=== PATIENT | female | born 1930 | race Caucasian/White ===

== ENCOUNTER 2016-09-02 11:29 | Outpatient (CLI) ==
[2012-12-30 11:12] VITALS: TEMP 98
[2016-03-29 12:40] VITALS: BMI 29.6
[2016-09-02 12:11] LABS: BASOPHILS # (AUTO) 0.1 K/uL (0-0.2); BASOPHILS % (AUTO) 0.6 % (0.0-3.0); EOSINOPHILS # (AUTO) 0.1 K/ul (0.0-0.7); EOSINOPHILS % (AUTO) 0.9 % (0.0-7.0); HEMATOCRIT 31.7 % (37.0-47.0); HEMOGLOBIN 10.2 g/dl (12.0-16.0); IMMATURE GRANULOCYTE % (AUTO) 0.4 % (0.0-5.0); LYMPHOCYTES # (AUTO) 3.9 K/uL (0.60-3.4); LYMPHOCYTES % (AUTO) 37.6 (10.0-50.0); MEAN CORPUSCULAR HEMOGLOBIN 29.2 pg (27.0-31.0); MEAN CORPUSCULAR HGB CONC 32.2 (31.8-35.4); MEAN CORPUSCULAR VOLUME 90.8 fl (81.0-99.0); MONOCYTES # (AUTO) 0.6 K/uL (0.4-2.0); MONOCYTES % (AUTO) 5.5 (0-10); NEUTROPHILS # (AUTO) 5.7 K/ul (2.0-6.9); PLATELET COUNT 220 10^3/uL (140-440); RED BLOOD COUNT 3.49 10^6/ul (4.20-5.40); WHITE BLOOD COUNT 10.25 K/ul (4.6-10.2)
[2016-09-02 12:20] LABS: BILIRUBIN,URINE Negative (NEGATIVE); KETONES,URINE Negative (NEGATIVE); LEUKOCYTE ESTERASE ,URINE Negative (NEGATIVE); NITRITE,URINE Negative (NEGATIVE); PROTEIN,URINE Negative (NEGATIVE); URINE, BLOOD Negative (NEGATIVE)
[2016-09-02 12:23] LABS: ADD URINE MICROSCOPIC NO
[2016-09-02 12:29] LABS: ALBUMIN 3.1 g/dL (3.4-5.0); ALBUMIN/GLOBULIN RATIO 1.15; BILIRUBIN,TOTAL 0.41 mg/dL (0.00-1.20); BUN/CREATININE RATIO 19.78; CALCIUM 9.9 mg/dL (8.2-10.2); CREATININE 2.73 mg/dL (0.60-1.30); TOTAL PROTEIN 5.8 g/dL (5.8-8.1)
--- NOTE | 2016-09-02 13:55 | CT ---
Examination: Noncontrast CT imaging of the head with axial, sagittal, and coronal reformats. Comparison: None available. Reason for study: Fall, hit head, dizziness. FINDINGS: No acute intracranial hemorrhage, mass effect, ventricular dilatation, or territorial inf arction. The quadrigeminal and ambient cisterns are patent. Intracranial structures are midline. The calvarium is intact. The paranasal sinuses and mastoid air cells are unopacified. There may be a component of tonsillar ectopia. Parenchymal changes are noted consistent with chronic small vesse l disease. Impression: 1. No acute intracranial findings. 2. Possible tonsillar ectopia.
--- NOTE | 2016-09-02 13:56 | CT ---
Exam: CT maxillofacial without contrast History: Fall with injury and pain Technique: [address] maxillofacial with multiplanar reformations FINDINGS: Paranasal sinuses are clear. The orbits are intact. Zygoma and nasal bones are intact. The maxilla and mandible are intact. Impression: 1. No facial fracture
--- NOTE | 2016-09-02 13:57 | CT ---
EXAM: CT thoracic spine without contrast. HISTORY: Initial presentation for back injury due to fall. COMPARISON: None available. TECHNIQUE: Multiple axial images of the thoracic spine were obtained without intravenous contrast. Images were reformatted in the sagittal and coronal planes. FINDINGS: The normal curvature and alignment are maintained. Vertebral body and intervertebral dis c heights are normal. No fracture or subluxation is seen. No significant central canal stenosis id entified. Old left posterior tenth rib fracture noted. Adjacent soft tissues are unremarkable. Mild fibrosis in the posterior aspect of both lower lobes. Atherosclerotic calcifications are present. IMPRESSION: No acute abnormality of the thoracic spine.
--- NOTE | 2016-09-02 13:57 | CT ---
EXAM: CT chest without contrast. HISTORY: Initial presentation for chest trauma due to a fall. Chest and back pain. Dizziness. COMPARISON: Radiograph 03/29/2016. TECHNIQUE: Multiple axial images of the chest were obtained without intravenous contrast. Images w ere reformatted in the sagittal and coronal planes. FINDINGS: Evaluation for lymphadenopathy is limited due to lack of intravenous contrast. Left lobe thyroid is absent. Right thyroid lobe is mildly enlarged. There has been previous sternotomy. By pass graft arising off the left axillary artery courses into the abdomen, incompletely imaged. Athe rosclerotic calcifications are present. Heart size is normal. There is no pericardial effusion. There is a right lower lobe scarring noted. There is mild fibrosis in the posterior aspect of both lower lobes. No consolidation, pleural effusion or pneumothorax identified. Old left posterior tenth rib fracture is stable. No acute osseous abnormality detected. IMPRESSION: No acute post-traumatic abnormality of the chest.
== END 2016-09-02 11:30 | disposition home or self-care (01) ==
LOC: RAD 11:29
PROVIDERS: ATTEND Emergency Medicine
DX: R42 Dizziness and giddiness (principal); E11.9 Type 2 diabetes mellitus without complications; I10 Essential (primary) hypertension; S09.90XA Unspecified injury of head, initial encounter; W19.XXXA Unspecified fall, initial encounter
CPT/HCPCS: 36415; 80053; 81001; 85025

== ENCOUNTER 2016-12-03 13:27 | Outpatient (CLI) | payer OTHER ==
[2012-12-30 11:12] VITALS: TEMP 98
[2016-03-29 12:40] VITALS: BMI 29.6
[2016-12-03 14:04] LABS: HEMATOCRIT 35.5 % (37.0-47.0); HEMOGLOBIN 11.7 g/dl (12.0-16.0); MEAN CORPUSCULAR HEMOGLOBIN 29.9 pg (27.0-31.0); MEAN CORPUSCULAR VOLUME 90.8 fl (81.0-99.0); RED BLOOD COUNT 3.91 10^6/ul (4.20-5.40); WHITE BLOOD COUNT 10.72 K/ul (4.6-10.2)
[2016-12-03 14:13] LABS: ALBUMIN 3.4 g/dL (3.4-5.0); ANION GAP 15.2; BUN/CREATININE RATIO 21.73; CALCIUM 9.2 mg/dL (8.2-10.2); CREATININE 1.38 mg/dL (0.60-1.30); PHOSPHORUS 3.4 mg/dL (2.8-4.1); POTASSIUM 4.2 mmol/L (3.5-5.10); URIC ACID 7.5 mg/dL (2.4-6.0)
== END 2016-12-03 13:28 | disposition home or self-care (01) ==
LOC: LAB 13:27
PROVIDERS: ATTEND Specialist
DX: N18.3 Chronic kidney disease, stage 3 (moderate) (principal)
CPT/HCPCS: 36415; 80069; 83970; 84550; 85027

== ENCOUNTER 2017-01-28 14:25 | Outpatient (CLI) ==
[2012-12-30 11:12] VITALS: TEMP 98
[2016-03-29 12:40] VITALS: BMI 29.6
[2017-01-28 15:16] LABS: HEMATOCRIT 37.7 % (37.0-47.0); HEMOGLOBIN 12.4 g/dl (12.0-16.0); MEAN CORPUSCULAR HEMOGLOBIN 30.1 pg (27.0-31.0); MEAN CORPUSCULAR HGB CONC 32.9 (31.8-35.4); MEAN CORPUSCULAR VOLUME 91.5 fl (81.0-99.0); RED BLOOD COUNT 4.12 10^6/ul (4.20-5.40); WHITE BLOOD COUNT 14.27 K/ul (4.6-10.2)
[2017-01-28 16:03] LABS: ALBUMIN 3.8 g/dL (3.4-5.0); ALBUMIN/GLOBULIN RATIO 1.23; ANION GAP 15.7; BILIRUBIN,TOTAL 0.43 mg/dL (0.00-1.20); BUN/CREATININE RATIO 25.92; CALCIUM 10.2 mg/dL (8.2-10.2); CREATININE 1.62 mg/dL (0.60-1.30); POTASSIUM 4.7 mmol/L (3.5-5.10); TOTAL PROTEIN 6.9 g/dL (5.8-8.1)
== END 2017-01-28 14:26 | disposition home or self-care (01) ==
LOC: LAB 14:25
PROVIDERS: ATTEND Internal Medicine Hematology & Oncology
DX: D68.59 Other primary thrombophilia (principal); E03.9 Hypothyroidism, unspecified
CPT/HCPCS: 36415; 80053; 84443; 85027

== ENCOUNTER 2017-02-07 15:25 | Emergency (ER) ==
[2017-02-07 15:32] VITALS: BP 125/47; TEMP 97.9; BMI 31.1
[2017-02-07] MEDS ORDERED: LIDOCAINE 1 % AMP 5 ML (SUTURES) SUBCUT STA (15:39)
--- NOTE | 2017-02-07 15:58 | ED.PDOC ---
General ED Provider: Dr. JOEL SANCHEZ JR Chief Complaint: Hand Laceration Stated Complaint: Pt stated she fell in her kitchen and caughter her left hand on her walker. Pt has a laceration to the outside of the left hand. [ End ] Time Seen by Physician: 15:51 Mode of Arrival: Walk-In Information Source: Patient Exam Limitations: No limitations Primary Care Provider: NADYA GARCIA Nursing and Triage Documentation Reviewed and Agree: No Review of Systems - Review Of Systems Constitutional: Reports: No symptoms Eyes: Reports: No symptoms Ears, Nose, Mouth, Throat: Reports: No symptoms Respiratory: Reports: No symptoms Cardiac: Reports: No symptoms GI: Reports: No symptoms : Reports: No symptoms Musculoskeletal: Reports: Other Skin: Reports: Lesions (left hand 62m lac) Neurological: Reports: No symptoms (full rom) Endocrine: Reports: No symptoms Hematologic/Lymphatic: Reports: No symptoms All Other Systems: Other Past Medical History - Past Medical History Previously Healthy: No Endocrine: Reports: Dyslipidemia Cardiovascular: Reports: Hypertension Respiratory: Reports: None Hematological: Reports: None Gastrointestinal: Reports: None Genitourinary: Reports: None Neuro/Psych: Reports: None Musculoskeletal: Reports: None Cancer: Reports: None Last Menstrual Period: N/A - Surgical History General Surgical History: Reports: None - Family History Family History: Reports: None - Social History Smoking Status: Never smoker Hx Substance Use: No Alcohol Screening: None - Immunizations Tetanus Shot up to Date: Yes Physical Exam - Physical Exam Appearance: Well-appearing, No pain distress, Well-nourished Pain Distress: Mild Neck: Supple Respiratory: Airway patent Musculoskeletal: Normal strength, ROM intact, No edema, No calf tenderness Skin: Warm, Dry, Normal color Neurological: Sensation intact, Motor intact, Reflexes intact, Cranial nerves intact, Alert, Oriented Psychiatric: Affect appropriate Procedures - Laceration/Wound Repair No standard instances Wound Description: Linear, Irregular Wound Explored: Clean Wound Irrigated: Yes Wound Prep: Saline, Hibiclens Anesthesia: Lidocaine Wound Repaired With: Sutures Suture Size and Type: 4-0 NYLON Number of Sutures: 8 Layer Closure?: No Sterile Dressing Applied?: Yes Splint Applied?: No Sling Applied?: No Critical Care Note - Critical Care Note Total Time (mins): 0 Course - Course Orders, Labs, Meds: Orders Category Date Time Status Lidocaine HCl/Pf [Lidocaine 1 % Amp 5 ml (Sutures)] MEDS 02/07/17 15:39 Discontinued 5 ml SUBCUT ONCE STA Medications Discontinued Medications Generic Name Dose Route Start Last Admin Trade Name Jalil PRN Reason Stop Dose Admin Lidocaine HCl 5 ml 02/07/17 15:39 Lidocaine 1 % Amp 5 Ml (Sutures) SUBCUT 02/07/17 15:40 ONCE STA Vital Signs: Temp Pulse Resp BP Pulse Ox 02/07/17 15:25 97.9 F 50 L 20 125/47 L 94 L Departure - Departure Time of Disposition: 16:21 Disposition: HOME SELF-CARE Discharge Problem: Laceration of hand Instructions: Care For Your Stitches (ED), Laceration (ED) Condition: Good Pt referred to PMD for follow-up: Yes Additional Instructions: sutures out in 8-10 days clean and dry for three days then may cleanse with peroxide elevate for 1-2 hours twice a day for three days change bandage daily and if bleeds through recheck if bleeds through three times in one day return if red swollen tender draining Prescriptions: Bacitracin 1 applic TP 2-4XD #1 pkg Allergies/Adverse Reactions: Allergies hydralazine [Hydralazine] Adverse Reaction (Verified 03/29/16 12:40) insulin detemir [From Levemir] Adverse Reaction (Verified 03/29/16 12:40) Penicillins Adverse Reaction (Verified 03/29/16 12:40) Home Medications: Ambulatory Orders Alendronate Sodium [Fosamax] 70 mg PO WEEKLY FOSAMAX 12/25/12 Cilostazol [Pletal] 100 mg PO BID 12/25/12 Hydrocodone/Acetaminophen [Lortab 7.5-500 Tablet] 1 each PO Q12HR PRN 12/25/12 Insulin Glargine,Hum.rec.anlog [Lantus Solostar] 80 unit SQ DAILY 12/25/12 Losartan Potassium [Cozaar] 100 mg PO DAILY 12/25/12 Metoprolol Tartrate [Lopressor] 50 mg PO DAILY 12/25/12 Nitroglycerin [Minitran] 1 each TD DAILY 12/25/12 Nitroglycerin [Nitrostat] 0.4 mg SL PRN PRN 12/25/12 Warfarin Sodium [Jantoven] 3 mg PO DAILY 12/25/12 Atorvastatin Calcium [Lipitor] 20 mg PO BEDTIME 03/29/16 Bumetanide [Bumex] 2 mg PO QDAC 03/29/16 Clonidine HCl [Catapres] 0.1 mg PO BID 03/29/16 Insulin Lispro [Humalog Kwikpen] 50 unit SQ BEDTIME 03/29/16 Alprazolam [Xanax] 0.5 mg PO BEDTIME PRN 02/07/17 Amlodipine Besylate [Norvasc] 5 mg PO DAILY 02/07/17 Bacitracin 1 applic TP 2-4XD #1 pkg 02/07/17
== END 2017-02-07 16:37 | disposition home or self-care (01) ==
LOC: ED 15:25
DX: S61.412A Laceration without foreign body of left hand, initial encounter (principal); W19.XXXA Unspecified fall, initial encounter; Y92.000 Kitchen of unspecified non-institutional (private) residence as the place of occurrence of the external cause
CPT/HCPCS: 96372; 99283

== ENCOUNTER 2017-05-19 09:19 | Inpatient (IN) ==
[2017-05-19] MEDS ORDERED: SODIUM CHLORIDE 1,000 ML IV STA (09:39)
[2017-05-19 10:12] LABS: HEMATOCRIT 41.4 % (37.0-47.0); HEMOGLOBIN 13.4 g/dl (12.0-16.0); MEAN CORPUSCULAR HEMOGLOBIN 29.6 pg (27.0-31.0); MEAN CORPUSCULAR HGB CONC 32.4 (31.8-35.4); MEAN CORPUSCULAR VOLUME 91.4 fl (81.0-99.0); PLATELET COUNT 271 10^3/uL (140-440); RED BLOOD COUNT 4.53 10^6/ul (4.20-5.40); WHITE BLOOD COUNT 28.99 K/ul (4.6-10.2)
[2017-05-19 10:14] LABS: FLU INTERNAL QC INTERNAL QC VALID; RAPID FLU A NEGATIVE (NEGATIVE); RAPID FLU B NEGATIVE (NEGATIVE)
[2017-05-19 10:28] LABS: BILIRUBIN,URINE 2+ (NEGATIVE); KETONES,URINE Negative (NEGATIVE); LEUKOCYTE ESTERASE ,URINE Trace (NEGATIVE); NITRITE,URINE Negative (NEGATIVE); PROTEIN,URINE 3+ (NEGATIVE); URINE, BLOOD 2+ (NEGATIVE)
[2017-05-19 10:29] LABS: ADD URINE MICROSCOPIC YES
[2017-05-19 10:30] LABS: BACTERIA,URINE 2+ (NOT PRESENT)
--- NOTE | 2017-05-19 10:31 | CT ---
EXAM: CT Abdomen without contrast. CT Pelvis without contrast. HISTORY: Abdominal pain, vomiting and diarrhea. COMPARISON: 03/29/2016. TECHNIQUE: Multiple axial images of the abdomen and pelvis were obtained without intravenous contras t. Images were reformatted in the coronal plane. FINDINGS: Please note that evaluation of the abdominal and pelvic structures is limited due to lack of intravenous contrast. Small right pleural effusion noted. There has been previous sternotomy. Bypass graft seen in the hoffman bcutaneous tissues lateral left chest and abdomen, extending to the left and right superficial femora l arteries. Degenerative changes noted in the spine. Gallbladder is absent. The liver, pancreas, spleen, adrenal glands, and kidneys are without acute ab normality. Small hiatal hernia noted. There is no evidence for bowel obstruction or acute inflammation. Coloni c diverticulosis noted. The appendix is not seen. Uterus is absent. Urinary bladder is collapsed. Extensive atherosclerotic calcifications are present. No free fluid or free air identified. IMPRESSION: No acute abnormality within the abdomen or pelvis.
[2017-05-19 10:35] LABS: ANISOCYTOSIS NOT PRESENT (NOT PRESENT)
--- NOTE | 2017-05-19 10:45 | DI ---
EXAM: Single view of the chest. History: Cough. Comparison: Chest radiograph 03/29/2016, chest CT 09/02/2016 Findings: Sternotomy wires. Atherosclerotic vascular calcifications. Heart is mildly enlarged. Va scular stent again seen within the left axillary region. No focal consolidation. No appreciable ple ural fluid and no pneumothorax. No acute osseous abnormalities. Impression: Mild cardiomegaly without acute disease in the chest.
[2017-05-19 10:49] LABS: ALBUMIN 3.7 g/dL (3.4-5.0); ALBUMIN/GLOBULIN RATIO 1.16; ANION GAP 17.5; BILIRUBIN,TOTAL 0.67 mg/dL (0.00-1.20); BUN/CREATININE RATIO 22.04; CALCIUM 10.6 mg/dL (8.2-10.2); CREATININE 1.86 mg/dL (0.60-1.30); POTASSIUM 4.5 mmol/L (3.5-5.10); TOTAL PROTEIN 6.9 g/dL (5.8-8.1)
[2017-05-19 10:53] LABS: TROPONIN I 10.126 ng/ml (0.0000-0.4000)
[2017-05-19 10:54] LABS: CREATINE KINASE MB 16.3 ng/ml (0.0-3.6)
--- NOTE | 2017-05-19 11:36 | ED.PDOC ---
General ED Provider: Dr. ROOPA MERAZ Chief Complaint: Nausea/Vomiting Stated Complaint: diarrhea Time Seen by Physician: 09:30 (seen with abilio at bedside pt has minimal abdominal pain) Mode of Arrival: Walk-In Information Source: Patient Exam Limitations: No limitations Primary Care Provider: NADYA VALENTIN Nursing and Triage Documentation Reviewed and Agree: Yes GI Complaint Exam - Vomiting/Diarrhea Complaint/Exam Onset/Duration: 2 days Symptoms Are: Still present Episodes of Vomiting over last 24 Hours: 0 Episodes of Diarrhea Over Last 24 Hours: 4 Initial Severity: Mild Current Severity: Mild Character of Diarrhea: Reports: Watery Aggravating: Reports: None Alleviating: Reports: None Associated Signs and Symptoms: Reports: Abdominal pain, Cramping Related History: Reports: Similar episode Non-GI Risk Factors: Reports: None Surgical Obstruction Risk Factors: Reports: None Related Surgical History: Reports: None Abdominal Findings: Present: None Kussmaul Respirations Present: No Differential Diagnoses: Bowel Obstruction, Viral Gastroenteritis, Bacterial Gastroenteritis, UTI Review of Systems - Review Of Systems Constitutional: Reports: No symptoms Eyes: Reports: No symptoms Ears, Nose, Mouth, Throat: Reports: No symptoms Respiratory: Reports: No symptoms Cardiac: Reports: No symptoms GI: Reports: Abdominal pain, Diarrhea : Reports: No symptoms Musculoskeletal: Reports: No symptoms Skin: Reports: No symptoms Neurological: Reports: No symptoms Endocrine: Reports: No symptoms Hematologic/Lymphatic: Reports: No symptoms All Other Systems: Reviewed and Negative Past Medical History - Past Medical History Previously Healthy: No Endocrine: Reports: Dyslipidemia Cardiovascular: Reports: Hypertension Respiratory: Reports: None Hematological: Reports: None Gastrointestinal: Reports: None Genitourinary: Reports: None Neuro/Psych: Reports: None Musculoskeletal: Reports: None Cancer: Reports: None Last Menstrual Period: n/a - Surgical History General Surgical History: Reports: None - Family History Family History: Reports: None - Social History Smoking Status: Never smoker Hx Substance Use: No Alcohol Screening: None Physical Exam - Physical Exam Appearance: Well-appearing, No pain distress, Well-nourished Eyes: ROBERT, EOMI, Conjunctiva clear ENT: Ears normal, Nose normal, Oropharynx normal Respiratory: Airway patent, Breath sounds clear, Breath sounds equal, Respirations nonlabored Cardiovascular: RRR, Pulses normal, No rub, No murmur GI/: Soft, Nontender, No masses, Bowel sounds normal, No Organomegaly Musculoskeletal: Normal strength, ROM intact, No edema, No calf tenderness Skin: Warm, Dry, Normal color Neurological: Sensation intact, Motor intact, Reflexes intact, Cranial nerves intact, Alert, Oriented Psychiatric: Affect appropriate, Mood appropriate Interpretation - Radiology Interpretation Radiology Interpretation By: Radiologist Radiology Results: No acute changes Exam Interpreted: CT Scan Physician Notification - Case Discussed Physician Notified: valentin Time of Notification: 11:37 (admitt now) Admit To: Inpatient Critical Care Note - Critical Care Note Total Time (mins): 0 Course - Course Hematology/Chemistry: 05/19/17 09:45 05/19/17 09:45 Orders, Labs, Meds: Lab Review 05/19/17 05/19/17 05/19/17 09:45 09:45 09:45 WBC 28.99 H RBC 4.53 Hgb 13.4 Hct 41.4 MCV 91.4 MCH 29.6 MCHC 32.4 RDW Coeff of Kerrie 14.0 Plt Count 271 Neutrophils % (Manual) 62.0 Band Neutrophils % 1.0 Lymphocytes % (Manual) 27.0 Monocytes % (Manual) 3.0 Metamyelocytes % 1.0 Myelocytes % 1.0 Reactive Lymphocytes 5.0 Anisocytosis Not present Sodium 143 Potassium 4.5 Chloride 110 H Carbon Dioxide 20 L Anion Gap 17.5 BUN 41 H Creatinine 1.86 H Estimated GFR (MDRD) 26.00 BUN/Creatinine Ratio 22.04 Glucose 231 H Calcium 10.6 H Total Bilirubin 0.67 AST 38 H ALT 15 Alkaline Phosphatase 65 Total Creatine Kinase 224 CK-MB (CK-2) 16.3 H* CK-MB (CK-2) % 7.61329 Troponin I 10.1260 H* Total Protein 6.9 Albumin 3.7 Globulin 3.2 Albumin/Globulin Ratio 1.16 Urine Color Urine Clarity Urine pH Ur Specific [place] Urine Protein Urine Glucose (UA) Urine Ketones Urine Blood Urine Nitrite Urine Bilirubin Urine Urobilinogen Ur Leukocyte Esterase Urine Microscopic RBC Urine Microscopic WBC Ur Squamous Epith Cells Amorphous Sediment Urine Bacteria Influenza A (Rapid) Negative Influenza B (Rapid) Negative 05/19/17 10:15 WBC RBC Hgb Hct MCV MCH MCHC RDW Coeff of Kerrie Plt Count Neutrophils % (Manual) Band Neutrophils % Lymphocytes % (Manual) Monocytes % (Manual) Metamyelocytes % Myelocytes % Reactive Lymphocytes Anisocytosis Sodium Potassium Chloride Carbon Dioxide Anion Gap BUN Creatinine Estimated GFR (MDRD) BUN/Creatinine Ratio Glucose Calcium Total Bilirubin AST ALT Alkaline Phosphatase Total Creatine Kinase CK-MB (CK-2) CK-MB (CK-2) % Troponin I Total Protein Albumin Globulin Albumin/Globulin Ratio Urine Color Yellow Urine Clarity Cloudy Urine pH 5.0 Ur Specific [place] >=1.030 Urine Protein 3+ Urine Glucose (UA) Negative Urine Ketones Negative Urine Blood 2+ Urine Nitrite Negative Urine Bilirubin 2+ Urine Urobilinogen 0.2 Ur Leukocyte Esterase Trace Urine Microscopic RBC 5-10 Urine Microscopic WBC 5-10 Ur Squamous Epith Cells 10-20 Amorphous Sediment 3+ Urine Bacteria 2+ Influenza A (Rapid) Influenza B (Rapid) Orders Category Date Time Status EKG-(ED ONLY) Stat CARDIO 05/19/17 09:38 Completed ED IV/MEDIPORT/POWERPORT .ONCE EMERGENCY 05/19/17 09:38 Active BLOOD CULTURE (ED ONLY) Stat LAB 05/19/17 09:53 Received CBC W/ AUTO DIFF Stat LAB 05/19/17 09:45 Completed COMPREHENSIVE METABOLIC PANEL Stat LAB 05/19/17 09:45 Completed CREATINE KINASE Stat LAB 05/19/17 09:45 Completed MANUAL DIFFERENTIAL Stat LAB 05/19/17 09:45 Completed RAPID FLU A/B Stat LAB 05/19/17 09:45 Completed TROPONIN I Stat LAB 05/19/17 09:45 Completed URINALYSIS C & S IF INDICATED Stat LAB 05/19/17 10:15 Completed URINE CULTURE Stat LAB 05/19/17 10:15 Received 0.9 % Sodium Chloride [Saline Flush] MEDS 05/19/17 09:38 Active 1 syr IVF PRN PRN Sodium Chloride 0.9% [Sodium Chloride] 1,000 ml MEDS 05/19/17 09:39 Active IV 125 mls/hr CHEST, 1V AP ONLY Stat RADS 05/19/17 09:[address] ABDOMEN/PELVIS WO CONTRAST Stat RADS 05/19/17 09:38 Completed Medications Generic Name Dose Route Start Last Admin Trade Name Freq PRN Reason Stop Dose Admin Sodium Chloride 1,000 mls @ 125 mls/hr 05/19/17 09:39 05/19/17 10:19 Sodium Chloride IV 05/19/17 17:38 125 mls/hr .Q8H STA Administration Sodium Chloride 1 syr 05/19/17 09:38 05/19/17 10:19 Saline Flush IVF 1 syr PRN PRN Administration To flush IV Vital Signs: Temp Pulse Resp BP Pulse Ox 05/19/17 09:20 99.7 F H 120 H 20 170/95 H 97 Departure - Departure Time of Disposition: 11:37 Disposition: ADMITTED INPATIENT Discharge Problem: Diarrhea Abdominal pain Qualifiers: Abdominal location: generalized Qualified Code(s): R10.84 - Generalized abdominal pain Renal failure Qualifiers: Renal failure chronicity: unspecified chronicity Qualified Code(s): N19 - Unspecified kidney failure Instructions: Dehydration (ED), Acute Diarrhea (ED) Condition: Good Pt referred to PMD for follow-up: Yes Additional Instructions: Please call your Family Physician as soon as possible to schedule a follow-up appointment. Allergies/Adverse Reactions: Allergies hydralazine [Hydralazine] Adverse Reaction (Verified 05/19/17 09:26) insulin detemir [From Levemir] Adverse Reaction (Verified 05/19/17 09:26) Penicillins Adverse Reaction (Verified 05/19/17 09:26) Home Medications: Ambulatory Orders Alendronate Sodium [Fosamax] 70 mg PO WEEKLY FOSAMAX 12/25/12 Cilostazol [Pletal] 50 mg PO BID 12/25/12 Hydrocodone/Acetaminophen [Lortab 7.5-500 Tablet] 1 each PO Q12HR PRN 12/25/12 Insulin Glargine,Hum.rec.anlog [Lantus Solostar] 60 unit SQ DAILY 12/25/12 Losartan Potassium [Cozaar] 100 mg PO DAILY 12/25/12 Metoprolol Tartrate [Lopressor] 25 mg PO DAILY 12/25/12 Nitroglycerin [Minitran] 1 each TD DAILY 12/25/12 Nitroglycerin [Nitrostat] 0.4 mg SL PRN PRN 12/25/12 Warfarin Sodium [Jantoven] 3 mg PO DAILY 12/25/12 Atorvastatin Calcium [Lipitor] 20 mg PO BEDTIME 03/29/16 Bumetanide [Bumex] 1 mg PO QDAC 03/29/16 Clonidine HCl [Catapres] 0.1 mg PO BID 03/29/16 Insulin Lispro [Humalog Kwikpen] See Protocol SQ BID 03/29/16 Alprazolam [Xanax] 0.5 mg PO DAILY 02/07/17 Amlodipine Besylate [Norvasc] 5 mg PO DAILY 02/07/17 Calcitriol 0.25 mcg PO DAILY 05/19/17 Spironolactone [Aldactone] 50 mg PO DAILY 05/19/17
[2017-05-19] MEDS ORDERED: HYDROCODONE PO PRN (11:41)
[2017-05-19] MEDS ORDERED: ACETAMINOPHEN PO PRN (11:41)
[2017-05-19] MEDS ORDERED: NITROSTAT SL PRN (11:41)
[2017-05-19 11:58] LABS: PARTIAL THROMBOPLASTIN TIME 23.2 SEC (23.9-40.0); PROTHROMBIN TIME 15.9 SEC (9.3-11.0)
[2017-05-19] MEDS: FLAGYL 500 MG/100 ML 500 MG in PREMIX 100 ML NS 1 BAG IV SCH ×2 (14:17→21:44)
[2017-05-19 14:26] VITALS: BMI 28.5
[2017-05-19] MEDS: NORCO 7.5-325 PO PRN (14:32)
[2017-05-19] MEDS ORDERED: LOPRESSOR PO STA (15:25)
[2017-05-19] MEDS ORDERED: TORADOL IVP PRN (15:27)
[2017-05-19] MEDS: COUMADIN PO SCH (18:21)
[2017-05-19] MEDS: HUMULIN R SUBCUT PRN ×2 (18:32→21:50)
[2017-05-19] MEDS: SODIUM CHLORIDE 1,000 ML IV SCH (19:30)
[2017-05-19 19:43] LABS: TROPONIN I 9.46 ng/ml (0.0000-0.4000)
[2017-05-19 19:44] LABS: CREATINE KINASE MB 14.6 ng/ml (0.0-3.6)
[2017-05-19] MEDS: PLETAL PO SCH (21:44)
[2017-05-19] MEDS: LIPITOR PO SCH (21:44)
[2017-05-20] MEDS: FLAGYL 500 MG/100 ML 500 MG in PREMIX 100 ML NS 1 BAG IV SCH ×3 (05:26→21:41)
[2017-05-20 05:47] LABS: BASOPHILS # (AUTO) 0.1 K/uL (0-0.2); BASOPHILS % (AUTO) 0.2 % (0.0-3.0); HEMATOCRIT 34.2 % (37.0-47.0); HEMOGLOBIN 11.2 g/dl (12.0-16.0); IMMATURE GRANULOCYTE % (AUTO) 0.6 % (0.0-5.0); LYMPHOCYTES # (AUTO) 8.2 K/uL (0.60-3.4); LYMPHOCYTES % (AUTO) 39.7 (10.0-50.0); MEAN CORPUSCULAR HEMOGLOBIN 30.1 pg (27.0-31.0); MEAN CORPUSCULAR HGB CONC 32.7 (31.8-35.4); MEAN CORPUSCULAR VOLUME 91.9 fl (81.0-99.0); MONOCYTES # (AUTO) 1.2 K/uL (0.4-2.0); MONOCYTES % (AUTO) 5.6 (0-10); NEUTROPHILS # (AUTO) 11.2 K/ul (2.0-6.9); NEUTROPHILS % (AUTO) 53.9; PLATELET COUNT 192 10^3/uL (140-440); RED BLOOD COUNT 3.72 10^6/ul (4.20-5.40); WHITE BLOOD COUNT 20.73 K/ul (4.6-10.2)
[2017-05-20] MEDS: BUMEX PO SCH (05:48)
[2017-05-20] MEDS: HUMULIN R SUBCUT PRN ×2 (05:48→17:55)
[2017-05-20 06:13] LABS: ALBUMIN/GLOBULIN RATIO 0.97; ANION GAP 14.3; BILIRUBIN,TOTAL 0.47 mg/dL (0.00-1.20); BUN/CREATININE RATIO 29.22; CALCIUM 9.1 mg/dL (8.2-10.2); CREATININE 1.54 mg/dL (0.60-1.30); POTASSIUM 4.3 mmol/L (3.5-5.10); TOTAL PROTEIN 6.1 g/dL (5.8-8.1)
[2017-05-20 07:02] LABS: PROTHROMBIN TIME 21.8 SEC (9.3-11.0)
[2017-05-20 07:17] LABS: TROPONIN I 5.587 ng/ml (0.0000-0.4000)
[2017-05-20 07:19] LABS: CREATINE KINASE MB 8.1 ng/ml (0.0-3.6)
[2017-05-20] MEDS ORDERED: NON-FORMULARY MEDICATION (Losartan Potassium 100 MG) PO SCH (09:00)
[2017-05-20] MEDS ORDERED: SPIRONOLACTONE 50 MG PO SCH (09:00)
[2017-05-20] MEDS ORDERED: LOPRESSOR PO SCH ×2 (09:00)
[2017-05-20] MEDS: ALDACTONE PO SCH (09:28)
[2017-05-20] MEDS: COZAAR PO SCH (09:29)
[2017-05-20] MEDS: LOPRESSOR PO SCH (09:30)
[2017-05-20] MEDS: NORVASC PO SCH (09:31)
[2017-05-20] MEDS: NITRO DUR TD SCH (09:31)
[2017-05-20] MEDS: PLETAL PO SCH ×2 (09:32→21:42)
[2017-05-20] MEDS: XANAX PO SCH (09:33)
[2017-05-20] MEDS: NON-FORMULARY MEDICATION (Calcitriol [Calcitriol] 0.25 MCG) PO SCH (09:36)
--- NOTE | 2017-05-20 10:36 | PCM.PROG ---
Attending Provider: ATTENDING PROVIDER: Dr. NADYA GARCIA DATE OF SERVICE: 05/20/17 SUBJECTIVE: This 87 year old WHITE/ F was hospitalized 05/19/17. The patient is admitted with diarrhea. WBC count 30,000. The patient took one dose of Cipro. The patient is suspected to have C. diff and looks like she has respondent to Flagyl. She hasn't been able to give a stool specimen so far. The patient has ischemic damage to myocardium with positive CK and troponin. Troponin was positive, out of proportion due to chronic kidney disease and septicemia. She is feeling a lot better, no abdominal pain. Hydration status has improved. REVIEW OF SYSTEMS: CONSTITUTIONAL: No night sweats. No fatigue, malaise, lethargy. No fever or chills. HEENT: Eyes: No visual changes. No eye pain. No eye discharge. ENT: No runny nose. No epistaxis. No sinus pain. No odynophagia. No congestion. RESPIRATORY: No cough, no congestion. No hemoptysis. No shortness of breath. CARDIOVASCULAR: No angina symptoms. No CHF symptoms. No atypical chest pain for CAD. No palpitations. No orthopnea.. GASTROINTESTINAL: No abdominal pain. No nausea or vomiting. No diarrhea or constipation. No hematemesis. No hematochezia. GENITOURINARY: No urgency. No frequency. No dysuria. No hematuria. No obstructive symptoms. No discharge. No pain. No significant abnormal bleeding. MUSCULOSKELETAL: No musculoskeletal pain; no joint swelling. NEUROLOGICAL: Awake, alert, oriented to time, place and person. No headache. No neck pain. No syncope. No seizures. No dizziness. PSYCHIATRIC: Not anxious. No depression. No suicidal thoughts. No homicidal thoughts. SKIN: No rash. No lesions. No wounds. ENDOCRINE: No unexplained weight loss. No weight gain. HEMATOLOGIC/LYMPHATIC: No anemia. No purpura. No petechiae. No prolonged or excessive bleeding. No palpable lymph nodes. PHYSICAL EXAMINATION: GENERAL: The patient is awake, alert and oriented, lying/sitting in bed in no distress. VITAL SIGNS: Temperature 98.5 F, Pulse 94, Respiratory Rate 24, BP 146/72, Pulse Ox 91% HEENT: Head normocephalic, atraumatic. Eyes: Extraocular muscles are intact. Pupils are equal, round and reactive to light and accommodation. Ears: No lesions. Nose appeared normal. Throat: No exudate or erythema. NECK: Supple. No JVD, no carotid bruit. No lymphadenopathy or thyromegaly. LUNGS: Decreased breath sounds. Clear to auscultation. Percussion note normal. Chest symmetrical. HEART: S1, S2, no S3. No murmurs. No cyanosis or clubbing. No ascites. Pulses: Dorsalis pedis and posterior tibial pulses +1 to +2 both sides. ABDOMEN: Soft. Non-tender. Bowel sounds active. No CVA tenderness. No mass felt. EXTREMITIES: No edema. Full range of motion of all extremities, equal. NEUROLOGIC: No focal deficit. Cranial nerves II through XII are grossly intact. No headache, no double vision or headache. SKIN: Not dry. Intact. Turgor-normal. LYMPHATIC: No palpable lymph nodes/no lymphedema. MUSCULOSKELETAL: Normal joints with no swelling. Muscle tone is normal. LAB REVIEW: 05/20/17 05:25 05/20/17 05:25 05/20/17 05:25: PT 21.8 H D, INR 2.19 05/20/17 05:25: Sodium 144, Potassium 4.3, Chloride 115 H, Carbon Dioxide 19 L, Anion Gap 14.3, BUN 45 H, Creatinine 1.54 H, Estimated GFR (MDRD) 32.00, BUN/ Creatinine Ratio 29.22, Glucose 149 H D, Calcium 9.1, Total Bilirubin 0.47, AST 27, ALT 12, Alkaline Phosphatase 53, Total Protein 6.1, Albumin 3.0 L, Globulin 3.1, Albumin/Globulin Ratio 0.97 05/20/17 05:25: WBC 20.73 H D, RBC 3.72 L, Hgb 11.2 L, Hct 34.2 L D, MCV 91.9, MCH 30.1, MCHC 32.7, RDW Coeff of Kerrie 14.3, Plt Count 192, Immature Gran % (Auto ) 0.6, Neut % (Auto) 53.9, Lymph % (Auto) 39.7, [place] % (Auto) 5.6, Eos % (Auto) 0.0, Baso % (Auto) 0.2, Immature Gran # (Auto) 0.1, Neut # 11.2 H, Lymph # 8.2 H , [place] # 1.2, Eos # 0.0, Baso # 0.1 05/20/17 05:25: Total Creatine Kinase 144, CK-MB (CK-2) 8.1 H*, CK-MB (CK-2) % 5.57456, Troponin I 5.5870 H* 05/19/17 18:44: Total Creatine Kinase 203, CK-MB (CK-2) 14.6 H*, CK-MB (CK-2) % 7.01131, Troponin I 9.4600 H* ASSESSMENT: 1. C. diff under control with Flagyl 2. Renal azotemia seems to be resolving 3. Acute myocardial ischemia seems to be under control, no chest pain now 4. Severe peripheral arterial disease 5. Diabetes mellitus 6. CHF PLAN: 1. Continue Flagyl IV fluids, watch for fluid overload. 2. Daily INR. Plan and coordination of the patient's care discussed in the presence of [employer] and nurse. CONDITION: Improving SCRIBED BY: REA HILL Credit Risk Associate scribed while in presence of service performed by Dr. NADYA GARCIA on 05/20/17 ([id number])
--- NOTE | 2017-05-20 11:43 | HP ---
DATE OF SERVICE: 05/19/17 REASON FOR HOSPITALIZATION/HISTORY OF PRESENT ILLNESS: 87 year old white female who presented to the emergency room complaining of nausea and diarrhea with very mild abdominal pain. She stated that this had been going on for the past two days. Her stools have been very watery and loose and she has had some mild cramping. she was recently started on Cipro 250mg twice a day on 05/16/17 for a UTI from our office. PAST MEDICAL HISTORY: Carotid stenosis, left carotid 70-90% blockage Diabetes Mellitus type 2 Previous A1c 7.5, 01/04 Hypertension Dyslipidemia Dizziness Peripheral artery disease for which she sees Dr. Nowak Status post Fem-Pop Chronic kidney disease stage three Coronary artery disease CABG, 1997 COPD GERD Myelodysplastic syndrome, she sees Dr. Spencer PAST SURGICAL HISTORY: Tonsillectomy Thyroid surgery Appendectomy Cholecystectomy Hysterectomy Orthopedic surgery on the left foot Status post Fem-pop by Dr. Nowak REVIEW OF SYSTEMS: CONSTITUTIONAL: No night sweats. Weakness and fatigue. No fever or chills. HEENT: Eyes: No visual changes. No eye pain. No eye discharge. ENT: No runny nose. No epistaxis. No sinus pain. No sore throat. No odynophagia. No ear pain. No congestion. RESPIRATORY: No cough, no congestion. No hemoptysis. No shortness of breath. CARDIOVASCULAR: No angina symptoms. No CHF symptoms. No atypical chest pain for CAD. No palpitations. No orthopnea. GASTROINTESTINAL: Abdominal cramping. Nausea. No vomiting. Diarrhea. No hematemesis. No hematochezia. GENITOURINARY: No urgency. No frequency. Previously dysuria, resolved. No hematuria. No obstructive symptoms. No discharge. No pain. No significant abnormal bleeding. MUSCULOSKELETAL: No musculoskeletal pain. No joint swelling. No arthritis. Weakness. NEUROLOGICAL: No headache. No neck pain. No syncope. No seizures. No dizziness. PSYCHIATRIC: Not anxious. No depression. No suicidal thoughts. No homicidal thoughts. SKIN: No rash. No lesions. No wounds. ENDOCRINE: No unexplained weight loss. No weight gain. HEMATOLOGIC/LYMPHATIC: No anemia. No purpura. No petechiae. No prolonged or excessive bleeding. No palpable lymph nodes. PERSONAL/FAMILY/SOCIAL HISTORY: The patient lives by herself. She is partially dependant her brother helps her get around. No longer drives. She is a former smoker. She does not exercise. She denies any alcohol or illicit drug use. Family history: Father at age 77 of lung cancer and mother at age 85 had history of coronary artery disease, hypertension and diabetes mellitus type 2. MEDICATIONS: Xanax 0.5mg daily PRN Metoprolol 50mg half a tablet twice a day Losartan 100mg daily Coumadin 3mg daily [place] 7.5 twice a day PRN Humalog sliding scale Fosamax 70mg once a week Lantus 60 units QHS Clonidine 0.1mg twice a day Amlodipine 1 tablet daily 5mg Aldactone 50mg daily Lipitor 20mg daily Bumex 1mg daily ALLERGIES: Hydralazine Levemir Penicillins PHYSICAL EXAMINATION: GENERAL: The patient is in no apparent distress. She is ill appearing. VITAL SIGNS: Temperature 99.7, heart rate 120, respiratory 20, blood pressure 170/95 and pulse ox 97%. HEENT: Head normocephalic, atraumatic. Eyes: Extraocular muscles are intact. Pupils are equal, round and reactive to light and accommodation. Extraocular eye movements are normal. Ears: No lesions. Nose appeared normal. Throat: No exudate or erythema. NECK: Supple. No JVD, no carotid bruit. No lymphadenopathy or thyromegaly. LUNGS: Diminished breath sounds bilaterally equal and clear non labored. Percussion note normal. Chest symmetrical. HEART: S1, S2, no S3. Grade I/ systolic murmur with regular rate and rhythm, no clicks or rubs. No cyanosis or clubbing. No ascites. Pulses: Dorsalis pedis and posterior tibial pulses +1 to +2 both sides. ABDOMEN: Soft. Nontender. Bowel sounds hyperactive. No CVA tenderness. No mass felt. No hepatosplenomegaly. EXTREMITIES: No edema. Full range of motion of all extremities, equal. NEUROLOGIC: No focal deficit. Cranial nerves II through XII are grossly intact. No headache, no double vision or headache. SKIN: Dry. [place] and warm although she is pale. Intact. Turgor - normal. LYMPHATIC: No palpable lymph nodes/no lymphedema. MUSCULOSKELETAL: Normal joints with no swelling. Muscle tone is normal. The patient has full range of motion. No edema. No calf tenderness. LABS; WBC 28.99, hgb 13.4, hct 41.4, plt count 271, sodium 143, potassium 4.5, chloride 110, bicarb 20, BUN 41, creatinine 4.86, glucose 231, calcium 10.6, total bilirubin 0.67, AST 38, ALT 15, Alkaline Phosphatase 65, total CK 224, CK- MB 16.3 at 7.27%, troponin 10.126, total protein 6.9. Influenza A and B negative. Urine is yellow, cloudy, proteins 3+, glucose negative, ketones negative, blood is 2+, nitrate negative, 2+ bilirubin, trace leukocytes, bacteria 2+. BNP 2,966, PT 15.99, INR 1.58, PTT 23.2. Cardiac enzymes are elevated, EKG was reviewed by Dr. Cook revealed sinus tachycardia with maybe mild ischemia but no acute CA. ASSESSMENT: 1. Acute dehydration 2. Acute on chronic renal failure 3. Abdominal pain 4. Diarrhea 5. Cardiac ischemia 6. Urinary tract infection PLAN: 1. Will admit the patient to the floor 2. Status Flagyl 500mg IV Q 8 hours for diarrhea 3. Test stool for C-Diff 4. Urine culture and sensitivity 5. Routine telemetry orders 6. Chest x-ray 7. CBC and CMP daily 8. IV fluids at Normal Saline at 100cc an hour 9. PT/ INR daily TIME SPENT: More than 70 minutes. MTDD
[2017-05-20] MEDS: SODIUM CHLORIDE 1,000 ML IV SCH ×2 (11:59→12:03)
[2017-05-20] MEDS: COUMADIN PO SCH (17:14)
[2017-05-20] MEDS ORDERED: ZOFRAN 4 MG/2 ML IVP PRN (17:31)
[2017-05-20] MEDS: LIPITOR PO SCH (21:41)
[2017-05-21] MEDS: SODIUM CHLORIDE 1,000 ML IV SCH (02:21)
[2017-05-21 04:47] LABS: HEMATOCRIT 31.4 % (37.0-47.0); HEMOGLOBIN 10.1 g/dl (12.0-16.0); MEAN CORPUSCULAR HEMOGLOBIN 29.9 pg (27.0-31.0); MEAN CORPUSCULAR HGB CONC 32.2 (31.8-35.4); MEAN CORPUSCULAR VOLUME 92.9 fl (81.0-99.0); PLATELET COUNT 181 10^3/uL (140-440); RED BLOOD COUNT 3.38 10^6/ul (4.20-5.40); WHITE BLOOD COUNT 18.21 K/ul (4.6-10.2)
[2017-05-21 04:58] LABS: ANISOCYTOSIS NOT PRESENT (NOT PRESENT)
[2017-05-21 05:06] LABS: ALBUMIN 2.7 g/dL (3.4-5.0); ANION GAP 11.9; BILIRUBIN,TOTAL 0.41 mg/dL (0.00-1.20); BUN/CREATININE RATIO 28.8; CALCIUM 8.3 mg/dL (8.2-10.2); CREATININE 1.25 mg/dL (0.60-1.30); POTASSIUM 3.9 mmol/L (3.5-5.10); TOTAL PROTEIN 5.4 g/dL (5.8-8.1)
[2017-05-21] MEDS: FLAGYL 500 MG/100 ML 500 MG in PREMIX 100 ML NS 1 BAG IV SCH ×2 (06:01→13:46)
[2017-05-21] MEDS: BUMEX PO SCH (06:02)
[2017-05-21] MEDS: ALDACTONE PO SCH (10:01)
[2017-05-21] MEDS: PLETAL PO SCH ×2 (10:02→22:10)
[2017-05-21] MEDS: NORVASC PO SCH (10:02)
[2017-05-21] MEDS: COZAAR PO SCH (10:05)
[2017-05-21] MEDS: LOPRESSOR PO SCH (10:05)
[2017-05-21] MEDS: XANAX PO SCH (10:05)
[2017-05-21] MEDS: NITRO DUR TD SCH (10:07)
[2017-05-21] MEDS: NON-FORMULARY MEDICATION (Calcitriol [Calcitriol] 0.25 MCG) PO SCH (10:26)
--- NOTE | 2017-05-21 14:07 | PN ---
DATE OF SERVICE: 05/19/17 SUBJECTIVE: The patient was seen in the emergency room. The patient came into the emergency room with complaint of having severe diarrhea. PHYSICAL EXAMINATION: GENERAL: The patient looks somewhat pale. VITAL SIGNS: HEENT: Head normocephalic, atraumatic. Eyes: Extraocular muscles are intact. Pupils are equal, round and reactive to light and accommodation. Ears: No lesions. Nose appeared normal. Throat: No exudate or erythema. Mucosa membrane dry. NECK: Supple. No JVD, no carotid bruit. No lymphadenopathy or thyromegaly. LUNGS: Decreased breath sounds but clear to auscultation. Percussion note normal. Chest symmetrical. HEART: S1, S2, no S3. No murmurs. No cyanosis or clubbing. No ascites. Pulses: Dorsalis pedis and posterior tibial pulses +1 to +2 both sides. ABDOMEN: Soft. Nontender. Bowel sounds active. No CVA tenderness. No mass felt. EXTREMITIES: No edema. Full range of motion of all extremities, equal. NEUROLOGIC: No focal deficit. Cranial nerves II through XII are grossly intact. No headache, no double vision or headache. SKIN: Not dry. Intact. Turgor - normal. LYMPHATIC: No palpable lymph nodes/no lymphedema. MUSCULOSKELETAL: Normal joints with no swelling. Muscle tone is normal. LABS: WBC 28,000, creatinine and BUN abnormal, troponin almost 10% with positive CK- MB. EKG sinus rhythm with ST-T wave changes in lateral precordial leads indicating ischemia . ASSESSMENT: 1. Likely C-Diff diarrhea with colitis with high WBC count. The patient has been on Cipro started over the weekend 250mg twice a day. The first tablet made her sick 2. Myocardial ischemia. The patient says that she has some chest pain on 2 days prior to the hospitalization. 3. History of severe peripheral arterial disease and several risk factors arthrosclerosis All the diagnosis discussed with the patient. He was also seem and examined with Nurse Practitioner. CONDITION: Stable PLAN: 1. Lopressor 50mg PO QAM 2. IV fluids has been given 3. The patient is already on Flagyl TIME SPENT: More than 30 minutes. Plan and coordination of the patient's care discussed in the presence of nurse. BRIGHT
[2017-05-21] MEDS: COUMADIN PO SCH (17:21)
[2017-05-21] MEDS: HUMULIN R SUBCUT PRN (17:38)
[2017-05-21] MEDS: LANTUS SUBCUT SCH (22:08)
[2017-05-21] MEDS: FLAGYL PO SCH (22:09)
[2017-05-21] MEDS: LIPITOR PO SCH (22:10)
[2017-05-22 04:48] LABS: BASOPHILS # (AUTO) 0.1 K/uL (0-0.2); BASOPHILS % (AUTO) 0.4 % (0.0-3.0); EOSINOPHILS # (AUTO) 0.3 K/ul (0.0-0.7); EOSINOPHILS % (AUTO) 2.2 % (0.0-7.0); HEMATOCRIT 32.3 % (37.0-47.0); HEMOGLOBIN 10.5 g/dl (12.0-16.0); IMMATURE GRANULOCYTE % (AUTO) 0.5 % (0.0-5.0); LYMPHOCYTES # (AUTO) 6.7 K/uL (0.60-3.4); LYMPHOCYTES % (AUTO) 49.2 (10.0-50.0); MEAN CORPUSCULAR HEMOGLOBIN 30.1 pg (27.0-31.0); MEAN CORPUSCULAR HGB CONC 32.5 (31.8-35.4); MEAN CORPUSCULAR VOLUME 92.6 fl (81.0-99.0); MONOCYTES # (AUTO) 0.9 K/uL (0.4-2.0); MONOCYTES % (AUTO) 6.7 (0-10); NEUTROPHILS # (AUTO) 5.6 K/ul (2.0-6.9); PLATELET COUNT 189 10^3/uL (140-440); RED BLOOD COUNT 3.49 10^6/ul (4.20-5.40); WHITE BLOOD COUNT 13.59 K/ul (4.6-10.2)
[2017-05-22 04:58] LABS: PROTHROMBIN TIME 29.1 SEC (9.3-11.0)
[2017-05-22 05:12] LABS: ALBUMIN 2.7 g/dL (3.4-5.0); ALBUMIN/GLOBULIN RATIO 1.04; ANION GAP 10.8; BILIRUBIN,TOTAL 0.27 mg/dL (0.00-1.20); BUN/CREATININE RATIO 24.66; CALCIUM 8.3 mg/dL (8.2-10.2); CREATININE 1.5 mg/dL (0.60-1.30); POTASSIUM 3.8 mmol/L (3.5-5.10); TOTAL PROTEIN 5.3 g/dL (5.8-8.1)
[2017-05-22] MEDS: FLAGYL PO SCH ×3 (05:38→20:59)
[2017-05-22] MEDS: BUMEX PO SCH (05:38)
[2017-05-22] MEDS: COZAAR PO SCH (09:01)
[2017-05-22] MEDS: LOPRESSOR PO SCH (09:01)
[2017-05-22] MEDS: XANAX PO SCH (09:01)
[2017-05-22] MEDS: PLETAL PO SCH ×2 (09:01→20:59)
[2017-05-22] MEDS: NON-FORMULARY MEDICATION (Calcitriol [Calcitriol] 0.25 MCG) PO SCH (09:02)
[2017-05-22] MEDS: NITRO DUR TD SCH (09:02)
[2017-05-22] MEDS: ALDACTONE PO SCH (09:02)
[2017-05-22] MEDS: NORVASC PO SCH (09:02)
[2017-05-22] MEDS: COUMADIN PO SCH (17:00)
[2017-05-22] MEDS: LIPITOR PO SCH (20:59)
[2017-05-22] MEDS: LANTUS SUBCUT SCH (21:00)
[2017-05-22] MEDS: NORCO 7.5-325 PO PRN (23:16)
[2017-05-23 04:46] LABS: BASOPHILS # (AUTO) 0.1 K/uL (0-0.2); BASOPHILS % (AUTO) 0.4 % (0.0-3.0); EOSINOPHILS # (AUTO) 0.3 K/ul (0.0-0.7); EOSINOPHILS % (AUTO) 2.1 % (0.0-7.0); HEMATOCRIT 30.9 % (37.0-47.0); HEMOGLOBIN 10.1 g/dl (12.0-16.0); IMMATURE GRANULOCYTE % (AUTO) 0.5 % (0.0-5.0); LYMPHOCYTES # (AUTO) 7.1 K/uL (0.60-3.4); LYMPHOCYTES % (AUTO) 50.8 (10.0-50.0); MEAN CORPUSCULAR HEMOGLOBIN 30.1 pg (27.0-31.0); MEAN CORPUSCULAR HGB CONC 32.7 (31.8-35.4); MONOCYTES % (AUTO) 7.2 (0-10); NEUTROPHILS # (AUTO) 5.4 K/ul (2.0-6.9); PLATELET COUNT 196 10^3/uL (140-440); RED BLOOD COUNT 3.36 10^6/ul (4.20-5.40); WHITE BLOOD COUNT 13.94 K/ul (4.6-10.2)
[2017-05-23 04:55] LABS: PROTHROMBIN TIME 28.1 SEC (9.3-11.0)
[2017-05-23 05:13] LABS: ALBUMIN 2.6 g/dL (3.4-5.0); ALBUMIN/GLOBULIN RATIO 1.04; ANION GAP 9.8; BILIRUBIN,TOTAL 0.26 mg/dL (0.00-1.20); CALCIUM 8.5 mg/dL (8.2-10.2); CREATININE 1.37 mg/dL (0.60-1.30); POTASSIUM 3.8 mmol/L (3.5-5.10); TOTAL PROTEIN 5.1 g/dL (5.8-8.1)
[2017-05-23] MEDS: FLAGYL PO SCH ×2 (05:38→12:16)
[2017-05-23] MEDS: BUMEX PO SCH (05:38)
[2017-05-23] MEDS ORDERED: DECADRON 4 MG/ML SDV IM STA (08:39)
[2017-05-23] MEDS: ALDACTONE PO SCH (09:09)
[2017-05-23] MEDS: COZAAR PO SCH (09:10)
[2017-05-23] MEDS: NON-FORMULARY MEDICATION (Calcitriol [Calcitriol] 0.25 MCG) PO SCH (09:10)
[2017-05-23] MEDS: PLETAL PO SCH (09:12)
[2017-05-23] MEDS: NORVASC PO SCH (09:12)
[2017-05-23] MEDS: LOPRESSOR PO SCH (09:12)
[2017-05-23] MEDS: NITRO DUR TD SCH (09:12)
[2017-05-23] MEDS: XANAX PO SCH (09:13)
--- NOTE | 2017-05-23 09:24 | PCM.PROG ---
Attending Provider: ATTENDING PROVIDER: Dr. NADYA GARCIA This patient is seen with Zahra Mo, Nurse Practitioner. DATE OF SERVICE: 05/23/17 SUBJECTIVE: This 87 year old WHITE/ F was hospitalized 05/19/17. The patient is sitting in chair. She has been up and about and is eating well. REVIEW OF SYSTEMS: CONSTITUTIONAL: Weakness. No night sweats. No fever or chills. HEENT: Eyes: No visual changes. No eye pain. No eye discharge. ENT: No runny nose. No epistaxis. No sinus pain. No odynophagia. No congestion. RESPIRATORY: Cough and congestion. No hemoptysis. No shortness of breath. CARDIOVASCULAR: No angina symptoms. No CHF symptoms. No atypical chest pain for CAD. No palpitations. No orthopnea.. GASTROINTESTINAL: No abdominal pain. No nausea or vomiting. No diarrhea or constipation. No hematemesis. No hematochezia. GENITOURINARY: No urgency. No frequency. No dysuria. No hematuria. No obstructive symptoms. No discharge. No pain. No significant abnormal bleeding. MUSCULOSKELETAL: No musculoskeletal pain; no joint swelling. NEUROLOGICAL: Awake, alert, oriented to time, place and person. No headache. No neck pain. No syncope. No seizures. No dizziness. PSYCHIATRIC: Not anxious. No depression. No suicidal thoughts. No homicidal thoughts. SKIN: No rash. No lesions. No wounds. ENDOCRINE: No unexplained weight loss. No weight gain. HEMATOLOGIC/LYMPHATIC: No anemia. No purpura. No petechiae. No prolonged or excessive bleeding. No palpable lymph nodes. PHYSICAL EXAMINATION: GENERAL: The patient is awake, alert and oriented, sitting in chair in no distress. VITAL SIGNS: Temperature 98.4 F, Pulse 72, Respiratory Rate 16, BP 122/53, Pulse Ox 98% HEENT: Head normocephalic, atraumatic. Eyes: Extraocular muscles are intact. Pupils are equal, round and reactive to light and accommodation. Ears: No lesions. Nose appeared normal. Throat: No exudate or erythema. NECK: Supple. No JVD, no carotid bruit. No lymphadenopathy or thyromegaly. LUNGS: Diminished breath sounds bilaterally. Mild expiratory wheeze on left. Clear to auscultation. Percussion note normal. Chest symmetrical. HEART: S1, S2, no S3. No murmurs. No cyanosis or clubbing. No ascites. Pulses: Dorsalis pedis and posterior tibial pulses +1 to +2 both sides. ABDOMEN: Soft. Non-tender. Bowel sounds active. No CVA tenderness. No mass felt. EXTREMITIES: Trace left lower extremity edema. Full range of motion of all extremities, equal. NEUROLOGIC: No focal deficit. Cranial nerves II through XII are grossly intact. No headache, no double vision or headache. SKIN: Not dry. Intact. Turgor-normal. LYMPHATIC: No palpable lymph nodes/no lymphedema. MUSCULOSKELETAL: Normal joints with no swelling. Muscle tone is normal. LAB REVIEW: 05/23/17 04:30 05/23/17 04:30 05/23/17 04:30: B-Natriuretic Peptide 1395 H 05/23/17 04:30: PT 28.1 H, INR 2.83 05/23/17 04:30: Sodium 141, Potassium 3.8, Chloride 112 H, Carbon Dioxide 23, Anion Gap 9.8, BUN 37 H, Creatinine 1.37 H, Estimated GFR (MDRD) 36.00, BUN/ Creatinine Ratio 27.00, Glucose 72 L, Calcium 8.5, Total Bilirubin 0.26, AST 14 L, ALT 10 L, Alkaline Phosphatase 39 L, Total Protein 5.1 L, Albumin 2.6 L, Globulin 2.5, Albumin/Globulin Ratio 1.04 05/23/17 04:30: WBC 13.94 H, RBC 3.36 L, Hgb 10.1 L, Hct 30.9 L, MCV 92.0, MCH 30.1, MCHC 32.7, RDW Coeff of Kerrie 14.2, Plt Count 196, Immature Gran % (Auto) 0.5, Neut % (Auto) 39.0, Lymph % (Auto) 50.8 H, [place] % (Auto) 7.2, Eos % (Auto) 2.1, Baso % (Auto) 0.4, Immature Gran # (Auto) 0.1, Neut # 5.4, Lymph # 7.1 H, [place] # 1.0, Eos # 0.3, Baso # 0.1 ASSESSMENT: 1. COPD 2. Renal azotemia seems to be resolving 3. Acute myocardial ischemia seems to be under control, no chest pain now 4. Severe peripheral arterial disease 5. Diabetes mellitus 6. CHF PLAN: 1. 1 cc Decadron 2. Hold Coumadin tonight 3. D/C home today Plan and coordination of the patient's care discussed in the presence of Needleworker and nurse. CONDITION: Stable SCRIBED BY: REA HILL Lap Cutter scribed while in presence of service performed by Dr. Garcia/Zahra Mo APRN on 05/23/17 ([id number])
[2017-05-23 10:03] VITALS: BP 132/56; TEMP 98
--- NOTE | 2017-05-23 12:12 | CM.DICTOOL ---
ADMISSION: 05/19/17 12:03 DISCHARGE: May 23, 2017 DATE OF SERVICE: 05/23/17 FINAL DIAGNOSIS Acute Myocardial Ischemia Dehydration Abdominal Pain Diarrhea Acute on Chronic Renal Failure UTI COPD Hypertension PAD Carotid Stenosis, Left 70-90% Blockage Diabetes Mellitus, Type 2 Myelodysplastic Syndrome/Leukemia GERD CABG Cholecystectomy Hysterectomy Status Post Fem-Pop Orthopedic Surgery LAST VITALS Temp Pulse Resp BP Pulse Ox 98 F 74 20 132/56 L 96 05/23/17 10:00 05/23/17 10:00 05/23/17 10:00 05/23/17 10:00 05/23/17 10:00 ACTIVE HOME MEDICATIONS Acetaminophen/Hydrocodone Bitart ([place] 7.5-325) 1 tab PO Q12H PRN PRN Reason: ANALGESIA Last Admin: 05/22/17 23:16 Dose: 1 tab Alprazolam (Xanax) 0.5 mg PO DAILY [facility] Last Admin: 05/23/17 09:13 Dose: 0.5 mg Amlodipine Besylate (Norvasc) 5 mg PO DAILY [facility] Last Admin: 05/23/17 09:12 Dose: 5 mg Atorvastatin Calcium (Lipitor) 20 mg PO BEDTIME [facility] Last Admin: 05/22/17 20:59 Dose: 20 mg Bumetanide (Bumex) 1 mg PO QDAC [facility] Last Admin: 05/23/17 05:38 Dose: 1 mg Cilostazol (Pletal) 50 mg PO BID [facility] Last Admin: 05/23/17 09:12 Dose: 50 mg Insulin Glargine (Lantus) 60 unit SUBCUT BEDTIME [facility] Last Admin: 05/22/17 21:00 Dose: 60 unit Losartan Potassium (Cozaar) 100 mg PO DAILY [facility] Last Admin: 05/23/17 09:10 Dose: 100 mg Metoprolol Tartrate (Lopressor) 50 mg PO DAILY [facility] (dose change) Last Admin: 05/23/17 09:12 Dose: 50 mg Nitroglycerin (Minitran) 1 patch TD DAILY [facility] Last Admin: 05/23/17 09:12 Dose: 1 patch Nitroglycerin (Nitrostat) 0.4 mg SL Q5MIN X 3 DOSES PRN PRN Reason: Angina Non-Formulary Medication (Calcitriol [Calcitriol]) 0.25 mcg PO DAILY [facility] Last Admin: 05/23/17 09:10 Dose: Not Given Spironolactone (Aldactone) 50 mg PO DAILY [facility] Last Admin: 05/23/17 09:09 Dose: 50 mg Warfarin Sodium (Coumadin) 3 mg PO QPM [facility] Last Admin: 05/22/17 17:00 Dose: Not Given (HOLD 05/23) Insulin Lispro(Humalog Kwikpen SQ BID per protocol Last Admin: ALLERGIES hydralazine [Hydralazine] Adverse Reaction (Verified 05/19/17 09:26) insulin detemir [From Levemir] Adverse Reaction (Verified 05/19/17 09:26) Penicillins Adverse Reaction (Verified 05/19/17 09:26) NEW PRESCRIPTIONS: No Prescriptions SMOKING: Not Applicable DISEASE SPECIFIC EDUCATION: Dehydration Medication Change Appointment Activity LAB REVIEW: 05/23/17 04:30 05/23/17 04:30 05/23/17 04:30: B-Natriuretic Peptide 1395 H 05/23/17 04:30: PT 28.1 H, INR 2.83 05/23/17 04:30: Sodium 141, Potassium 3.8, Chloride 112 H, Carbon Dioxide 23, Anion Gap 9.8, BUN 37 H, Creatinine 1.37 H, Estimated GFR (MDRD) 36.00, BUN/ Creatinine Ratio 27.00, Glucose 72 L, Calcium 8.5, Total Bilirubin 0.26, AST 14 L, ALT 10 L, Alkaline Phosphatase 39 L, Total Protein 5.1 L, Albumin 2.6 L, Globulin 2.5, Albumin/Globulin Ratio 1.04 05/23/17 04:30: WBC 13.94 H, RBC 3.36 L, Hgb 10.1 L, Hct 30.9 L, MCV 92.0, MCH 30.1, MCHC 32.7, RDW Coeff of Kerrie 14.2, Plt Count 196, Immature Gran % (Auto) 0.5, Neut % (Auto) 39.0, Lymph % (Auto) 50.8 H, [place] % (Auto) 7.2, Eos % (Auto) 2.1, Baso % (Auto) 0.4, Immature Gran # (Auto) 0.1, Neut # 5.4, Lymph # 7.1 H, [place] # 1.0, Eos # 0.3, Baso # 0.1 PLAN: Discharge home Diet: Consistent Carbohydrate with bedtime snack Activity: Gradually resume as tolerated. Use walker or cane as needed Medication Change: Increase Lopressor to 50 mg daily Stop Clonidine Hold Coumadin (Jultoven) today Resume Coumadin (Jantoven) on Friday Continue to check blood sugars at least 2-3 times daily An appointment is scheduled with Dr. Cook on May 28, 2017 at 11:45 am Ms. Lee is alert and oriented x 3. She is ambulatory without use of an assistive device in the room and to the bathroom. She is independent with activities of daily living. She transfers from bed to chair and chair to bed without assistance. She is voiding without difficulty. She denies nausea or diarrhea. Meal intakes have improved since her admission. She is currently eating 75-100% of her meals. Her skin is intact and free of decubitus ulcers, rashes or other irritations. John Cook MD Zahra Mo APRN
--- NOTE | 2017-05-26 09:44 | ECHO2D ---
Date of Exam: 05/22/17 Ordering Physician: NADYA GARCIA Room #: 109 Reason for Echo: MYOCARDIAL ISCHEMIA, CABG M-Mode Normal Adult Results LV Dimensions Normal Adult Results AoV Opening excursions >1.6 >1.6 LVEDD-base- 3.5-5.8 5.4 Ao root dimensions 2.0-3.7 3.0 LVESD-base- 3.1-4.6 L. Atrium dimensions 1.9-3.8 4.0 Post. Wall thickness 0.8-1.1 1.1 IV septum (thickness) 0.7-1.2 1.2 Post. Wall excursion 0.72-1.3 0.5 Septal motion 0.4 Systolic motion R. Ventricular cavity 1.5-2.0 NORMAL LVEF 60% 29% Paradoxical septal wall motion NORMAL 2-D : HYPOKINETIC LEFT VENTRICLE, CALCIFIC MITRAL VALVE ANNULUS, NO EFFUSION, NO THROMBUS, NORMAL LEFT VENTRICLE SIZE COLOR FLOW: MILD MITRAL REGURGITATION, SEVERE TRICUSPID REGURGITATION M-MODE: MV: CALCIFIC MITRAL VALVE ANNULUS AV: NORMAL TV: NORMAL PV: CHAMBER SIZE: BORDERLINE LEFT ATRIAL CAVITY WALL MOTION: HYPOKINETIC LEFT VENTRICLE PERICARDIUM: NORMAL INTERPRETATION: 1. LEFT VENTRICULAR HYPERTROPHY WITH BORDERLINE LEFT ATRIAL CAVITY 2. HYPOKINETIC LEFT VENTRICLE WITH EJECTION FRACTION 29% 3. NORMAL LEFT VENTRICLE CAVITY SIZE 4. CALCIFIC MITRAL VALVE ANNULUS 5. MILD MITRAL REGURGITATION AND SEVERE TRICUSPID REGURGITATION MTDD
--- NOTE | 2017-05-26 15:05 | PN ---
DATE OF SERVICE: 05/23/17 SUBJECTIVE: 87 year old white female seen today was admitted with diarrhea and possibility of colitis. On further testing the patient has acute marker ischemia. On admission she complained of chest pain the day prior to hospitalization. She has history of coronary bypass surgery. Clostridium Difficile colitis was ruled out, the test was negative. The patient's WBC count on day of discharge with 13, 000. Flagyl seems to have helped. It is still possible that she had colitis from Clostridium difficile. Her cardiovascular status was stable. PHYSICAL EXAMINATION: HEENT: Head normocephalic, atraumatic. Eyes: Extraocular muscles are intact. Pupils are equal, round and reactive to light and accommodation. Ears: No lesions. Nose appeared normal. Throat: No exudate or erythema. NECK: Supple. No JVD, no carotid bruit. No lymphadenopathy or thyromegaly. LUNGS: Clear to auscultation. Percussion note normal. Chest symmetrical. HEART: S1, S2, no S3. No murmurs. No cyanosis or clubbing. No ascites. Pulses: Dorsalis pedis and posterior tibial pulses +1 to +2 both sides. ABDOMEN: Soft. Nontender. Bowel sounds active. No CVA tenderness. No mass felt. EXTREMITIES: No edema. Full range of motion of all extremities, equal. NEUROLOGIC: No focal deficit. Cranial nerves II through XII are grossly intact. No headache, no double vision or headache. SKIN: Not dry. Intact. Turgor - normal. LYMPHATIC: No palpable lymph nodes/no lymphedema. MUSCULOSKELETAL: Normal joints with no swelling. Muscle tone is normal. 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 The patient was explained about this finding. PLAN: 1. Her kidney function improved to 1.3 with BUN 37 CONDITION: Stable The patient was seen and examined with Nurse Practitioner. TIME SPENT: More than 30 minutes. Plan and coordination of the patient's care discussed in the presence of nurse. BRIGHT
--- NOTE | 2017-05-26 15:07 | PN ---
05/19/17: Level 5 05/20/17: Intermediate 05/21/17: Intermediate 05/22/17: Intermediate 05/23/17: D as in discharge MTDD
--- NOTE | 2017-05-30 10:37 | PN ---
DATE OF SERVICE: 05/21/17 SUBJECTIVE: 87-year-old white female hospitalized with diarrhea colitis. The patient's WBC count was 30,000, typical symptoms of C. diff, the results still pending. The patient's WBC count is 18,000. She is feeling a lot better. No diarrhea now. The patient's other problem was acute myocardial ischemia, positive troponin then CK-MB. The patient had complained of chest tightness, the day prior to hospitalization. Now, the patient does not have any symptoms of coronary insufficiency. She has been started on Metoprolol 50 mg p.o. daily. The patient 's kidney tests were abnormal with renal azotemia. She is being given IV fluids and being monitored for fluid overload. The patient's creatinine and BUN have improved. Now it is 1.2 and 36, REVIEW OF SYSTEMS: CONSTITUTIONAL: She is feeling better. No night sweats. No fatigue, malaise, lethargy. No fever or chills. HEENT: Eyes: No visual changes. No eye pain. No eye discharge. ENT: No runny nose. No epistaxis. No sinus pain. No sore throat. No odynophagia. No congestion. RESPIRATORY: No cough, no congestion. No hemoptysis. No shortness of breath. No PND. CARDIOVASCULAR: No angina symptoms. No CHF symptoms. No atypical chest pain for CAD. No palpitations. No orthopnea. GASTROINTESTINAL: Appetite is improving. No abdominal pain. No nausea or vomiting. No diarrhea or constipation. No hematemesis. No hematochezia. GENITOURINARY: No urgency. No frequency. No dysuria. No hematuria. No obstructive symptoms. No discharge. No pain. No significant abnormal bleeding. MUSCULOSKELETAL: No musculoskeletal pain; no joint swelling. NEUROLOGICAL: No headache. No neck pain. No syncope. No seizures. No dizziness. PSYCHIATRIC: Not anxious. No depression. No suicidal thoughts. No homicidal thoughts. SKIN: No rash. No lesions. No wounds. ENDOCRINE: No unexplained weight loss. No weight gain. HEMATOLOGIC/LYMPHATIC: No anemia. No purpura. No petechiae. No prolonged or excessive bleeding. No palpable lymph nodes. PHYSICAL EXAMINATION: GENERAL: The patient is oriented to time, place and person. VITAL SIGNS: Temperature 98.5, pulse 90, respiratory rate 20, BP 135/66, pulse ox 90%. HEENT: Head normocephalic, atraumatic. Eyes: Extraocular muscles are intact. Pupils are equal, round and reactive to light and accommodation. Ears: No lesions. Nose appeared normal. Throat: No exudate or erythema. NECK: Supple. No JVD, no carotid bruit. No lymphadenopathy or thyromegaly. LUNGS: Decreased breath sounds but clear to auscultation. Percussion note normal. Chest symmetrical. HEART: S1, S2, no S3. No murmurs. No cyanosis or clubbing. No ascites. Pulses: Dorsalis pedis and posterior tibial pulses +1 to +2 both sides. ABDOMEN: Soft. Nontender. Bowel sounds active. No CVA tenderness. No mass felt. EXTREMITIES: No edema. Full range of motion of all extremities, equal. NEUROLOGIC: No focal deficit. Cranial nerves II through XII are grossly intact. No headache, no double vision or headache. SKIN: Not dry. Intact. Turgor - normal. LYMPHATIC: No palpable lymph nodes/no lymphedema. MUSCULOSKELETAL: Normal joints with no swelling. Muscle tone is normal. LABS: Hemoglobin 10, hematocrit 31, WBC 18,000, normal differential. Creatinine 1.2, BUN 36, potassium 3.9. BNP 2,966. ASSESSMENT: 1. C. DIFF TYPE OF COLITIS, SEEMS TO BE IMPROVING WITH FLAGYL, REPORT FOR THE TEST PENDING. 2. ACUTE MYOCARDIAL ISCHEMIA WITH POSITIVE ENZYMES SEEMS TO BE STABLE WITH NO SYMPTOMS. 3. ANEMIA, CHRONIC. 4. RENAL AZOTEMIA SEEMS TO BE RESOLVING. 5. SEVERE PERIPHERAL ARTERIAL DISEASE STATUS POST SURGERY ON LOWER ARTERIAL TREE INVOLVING BOTH LOWER EXTREMITIES. PLAN: 1. Continue IV Flagyl. 2. Continue IV fluids slowly. 3. Continue to monitor CBC, CMP. 4. Will do echocardiogram to evaluate LV function. CONDITION: Stable. TIME SPENT: More than 30 minutes. Plan and coordination of the patient's care discussed in the presence of nurse. BRIGHT
--- NOTE | 2017-05-30 11:28 | PN ---
DATE OF SERVICE: 05/22/17 SUBJECTIVE: 87-year-old white female hospitalized with diarrhea and leukocytosis. The patient was treated for urinary tract infection with Cipro which made her have diarrhea and C.diff has been negative. Eduarda seems to have worked. Her WBC count is 13,000. She doesn't have any symptoms of UTI. The next problem that was noted was myocardial ischemia which was noted with troponin and CK-MB being positive and ST-T wave changes in her EKG indicating inferolateral wall ischemia. The patient has history of coronary artery disease with bypass surgery 13 years ago in [place]. The patient had some chest tightness the day prior to hospitalization. PHYSICAL EXAMINATION: GENERAL: The patient is oriented to time, place and person. V/S: Temperature 97.7, pulse 96, respiratory rate 16, BP 154/67, pulse ox 95%. HEENT: Head normocephalic, atraumatic. Eyes: Extraocular muscles are intact. Pupils are equal, round and reactive to light and accommodation. Ears: No lesions. Nose appeared normal. Throat: No exudate or erythema. NECK: Supple. No JVD, no carotid bruit. No lymphadenopathy or thyromegaly. LUNGS: Decreased breath sounds but clear to auscultation. Percussion note normal. Chest symmetrical. HEART: S1, S2, no S3. No murmurs. No cyanosis or clubbing. No ascites. Pulses: Dorsalis pedis and posterior tibial pulses +1 to +2 both sides. ABDOMEN: Soft. Nontender. Bowel sounds active. No CVA tenderness. No mass felt. EXTREMITIES: No edema. Full range of motion of all extremities, equal. NEUROLOGIC: No focal deficit. Cranial nerves II through XII are grossly intact. No headache, no double vision or headache. SKIN: Not dry. Intact. Turgor - normal. LYMPHATIC: No palpable lymph nodes/no lymphedema. MUSCULOSKELETAL: Normal joints with no swelling. Muscle tone is normal. LABS: Hemoglobin 10.5, hematocrit 32, WBC 13,000, normal differential. Creatinine 1.5 , BUN 37. ASSESSMENT: 1. Acute colitis resolved. 2. Dehydration with renal azotemia resolving. 3. Myocardial ischemia. 4. Coronary artery bypass surgery. PLAN: 1. Echocardiogram was done today, 2D 'M' Mode showed LV ejection fraction 30%. LA cavity is normal size. LVH noted. Enlarged LA cavity noted. Valves are normal. The patient had moderate to severe tricuspid regurg. 2. Continue the antibiotics. 3. Continue to monitor the patient. 4. The patient is on 50 mg Lopressor instead of 25. CONDITION: Stable. The patient was explained about all the findings. TIME SPENT: More than 30 minutes. Plan and coordination of the patient's care discussed in the presence of nurse. BRIGHT
--- NOTE | 2017-06-06 15:16 | DS ---
DATE OF SERVICE: 05/23/17 FINAL DIAGNOSIS: 1. ACUTE MYOCARDIAL ISCHEMIA 2. DEHYDRATION 3. ABDOMINAL PAIN 4. DIARRHEA 5. ACUTE ON CHRONIC RENAL FAILURE 6. UTI 7. COPD 8. HYPERTENSION 9. PAD 10. CAROTID STENOSIS, LEFT 70-90% BLOCKAGE 11. 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 GERD 14. CABG 15. CHOLECYSTECTOMY 16. HYSTERECTOMY 17. STATUS POST FEM-POP 18. ORTHOPEDIC SURGERY DISCHARGE INSTRUCTIONS: Followup appointment: Dr. Cook on May 28, 2017 at 11:45 a.m. Continue to check blood sugars at least 2 to 3 times daily. MEDICATIONS AT DISCHARGE: [place] 7.5-325 one tab p.o. q.12h p.r.n. Xanax 0.5 mg p.o. daily GLENNA Norvasc 5 mg p.o. daily GLENNA Lipitor 20 mg p.o. bedtime GLENAN Bumex 1 mg p.o. q.d a.c. GLENNA Cilostazol 50 mg p.o. b.i.d. GLENNA Lantus insulin 60 unit Subcut bedtime GLENNA Cozaar 100 mg p.o. daily GLENNA Lopressor 50 mg p.o. daily GLENNA (dose change) Minitran one patch TD daily GLENNA Nitrostat 0.4 mg SL q.5 min times three doses p.r.n. Calcitrol 0.25 mcg p.o. daily GLENNA Aldactone 50 mg p.o. daily GLENNA Coumadin 3 mg p.o. q.p.m. GLENNA Insulin Lispro (Humalog) Kwikpen SQ b.i.d. per protocol MEDICATION CHANGE: Increase Lopressor to 50 mg daily Stop Clonidine Hold Coumadin (Jantoven) today Resume Coumadin (Jantoven) on Friday NEW PRESCRIPTIONS: None DIET INSTRUCTIONS: Consistent carbohydrate with bedtime snack ACTIVITY: Gradually resume as tolerated. Use walker or cane as needed. SMOKING: N/A DISEASE SPECIFIC EDUCATION: Dehydration Medication change Appointment Activity HOSPITAL COURSE: This is an 87-year-old white female who is brought to the emergency room after experiencing diarrhea 8 to 10 times over the past two days. She had a low grade fever and it was found her white count was 24,000. She had recently two days before started on Cipro 250 mg for what was thought a UTI. She had brought a urine specimen into our office and did show some leukocytes and was nitrite positive. She was found to be slightly dehydrated. Her kidney function was elevated. Blood pressure low. She also had some ST-T wave changes on her EKG so she had acute myocardial ischemia with an elevated troponin and CK level. She was admitted, started on Flagyl IV as it was thought that her elevated white count and diarrhea was due to C. diff as a result of recent antibiotics; however , after admission she only had one stool which ended up testing negative for C. diff and her diarrhea quickly resolved. Her kidney function slowly improved after slow IV hydration. Today, on day of discharge, BUN 37 and creatinine 1.37 which is normal for her. She does see a kidney specialist. The patient's white count is significantly improved at 13.9. She does have a history of myelodysplastic syndrome and leukemia for which she sees Dr. Spencer. Clinically, she is improved. She has not experienced any chest pain while she was here. Due to low blood pressure we held her Clonidine during her stay. Today on day of discharge, blood pressure is 130/56. We will continue to hold Clonidine. Repeat BNP was done today is 1395 and down from admission. INR was elevated yesterday at 2.9. Coumadin was held yesterday, today is 2.83. We will hold her Coumadin for one more day. She is on Coumadin due to CABG status post FEM/POP, coronary artery disease, carotid stenosis. The patient has remained on telemetry during her stay. Today she has remained in sinus rhythm. Her vital signs have been stable. Today, on day of discharge, temperature 98, heart rate 74, respirations 20, BP 132/56, pulse ox 96%. Her urine came back normal, showed no UTI. Her stool was normal, was not positive, it was negative for C. Diff as well as Shigella Camphylobacter. Stool culture was negative. She has been eating 75 to 100% of her meals for the past 2 to 3 days. She seems to be feeling well. She states she would like to go home as she has an upcoming trip in the next two weeks. The patient will be discharged home in stable condition and we will see her early next week on Friday or Friday. TIME SPENT: More than 60 minutes. BRIGHT
== END 2017-05-23 14:03 | disposition home or self-care (01) | DRG 311 ==
LOC: ED 09:19 → MEDSURG A 12:03
PROVIDERS: ADMIT Internal Medicine; ATTEND Internal Medicine
DX: I24.9 Acute ischemic heart disease, unspecified (principal); N17.9 Acute kidney failure, unspecified; N39.0 Urinary tract infection, site not specified; R10.84 Generalized abdominal pain; I50.9 Heart failure, unspecified; R79.89 Other specified abnormal findings of blood chemistry; E86.0 Dehydration; N18.9 Chronic kidney disease, unspecified; I10 Essential (primary) hypertension; K52.9 Noninfective gastroenteritis and colitis, unspecified; I07.1 Rheumatic tricuspid insufficiency; J44.9 Chronic obstructive pulmonary disease, unspecified; I70.203 Unspecified atherosclerosis of native arteries of extremities, bilateral legs; I65.22 Occlusion and stenosis of left carotid artery; D50.0 Iron deficiency anemia secondary to blood loss (chronic); D46.9 Myelodysplastic syndrome, unspecified; K21.9 Gastro-esophageal reflux disease without esophagitis; Z79.4 Long term (current) use of insulin; Z79.01 Long term (current) use of anticoagulants; Z95.1 Presence of aortocoronary bypass graft; Z90.49 Acquired absence of other specified parts of digestive tract; Z85.6 Personal history of leukemia; Z90.710 Acquired absence of both cervix and uterus; Z98.890 Other specified postprocedural states
CPT/HCPCS: 36415; 80053; 81001; 82550; 82553; 82962; 83880; 84484; 85007; 85025; 85610; 85730; 87040; 87086; 87493; 87804; 93005; 93010; 96360; 96361; 97802; 99284

== ENCOUNTER 2017-06-03 14:53 | Inpatient (IN) ==
--- NOTE | 2017-06-03 14:58 | ED.PDOC ---
General ED Provider: Dr. JOEL SANCHEZ JR Chief Complaint: Chest Pain Stated Complaint: complains of pain under left shoulder blade off and on for 2 days. states feelsthe same as when she had bypass. has been taking nitro and getting relief until today and nitro has not helped. has nitro patch on and took 2 nitro at home today[End]98.8 60 18 94% 202/54 6/10stabbing pain Time Seen by Physician: 15:27 Mode of Arrival: Walk-In Information Source: Patient Exam Limitations: No limitations Primary Care Provider: NADYA GARCIA Nursing and Triage Documentation Reviewed and Agree: No Review of Systems - Review Of Systems Constitutional: Reports: Malaise, Weakness Eyes: Reports: No symptoms Ears, Nose, Mouth, Throat: Reports: No symptoms Respiratory: Reports: No symptoms Cardiac: Reports: Chest pain GI: Reports: No symptoms : Reports: No symptoms Musculoskeletal: Reports: No symptoms Skin: Reports: No symptoms Neurological: Reports: No symptoms Endocrine: Reports: No symptoms Hematologic/Lymphatic: Reports: No symptoms All Other Systems: Other Past Medical History - Past Medical History Previously Healthy: No Endocrine: Reports: DM 2, Dyslipidemia Cardiovascular: Reports: CAD, Hypertension, CHF, Other (CABG 1999, ARTIIFICIAL AORTA, LEFT ARM STENT) Respiratory: Reports: COPD Hematological: Reports: None Gastrointestinal: Reports: None Genitourinary: Reports: None, CKD Neuro/Psych: Reports: None Musculoskeletal: Reports: None Cancer: Reports: None - Surgical History General Surgical History: Reports: None, Hysterectomy (PARTIAL HYSTERECTOMY), Appendectomy, CABG - Family History Family History: Reports: None - Social History Smoking Status: Former smoker Hx Substance Use: No Alcohol Screening: None Physical Exam - Physical Exam Appearance: Well-appearing Pain Distress: Moderate Eyes: ROBERT, EOMI, Conjunctiva clear ENT: Ears normal, Nose normal, Oropharynx normal, Rhinorrhea Respiratory: Airway patent, Breath sounds clear, Breath sounds equal, Respirations nonlabored Cardiovascular: RRR, Pulses normal, No rub, No murmur GI/: Soft, Nontender, No masses, Bowel sounds normal, No Organomegaly Musculoskeletal: Normal strength, ROM intact, No edema, No calf tenderness Skin: Warm, Dry, Normal color Neurological: Sensation intact, Motor intact, Reflexes intact, Cranial nerves intact, Alert, Oriented Psychiatric: Affect appropriate, Mood appropriate Critical Care Note - Critical Care Note Total Time (mins): 20 Course - Course Hematology/Chemistry: 06/04/17 07:10 06/04/17 07:10 Orders, Labs, Meds: Lab Review 06/03/17 06/03/17 06/03/17 11:19 15:10 15:10 WBC 14.02 H RBC 3.68 L Hgb 10.9 L Hct 33.5 L MCV 91.0 MCH 29.6 MCHC 32.5 RDW Coeff of Kerrie 14.0 Plt Count 288 Immature Gran % (Auto) 0.3 Neut % (Auto) 51.2 Lymph % (Auto) 43.2 [place] % (Auto) 4.1 Eos % (Auto) 0.9 Baso % (Auto) 0.3 Immature Gran # (Auto) 0.0 Neut # 7.2 H Lymph # 6.1 H [place] # 0.6 Eos # 0.1 Baso # 0.0 D-Dimer (Manual) Sodium 141 Potassium 4.5 Chloride 104 Carbon Dioxide 28 Anion Gap 13.5 BUN 52 H Creatinine 1.87 H Estimated GFR (MDRD) 25.00 BUN/Creatinine Ratio 27.80 Glucose 168 H Calcium 10.3 H Total Bilirubin 0.30 AST 17 ALT 17 Alkaline Phosphatase 55 Total Creatine Kinase 34 37 Troponin I 0.1460 0.1220 B-Natriuretic Peptide Total Protein 6.8 Albumin 3.3 L Globulin 3.5 Albumin/Globulin Ratio 0.94 06/03/17 06/03/17 15:10 15:10 WBC RBC Hgb Hct MCV MCH MCHC RDW Coeff of Kerrie Plt Count Immature Gran % (Auto) Neut % (Auto) Lymph % (Auto) [place] % (Auto) Eos % (Auto) Baso % (Auto) Immature Gran # (Auto) Neut # Lymph # [place] # Eos # Baso # D-Dimer (Manual) 1102.85 Sodium Potassium Chloride Carbon Dioxide Anion Gap BUN Creatinine Estimated GFR (MDRD) BUN/Creatinine Ratio Glucose Calcium Total Bilirubin AST ALT Alkaline Phosphatase Total Creatine Kinase Troponin I B-Natriuretic Peptide 242 H Total Protein Albumin Globulin Albumin/Globulin Ratio Orders Category Date Time Status EKG-(ED ONLY) Stat CARDIO 06/03/17 14:57 Completed ED SLEEVE MAKER APPLIED .ONCE EMERGENCY 06/03/17 14:57 Active ED IV/MEDIPORT/POWERPORT .ONCE EMERGENCY 06/03/17 14:57 Active B-TYPE NATRIURETIC PEPTIDE Stat LAB 06/03/17 15:10 Completed CBC W/ AUTO DIFF Stat LAB 06/03/17 15:10 Completed COMPREHENSIVE METABOLIC PANEL Stat LAB 06/03/17 15:10 Completed CREATINE KINASE Stat LAB 06/03/17 15:10 Completed D-DIMER Stat LAB 06/03/17 15:10 Completed TROPONIN I Stat LAB 06/03/17 15:10 Completed 0.9 % Sodium Chloride [Saline Flush] MEDS 06/03/17 14:57 Active 1 syr IVF PRN PRN Dexamethasone 4 mg/ml Inj [Decadron 4 mg/ml Sdv] MEDS 06/03/17 16:44 Discontinued 4 mg IVP ONCE STA Ketorolac Tromethamine [Toradol] MEDS 06/03/17 16:42 Discontinued 30 mg IVP ONCE STA Nitroglycerin [Nitrostat] MEDS 06/03/17 15:23 Active 0.4 mg SL Q5MIN X 3 DOSES PRN CHEST, 1V AP ONLY Stat RADS 06/03/17 14:57 Completed Medications Generic Name Dose Route Start Last Admin Trade Name Freq PRN Reason Stop Dose Admin Acetaminophen 650 mg 06/03/17 17:17 Tylenol PO Q4H PRN Mild Pain Acetaminophen/Hydrocodone Bitart 1 tab 06/04/17 07:46 [place] 7.5-325 PO Q12HR PRN PAIN Alendronate Sodium 70 mg 06/10/17 06:30 Fosamax PO WEEKLY FOSAMAX GLENNA Alprazolam 0.5 mg 06/04/17 09:00 06/04/17 08:43 Xanax PO 0.5 mg DAILY GLENNA Administration Amlodipine Besylate 5 mg 06/04/17 09:00 06/04/17 08:40 Norvasc PO 5 mg DAILY GLENNA Administration Atorvastatin Calcium 20 mg 06/03/17 21:00 06/03/17 22:35 Lipitor PO 20 mg BEDTIME GLENNA Administration Bumetanide 1 mg 06/04/17 06:30 06/04/17 06:21 Bumex PO 1 mg QDAC GLENNA Administration Cholecalciferol 1,000 unit 06/04/17 09:00 06/04/17 08:41 Vitamin D PO 1,000 unit DAILY GLENNA Administration Cilostazol 50 mg 06/03/17 21:00 06/04/17 08:40 Pletal PO 50 mg BID GLENNA Administration Clonidine 0.1 mg 06/04/17 09:00 06/04/17 08:40 Catapres PO 0.1 mg BID GLENNA Administration Ferrous Sulfate 324 mg 06/04/17 09:00 06/04/17 08:42 Ferrous Sulfate PO 324 mg DAILY GLENNA Administration Insulin Glargine 60 unit 06/03/17 21:00 06/03/17 22:34 Lantus SUBCUT 60 unit BEDTIME GLENNA Administration Insulin Human Regular 0 unit 06/03/17 17:24 06/04/17 17:08 Humulin R SUBCUT 6 unit PRN PRN Administration Hyperglycemica Protocol Losartan Potassium 100 mg 06/04/17 09:00 06/04/17 08:41 Cozaar PO 100 mg DAILY GLENNA Administration Metoprolol Tartrate 50 mg 06/04/17 08:00 06/04/17 17:08 Lopressor PO 50 mg BIDWM GLENNA Administration Nitroglycerin 0.4 mg 06/03/17 15:23 06/03/17 15:52 Nitrostat SL 0.4 mg Q5MIN X 3 DOSES PRN Administration Chest Pain Nitroglycerin 1 patch 06/04/17 09:00 06/04/17 08:42 Nitro-Dur 0.6 Mg/Hr TD 1 patch DAILY GLENNA Administration Sodium Chloride 1 syr 06/03/17 14:57 Saline Flush IVF PRN PRN To flush IV Spironolactone 50 mg 06/04/17 08:00 06/04/17 08:41 Aldactone PO 50 mg QDAC GLENNA Administration Warfarin Sodium 1 mg 06/03/17 23:00 06/04/17 00:12 Coumadin PO Not Given QPM [facility] Warfarin Sodium 2 mg 06/03/17 23:00 06/03/17 22:51 Coumadin PO 1 mg QPM GLENNA Administration Discontinued Medications Generic Name Dose Route Start Last Admin Trade Name Freq PRN Reason Stop Dose Admin Dexamethasone Sodium Phosphate 4 mg 06/03/17 16:44 06/03/17 16:57 Decadron 4 Mg/Ml Sdv IVP 06/03/17 16:45 4 mg ONCE STA Administration Dexamethasone Sodium Phosphate 2 mg 06/04/17 08:02 06/04/17 08:39 Decadron 4 Mg/Ml Sdv IM 06/04/17 08:03 2 mg ONCE STA Administration Ketorolac Tromethamine 30 mg 06/03/17 16:42 06/03/17 16:57 Toradol IVP 06/03/17 16:43 30 mg ONCE STA Administration Ketorolac Tromethamine 30 mg 06/04/17 08:01 06/04/17 09:27 Toradol IVP 06/04/17 08:02 30 mg ONCE STA Administration Metoprolol Tartrate 50 mg 06/03/17 21:00 06/03/17 22:35 Lopressor PO 50 mg BID GLENNA Administration Nitroglycerin 0.4 mg 06/03/17 17:20 Nitrostat SL PRN PRN Chest Pain Warfarin Sodium 3 mg 06/04/17 09:00 Coumadin PO DAILY GLENNA Vital Signs: Temp Pulse Resp BP Pulse Ox 06/03/17 14:54 98.8 F 60 18 202/54 H 94 L AIDA Risk Score AIDA Risk Score: Risk Score Odds of by 30D 0 0.1 (0.1-0.2) 1 0.3 (0.2-0.3) 2 0.4 (0.3-0.5) 3 0.7 (0.6-0.9) 4 1.2 (1.0-1.5) 5 2.2 (1.9-2.6) 6 3.0 (2.5-3.6) 7 4.8 (3.8-6.1) Departure - Departure Time of Disposition: 17:00 Disposition: ADMITTED INPATIENT Discharge Problem: Chest pain Condition: Good Pt referred to PMD for follow-up: Yes Allergies/Adverse Reactions: Allergies hydralazine [Hydralazine] Adverse Reaction (Verified 06/03/17 14:59) insulin detemir [From Levemir] Adverse Reaction (Verified 06/03/17 14:59) Penicillins Adverse Reaction (Verified 06/03/17 14:59) Home Medications: Ambulatory Orders Alendronate Sodium [Fosamax] 70 mg PO WEEKLY FOSAMAX 12/25/12 Cilostazol [Pletal] 50 mg PO BID 12/25/12 Hydrocodone/Acetaminophen [Lortab 7.5-500 Tablet] 1 each PO Q12HR PRN 12/25/12 Insulin Glargine,Hum.rec.anlog [Lantus Solostar] 60 unit SQ BEDTIME 12/25/12 Losartan Potassium [Cozaar] 100 mg PO DAILY 12/25/12 Nitroglycerin [Minitran] 1 each TD DAILY 12/25/12 Nitroglycerin [Nitrostat] 0.4 mg SL PRN PRN 12/25/12 Warfarin Sodium [Jantoven] 3 mg PO DAILY 12/25/12 Atorvastatin Calcium [Lipitor] 20 mg PO QAM 03/29/16 Bumetanide [Bumex] 1 mg PO DAILY 03/29/16 Insulin Lispro [Humalog Kwikpen] See Protocol SQ BID 03/29/16 Alprazolam [Xanax] 0.5 mg PO BEDTIME 02/07/17 Spironolactone [Aldactone] 50 mg PO DAILY 05/19/17 Cholecalciferol (Vitamin D3) [Vitamin D3] 1,000 unit PO DAILY 06/03/17 Ferrous Sulfate [Iron] 325 mg PO DAILY 06/03/17 Hydrocodone Bit/Acetaminophen [[place] 7.5-325] 1 tab PO PRN PRN 06/03/17 Metoprolol Tartrate [Lopressor] 50 mg PO BID 06/03/17
[2017-06-03 15:13] LABS: BASOPHILS % (AUTO) 0.3 % (0.0-3.0); EOSINOPHILS # (AUTO) 0.1 K/ul (0.0-0.7); EOSINOPHILS % (AUTO) 0.9 % (0.0-7.0); HEMATOCRIT 33.5 % (37.0-47.0); HEMOGLOBIN 10.9 g/dl (12.0-16.0); IMMATURE GRANULOCYTE % (AUTO) 0.3 % (0.0-5.0); LYMPHOCYTES # (AUTO) 6.1 K/uL (0.60-3.4); LYMPHOCYTES % (AUTO) 43.2 (10.0-50.0); MEAN CORPUSCULAR HEMOGLOBIN 29.6 pg (27.0-31.0); MEAN CORPUSCULAR HGB CONC 32.5 (31.8-35.4); MONOCYTES # (AUTO) 0.6 K/uL (0.4-2.0); MONOCYTES % (AUTO) 4.1 (0-10); NEUTROPHILS # (AUTO) 7.2 K/ul (2.0-6.9); NEUTROPHILS % (AUTO) 51.2; PLATELET COUNT 288 10^3/uL (140-440); RED BLOOD COUNT 3.68 10^6/ul (4.20-5.40); WHITE BLOOD COUNT 14.02 K/ul (4.6-10.2)
[2017-06-03] MEDS ORDERED: NITROSTAT SL PRN ×2 (15:23→17:20)
[2017-06-03 15:38] LABS: ALBUMIN 3.3 g/dL (3.4-5.0); ALBUMIN/GLOBULIN RATIO 0.94; ANION GAP 13.5; BILIRUBIN,TOTAL 0.3 mg/dL (0.00-1.20); BUN/CREATININE RATIO 27.8; CALCIUM 10.3 mg/dL (8.2-10.2); CREATININE 1.87 mg/dL (0.60-1.30); POTASSIUM 4.5 mmol/L (3.5-5.10); TOTAL PROTEIN 6.8 g/dL (5.8-8.1); TROPONIN I 0.122 ng/ml (0.0000-0.4000)
--- NOTE | 2017-06-03 16:16 | DI ---
EXAM: Chest one view, frontal view only. HISTORY: Chest pain. COMPARISON: 05/19/2017. FINDINGS: Sternotomy wires are present. Atherosclerotic calcifications noted in the aorta. Stent p resent in the left axillary region. The heart size is normal. There is no pulmonary vascular conges tion. The lungs are clear. No pleural effusion or pneumothorax is seen. No acute osseous abnormali ty is identified. Since the prior study, there has been no significant interval change. IMPRESSION: No acute cardiopulmonary process.
[2017-06-03] MEDS ORDERED: TORADOL IVP STA (16:42)
[2017-06-03] MEDS ORDERED: DECADRON 4 MG/ML SDV IVP STA (16:44)
[2017-06-03] MEDS ORDERED: TYLENOL PO PRN (17:17)
[2017-06-03] MEDS ORDERED: HYDROCODONE PO PRN (17:20)
[2017-06-03] MEDS ORDERED: ACETAMINOPHEN PO PRN (17:20)
[2017-06-03 18:25] VITALS: BMI 27.5
[2017-06-03] MEDS ORDERED: LOPRESSOR PO SCH (21:00)
[2017-06-03] MEDS: LANTUS SUBCUT SCH (22:34)
[2017-06-03] MEDS: PLETAL PO SCH (22:35)
[2017-06-03] MEDS: LIPITOR PO SCH (22:35)
[2017-06-03] MEDS ORDERED: COUMADIN PO SCH (22:38)
[2017-06-03] MEDS ORDERED: COUMADIN ONE (22:41)
[2017-06-03] MEDS: COUMADIN PO SCH ×2 (22:50→22:51)
[2017-06-03 23:49] LABS: TROPONIN I 0.146 ng/ml (0.0000-0.4000)
[2017-06-04] MEDS: COUMADIN PO SCH (00:12)
[2017-06-04] MEDS: BUMEX PO SCH (06:21)
[2017-06-04 07:37] LABS: BASOPHILS % (AUTO) 0.2 % (0.0-3.0); HEMATOCRIT 33.4 % (37.0-47.0); IMMATURE GRANULOCYTE % (AUTO) 0.3 % (0.0-5.0); LYMPHOCYTES # (AUTO) 5.7 K/uL (0.60-3.4); LYMPHOCYTES % (AUTO) 42.9 (10.0-50.0); MEAN CORPUSCULAR HEMOGLOBIN 29.8 pg (27.0-31.0); MEAN CORPUSCULAR HGB CONC 32.9 (31.8-35.4); MEAN CORPUSCULAR VOLUME 90.5 fl (81.0-99.0); MONOCYTES # (AUTO) 0.3 K/uL (0.4-2.0); MONOCYTES % (AUTO) 1.9 (0-10); NEUTROPHILS # (AUTO) 7.3 K/ul (2.0-6.9); NEUTROPHILS % (AUTO) 54.7; PLATELET COUNT 282 10^3/uL (140-440); RED BLOOD COUNT 3.69 10^6/ul (4.20-5.40); WHITE BLOOD COUNT 13.27 K/ul (4.6-10.2)
[2017-06-04] MEDS ORDERED: TORADOL IVP STA (08:01)
[2017-06-04] MEDS ORDERED: DECADRON 4 MG/ML SDV IM STA (08:02)
[2017-06-04 08:03] LABS: PROTHROMBIN TIME 34.6 SEC (9.3-11.0)
[2017-06-04 08:04] LABS: ALBUMIN 3.2 g/dL (3.4-5.0); ALBUMIN/GLOBULIN RATIO 0.97; BILIRUBIN,TOTAL 0.5 mg/dL (0.00-1.20); BUN/CREATININE RATIO 31.63; CALCIUM 10.2 mg/dL (8.2-10.2); CREATININE 1.77 mg/dL (0.60-1.30); TOTAL PROTEIN 6.5 g/dL (5.8-8.1); TROPONIN I 0.125 ng/ml (0.0000-0.4000)
[2017-06-04] MEDS: NORVASC PO SCH (08:40)
[2017-06-04] MEDS: LOPRESSOR PO SCH ×2 (08:40→17:08)
[2017-06-04] MEDS: CATAPRES PO SCH ×2 (08:40→20:33)
[2017-06-04] MEDS: PLETAL PO SCH ×2 (08:40→20:33)
[2017-06-04] MEDS: ALDACTONE PO SCH (08:41)
[2017-06-04] MEDS: COZAAR PO SCH (08:41)
[2017-06-04] MEDS: VITAMIN D PO SCH (08:41)
[2017-06-04] MEDS: NITRO DUR TD SCH (08:42)
[2017-06-04] MEDS: FERROUS SULFATE PO SCH (08:42)
[2017-06-04] MEDS: XANAX PO SCH (08:43)
[2017-06-04] MEDS ORDERED: NON-FORMULARY MEDICATION (Cholecalciferol (Vitamin D3) [Vitamin D3] 1,000 UNIT) PO SCH ×22 (09:00)
[2017-06-04] MEDS ORDERED: NON-FORMULARY MEDICATION (Losartan Potassium 100 MG) PO SCH (09:00)
[2017-06-04] MEDS ORDERED: INSULIN GLARGINE HUM REC ANLOG 60 UNIT SQ SCH (09:00)
[2017-06-04] MEDS ORDERED: NON-FORMULARY MEDICATION (Ferrous Sulfate [Iron] 325 MG) PO SCH ×22 (09:00)
[2017-06-04] MEDS ORDERED: COUMADIN PO SCH (09:00)
--- NOTE | 2017-06-04 10:18 | PCM.PROG ---
Attending Provider: ATTENDING PROVIDER: Dr. NADYA GARCIA DATE OF SERVICE: 06/04/17 SUBJECTIVE: This 87 year old WHITE/ F was hospitalized 06/03/17. The patient is hospitalized with chest pain, left-sided sub scapular; a steady ache of 2 to 3 days duration. Cardiac markers negative. EKG as usual is abnormal with ST-T wave change. Patient is DNR. The patient's present problem now is no chest pain but hypertension. The patient is feeling better. REVIEW OF SYSTEMS: CONSTITUTIONAL: No night sweats. No fatigue, malaise, lethargy. No fever or chills. HEENT: Eyes: No visual changes. No eye pain. No eye discharge. ENT: No runny nose. No epistaxis. No sinus pain. No odynophagia. No congestion. RESPIRATORY: No cough, no congestion. No hemoptysis. No shortness of breath. CARDIOVASCULAR: No angina symptoms. No CHF symptoms. No atypical chest pain for CAD. No palpitations. No orthopnea.. GASTROINTESTINAL: No abdominal pain. No nausea or vomiting. No diarrhea or constipation. No hematemesis. No hematochezia. GENITOURINARY: No urgency. No frequency. No dysuria. No hematuria. No obstructive symptoms. No discharge. No pain. No significant abnormal bleeding. MUSCULOSKELETAL: No musculoskeletal pain; no joint swelling. NEUROLOGICAL: Awake, alert, oriented to time, place and person. No headache. No neck pain. No syncope. No seizures. No dizziness. PSYCHIATRIC: Not anxious. No depression. No suicidal thoughts. No homicidal thoughts. SKIN: No rash. No lesions. No wounds. ENDOCRINE: No unexplained weight loss. No weight gain. HEMATOLOGIC/LYMPHATIC: No anemia. No purpura. No petechiae. No prolonged or excessive bleeding. No palpable lymph nodes. PHYSICAL EXAMINATION: GENERAL: The patient is awake, alert and oriented, sitting in chair in no distress. VITAL SIGNS: Temperature 98.3 F, Pulse 51, Respiratory Rate 19, BP 199/63, Pulse Ox 98% HEENT: Head normocephalic, atraumatic. Eyes: Extraocular muscles are intact. Pupils are equal, round and reactive to light and accommodation. Ears: No lesions. Nose appeared normal. Throat: No exudate or erythema. NECK: Supple. No JVD, no carotid bruit. No lymphadenopathy or thyromegaly. LUNGS: Clear to auscultation. Percussion note normal. Chest symmetrical. HEART: S1, S2, no S3. No murmurs. No cyanosis or clubbing. No ascites. Pulses: Dorsalis pedis and posterior tibial pulses +1 to +2 both sides. ABDOMEN: Soft. Non-tender. Bowel sounds active. No CVA tenderness. No mass felt. EXTREMITIES: No edema. Full range of motion of all extremities, equal. NEUROLOGIC: No focal deficit. Cranial nerves II through XII are grossly intact. No headache, no double vision or headache. SKIN: Not dry. Intact. Turgor-normal. LYMPHATIC: No palpable lymph nodes/no lymphedema. MUSCULOSKELETAL: Normal joints with no swelling. Muscle tone is normal. LAB REVIEW: 06/04/17 07:10 06/04/17 07:10: WBC 13.27 H, RBC 3.69 L, Hgb 11.0 L, Hct 33.4 L, MCV 90.5, MCH 29.8, MCHC 32.9, RDW Coeff of Kerrie 13.5, Plt Count 282, Immature Gran % (Auto) 0.3, Neut % (Auto) 54.7, Lymph % (Auto) 42.9, [place] % (Auto) 1.9, Eos % (Auto) 0.0, Baso % (Auto) 0.2, Immature Gran # (Auto) 0.0, Neut # 7.3 H, Lymph # 5.7 H , [place] # 0.3 L, Eos # 0.0, Baso # 0.0 ASSESSMENT: 1. Chest pain, left-sided sub scapular subsided. 2. Hypertension. 3. CABG. 4. Chronic kidney disease. 5. Diabetes mellitus. PLAN: 1. The patient is to use sliding scale insulin from home. 2. Toradol 30 mg IV now. 3. Hydralazine 25 mg b.i.d. 4. Decadron 1/2 cc. 5. Norvasc 5 mg now and q.a.m. Plan and coordination of the patient's care discussed in the presence of Insight Director and nurse. CONDITION: Stable SCRIBED BY: REA HILL Developer Support Engineer scribed while in presence of service performed by Dr. NADYA GARCIA on 06/04/17 ([id number])
--- NOTE | 2017-06-04 10:54 | PN ---
DATE OF SERVICE: 06/03/17 - ADMITTING NOTE SUBJECTIVE: The patient was seen in the emergency room. The patient is to be admitted. The patient came with left scapular area pain which she says she usually has with her coronary artery disease. That is how she ended up with coronary artery bypass surgery. The pain is localized in the infrascapular area, tender to touch. The patient's daughter is in the room. The patient's EKG is abnormal sinus rhythm with ST-T wave changes with T-wave inversion. PHYSICAL EXAMINATION: GENERAL: The patient is oriented to time, place and person, not in distress. No sweating. HEENT: Head normocephalic, atraumatic. Eyes: Extraocular muscles are intact. Pupils are equal, round and reactive to light and accommodation. Ears: No lesions. Nose appeared normal. Throat: No exudate or erythema. NECK: Supple. No JVD, no carotid bruit. No lymphadenopathy or thyromegaly. LUNGS: Decreased breath sounds but clear to auscultation. Percussion note normal. Chest symmetrical. HEART: S1, S2, no S3. No murmurs. No cyanosis or clubbing. No ascites. Pulses: Dorsalis pedis and posterior tibial pulses +1 both sides. ABDOMEN: Soft. Nontender. Bowel sounds active. No CVA tenderness. No mass felt. EXTREMITIES: No edema. Full range of motion of all extremities, equal. NEUROLOGIC: No focal deficit. Cranial nerves II through XII are grossly intact. No headache, no double vision or headache. SKIN: Warm, dry. Intact. Turgor - normal. LYMPHATIC: No palpable lymph nodes/no lymphedema. MUSCULOSKELETAL: Normal joints with no swelling. Muscle tone is normal. LABS: Troponin and CK-MB negative. The patient has chronic kidney disease, Stage 4 with creatinine of 1.8. The patient is DNR. Discussed with the patient and the daughter. ASSESSMENT: 1. CHEST PAIN, SUBSCAPULAR AND SCAPULAR AREA, LEFT-SIDED WITH ABNORMAL EKG, RULE OUT WI OR ISCHEMIA. 2. HISTORY OF CORONARY ARTERY BYPASS SURGERY,YEAR 1999 3. ARTIFICIAL AORTA 3. 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 THE PATIENT ALSO HAS LEFT ARM STENT BY DR. OVALLE PLAN: 1. Admit patient 2. Toradol 30 mg IV 3. 1/2 cc Decadron CONDITION: Stable TIME SPENT: More than 30 minutes. Plan and coordination of the patient's care discussed in the presence of nurse. BRIGHT
[2017-06-04] MEDS: HUMULIN R SUBCUT PRN ×3 (11:25→20:35)
--- NOTE | 2017-06-04 12:56 | US ---
EXAM: Bilateral lower extremity venous doppler. HISTORY: Bilateral lower extremity pain and swelling. COMPARISON: None available. TECHNIQUE: Multiple grayscale and color doppler images were obtained. FINDINGS: There is normal flow, compressibility and augmentation of flow within the right and left c ommon femoral, greater saphenous, profunda, femoral, popliteal, posterior tibial, anterior tibial and peroneal veins. A 2.7 x 0 9 x 1.4 cm avascular fluid collection in the left popliteal fossa is most likely a Simms's cyst. IMPRESSION: No evidence for right or left lower extremity deep vein thrombosis at the levels examined.
--- NOTE | 2017-06-04 13:42 | HP ---
DATE OF SERVICE: 06/03/17 HISTORY OF PRESENT ILLNESS: The patient is hospitalized with left-sided subscapular chest pain. This is described as a steady ache of 2 to 3 days duration. Cardiac markers are negative. EKG as usual is abnormal with ST-T wave changes. The patient is DNR. PAST MEDICAL/SURGICAL HISTORY: Hypertension Chronic kidney disease Diabetes mellitus Type 2 AMI 1999 PVD DVT Asthma GERD Osteoarthritis Anemia CABG 1999 Cataracts 2001 Bladder repair date unknown Partial thyroidectomy date unknown REVIEW OF SYSTEMS: CONSTITUTIONAL: No night sweats. No fatigue, malaise, lethargy. No fever or chills. HEENT: Eyes: No visual changes. No eye pain. No eye discharge. ENT: No runny nose. No epistaxis. No sinus pain. No sore throat. No odynophagia. No ear pain. No congestion. RESPIRATORY: No cough, no congestion. No hemoptysis. No shortness of breath. CARDIOVASCULAR: No angina symptoms. No CHF symptoms. No atypical chest pain for CAD. No palpitations. No orthopnea. GASTROINTESTINAL: No abdominal pain. No nausea or vomiting. No diarrhea or constipation. No hematemesis. No hematochezia. GENITOURINARY: No urgency. No frequency. No dysuria. No hematuria. No obstructive symptoms. No discharge. No pain. No significant abnormal bleeding. MUSCULOSKELETAL: No musculoskeletal pain. No joint swelling. No arthritis. NEUROLOGICAL: No headache. No neck pain. No syncope. No seizures. No dizziness. PSYCHIATRIC: Not anxious. No depression. No suicidal thoughts. No homicidal thoughts. SKIN: No rash. No lesions. No wounds. ENDOCRINE: No unexplained weight loss. No weight gain. HEMATOLOGIC/LYMPHATIC: No anemia. No purpura. No petechiae. No prolonged or excessive bleeding. No palpable lymph nodes. PERSONAL/FAMILY/SOCIAL HISTORY: The patient lives alone. She is partially dependent on ADLS. Her brother helps her to get around. She no longer drives. She is a former smoker. No alcohol use. No ilicit drug use. Father at age 77 of lung cancer and mother at age 85, had history of coronary artery disease, hypertension and diabetes mellitus, Type 2. MEDICATIONS: (HOME) Fosamax 70 mg p.o. weekly Insulin Glargine 60 unit SQ bedtime Warfarin 3 mg p.o. daily Nitrostat 0.4 mg SL p.r.n. Minitran one each TD daily Cozaar 100 mg p.o. daily Pletal 50 mg p.o. b.i.d. Hydrocodone/Acetaminophen (Lortab 7.5-500 tab) one each p.o. q.12hr p.r.n. Bumex 1 mg p.o. daily Lipitor 20 mg p.o. q.a.m. Lispro Insulin See protocol SQ b.i.d. Xanax 0.5 mg p.o. bedtime Aldactone 50 mg p.o. daily Lopressor 50 mg p.o.b.i.d. Ferrous Sulfate 325 mg p.o. daily Hydrocodone/Acetaminophen ([place] 7.5-325) one tab p.o. p.r.n. Cholecalciferol 1,000 unit p.o. daily ALLERGIES: PENICILLINS, HYDRALAZINE, INSULIN DETEMIR PHYSICAL EXAMINATION: VITAL SIGNS: Temperature 98, pulse 60, BP 202/54, 02 sat 94L. 5'2" height; weight 157 lbs, 5.684 oz. BMI 27 HEENT: Head normocephalic, atraumatic. Eyes: Extraocular muscles are intact. Pupils are equal, round and reactive to light and accommodation. Ears: No lesions. Nose appeared normal. Throat: No exudate or erythema. NECK: Supple. No JVD, no carotid bruit. No lymphadenopathy or thyromegaly. LUNGS: Decreased breath sounds. Clear to auscultation. Percussion note normal. Chest symmetrical. HEART: S1, S2, no S3. No murmurs. No cyanosis or clubbing. No ascites. Pulses: Dorsalis pedis and posterior tibial pulses +1 both sides. ABDOMEN: Soft. Nontender. Bowel sounds active. No CVA tenderness. No mass felt. EXTREMITIES: No edema. Full range of motion of all extremities, equal. NEUROLOGIC: No focal deficit. Cranial nerves II through XII are grossly intact. No headache, no double vision or headache. SKIN: Not dry. Intact. Turgor - normal. LYMPHATIC: No palpable lymph nodes/no lymphedema. MUSCULOSKELETAL: Normal joints with no swelling. Muscle tone is normal. LABS: Troponin and CK-MB negative. The patient has chronic kidney disease, Stage 4 with creatinine of 1.8. BUN 52, calcium 10.3, BNP 242. CK-troponin negative. Chest x-ray normal. ASSESSMENT: 1. CHEST PAIN, SUBSCAPULAR AND SCAPULAR AREA, LEFT-SIDED WITH ABNORMAL EKG, RULE OUT SC OR ISCHEMIA. 2. HYPERTENSION 3. HISTORY OF CORONARY ARTERY BYPASS SURGERY,YEAR 1999 4. ARTIFICIAL AORTA 5. 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 THE PATIENT ALSO HAS LEFT ARM STENT BY DR. OVALLE 7. CHRONIC KIDNEY DISEASE, STAGE 4. 8. DIABETES MELLITUS TYPE 2 9. AMI 1999 10. DVT 11. ASTHMA 12. GERD 13. OSTEOARTHRITIS 14. ANEMIA PLAN: 1. Admit patient 2. Toradol 30 mg IV 3. 1/2 cc Decadron 4. The patient is DNR 5. 1800 calorie ADA diet 6. Daily labs 7. Daily PT/INR 8. Accu-Checks with SSI 9. Telemetry TIME SPENT: More than 70 minutes. MTDD
[2017-06-04] MEDS: LIPITOR PO SCH (20:33)
[2017-06-04] MEDS: LANTUS SUBCUT SCH (20:36)
[2017-06-05 05:08] LABS: BASOPHILS % (AUTO) 0.2 % (0.0-3.0); EOSINOPHILS % (AUTO) 0.1 % (0.0-7.0); HEMATOCRIT 32.4 % (37.0-47.0); HEMOGLOBIN 10.6 g/dl (12.0-16.0); IMMATURE GRANULOCYTE % (AUTO) 0.5 % (0.0-5.0); LYMPHOCYTES # (AUTO) 6.7 K/uL (0.60-3.4); LYMPHOCYTES % (AUTO) 38.1 (10.0-50.0); MEAN CORPUSCULAR HEMOGLOBIN 29.7 pg (27.0-31.0); MEAN CORPUSCULAR HGB CONC 32.7 (31.8-35.4); MEAN CORPUSCULAR VOLUME 90.8 fl (81.0-99.0); MONOCYTES # (AUTO) 0.8 K/uL (0.4-2.0); MONOCYTES % (AUTO) 4.6 (0-10); NEUTROPHILS % (AUTO) 56.5; PLATELET COUNT 287 10^3/uL (140-440); RED BLOOD COUNT 3.57 10^6/ul (4.20-5.40); WHITE BLOOD COUNT 17.68 K/ul (4.6-10.2)
[2017-06-05] MEDS: BUMEX PO SCH (05:35)
[2017-06-05] MEDS: ALDACTONE PO SCH (05:36)
[2017-06-05 05:41] LABS: ALBUMIN 3.2 g/dL (3.4-5.0); ALBUMIN/GLOBULIN RATIO 0.97; ANION GAP 14.7; BILIRUBIN,TOTAL 0.33 mg/dL (0.00-1.20); BUN/CREATININE RATIO 36.01; CALCIUM 10.3 mg/dL (8.2-10.2); CREATININE 2.11 mg/dL (0.60-1.30); POTASSIUM 4.7 mmol/L (3.5-5.10); TOTAL PROTEIN 6.5 g/dL (5.8-8.1)
[2017-06-05 06:12] LABS: PROTHROMBIN TIME 34.1 SEC (9.3-11.0)
[2017-06-05] MEDS: XANAX PO SCH (09:17)
[2017-06-05] MEDS: COZAAR PO SCH (09:18)
[2017-06-05] MEDS: LOPRESSOR PO SCH ×2 (09:18→17:21)
[2017-06-05] MEDS: PLETAL PO SCH ×2 (09:18→20:07)
[2017-06-05] MEDS: VITAMIN D PO SCH (09:19)
[2017-06-05] MEDS: FERROUS SULFATE PO SCH (09:19)
[2017-06-05] MEDS: CATAPRES PO SCH ×2 (09:19→20:07)
[2017-06-05] MEDS: NORVASC PO SCH (09:19)
[2017-06-05] MEDS: NITRO DUR TD SCH (09:19)
[2017-06-05] MEDS: LEVAQUIN PO SCH (09:21)
[2017-06-05] MEDS: DEXTROSE 5%-1/2NS IV SOLUTION 1,000 ML IV SCH ×2 (09:23→19:54)
--- NOTE | 2017-06-05 09:45 | PCM.PROG ---
Attending Provider: ATTENDING PROVIDER: Dr. NADYA GARCIA This patient is seen with Zahra Mo, Nurse Practitioner. DATE OF SERVICE: 06/05/17 SUBJECTIVE: This 87 year old WHITE/ F was hospitalized 06/03/17. The patient is sitting in chair, alert. She is not experiencing any pain. REVIEW OF SYSTEMS: CONSTITUTIONAL: Generalized weakness. No night sweats. No fever or chills. HEENT: Eyes: No visual changes. No eye pain. No eye discharge. ENT: No runny nose. No epistaxis. No sinus pain. No odynophagia. No congestion. RESPIRATORY: No cough, no congestion. No hemoptysis. No shortness of breath. CARDIOVASCULAR: No angina symptoms. No CHF symptoms. No atypical chest pain for CAD. No palpitations. No orthopnea.. GASTROINTESTINAL: No abdominal pain. No nausea or vomiting. No diarrhea or constipation. No hematemesis. No hematochezia. GENITOURINARY: No urgency. No frequency. No dysuria. No hematuria. No obstructive symptoms. No discharge. No pain. No significant abnormal bleeding. MUSCULOSKELETAL: No musculoskeletal pain; no joint swelling. NEUROLOGICAL: Awake, alert, oriented to time, place and person. No headache. No neck pain. No syncope. No seizures. No dizziness. PSYCHIATRIC: Not anxious. No depression. No suicidal thoughts. No homicidal thoughts. SKIN: No rash. No lesions. No wounds. ENDOCRINE: No unexplained weight loss. No weight gain. HEMATOLOGIC/LYMPHATIC: No anemia. No purpura. No petechiae. No prolonged or excessive bleeding. No palpable lymph nodes. PHYSICAL EXAMINATION: GENERAL: The patient is awake, alert and oriented, sitting in chair in no distress. VITAL SIGNS: Temperature 98.0 F, Pulse 45, Respiratory Rate 18, BP 151/59, Pulse Ox 97% HEENT: Head normocephalic, atraumatic. Eyes: Extraocular muscles are intact. Pupils are equal, round and reactive to light and accommodation. Ears: No lesions. Nose appeared normal. Throat: No exudate or erythema. NECK: Supple. No JVD, no carotid bruit. No lymphadenopathy or thyromegaly. LUNGS: Diminished breath sounds bilaterally. Clear to auscultation. Percussion note normal. Chest symmetrical. HEART: S1, S2, no S3. No murmurs. No cyanosis or clubbing. No ascites. Pulses: Dorsalis pedis and posterior tibial pulses +1 to +2 both sides. ABDOMEN: Soft. Non-tender. Bowel sounds active. No CVA tenderness. No mass felt. EXTREMITIES: Trace lower extremity edema. Full range of motion of all extremities, equal. NEUROLOGIC: No focal deficit. Cranial nerves II through XII are grossly intact. No headache, no double vision or headache. SKIN: Not dry. Intact. Turgor-normal. LYMPHATIC: No palpable lymph nodes/no lymphedema. MUSCULOSKELETAL: Normal joints with no swelling. Muscle tone is normal. LAB REVIEW: 06/05/17 05:04 06/05/17 05:04 06/05/17 05:04: Sodium 139, Potassium 4.7, Chloride 101, Carbon Dioxide 28, Anion Gap 14.7, BUN 76 H*, Creatinine 2.11 H, Estimated GFR (MDRD) 22.00, BUN/ Creatinine Ratio 36.01, Glucose 104, Calcium 10.3 H, Total Bilirubin 0.33, AST 12 L, ALT 14, Alkaline Phosphatase 51 L, Total Protein 6.5, Albumin 3.2 L, Globulin 3.3, Albumin/Globulin Ratio 0.97 06/05/17 05:04: WBC 17.68 H, RBC 3.57 L, Hgb 10.6 L, Hct 32.4 L, MCV 90.8, MCH 29.7, MCHC 32.7, RDW Coeff of Ker[place] 13.6, Plt Count 287, Immature Gran % (Auto) 0.5, Neut % (Auto) 56.5, Lymph % (Auto) 38.1, [place] % (Auto) 4.6, Eos % (Auto) 0.1, Baso % (Auto) 0.2, Immature Gran # (Auto) 0.1, Neut # 10.0 H, Lymph # 6.7 H , [place] # 0.8, Eos # 0.0, Baso # 0.0 06/05/17 05:04: PT 34.1 H, INR 3.46 06/04/17 07:10: Sodium 139, Potassium 5.0, Chloride 103, Carbon Dioxide 28, Anion Gap 13.0, BUN 56 H, Creatinine 1.77 H, Estimated GFR (MDRD) 27.00, BUN/ Creatinine Ratio 31.63, Glucose 133 H, Calcium 10.2, Total Bilirubin 0.50, AST 14 L, ALT 17, Alkaline Phosphatase 55, Total Creatine Kinase 35, Troponin I 0.1250, Total Protein 6.5, Albumin 3.2 L, Globulin 3.3, Albumin/Globulin Ratio 0.97 06/04/17 07:10: WBC 13.27 H, RBC 3.69 L, Hgb 11.0 L, Hct 33.4 L, MCV 90.5, MCH 29.8, MCHC 32.9, RDW Coeff of [place] 13.5, Plt Count 282, Immature Gran % (Auto) 0.3, Neut % (Auto) 54.7, Lymph % (Auto) 42.9, [place] % (Auto) 1.9, Eos % (Auto) 0.0, Baso % (Auto) 0.2, Immature Gran # (Auto) 0.0, Neut # 7.3 H, Lymph # 5.7 H , [place] # 0.3 L, Eos # 0.0, Baso # 0.0 06/04/17 07:10: PT 34.6 H, INR 3.52 ASSESSMENT: 1. Chest pain, left-sided sub scapular subsided. 2. Hypertension. 3. CABG. 4. Chronic kidney disease. 5. Diabetes mellitus. PLAN: 1. Hold Coumadin again today 2. Encourage fluids Plan and coordination of the patient's care discussed in the presence of Dock Associate and nurse. CONDITION: Stable SCRIBED BY: REA HILL Seasonal Driver scribed while in presence of service performed by Dr. Garcia/Zahra Mo APRN on 06/05/17 ([id number])
[2017-06-05 10:56] LABS: BILIRUBIN,URINE Negative (NEGATIVE); KETONES,URINE Negative (NEGATIVE); LEUKOCYTE ESTERASE ,URINE 3+ (NEGATIVE); NITRITE,URINE Negative (NEGATIVE); PH,URINE 5.5 (5-9); PROTEIN,URINE Negative (NEGATIVE); URINE, BLOOD Trace-intact (NEGATIVE)
[2017-06-05 11:03] LABS: ADD URINE MICROSCOPIC YES
[2017-06-05 11:04] LABS: BACTERIA,URINE 2+ (NOT PRESENT)
[2017-06-05] MEDS: HUMULIN R SUBCUT PRN ×3 (11:10→20:08)
[2017-06-05] MEDS: COUMADIN PO SCH ×2 (17:22)
[2017-06-05] MEDS: LIPITOR PO SCH (20:07)
[2017-06-05] MEDS: LANTUS SUBCUT SCH (20:09)
[2017-06-06] MEDS: NORCO 7.5-325 PO PRN ×2 (04:52→23:42)
[2017-06-06] MEDS: ALDACTONE PO SCH (05:51)
[2017-06-06] MEDS: BUMEX PO SCH (05:51)
[2017-06-06] MEDS: LEVAQUIN PO SCH (05:52)
[2017-06-06 07:28] LABS: BASOPHILS # (AUTO) 0.1 K/uL (0-0.2); BASOPHILS % (AUTO) 0.3 % (0.0-3.0); EOSINOPHILS # (AUTO) 0.1 K/ul (0.0-0.7); EOSINOPHILS % (AUTO) 0.6 % (0.0-7.0); HEMATOCRIT 29.9 % (37.0-47.0); HEMOGLOBIN 9.9 g/dl (12.0-16.0); IMMATURE GRANULOCYTE % (AUTO) 0.4 % (0.0-5.0); LYMPHOCYTES # (AUTO) 7.6 K/uL (0.60-3.4); LYMPHOCYTES % (AUTO) 39.3 (10.0-50.0); MEAN CORPUSCULAR HEMOGLOBIN 29.9 pg (27.0-31.0); MEAN CORPUSCULAR HGB CONC 33.1 (31.8-35.4); MEAN CORPUSCULAR VOLUME 90.3 fl (81.0-99.0); MONOCYTES # (AUTO) 1.2 K/uL (0.4-2.0); NEUTROPHILS # (AUTO) 10.4 K/ul (2.0-6.9); NEUTROPHILS % (AUTO) 53.4; PLATELET COUNT 258 10^3/uL (140-440); RED BLOOD COUNT 3.31 10^6/ul (4.20-5.40); WHITE BLOOD COUNT 19.38 K/ul (4.6-10.2)
[2017-06-06 07:40] LABS: PROTHROMBIN TIME 22.6 SEC (9.3-11.0)
[2017-06-06 08:04] LABS: ALBUMIN 2.9 g/dL (3.4-5.0); ALBUMIN/GLOBULIN RATIO 1.07; ANION GAP 12.5; BILIRUBIN,TOTAL 0.27 mg/dL (0.00-1.20); BUN/CREATININE RATIO 36.15; CALCIUM 9.2 mg/dL (8.2-10.2); CREATININE 2.13 mg/dL (0.60-1.30); POTASSIUM 4.5 mmol/L (3.5-5.10); TOTAL PROTEIN 5.6 g/dL (5.8-8.1)
[2017-06-06] MEDS: NITRO DUR TD SCH (09:18)
[2017-06-06] MEDS: DEXTROSE 5%-1/2NS IV SOLUTION 1,000 ML IV SCH ×2 (09:18→23:35)
[2017-06-06] MEDS: VITAMIN D PO SCH (09:19)
[2017-06-06] MEDS: FERROUS SULFATE PO SCH (09:19)
[2017-06-06] MEDS: COZAAR PO SCH (09:19)
[2017-06-06] MEDS: CATAPRES PO SCH ×2 (09:19→20:15)
[2017-06-06] MEDS: NORVASC PO SCH (09:19)
[2017-06-06] MEDS: LOPRESSOR PO SCH ×2 (09:19→17:39)
[2017-06-06] MEDS: PLETAL PO SCH ×2 (09:19→20:15)
--- NOTE | 2017-06-06 09:20 | PCM.PROG ---
Attending Provider: ATTENDING PROVIDER: Dr. NADYA GARCIA This patient is seen with Zahra Mo, Nurse Practitioner. DATE OF SERVICE: 06/06/17 SUBJECTIVE: This 87 year old WHITE/ F was hospitalized 06/03/17. The patient is sitting in chair, alert. She has been up to the bathroom. She states she did not sleep well. Labs pending for today. UA positive for bacteria yesterday. REVIEW OF SYSTEMS: CONSTITUTIONAL: No night sweats. No fatigue, malaise, lethargy. No fever or chills. HEENT: Eyes: No visual changes. No eye pain. No eye discharge. ENT: No runny nose. No epistaxis. No sinus pain. No odynophagia. No congestion. RESPIRATORY: No cough, no congestion. No hemoptysis. No shortness of breath. CARDIOVASCULAR: No angina symptoms. No CHF symptoms. No atypical chest pain for CAD. No palpitations. No orthopnea.. GASTROINTESTINAL: Abdominal cramping. No nausea or vomiting. No diarrhea or constipation. No hematemesis. No hematochezia. GENITOURINARY: No urgency. No frequency. No dysuria. No hematuria. No obstructive symptoms. No discharge. No pain. No significant abnormal bleeding. MUSCULOSKELETAL: No musculoskeletal pain; no joint swelling. NEUROLOGICAL: Awake, alert, oriented to time, place and person. No headache. No neck pain. No syncope. No seizures. No dizziness. PSYCHIATRIC: Not anxious. No depression. No suicidal thoughts. No homicidal thoughts. SKIN: No rash. No lesions. No wounds. ENDOCRINE: No unexplained weight loss. No weight gain. HEMATOLOGIC/LYMPHATIC: No anemia. No purpura. No petechiae. No prolonged or excessive bleeding. No palpable lymph nodes. PHYSICAL EXAMINATION: GENERAL: The patient is awake, alert and oriented, sitting in chair in no distress. VITAL SIGNS: Temperature 98.4 F, Pulse 46, Respiratory Rate 17, BP 140/58, Pulse Ox 98% HEENT: Head normocephalic, atraumatic. Eyes: Extraocular muscles are intact. Pupils are equal, round and reactive to light and accommodation. Ears: No lesions. Nose appeared normal. Throat: No exudate or erythema. NECK: Supple. No JVD, no carotid bruit. No lymphadenopathy or thyromegaly. LUNGS: Diminished breath sounds. Clear to auscultation. Percussion note normal. Chest symmetrical. HEART: S1, S2, no S3. Grade I murmur. No cyanosis or clubbing. No ascites. Pulses: Dorsalis pedis and posterior tibial pulses +1 to +2 both sides. ABDOMEN: Soft. Non-tender. Bowel sounds active. No CVA tenderness. No mass felt. EXTREMITIES: Trace leg edema. Full range of motion of all extremities, equal. NEUROLOGIC: No focal deficit. Cranial nerves II through XII are grossly intact. No headache, no double vision or headache. SKIN: Not dry. Intact. Turgor-normal. LYMPHATIC: No palpable lymph nodes/no lymphedema. MUSCULOSKELETAL: Normal joints with no swelling. Muscle tone is normal. LAB REVIEW: 06/05/17 05:04 06/05/17 05:04 06/05/17 10:11: Urine Color Yellow, Urine Clarity Cloudy, Urine pH 5.5, Ur Specific [place] 1.010, Urine Protein Negative, Urine Glucose (UA) Negative, Urine Ketones Negative, Urine Blood Trace-intact, Urine Nitrite Negative, Urine Bilirubin Negative, Urine Urobilinogen 0.2, Ur Leukocyte Esterase 3+, Urine Microscopic WBC Tntc, Ur Squamous Epith Cells Not present, Urine Bacteria 2+ ASSESSMENT: 1. Possible UTI, culture pending 2. Chest pain, left-sided sub scapular subsided. 3. Hypertension. 4. CABG. 5. Chronic kidney disease. 6. Diabetes mellitus. PLAN: 1. Continue p.o. Levaquin 2. Urine culture pending 3. Change Xanax dosing to night time Plan and coordination of the patient's care discussed in the presence of Group Therapy Counselor and nurse. CONDITION: Stable SCRIBED BY: REA HILL Concrete Paver scribed while in presence of service performed by Dr. Garcia/Zahra Mo APRN on 06/06/17 ([id number])
--- NOTE | 2017-06-06 15:12 | PN ---
DATE OF SERVICE: 06/05/17 SUBJECTIVE: 87 year old white female hospitalized with chest pain. The patient's chest pain is noncardiac. So far no evidence of any acute UT or ischemia. Her other problem is renal azotemia. The patient is going to need IV fluids low to improve her kidney functions and also Hydralazine is to be added for her hypertension. The patient is being followed by [facility]. At one point she was told she needs to be dialysis but some how she has defied it. She believes in alternative medicines. She thinks that is the one that might be helping her. 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 Spencer. The patient's condition it otherwise stable she is in not in any distress. The patient is DNR. The patient was seen and examined with Nurse Practitioner or Manager Interface. TIME SPENT: More than 30 minutes. Plan and coordination of the patient's care discussed in the presence of nurse. BRIGHT
[2017-06-06] MEDS: COUMADIN PO SCH (17:40)
[2017-06-06] MEDS: HUMULIN R SUBCUT PRN ×2 (18:48→20:16)
[2017-06-06] MEDS: XANAX PO SCH (20:15)
[2017-06-06] MEDS: LIPITOR PO SCH (20:15)
[2017-06-06] MEDS: LANTUS SUBCUT SCH (20:16)
[2017-06-07] MEDS: BUMEX PO SCH (05:38)
[2017-06-07] MEDS: ALDACTONE PO SCH (05:38)
[2017-06-07] MEDS: LEVAQUIN PO SCH (05:38)
[2017-06-07] MEDS: LOPRESSOR PO SCH ×2 (09:02→17:26)
[2017-06-07] MEDS: PLETAL PO SCH ×2 (09:02→20:32)
[2017-06-07] MEDS: CATAPRES PO SCH ×2 (09:02→20:32)
[2017-06-07] MEDS: VITAMIN D PO SCH (09:02)
[2017-06-07] MEDS: COZAAR PO SCH (09:02)
[2017-06-07] MEDS: NITRO DUR TD SCH (09:03)
[2017-06-07] MEDS: FERROUS SULFATE PO SCH (09:03)
[2017-06-07] MEDS: NORVASC PO SCH (09:03)
[2017-06-07 09:59] LABS: BASOPHILS % (AUTO) 0.3 % (0.0-3.0); EOSINOPHILS # (AUTO) 0.1 K/ul (0.0-0.7); EOSINOPHILS % (AUTO) 0.4 % (0.0-7.0); HEMATOCRIT 28.2 % (37.0-47.0); HEMOGLOBIN 9.2 g/dl (12.0-16.0); IMMATURE GRANULOCYTE % (AUTO) 0.5 % (0.0-5.0); LYMPHOCYTES # (AUTO) 5.5 K/uL (0.60-3.4); LYMPHOCYTES % (AUTO) 36.8 (10.0-50.0); MEAN CORPUSCULAR HEMOGLOBIN 29.6 pg (27.0-31.0); MEAN CORPUSCULAR HGB CONC 32.6 (31.8-35.4); MEAN CORPUSCULAR VOLUME 90.7 fl (81.0-99.0); MONOCYTES % (AUTO) 6.8 (0-10); NEUTROPHILS # (AUTO) 8.3 K/ul (2.0-6.9); NEUTROPHILS % (AUTO) 55.2; PLATELET COUNT 214 10^3/uL (140-440); RED BLOOD COUNT 3.11 10^6/ul (4.20-5.40); WHITE BLOOD COUNT 14.94 K/ul (4.6-10.2)
[2017-06-07 10:26] LABS: ALBUMIN 2.6 g/dL (3.4-5.0); ALBUMIN/GLOBULIN RATIO 0.93; ANION GAP 13.3; BILIRUBIN,TOTAL 0.49 mg/dL (0.00-1.20); BUN/CREATININE RATIO 29.58; CREATININE 2.4 mg/dL (0.60-1.30); POTASSIUM 4.3 mmol/L (3.5-5.10); TOTAL PROTEIN 5.4 g/dL (5.8-8.1)
[2017-06-07] MEDS: DEXTROSE 5%-1/2NS IV SOLUTION 1,000 ML IV SCH ×2 (13:05→18:46)
[2017-06-07] MEDS: COUMADIN PO SCH ×2 (17:26)
[2017-06-07] MEDS: LIPITOR PO SCH (20:32)
[2017-06-07] MEDS: XANAX PO SCH (20:32)
[2017-06-07] MEDS: NORCO 7.5-325 PO PRN (20:32)
[2017-06-07] MEDS: LANTUS SUBCUT SCH (20:33)
[2017-06-08] MEDS: DEXTROSE 5%-1/2NS IV SOLUTION 1,000 ML IV SCH ×4 (03:47→23:24)
[2017-06-08 04:45] LABS: BASOPHILS % (AUTO) 0.3 % (0.0-3.0); EOSINOPHILS # (AUTO) 0.2 K/ul (0.0-0.7); EOSINOPHILS % (AUTO) 1.4 % (0.0-7.0); HEMATOCRIT 25.6 % (37.0-47.0); HEMOGLOBIN 8.4 g/dl (12.0-16.0); IMMATURE GRANULOCYTE % (AUTO) 0.3 % (0.0-5.0); LYMPHOCYTES # (AUTO) 5.7 K/uL (0.60-3.4); LYMPHOCYTES % (AUTO) 48.3 (10.0-50.0); MEAN CORPUSCULAR HGB CONC 32.8 (31.8-35.4); MEAN CORPUSCULAR VOLUME 91.4 fl (81.0-99.0); MONOCYTES # (AUTO) 0.8 K/uL (0.4-2.0); MONOCYTES % (AUTO) 6.4 (0-10); NEUTROPHILS # (AUTO) 5.1 K/ul (2.0-6.9); NEUTROPHILS % (AUTO) 43.3; PLATELET COUNT 170 10^3/uL (140-440); WHITE BLOOD COUNT 11.73 K/ul (4.6-10.2)
[2017-06-08 05:10] LABS: ALBUMIN 2.3 g/dL (3.4-5.0); ALBUMIN/GLOBULIN RATIO 0.88; ANION GAP 11.5; BILIRUBIN,TOTAL 0.35 mg/dL (0.00-1.20); BUN/CREATININE RATIO 28.51; CALCIUM 8.5 mg/dL (8.2-10.2); CREATININE 2.49 mg/dL (0.60-1.30); POTASSIUM 4.5 mmol/L (3.5-5.10); TOTAL PROTEIN 4.9 g/dL (5.8-8.1)
[2017-06-08] MEDS: BUMEX PO SCH (06:08)
[2017-06-08] MEDS: LEVAQUIN PO SCH (06:09)
[2017-06-08] MEDS: ALDACTONE PO SCH (06:09)
[2017-06-08] MEDS: PLETAL PO SCH ×2 (08:41→20:38)
[2017-06-08] MEDS: FERROUS SULFATE PO SCH (08:41)
[2017-06-08] MEDS: LOPRESSOR PO SCH ×2 (08:41→17:27)
[2017-06-08] MEDS: CATAPRES PO SCH ×2 (08:41→20:38)
[2017-06-08] MEDS: COZAAR PO SCH (08:41)
[2017-06-08] MEDS: NORVASC PO SCH (08:42)
[2017-06-08] MEDS: VITAMIN D PO SCH (08:42)
[2017-06-08] MEDS: NITRO DUR TD SCH (08:42)
[2017-06-08] MEDS: COUMADIN PO SCH ×2 (17:27)
[2017-06-08] MEDS: HUMULIN R SUBCUT PRN (18:07)
[2017-06-08] MEDS: LIPITOR PO SCH (20:38)
[2017-06-08] MEDS: XANAX PO SCH (20:38)
[2017-06-08] MEDS: LANTUS SUBCUT SCH (20:41)
[2017-06-09 05:16] LABS: BASOPHILS # (AUTO) 0.1 K/uL (0-0.2); BASOPHILS % (AUTO) 0.4 % (0.0-3.0); EOSINOPHILS # (AUTO) 0.2 K/ul (0.0-0.7); EOSINOPHILS % (AUTO) 1.9 % (0.0-7.0); HEMATOCRIT 27.5 % (37.0-47.0); IMMATURE GRANULOCYTE % (AUTO) 0.8 % (0.0-5.0); LYMPHOCYTES # (AUTO) 5.1 K/uL (0.60-3.4); MEAN CORPUSCULAR HEMOGLOBIN 29.6 pg (27.0-31.0); MEAN CORPUSCULAR HGB CONC 32.7 (31.8-35.4); MEAN CORPUSCULAR VOLUME 90.5 fl (81.0-99.0); MONOCYTES # (AUTO) 0.8 K/uL (0.4-2.0); MONOCYTES % (AUTO) 6.7 (0-10); NEUTROPHILS # (AUTO) 5.6 K/ul (2.0-6.9); NEUTROPHILS % (AUTO) 47.2; PLATELET COUNT 194 10^3/uL (140-440); RED BLOOD COUNT 3.04 10^6/ul (4.20-5.40); WHITE BLOOD COUNT 11.82 K/ul (4.6-10.2)
[2017-06-09 05:44] LABS: ALBUMIN 2.5 g/dL (3.4-5.0); ALBUMIN/GLOBULIN RATIO 0.93; ANION GAP 13.1; BILIRUBIN,TOTAL 0.23 mg/dL (0.00-1.20); BUN/CREATININE RATIO 29.38; CALCIUM 8.7 mg/dL (8.2-10.2); CREATININE 2.28 mg/dL (0.60-1.30); POTASSIUM 4.1 mmol/L (3.5-5.10); TOTAL PROTEIN 5.2 g/dL (5.8-8.1)
[2017-06-09] MEDS: LEVAQUIN PO SCH (06:15)
[2017-06-09] MEDS: BUMEX PO SCH (06:15)
[2017-06-09] MEDS: ALDACTONE PO SCH (06:16)
[2017-06-09] MEDS: FERROUS SULFATE PO SCH (08:02)
[2017-06-09] MEDS: LOPRESSOR PO SCH ×2 (08:02→17:10)
[2017-06-09] MEDS: NITRO DUR TD SCH (08:02)
[2017-06-09] MEDS: NORVASC PO SCH (08:02)
[2017-06-09] MEDS: PLETAL PO SCH ×2 (08:02→20:30)
[2017-06-09] MEDS: VITAMIN D PO SCH (08:02)
[2017-06-09] MEDS: COZAAR PO SCH (08:02)
[2017-06-09 09:19] LABS: PROTHROMBIN TIME 18.2 SEC (9.3-11.0)
--- NOTE | 2017-06-09 11:51 | PCM.PROG ---
Attending Provider: ATTENDING PROVIDER: Dr. NADYA GARCIA This patient is seen with Zahra Mo, Nurse Practitioner. DATE OF SERVICE: 06/09/17 SUBJECTIVE: This 87 year old WHITE/ F was hospitalized 06/03/17. The patient is sitting in the chair, alert. She states she feels better today. REVIEW OF SYSTEMS: CONSTITUTIONAL: Weakness. No night sweats. No fever or chills. HEENT: Eyes: No visual changes. No eye pain. No eye discharge. ENT: No runny nose. No epistaxis. No sinus pain. No odynophagia. No congestion. RESPIRATORY: No cough, no congestion. No hemoptysis. No shortness of breath. CARDIOVASCULAR: No angina symptoms. No CHF symptoms. No atypical chest pain for CAD. No palpitations. No orthopnea.. GASTROINTESTINAL: No abdominal pain. No nausea or vomiting. No diarrhea or constipation. No hematemesis. No hematochezia. GENITOURINARY: No urgency. No frequency. No dysuria. No hematuria. No obstructive symptoms. No discharge. No pain. No significant abnormal bleeding. MUSCULOSKELETAL: Leg edema. No musculoskeletal pain; no joint swelling. NEUROLOGICAL: Awake, alert, oriented to time, place and person. No headache. No neck pain. No syncope. No seizures. No dizziness. PSYCHIATRIC: Not anxious. No depression. No suicidal thoughts. No homicidal thoughts. SKIN: No rash. No lesions. No wounds. ENDOCRINE: No unexplained weight loss. No weight gain. HEMATOLOGIC/LYMPHATIC: No anemia. No purpura. No petechiae. No prolonged or excessive bleeding. No palpable lymph nodes. PHYSICAL EXAMINATION: GENERAL: The patient is awake, alert and oriented, sitting in chair in no distress. VITAL SIGNS: Temperature 98.5 F, Pulse 55, Respiratory Rate 18, BP 147/63, Pulse Ox 91% HEENT: Head normocephalic, atraumatic. Eyes: Extraocular muscles are intact. Pupils are equal, round and reactive to light and accommodation. Ears: No lesions. Nose appeared normal. Throat: No exudate or erythema. NECK: Supple. No JVD, no carotid bruit. No lymphadenopathy or thyromegaly. LUNGS: Diminished breath sounds. Clear to auscultation. Percussion note normal. Chest symmetrical. HEART: S1, S2, no S3. Grade I/ murmur. No cyanosis or clubbing. No ascites. Pulses: Dorsalis pedis and posterior tibial pulses +1 to +2 both sides. ABDOMEN: Soft. Non-tender. Bowel sounds active. No CVA tenderness. No mass felt. EXTREMITIES: Trace bilateral edema. Full range of motion of all extremities, equal. NEUROLOGIC: No focal deficit. Cranial nerves II through XII are grossly intact. No headache, no double vision or headache. SKIN: Not dry. Intact. Turgor-normal. LYMPHATIC: No palpable lymph nodes/no lymphedema. MUSCULOSKELETAL: Normal joints with no swelling. Muscle tone is normal. LAB REVIEW: 06/09/17 04:56 06/09/17 04:56 06/09/17 04:56: Sodium 136, Potassium 4.1, Chloride 106, Carbon Dioxide 21 L, Anion Gap 13.1, BUN 67 H*, Creatinine 2.28 H, Estimated GFR (MDRD) 20.00, BUN/ Creatinine Ratio 29.38, Glucose 114, Calcium 8.7, Total Bilirubin 0.23, AST 10 L , ALT 11 L, Alkaline Phosphatase 40 L, Total Protein 5.2 L, Albumin 2.5 L, Globulin 2.7, Albumin/Globulin Ratio 0.93 06/09/17 04:56: WBC 11.82 H, RBC 3.04 L, Hgb 9.0 L, Hct 27.5 L, MCV 90.5, MCH 29.6, MCHC 32.7, RDW Coeff of Kerrie 13.4, Plt Count 194, Immature Gran % (Auto) 0.8, Neut % (Auto) 47.2, Lymph % (Auto) 43.0, [place] % (Auto) 6.7, Eos % (Auto) 1.9, Baso % (Auto) 0.4, Immature Gran # (Auto) 0.1, Neut # 5.6, Lymph # 5.1 H, [place] # 0.8, Eos # 0.2, Baso # 0.1 ASSESSMENT: 1. UTI 2. Chest pain, left-sided sub scapular subsided, atypical 3. Hypertension. 4. CABG. 5. Chronic kidney disease. 6. Diabetes mellitus. PLAN: 1. Possible discharge home 2. Levaquin 250 mg times six days 3. 3 mg Coumadin daily Plan and coordination of the patient's care discussed in the presence of Tire Mold Engraver and nurse. CONDITION: Stable SCRIBED BY: REA HILL Moisture Meter Reader scribed while in presence of service performed by Dr. Garcia/Zahra Mo APRN on 06/09/17 ([id number])
[2017-06-09] MEDS: HUMULIN R SUBCUT PRN (13:24)
--- NOTE | 2017-06-09 14:59 | PN ---
DATE OF SERVICE: 06/08/17 SUBJECTIVE: 87-year-old white female hospitalized with chest pain. The patient's chest pain was noncardiac. Her existing problems were hypertension, renal azotemia, anemia. The patient's condition has slowly improved. Her renal function has stabilized. She is on slow IV fluid hydration. PHYSICAL EXAMINATION: HEENT: Head normocephalic, atraumatic. Eyes: Extraocular muscles are intact. Pupils are equal, round and reactive to light and accommodation. Ears: No lesions. Nose appeared normal. Throat: No exudate or erythema. NECK: Supple. No JVD, no carotid bruit. No lymphadenopathy or thyromegaly. LUNGS: Clear to auscultation. Percussion note normal. Chest symmetrical. HEART: S1, S2, no S3. No murmurs. No cyanosis or clubbing. No ascites. Pulses: Dorsalis pedis and posterior tibial pulses +1 to +2 both sides. ABDOMEN: Soft. Nontender. Bowel sounds active. No CVA tenderness. No mass felt. EXTREMITIES: No edema. Full range of motion of all extremities, equal. NEUROLOGIC: No focal deficit. Cranial nerves II through XII are grossly intact. No headache, no double vision or headache. SKIN: Not dry. Intact. Turgor - normal. LYMPHATIC: No palpable lymph nodes/no lymphedema. MUSCULOSKELETAL: Normal joints with no swelling. Muscle tone is normal. LABS: Hemoglobin 11.4, hematocrit 25, WBC 11,000, normal differential. Creatinine 2.4 , BUN 71. ASSESSMENT: The patient has multiple problems like severe peripheral arterial disease, chronic kidney disease, ischemic cardiomyopathy with low ejection fraction, diabetes, severe anemia. The granddaughter is in the room with great granddaughter. PLAN: 1. Will decrease Catapres to 0.1 at nighttime. This morning her blood pressure was 105/42. The patient's condition is stable. TIME SPENT: More than 30 minutes. Plan and coordination of the patient's care discussed in the presence of nurse. BRIGHT
[2017-06-09] MEDS: COUMADIN PO SCH ×2 (17:09)
[2017-06-09] MEDS: DEXTROSE 5%-1/2NS IV SOLUTION 1,000 ML IV SCH (20:06)
[2017-06-09] MEDS: LANTUS SUBCUT SCH (20:30)
[2017-06-09] MEDS: LIPITOR PO SCH (20:30)
[2017-06-09] MEDS: CATAPRES PO SCH (20:30)
[2017-06-09] MEDS: XANAX PO SCH (20:30)
[2017-06-10 05:03] LABS: BASOPHILS % (AUTO) 0.4 % (0.0-3.0); EOSINOPHILS # (AUTO) 0.1 K/ul (0.0-0.7); EOSINOPHILS % (AUTO) 1.4 % (0.0-7.0); HEMATOCRIT 28.2 % (37.0-47.0); HEMOGLOBIN 9.1 g/dl (12.0-16.0); IMMATURE GRANULOCYTE % (AUTO) 0.7 % (0.0-5.0); LYMPHOCYTES # (AUTO) 4.6 K/uL (0.60-3.4); LYMPHOCYTES % (AUTO) 47.1 (10.0-50.0); MEAN CORPUSCULAR HEMOGLOBIN 29.5 pg (27.0-31.0); MEAN CORPUSCULAR HGB CONC 32.3 (31.8-35.4); MEAN CORPUSCULAR VOLUME 91.6 fl (81.0-99.0); MONOCYTES # (AUTO) 0.6 K/uL (0.4-2.0); MONOCYTES % (AUTO) 6.5 (0-10); NEUTROPHILS # (AUTO) 4.3 K/ul (2.0-6.9); NEUTROPHILS % (AUTO) 43.9; PLATELET COUNT 191 10^3/uL (140-440); RED BLOOD COUNT 3.08 10^6/ul (4.20-5.40); WHITE BLOOD COUNT 9.84 K/ul (4.6-10.2)
[2017-06-10 05:34] LABS: ALBUMIN 2.5 g/dL (3.4-5.0); ALBUMIN/GLOBULIN RATIO 0.89; ANION GAP 11.2; BILIRUBIN,TOTAL 0.18 mg/dL (0.00-1.20); BUN/CREATININE RATIO 28.43; CALCIUM 8.8 mg/dL (8.2-10.2); CREATININE 2.04 mg/dL (0.60-1.30); POTASSIUM 4.2 mmol/L (3.5-5.10); TOTAL PROTEIN 5.3 g/dL (5.8-8.1)
[2017-06-10] MEDS: HUMULIN R SUBCUT PRN (05:47)
[2017-06-10] MEDS: LEVAQUIN PO SCH (05:48)
[2017-06-10] MEDS: BUMEX PO SCH (05:48)
[2017-06-10] MEDS: ALDACTONE PO SCH (05:48)
[2017-06-10] MEDS ORDERED: FOSAMAX PO SCH (06:30)
[2017-06-10] MEDS: NORVASC PO SCH (09:19)
[2017-06-10] MEDS: LOPRESSOR PO SCH (09:19)
[2017-06-10] MEDS: FERROUS SULFATE PO SCH (09:19)
[2017-06-10] MEDS: COZAAR PO SCH (09:20)
[2017-06-10] MEDS: PLETAL PO SCH (09:20)
[2017-06-10] MEDS: NITRO DUR TD SCH (09:20)
[2017-06-10] MEDS: VITAMIN D PO SCH (09:20)
[2017-06-10 10:00] VITALS: BP 170/55; TEMP 98
[2017-06-10] MEDS: DEXTROSE 5%-1/2NS IV SOLUTION 1,000 ML IV SCH ×2 (10:49→10:50)
--- NOTE | 2017-06-10 10:51 | CM.DICTOOL ---
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 PERIPHERAL VASCULAR DISEASE DVT BY HISTORY CHRONIC KIDNEY DISEASE MYELODYSPLASTIC SYNDROME ANEMIA DM, TYPE 2 GERD OSTEOARTHRITIS CATARACT EXTRACTION, 2001 BLADDER REPAIR PARTIAL THYROIDECTOMY CHOLECYSTECTOMY HYSTERECTOMY S/P FEM-POP BYPASS ORTHOPEDIC SURGERY LAST VITALS Temp Pulse Resp BP Pulse Ox 98.5 F 55 L 18 147/63 H 91 L 06/09/17 06:00 06/09/17 06:00 06/09/17 06:00 06/09/17 06:00 06/09/17 06:00 ACTIVE MEDICATIONS Acetaminophen/Hydrocodone Bitart ([place] 7.5-325) 1 tab PO Q12HR PRN PRN Reason: PAIN Last Admin: 06/07/17 20:32 Dose: 1 tab Alendronate Sodium (Fosamax) 70 mg PO WEEKLY FOSAMAX [facility] (DISCONTINUED) Alprazolam (Xanax) 0.5 mg PO BEDTIME [facility] Last Admin: 06/08/17 20:38 Dose: 0.5 mg Amlodipine Besylate (Norvasc) 5 mg PO DAILY [facility] (NEW PRESCRIPTION) Last Admin: 06/09/17 08:02 Dose: 5 mg Atorvastatin Calcium (Lipitor) 20 mg PO BEDTIME [facility] Last Admin: 06/08/17 20:38 Dose: 20 mg Bumetanide (Bumex) 1 mg PO QDAC [facility] Last Admin: 06/09/17 06:15 Dose: 1 mg Cholecalciferol (Vitamin D) 1,000 unit PO DAILY [facility] Last Admin: 06/09/17 08:02 Dose: 1,000 unit Cilostazol (Pletal) 50 mg PO BID [facility] Last Admin: 06/09/17 08:02 Dose: 50 mg Clonidine (Catapres) 0.1 mg PO BEDTIME [facility] (NEW PRESCRIPTION) Last Admin: 06/08/17 20:38 Dose: 0.1 mg Ferrous Sulfate (Ferrous Sulfate) 324 mg PO DAILY [facility] Last Admin: 06/09/17 08:02 Dose: 324 mg Insulin Glargine (Lantus) 60 unit SUBCUT BEDTIME [facility] Last Admin: 06/08/17 20:41 Dose: 60 unit Insulin Lispro (Humalog Kwikpen) 0 unit SUBCUT PRN PRN; Protocol PRN Reason: Hyperglycemica Last Admin: 06/08/17 18:07 Dose: 3 unit Levofloxacin (Levaquin) 250 mg PO QDAC [facility] (NEW PRESCRIPTION) Last Admin: 06/09/17 06:15 Dose: 250 mg Losartan Potassium (Cozaar) 100 mg PO DAILY [facility] Last Admin: 06/09/17 08:02 Dose: 100 mg Metoprolol Tartrate (Lopressor) 50 mg PO BIDWM [facility] Last Admin: 06/09/17 08:02 Dose: 50 mg Nitroglycerin (Nitrostat) 0.4 mg SL Q5MIN X 3 DOSES PRN PRN Reason: Chest Pain Last Admin: 06/03/17 15:52 Dose: 0.4 mg Nitroglycerin (Nitro-Dur 0.6 Mg/Hr) 1 patch TD DAILY [facility] Last Admin: 06/09/17 08:02 Dose: 1 patch Spironolactone (Aldactone) 50 mg PO QDAC [facility] Last Admin: 06/09/17 06:16 Dose: 50 mg Warfarin Sodium (Coumadin) 3 mg PO QPM [facility] Last Admin: 06/08/17 17:27 Dose: 1 mg ALLERGIES hydralazine [Hydralazine] Adverse Reaction (Verified 06/03/17 14:59) insulin detemir [From Levemir] Adverse Reaction (Verified 06/03/17 14:59) Penicillins Adverse Reaction (Verified 06/03/17 14:59) NEW PRESCRIPTIONS: DO NOT TAKE YOUR HOME MEDICATION, FOSAMAX LEVAQUIN 250 MG, TAKE ONE TABLET BY MOUTH DAILY FOR 4 DAYS CATAPRES (CLONIDINE) 0.1 MG, TAKE ONE TABLET BY MOUTH AT BEDTIME DAILY NORVASC (AMLODIPINE BESYLATE) 5 MG, TAKE ONE TABLET BY MOUTH EVERY MORNING SMOKING: FORMER SMOKER NONE NOW DISEASE SPECIFIC EDUCATION: ATYPICAL CHEST PAIN COUMADIN MANAGEMENT LAB AND TEST RESULTS HOME MEDICATIONS NEW PRESCRIPTIONS FOLLOW UP VISITS LAB REVIEW: 06/09/17 04:56 06/09/17 04:56 06/09/17 04:56: Sodium 136, Potassium 4.1, Chloride 106, Carbon Dioxide 21 L, Anion Gap 13.1, BUN 67 H*, Creatinine 2.28 H, Estimated GFR (MDRD) 20.00, BUN/ Creatinine Ratio 29.38, Glucose 114, Calcium 8.7, Total Bilirubin 0.23, AST 10 L , ALT 11 L, Alkaline Phosphatase 40 L, Total Protein 5.2 L, Albumin 2.5 L, Globulin 2.7, Albumin/Globulin Ratio 0.93 06/09/17 04:56: WBC 11.82 H, RBC 3.04 L, Hgb 9.0 L, Hct 27.5 L, MCV 90.5, MCH 29.6, MCHC 32.7, RDW Coeff of Kerrie 13.4, Plt Count 194, Immature Gran % (Auto) 0.8, Neut % (Auto) 47.2, Lymph % (Auto) 43.0, [place] % (Auto) 6.7, Eos % (Auto) 1.9, Baso % (Auto) 0.4, Immature Gran # (Auto) 0.1, Neut # 5.6, Lymph # 5.1 H, [place] # 0.8, Eos # 0.2, Baso # 0.1 PLAN: DISCHARGE HOME TODAY RETURN TO SEE DR. GARCIA IN HIS OFFICE IN 5-7 DAYS. PLEASE PHONE THE OFFICE TO SCHEDULE YOUR FOLLOW UP APPOINTMENT. ([phone]) RESUME YOUR HOME MEDICATIONS PER LIST PROVIDED BY THE NURSING STAFF. DO NOT TAKE YOUR ALENDRONATE SODIUM (FOSAMAX) NEW PRESCRIPTIONS LEVAQUIN 250 MG, TAKE ONE TABLET BY MOUTH DAILY FOR 4 DAYS CATAPRES (CLONIDINE) 0.1 MG, TAKE ONE TABLET BY MOUTH AT BEDTIME DAILY NORVASC (AMLODIPINE BESYLATE) 5 MG, TAKE ONE TABLET BY MOUTH EVERY MORNING ACTIVITY GET PLENTY OF REST AT HOME. GRADUALLY INCREASE YOUR ACTIVITY LEVEL ACCORDING TO YOUR TOLERATION DIET: CONSISTENT CARBS SUMMARY THE PATIENT IS ALERT AND ORIENTED X3. CURRENTLY SHE RESIDES AT HOME ALONE. SHE HAS BEEN INDEPENDENT WITH ADL'S AND HAS NOT REQUIRED ANY OUTSIDE ASSISTANCE FOR HOMEMAKING OR HOME HEALTH. SHE HAS A STRAIGHT CANE, ROLLING WALKER AND WHEELCHAIR TO ASSIST WITH AMBULATION. SHE ALSO REQUIRES OXYGEN SUPPLEMENTATION AT NIGHT AND HAS A CONCENTRATOR AT HOME. SHE HAS L[employer]ELINE FOR EMERGENCIES AND ALSO HAS A SHOWER CHAIR. SHE DESIRES TO RETURN HOME AT DISCHARGE. THE PATIENT'S SKIN TURGOR IS INTACT AND WITHOUT DECUBITUS ULCERS. HER HYDRATION STATUS IS IMPROVED COMPARED TO ADMISSION. SHE IS AWARE AND AGREEABLE FOR TODAY'S DISCHARGE PLANS. CURRENT CODE STATUS DO NOT RESUSCITATE MARCELLA VAZQUEZ APRN NADYA GARCIA M.D.
--- NOTE | 2017-06-10 11:17 | PCM.PROG ---
Attending Provider: ATTENDING PROVIDER: Dr. NADYA COOK This patient is seen with Zahra Mo, Nurse Practitioner. DATE OF SERVICE: 06/10/17 SUBJECTIVE: This 87 year old WHITE/ F was hospitalized 06/03/17. The patient is alert, sitting in chair. The patient is ready to go home. Kidney function slightly improved today. No atypical chest pain experienced. REVIEW OF SYSTEMS: CONSTITUTIONAL: No night sweats. Weakness. No fever or chills. HEENT: Eyes: No visual changes. No eye pain. No eye discharge. ENT: No runny nose. No epistaxis. No sinus pain. No odynophagia. No congestion. RESPIRATORY: No cough, no congestion. No hemoptysis. No shortness of breath. CARDIOVASCULAR: No angina symptoms. No CHF symptoms. No atypical chest pain for CAD. No palpitations. No orthopnea.. GASTROINTESTINAL: No abdominal pain. No nausea or vomiting. No diarrhea or constipation. No hematemesis. No hematochezia. GENITOURINARY: No urgency. No frequency. No dysuria. No hematuria. No obstructive symptoms. No discharge. No pain. No significant abnormal bleeding. MUSCULOSKELETAL: No musculoskeletal pain; no joint swelling. NEUROLOGICAL: Awake, alert, oriented to time, place and person. No headache. No neck pain. No syncope. No seizures. No dizziness. PSYCHIATRIC: Not anxious. No depression. No suicidal thoughts. No homicidal thoughts. SKIN: No rash. No lesions. No wounds. ENDOCRINE: No unexplained weight loss. No weight gain. HEMATOLOGIC/LYMPHATIC: No anemia. No purpura. No petechiae. No prolonged or excessive bleeding. No palpable lymph nodes. PHYSICAL EXAMINATION: GENERAL: The patient is awake, alert and oriented, sitting in chair in no distress. VITAL SIGNS: Temperature 97.9 F, Pulse 52, Respiratory Rate 16, BP 127/53, Pulse Ox 95% HEENT: Head normocephalic, atraumatic. Eyes: Extraocular muscles are intact. Pupils are equal, round and reactive to light and accommodation. Ears: No lesions. Nose appeared normal. Throat: No exudate or erythema. NECK: Supple. No JVD, no carotid bruit. No lymphadenopathy or thyromegaly. LUNGS: Clear to auscultation. Percussion note normal. Chest symmetrical. HEART: S1, S2, no S3. No murmurs. No cyanosis or clubbing. No ascites. Pulses: Dorsalis pedis and posterior tibial pulses +1 to +2 both sides. ABDOMEN: Soft. Non-tender. Bowel sounds active. No CVA tenderness. No mass felt. EXTREMITIES: Trace edema lower extremities. Full range of motion of all extremities, equal. NEUROLOGIC: No focal deficit. Cranial nerves II through XII are grossly intact. No headache, no double vision or headache. SKIN: Not dry. Intact. Turgor-normal. LYMPHATIC: No palpable lymph nodes/no lymphedema. MUSCULOSKELETAL: Normal joints with no swelling. Muscle tone is normal. LAB REVIEW: 06/10/17 04:15 06/10/17 04:15 06/10/17 04:15: Sodium 138, Potassium 4.2, Chloride 110 H, Carbon Dioxide 21 L, Anion Gap 11.2, BUN 58 H, Creatinine 2.04 H, Estimated GFR (MDRD) 23.00, BUN/ Creatinine Ratio 28.43, Glucose 230 H D, Calcium 8.8, Total Bilirubin 0.18, AST 13 L, ALT 11 L, Alkaline Phosphatase 46 L, Total Protein 5.3 L, Albumin 2.5 L, Globulin 2.8, Albumin/Globulin Ratio 0.89 06/10/17 04:15: WBC 9.84, RBC 3.08 L, Hgb 9.1 L, Hct 28.2 L, MCV 91.6, MCH 29.5 , MCHC 32.3, RDW Coeff of Kerrie 13.5, Plt Count 191, Immature Gran % (Auto) 0.7, Neut % (Auto) 43.9, Lymph % (Auto) 47.1, [place] % (Auto) 6.5, Eos % (Auto) 1.4, Baso % (Auto) 0.4, Immature Gran # (Auto) 0.1, Neut # 4.3, Lymph # 4.6 H, [place] # 0.6, Eos # 0.1, Baso # 0.0 06/09/17 08:45: PT 18.2 H, INR 1.81 ASSESSMENT: 1. UTI 2. Chest pain, left-sided sub scapular subsided, atypical 3. Hypertension. 4. CABG. 5. Chronic kidney disease. 6. Diabetes mellitus. PLAN: 1. Levaquin 250 mg times four days 2. Continue Coumadin 3 mg daily 3. Keep legs elevated 4. Keep next appointment with Dr. Caba 5. Increase fluid intake Plan and coordination of the patient's care discussed in the presence of Bicycle Service Technician and nurse. CONDITION: Stable SCRIBED BY: REA HILL Boom Conveyor Operator scribed while in presence of service performed by Dr. Cook/Zahra Mo APRN on 06/10/17 ([id number])
--- NOTE | 2017-06-10 13:20 | PN ---
DATE OF SERVICE: 06/06/17 SUBJECTIVE: 87-year-old white female hospitalized with chest pain. The patient's chest pain was left infrascapular, subsided. No evidence of acute PR, ischemia. Her other problem is renal azotemia, worsening. Creatinine 2.1, BUN 76. The patient is on slow IV fluids. No evidence of fluid overload by physical exam. REVIEW OF SYSTEMS: CONSTITUTIONAL: No night sweats. No fatigue, malaise, lethargy. No fever or chills. HEENT: Eyes: No visual changes. No eye pain. No eye discharge. ENT: No runny nose. No epistaxis. No sinus pain. No sore throat. No odynophagia. No ear pain. No congestion. RESPIRATORY: No cough, no congestion. No hemoptysis. No shortness of breath. CARDIOVASCULAR: No angina symptoms. No CHF symptoms. No atypical chest pain for CAD. No palpitations. No orthopnea. GASTROINTESTINAL: No abdominal pain. No nausea or vomiting. No diarrhea or constipation. No hematemesis. No hematochezia. GENITOURINARY: No urgency. No frequency. No dysuria. No hematuria. No obstructive symptoms. No discharge. No pain. No significant abnormal bleeding. MUSCULOSKELETAL: No musculoskeletal pain. No joint swelling. No arthritis. NEUROLOGICAL: No headache. No neck pain. No syncope. No seizures. No dizziness. PSYCHIATRIC: Not anxious. No depression. No suicidal thoughts. No homicidal thoughts. SKIN: No rash. No lesions. No wounds. ENDOCRINE: No unexplained weight loss. No weight gain. HEMATOLOGIC/LYMPHATIC: No anemia. No purpura. No petechiae. No prolonged or excessive bleeding. No palpable lymph nodes. PHYSICAL EXAMINATION: VITAL SIGNS: Temperature 98, pulse 46, respiratory rate 17, BP 140/78, pulse ox 98%. HEENT: Head normocephalic, atraumatic. Eyes: Extraocular muscles are intact. Pupils are equal, round and reactive to light and accommodation. Ears: No lesions. Nose appeared normal. Throat: No exudate or erythema. NECK: Supple. No JVD, no carotid bruit. No lymphadenopathy or thyromegaly. LUNGS: Clear to auscultation. Percussion note normal. Chest symmetrical. HEART: S1, S2, no S3. No murmurs. No cyanosis or clubbing. No ascites. Pulses: Dorsalis pedis and posterior tibial pulses +1 to +2 both sides. ABDOMEN: Soft. Nontender. Bowel sounds active. No CVA tenderness. No mass felt. EXTREMITIES: No edema. Full range of motion of all extremities, equal. NEUROLOGIC: No focal deficit. Cranial nerves II through XII are grossly intact. No headache, no double vision or headache. SKIN: Not dry. Intact. Turgor - normal. LYMPHATIC: No palpable lymph nodes/no lymphedema. MUSCULOSKELETAL: Normal joints with no swelling. Muscle tone is normal. PLAN: 1. Continue IV fluids. 2. Watch for fluid overload. 3. Will continue to monitor CBC and CMP. The patient's condition is stable. She is DNR. TIME SPENT: More than 30 minutes. Plan and coordination of the patient's care discussed in the presence of nurse. BRIGHT
--- NOTE | 2017-06-10 15:00 | PN ---
DATE OF SERVICE: 06/07/17 SUBJECTIVE: 87-year-old white female hospitalized with chest pain. The patient's chest pain has completely subsided which was practically atypical. Cardiovascular status is stable. 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 The INR is 2.2, stable. Her blood pressure is stable. The other conditions are stabie. PLAN: 1. Will continue to hydrate this patient slowly and watch for fluid overload. Of note, the patient's creatinine is 2.1, BUN 77 yesterday. Today's report is pending. Will do daily CBC and CMP. CONDITION: Stable. TIME SPENT: More than 30 minutes. Plan and coordination of the patient's care discussed in the presence of nurse. BRIGHT
--- NOTE | 2017-06-10 15:07 | PN ---
DATE OF SERVICE: 06/07/17 SUBJECTIVE: 78-year-old white male hospitalized with UTI, weakness. The patient's condition has improved some. The patient has not been able to take more than two Carbidopa /Levadopa according to the and slowly has declined and has been having more weakness. The patient feels a lot better. Yesterday he was able to walk and take steps. Appetite has improved remarkably. REVIEW OF SYSTEMS: CONSTITUTIONAL: Weakness. No night sweats. No fever or chills. He is feeling better. He is confused. HEENT: Eyes: No visual changes. No eye pain. No eye discharge. ENT: No runny nose. No epistaxis. No sinus pain. No sore throat. No odynophagia. No congestion. RESPIRATORY: No cough, no congestion. No hemoptysis. No shortness of breath. CARDIOVASCULAR: No angina symptoms. No CHF symptoms. No atypical chest pain for CAD. No palpitations. No orthopnea. GASTROINTESTINAL: No abdominal pain. No nausea or vomiting. No diarrhea or constipation. No hematemesis. No hematochezia. GENITOURINARY: No urinary tract infection type symptoms. No urgency. No frequency. No dysuria. No hematuria. No obstructive symptoms. No discharge. No pain. No significant abnormal bleeding. MUSCULOSKELETAL: No musculoskeletal pain; no joint swelling. NEUROLOGICAL: Confused. No headache. No neck pain. No syncope. No seizures. No dizziness. PSYCHIATRIC: Not anxious. No depression. No suicidal thoughts. No homicidal thoughts. SKIN: No rash. No lesions. No wounds. ENDOCRINE: No unexplained weight loss. No weight gain. HEMATOLOGIC/LYMPHATIC: No anemia. No purpura. No petechiae. No prolonged or excessive bleeding. No palpable lymph nodes. PHYSICAL EXAMINATION: GENERAL: The patient is oriented to person and place. VITAL SIGNS: Temperature 97.6, pulse 67, respiratory rate 16, BP 120/70, pulse ox 98%. HEENT: Head normocephalic, atraumatic. Eyes: Extraocular muscles are intact. Pupils are equal, round and reactive to light and accommodation. Ears: No lesions. Nose appeared normal. Throat: No exudate or erythema. NECK: Supple. No JVD, no carotid bruit. No lymphadenopathy or thyromegaly. LUNGS: Decreased breath sounds but clear to auscultation. Percussion note normal. Chest symmetrical. HEART: S1, S2, no S3. No murmurs. No cyanosis or clubbing. No ascites. Pulses: Dorsalis pedis and posterior tibial pulses +1 to +2 both sides. ABDOMEN: Soft. Nontender. Bowel sounds active. No CVA tenderness. No mass felt. EXTREMITIES: No edema. Full range of motion of all extremities, equal. NEUROLOGIC: No focal deficit. Cranial nerves II through XII are grossly intact. No headache, no double vision or headache. SKIN: Not dry. Intact. Turgor - normal. LYMPHATIC: No palpable lymph nodes/no lymphedema. MUSCULOSKELETAL: Normal joints with no swelling. Muscle tone is normal. LABS: Hemoglobin 14.3, hematocrit 40, WBC 21,000, normal differential. Creatinine 1.1 , BUN 19, potassium 4. ASSESSMENT: 1. The patient's UTI seems to be under control 2. Weakness could be a combination of UTI, confusion with dementia and also Parkinson's disease. PLAN: 1. Continue Carbidopa/Levadopa 3 times a day 2. Continue IV antibiotics 3. Will continue to give Toradol and steroids 4. Up and about 5. Encouragement done 6. Appetite is improving CONDITION: Stable TIME SPENT: More than 30 minutes. Plan and coordination of the patient's care discussed in the presence of nurse. BRIGHT
--- NOTE | 2017-06-11 15:15 | PN ---
DATE OF SERVICE: 06/11/17 SUBJECTIVE: 57-year-old white female was hospitalized with chest pain. The patient's chest pain had subsided. She had evidence of urinary tract infection treated with Levaquin. The patient's cardiovascular status is stable. Her kidney functions are stable. She is being followed by endoscopy tech. Will discontinue Fosamax. She is advised to drink a lot of fluids and elevate the legs. The patient is seen and examined with nurse practitioner. CONDITION: Stable - to be discharged. TIME SPENT: More than 30 minutes. Plan and coordination of the patient's care discussed in the presence of nurse. BRIGHT
--- NOTE | 2017-06-11 15:16 | PN ---
CODING FOR BILLIN06/03/17 LEVEL 5 06/04/17 INTERMEDIATE 06/05/17 INTERMEDIATE 06/06/17 INTERMEDIATE 06/07/17 INTERMEDIATE 06/08/17 INTERMEDIATE 06/09/17 BRIEF 06/10/17 BRIEF 06/11/17 DISCHARGE MTDD
--- NOTE | 2017-06-15 10:41 | DS ---
DATE OF SERVICE: 06/10/17 FINAL DIAGNOSIS: 1. CHEST PAIN, ATYPICAL 2. RENAL AZOTEMIA 3. HYPERTENSION 4. CAD STATUS POST IN AND CABG, 1999 5. COPD/ASTHMA 6. CHRONIC KIDNEY DISEASE 7. 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 PERIPHERAL VASCULAR DISEASE 9. DVT BY HISTORY 10. CHRONIC KIDNEY DISEASE 11. MYELODYSPLASTIC SYNDROME 12. ANEMIA 13. DM, TYPE 2 14. GERD 15. OSTEOARTHRITIS 16. CATARACT EXTRACTION, 2001 17. BLADDER REPAIR 18. PARTIAL THYROIDECTOMY 19. CHOLECYSTECTOMY 20. HYSTERECTOMY 21. STATUS POST FEM-POP BYPASS 22. ORTHOPEDIC SURGERY DISCHARGE INSTRUCTIONS: Followup appointment: Return to see Dr. Cook in his office in 5 to 7 days. Please phone the office to schedule your appointment, [phone]. MEDICATIONS AT DISCHARGE: Acetaminophen/Hydrocodone Bitart ([place] 7.5-325) one tab p.o. q.12hr p.r.n. Fosamax weekly 70 mg p.o. [place]ENNA (Discontinued) Xanax 0.5 mg p.o. bedtime GLENNA Norvasc 5 mg p.o. daily [facility] (new) Lipitor 20 mg p.o. bedtime GLENNA Bumex 1 mg p.o. q.d a.c. [facility] Vitamin D 1000 unit p.o. daily GLENNA Pletal 50 mg p.o. b.i.d. GLENNA Catapres 0.1 mg p.o. bedtime GL[place] (new) Ferrous Sulfate 324 mg p.o. daily [facility] Lantus 60 unit Subcut bedtime GLENNA Humalog Kwikpen 0 unit subcut p.r.n. Levaquin 250 mg p.o. q.d a.c. [facility] (new) Cozaar 100 mg p.o. daily GLENNA Lopressor 50 mg p.o. b.i.d. with meal Nitrostat 0.4 mg SL q.5 min times three doses p.r.n. Nitro-Dur 0.6 mg/hr one patch TD daily GLENNA Aldactone 50 mg p.o. q.d a.c. [facility] Coumadin 3 mg p.o. q.p.m. [facility] NEW PRESCRIPTIONS: DO NOT TAKE YOUR HOME MEDICATION FOSAMAX Levaquin 250 mg take one tablet by mouth daily for four days Clonidine 0.1 mg one p.o. at bedtime daily Norvasc 5 mg one p.o. every morning DIET INSTRUCTIONS: Consistent carbs ACTIVITY: Get plenty of rest at home. Gradually increase your activity level according to your toleration. SMOKING: Former Smoker, none now DISEASE SPECIFIC EDUCATION: Atypical chest pain Coumadin Management Lab and test results Home medications New prescriptions Followup visits HOSPITAL COURSE: This is an 87-year-old white female who presented to the Emergency Room complaining of atypical type chest pain. She had chest pain left scapula radiating to the right scapula. She stated that this had occurred before when she was experiencing cardiac chest pain. Cardiac enzymes were all normal. EKG was unchanged. During her previous hospitalization approximately one month ago she did experiencing some changes in her EKG showing mild ischemia. This was not the case. On this admission, her INR was elevated at 3.4 on admission. Her Coumadin was held for two days. Today, on the day of discharge it was 1.81 and she has resumed 3 mg of Coumadin daily. UA showed that she had a UTI which was positive for Klebsiella. She was started on Levaquin 250 mg p.o. daily. She has been on this since the . She will go home with Levaquin 250 mg daily for the next four days. The patient did have some worsening kidney function as she does have chronic kidney disease. With slow IV rehydration her kidney function has steadily improved each day. Today, on day of discharge, BUN 58, creatinine 2.04. This is an improvement from yesterday with BUN of 66. The patient has chronic anemia and due to secondary chronic kidney disease. Hemoglobin 9.1 today which is steady. Hematocrit 28.2, white count 9.84, platelets 191. Sodium 138, potassium 4.2, glucose 230. The patient already sees Dr. Caba for her kidney function. She is instructed to followup with him as previously scheduled. All of her medications have virtually remained unchanged. Her blood pressures have remained stable during her hospitalization. We will discontinue her Fosamax that she takes once a week. Today, Vital Signs were steady with temperature 97.9, heart rate 52, respirations 16, BP 127/53, pulse ox 95%. Again, she will go home on Levaquin 250 mg p.o. daily for the next four days. All the rest of her home medications will continue. She is encouraged to increase her fluids, elevate her legs. She is instructed not to take any NSAIDs. She is instructed to keep her followup appointment with Dr. Caba regarding her kidney function. We will follow her next week. TIME SPENT: More than 60 minutes. BRIGHT
--- NOTE | 2017-06-16 07:12 | PN ---
DATE OF SERVICE: 06/09/17 SUBJECTIVE: This patient was hospitalized with chest pain, left sided. The patient's chest pain practically has subsided within a couple of days. Her other problem was possibility of urinary tract infection and also renal azotemia. The patient's renal azotemia seems to be resolving on slow hydration. The patient does not have any CHF. Her appetite has improved. The patient has multiple medical problems, most of them end-stage. The main problem is congestive heart failure with dilated cardiomyopathy with ejection fraction 30% , severe peripheral arterial disease status post surgery on both lower limbs, chronic lung disease, diabetes mellitus, chronic kidney disease with chronic renal failure now. The patient understands it. The patient's condition has been stabilized. The patient will be discharged home very likely tomorrow. PROGNOSIS: Poor. The patient was seen and examined with nurse practitioner and egg caser. TIME SPENT: More than 30 minutes. Plan and coordination of the patient's care discussed in the presence of nurse. BRIGHT
== END 2017-06-10 12:20 | disposition home or self-care (01) | DRG 313 ==
LOC: ED 14:53 → MEDSURG B 17:01
PROVIDERS: ADMIT Internal Medicine; ATTEND Internal Medicine
DX: R07.89 Other chest pain (principal); N39.0 Urinary tract infection, site not specified; R79.89 Other specified abnormal findings of blood chemistry; I10 Essential (primary) hypertension; I50.9 Heart failure, unspecified; B96.1 Klebsiella pneumoniae [K. pneumoniae] as the cause of diseases classified elsewhere; N18.9 Chronic kidney disease, unspecified; E11.9 Type 2 diabetes mellitus without complications; I25.2 Old myocardial infarction; R53.1 Weakness; I25.10 Atherosclerotic heart disease of native coronary artery without angina pectoris; J44.9 Chronic obstructive pulmonary disease, unspecified; I65.22 Occlusion and stenosis of left carotid artery; I73.9 Peripheral vascular disease, unspecified; D46.9 Myelodysplastic syndrome, unspecified; K21.9 Gastro-esophageal reflux disease without esophagitis; M19.90 Unspecified osteoarthritis, unspecified site; Z87.891 Personal history of nicotine dependence; Z86.718 Personal history of other venous thrombosis and embolism; Z95.820 Peripheral vascular angioplasty status with implants and grafts; Z95.2 Presence of prosthetic heart valve; Z95.1 Presence of aortocoronary bypass graft; Z79.01 Long term (current) use of anticoagulants; Z79.899 Other long term (current) drug therapy; Z79.4 Long term (current) use of insulin; Z16.11 Resistance to penicillins
CPT/HCPCS: 36415; 80053; 81001; 82550; 82962; 83880; 84484; 85025; 85379; 85610; 87081; 87086; 87186; 93005; 93010; 96374; 96375; 99284

== ENCOUNTER 2017-06-19 13:32 | Emergency (ER) ==
[2017-06-19 13:36] VITALS: BP 149/62; TEMP 99.5; BMI 28.3
[2017-06-19] MEDS ORDERED: MEPHYTON PO STA (15:34)
[2017-06-19] MEDS ORDERED: VITAMIN K ORAL SOLUTION 5 MG/5 ML PO STA (15:49)
[2017-06-19 15:59] LABS: BASOPHILS % (AUTO) 0.2 % (0.0-3.0); EOSINOPHILS # (AUTO) 0.1 K/ul (0.0-0.7); HEMATOCRIT 29.9 % (37.0-47.0); HEMOGLOBIN 9.6 g/dl (12.0-16.0); IMMATURE GRANULOCYTE % (AUTO) 0.6 % (0.0-5.0); LYMPHOCYTES # (AUTO) 5.1 K/uL (0.60-3.4); LYMPHOCYTES % (AUTO) 41.1 (10.0-50.0); MEAN CORPUSCULAR HEMOGLOBIN 29.2 pg (27.0-31.0); MEAN CORPUSCULAR HGB CONC 32.1 (31.8-35.4); MEAN CORPUSCULAR VOLUME 90.9 fl (81.0-99.0); MONOCYTES # (AUTO) 0.6 K/uL (0.4-2.0); MONOCYTES % (AUTO) 4.4 (0-10); NEUTROPHILS # (AUTO) 6.6 K/ul (2.0-6.9); NEUTROPHILS % (AUTO) 52.7; PLATELET COUNT 246 10^3/uL (140-440); RED BLOOD COUNT 3.29 10^6/ul (4.20-5.40); WHITE BLOOD COUNT 12.46 K/ul (4.6-10.2)
[2017-06-19 16:54] LABS: PROTHROMBIN TIME 63.7 SEC (9.3-11.0)
[2017-06-19 16:56] LABS: PARTIAL THROMBOPLASTIN TIME 43.4 SEC (23.9-40.0)
--- NOTE | 2017-06-19 16:57 | ED.PDOC ---
General ED Provider: Dr. ROOPA MERAZ Chief Complaint: Abnormal Labs Stated Complaint: abnormal labs Time Seen by Physician: 13:45 Mode of Arrival: Walk-In Information Source: Patient Exam Limitations: No limitations Primary Care Provider: NADYA GARCIA Nursing and Triage Documentation Reviewed and Agree: Yes Miscellaneous Complaint Exam - Complex/Multi-System Complaint/Exam Onset/Duration: pt has had abnormal lab as out pt noted today Symptoms Are: Still present Episodes Lasting: Hours Location of Pain: 0 Pain Radiates to: 0 Associated Signs and Symptoms: Denies: Decreased responsiveness, Confusion, Agitation, Dizziness, Weakness, Syncope, Headache, Short of air, Cough, Wheezing , Hemoptysis, Chest pain, Palpitations, Edema, Nausea, Vomiting, Diarrhea, Abdominal pain, Back pain, Dysuria, Hematemesis, Melena, Decreased oral intake, Fever, Diaphoresis, Immunocompromised, Anticoagulation Therapy, Recent medication changes, 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, Prior MRSA, Prior VRE, Recent trauma, Remote trauma Review of Systems - Review Of Systems Constitutional: Reports: No symptoms Eyes: Reports: No symptoms Ears, Nose, Mouth, Throat: Reports: No symptoms Respiratory: Reports: No symptoms Cardiac: Reports: No symptoms GI: Reports: No symptoms : Reports: No symptoms Musculoskeletal: Reports: No symptoms Skin: Reports: No symptoms Neurological: Reports: No symptoms Endocrine: Reports: No symptoms Hematologic/Lymphatic: Reports: No symptoms All Other Systems: Reviewed and Negative Past Medical History - Past Medical History Previously Healthy: No Endocrine: Reports: DM 2, Dyslipidemia Cardiovascular: Reports: CAD, Hypertension, CHF, Other (CABG 1999, ARTIIFICIAL AORTA, LEFT ARM STENT) Respiratory: Reports: COPD Hematological: Reports: None Gastrointestinal: Reports: None Genitourinary: Reports: None, CKD Neuro/Psych: Reports: None Musculoskeletal: Reports: None Cancer: Reports: None Last Menstrual Period: N/A Other Pertinent Past Medical History: htn dm mi chf copd kd cabg - Surgical History General Surgical History: Reports: None, Hysterectomy (PARTIAL HYSTERECTOMY), Appendectomy, CABG - Family History Family History: Reports: None - Social History Smoking Status: Former smoker Hx Substance Use: No Alcohol Screening: None - Immunizations Tetanus Shot up to Date: Yes Physical Exam - Physical Exam Appearance: Well-appearing, No pain distress, Well-nourished Eyes: ROBERT, EOMI, Conjunctiva clear ENT: Ears normal, Nose normal, Oropharynx normal Respiratory: Airway patent, Breath sounds clear, Breath sounds equal, Respirations nonlabored Cardiovascular: RRR, Pulses normal, No rub, No murmur GI/: Soft, Nontender, No masses, Bowel sounds normal, No Organomegaly Musculoskeletal: Normal strength, ROM intact, No edema, No calf tenderness Skin: Warm, Dry, Normal color Neurological: Sensation intact, Motor intact, Reflexes intact, Cranial nerves intact, Alert, Oriented Psychiatric: Affect appropriate, Mood appropriate Critical Care Note - Critical Care Note Total Time (mins): 0 Course - Course Hematology/Chemistry: 06/19/17 15:56 Orders, Labs, Meds: Lab Review 06/19/17 15:56 WBC 12.46 H RBC 3.29 L Hgb 9.6 L Hct 29.9 L MCV 90.9 MCH 29.2 MCHC 32.1 RDW Coeff of Kerrie 13.7 Plt Count 246 Immature Gran % (Auto) 0.6 Neut % (Auto) 52.7 Lymph % (Auto) 41.1 [place] % (Auto) 4.4 Eos % (Auto) 1.0 Baso % (Auto) 0.2 Immature Gran # (Auto) 0.1 Neut # 6.6 Lymph # 5.1 H [place] # 0.6 Eos # 0.1 Baso # 0.0 Orders Category Date Time Status CBC W/ AUTO DIFF Stat LAB 06/19/17 15:56 Completed PARTIAL THROMBOPLASTIN TIME Stat LAB 06/19/17 15:56 Received PT WITH INR Stat LAB 06/19/17 15:56 Received Phytonadione (Vit K1) [Vitamin K Oral Solution 5 mg/5 MEDS 06/19/17 15:49 Discontinued ml] 10 mg PO ONCE STA Medications Discontinued Medications Generic Name Dose Route Start Last Admin Trade Name Freq PRN Reason Stop Dose Admin Phytonadione 10 mg 06/19/17 15:49 06/19/17 15:57 Vitamin K Oral Solution 5 Mg/5 Ml PO 06/19/17 15:50 10 mg ONCE STA Administration Vital Signs: Temp Pulse Resp BP Pulse Ox 06/19/17 13:33 99.5 F 62 20 149/62 H 95 Departure - Departure Time of Disposition: 16:56 Disposition: HOME SELF-CARE Discharge Problem: Warfarin toxicity Qualifiers: Encounter type: initial encounter Instructions: Warfarin Toxicity (ED), Vitamin K in Foods (ED), Warfarin (By mouth) Condition: Good Pt referred to PMD for follow-up: Yes Additional Instructions: Please call your Family Physician as soon as possible to schedule a follow-up appointment. you must have your labs repeated before noon in am failure to do so will result in deadly situations or stoke Allergies/Adverse Reactions: Allergies hydralazine [Hydralazine] Adverse Reaction (Verified 06/19/17 13:36) insulin detemir [From Levemir] Adverse Reaction (Verified 06/19/17 13:36) Penicillins Adverse Reaction (Verified 06/19/17 13:36) Home Medications: Ambulatory Orders Cilostazol [Pletal] 50 mg PO BID 12/25/12 Hydrocodone/Acetaminophen [Lortab 7.5-500 Tablet] 1 each PO Q12HR PRN 12/25/12 Insulin Glargine,Hum.rec.anlog [Lantus Solostar] 60 unit SQ BEDTIME 12/25/12 Losartan Potassium [Cozaar] 100 mg PO DAILY 12/25/12 Nitroglycerin [Minitran] 1 each TD DAILY 12/25/12 Nitroglycerin [Nitrostat] 0.4 mg SL PRN PRN 12/25/12 Warfarin Sodium [Jantoven] 3 mg PO DAILY 12/25/12 Atorvastatin Calcium [Lipitor] 20 mg PO QAM 03/29/16 Bumetanide [Bumex] 1 mg PO DAILY 03/29/16 Insulin Lispro [Humalog Kwikpen] See Protocol SQ BID 03/29/16 Alprazolam [Xanax] 0.5 mg PO BEDTIME 02/07/17 Spironolactone [Aldactone] 50 mg PO DAILY 05/19/17 Cholecalciferol (Vitamin D3) [Vitamin D3] 1,000 unit PO DAILY 06/03/17 Ferrous Sulfate [Iron] 325 mg PO DAILY 06/03/17 Hydrocodone Bit/Acetaminophen [[place] 7.5-325] 1 tab PO PRN PRN 06/03/17 Metoprolol Tartrate [Lopressor] 50 mg PO BID 06/03/17 Amlodipine Besylate [Norvasc] 5 mg PO DAILY #30 tablet 06/09/17 Clonidine HCl [Catapres] 0.1 mg PO BEDTIME #30 tablet 06/09/17 Levofloxacin [Levaquin] 250 mg PO DAILY #4 tablet 06/10/17
== END 2017-06-19 17:03 | disposition home or self-care (01) ==
LOC: ED 13:32
DX: T45.515A Adverse effect of anticoagulants, initial encounter (principal); Z79.01 Long term (current) use of anticoagulants; E11.9 Type 2 diabetes mellitus without complications; E78.5 Hyperlipidemia, unspecified; I25.810 Atherosclerosis of coronary artery bypass graft(s) without angina pectoris; I10 Essential (primary) hypertension; I50.9 Heart failure, unspecified; J44.9 Chronic obstructive pulmonary disease, unspecified; N18.9 Chronic kidney disease, unspecified; Z79.899 Other long term (current) drug therapy
CPT/HCPCS: 36415; 85025; 85610; 85730; 99283

== ENCOUNTER 2017-06-20 09:34 | Outpatient (CLI) ==
[2012-12-30 11:12] VITALS: TEMP 98
[2017-06-19 13:36] VITALS: BMI 28.3
[2017-06-20 10:15] LABS: PROTHROMBIN TIME 13.9 SEC (9.3-11.0)
== END 2017-06-20 09:35 | disposition home or self-care (01) ==
LOC: LAB 09:34
PROVIDERS: ATTEND Internal Medicine
DX: R79.1 Abnormal coagulation profile (principal); Z79.899 Other long term (current) drug therapy
CPT/HCPCS: 36415; 85610

== ENCOUNTER 2017-07-18 14:35 | Outpatient (CLI) ==
[2012-12-30 11:12] VITALS: TEMP 98
== END 2017-07-18 14:36 | disposition home or self-care (01) ==
LOC: LAB 14:35
PROVIDERS: ATTEND Internal Medicine Hematology & Oncology
DX: D68.59 Other primary thrombophilia (principal)
CPT/HCPCS: 36415; 80053; 82232; 83615; 85025

== ENCOUNTER 2017-07-24 15:39 | Inpatient (IN) ==
--- NOTE | 2017-07-24 16:19 | ED.PDOC ---
General ED Provider: Dr. MAGALIS STARR Chief Complaint: Cough Stated Complaint: Has had coughing and congestion since New Years Nikki and now has recurrent nausea plus vomiting. She experienced 6 episodes of diarrhea this morning plus emesis on 1 occasion. Went to see Dr Temple today who wanted patient brought to ER for evaluation due to concern over dehydration with worsening kidney status. Time Seen by Physician: 16:00 Mode of Arrival: Walk-In Information Source: Patient Exam Limitations: No limitations Primary Care Provider: NADYA GARCIA Referred to ED by: PCP Nursing and Triage Documentation Reviewed and Agree: Yes Reviewed sepsis parameters & appropriate labs ordered?: Yes System Inflammatory Response Syndrome: Not Applicable Sepsis Protocol: For patient's 13 years and over: Temp is 96.8 and below OR 101 and greater Pulse >90 BPM Resp >20/minute Acutely Altered Mental Status Are patient's symptoms suggestive of a new infection, such as: -Pneumonia -Skin, Soft Tissue -Endocarditis -UTI -Bone, Joint Infection -Implantable Device -Acute Abdominal Infection -Wound Infection -Meningitis -Blood Stream Catheter Infection -Unknown Review of Systems - Review Of Systems Constitutional: Reports: Chills, Malaise, Weakness Eyes: Reports: No symptoms Ears, Nose, Mouth, Throat: Reports: No symptoms Respiratory: Reports: No symptoms Cardiac: Reports: No symptoms GI: Reports: Nausea, Vomiting : Reports: No symptoms Musculoskeletal: Reports: No symptoms Skin: Reports: No symptoms Neurological: Reports: No symptoms Endocrine: Reports: No symptoms Hematologic/Lymphatic: Reports: No symptoms All Other Systems: Reviewed and Negative Past Medical History - Past Medical History Previously Healthy: No Endocrine: Reports: DM 2, Dyslipidemia Cardiovascular: Reports: CAD, Hypertension, CHF, Other (CABG 1999, ARTIIFICIAL AORTA, LEFT ARM STENT) Respiratory: Reports: COPD Hematological: Reports: None Gastrointestinal: Reports: None Genitourinary: Reports: None, CKD Neuro/Psych: Reports: None Musculoskeletal: Reports: None Cancer: Reports: None Last Menstrual Period: N/A Other Pertinent Past Medical History: htn dm mi chf copd kd cabg - Surgical History General Surgical History: Reports: None, Hysterectomy (PARTIAL HYSTERECTOMY), Appendectomy, CABG - Family History Family History: Reports: None - Social History Smoking Status: Former smoker Hx Substance Use: No Alcohol Screening: None - Immunizations Tetanus Shot up to Date: Yes Physical Exam - Physical Exam Appearance: Ill-appearing Ill-appearing: Mild Pain Distress: None Eyes: ROBERT ENT: Ears normal, Nose normal, Oropharynx normal Neck: Supple Respiratory: Airway patent, Breath sounds clear, Breath sounds equal Cardiovascular: RRR, Pulses normal, No rub GI/: Soft, Nontender, Bowel sounds normal Musculoskeletal: Normal strength, ROM intact Skin: Warm, Dry, Pale Neurological: Sensation intact, Motor intact, Reflexes intact Psychiatric: Affect appropriate, Mood appropriate Critical Care Note - Critical Care Note Total Time (mins): 0 Course - Course Hematology/Chemistry: 07/24/17 16:35 07/24/17 16:35 Orders, Labs, Meds: Lab Review 07/24/17 07/24/17 07/24/17 16:00 16:35 16:35 WBC 16.72 H RBC 3.96 L Hgb 11.7 L Hct 36.2 L MCV 91.4 MCH 29.5 MCHC 32.3 RDW Coeff of Kerrie 13.3 Plt Count 281 Immature Gran % (Auto) 0.4 Neut % (Auto) 43.0 Lymph % (Auto) 51.7 H [place] % (Auto) 4.3 Eos % (Auto) 0.2 Baso % (Auto) 0.4 Immature Gran # (Auto) 0.1 Neut # 7.2 H Lymph # 8.6 H [place] # 0.7 Eos # 0.0 Baso # 0.1 Sodium 142 Potassium 5.1 Chloride 108 H Carbon Dioxide 25 Anion Gap 14.1 BUN 48 H Creatinine 2.08 H Estimated GFR (MDRD) 22.00 BUN/Creatinine Ratio 23.07 Glucose 160 H Calcium 11.2 H Total Bilirubin 0.5 AST 15 ALT 9 L Alkaline Phosphatase 63 Total Protein 7.7 Albumin 3.8 Globulin 3.9 Albumin/Globulin Ratio 0.97 Urine Color Yellow Urine Clarity Clear Urine pH 5.0 Ur Specific [place] 1.015 Urine Protein Negative Urine Glucose (UA) Negative Urine Ketones Negative Urine Blood Negative Urine Nitrite Negative Urine Bilirubin Negative Urine Urobilinogen 0.2 Ur Leukocyte Esterase Negative Influenza A (Rapid) Influenza B (Rapid) 07/24/17 16:38 WBC RBC Hgb Hct MCV MCH MCHC RDW Coeff of Kerrie Plt Count Immature Gran % (Auto) Neut % (Auto) Lymph % (Auto) [place] % (Auto) Eos % (Auto) Baso % (Auto) Immature Gran # (Auto) Neut # Lymph # [place] # Eos # Baso # Sodium Potassium Chloride Carbon Dioxide Anion Gap BUN Creatinine Estimated GFR (MDRD) BUN/Creatinine Ratio Glucose Calcium Total Bilirubin AST ALT Alkaline Phosphatase Total Protein Albumin Globulin Albumin/Globulin Ratio Urine Color Urine Clarity Urine pH Ur Specific [place] Urine Protein Urine Glucose (UA) Urine Ketones Urine Blood Urine Nitrite Urine Bilirubin Urine Urobilinogen Ur Leukocyte Esterase Influenza A (Rapid) Negative by naat Influenza B (Rapid) Negative by naat Orders Category Date Time Status BLOOD CULTURE (ED ONLY) Stat LAB 07/24/17 17:25 Received CBC W/ AUTO DIFF Stat LAB 07/24/17 16:35 Completed CMP [COMPREHENSIVE METABOLIC PANEL] Stat LAB 07/24/17 16:35 Completed FLU A & B RAPID TEST [MOLECULAR FLU A/B] Stat LAB 07/24/17 16:38 Completed URINALYSIS C & S IF INDICATED Stat LAB 07/24/17 16:00 Completed Sodium Chloride 0.9% [Sodium Chloride] 500 ml MEDS 07/24/17 16:25 Active IV 100 mls/hr CHEST, 2 VIEWS PA & LAT Stat RADS 07/24/17 16:22 Completed Medications Generic Name Dose Route Start Last Admin Trade Name Freq PRN Reason Stop Dose Admin Acetaminophen/Hydrocodone Bitart 1 tab 07/24/17 20:30 [place] 7.5-325 PO PRN PRN pain Alprazolam 0.5 mg 07/24/17 21:00 Xanax PO BEDTIME [facility] Amlodipine Besylate 5 mg 07/25/17 09:00 Norvasc PO DAILY GLENNA Atorvastatin Calcium 20 mg 07/25/17 09:00 Lipitor PO QAM [facility] Cilostazol 50 mg 07/24/17 21:00 Pletal PO BID GLENNA Clonidine 0.1 mg 07/24/17 21:00 Catapres PO BEDTIME GLENNA Enoxaparin Sodium 60 mg 07/24/17 21:00 Lovenox SUBCUT Q12HR GLENNA Sodium Chloride 500 mls @ 100 mls/hr 07/24/17 16:25 07/24/17 16:37 Sodium Chloride IV 07/24/17 21:24 100 mls/hr .Q5H STA Administration Insulin Human Regular 0 unit 07/24/17 20:39 Humulin R SUBCUT PRN PRN hyperglycemia Protocol Metoprolol Tartrate 50 mg 07/24/17 21:00 Lopressor PO BID [facility] Nitroglycerin patch 07/25/17 09:00 Nitro-Dur 0.6 Mg/Hr TD DAILY [facility] Nitroglycerin 0.4 mg 07/24/17 20:30 Nitrostat SL PRN PRN Chest Pain Non-Formulary Medication 1,000 unit 07/25/17 09:00 Cholecalciferol (Vitamin D3) [Vitamin D3] PO DAILY [facility] Non-Formulary Medication 1 each 07/24/17 20:30 Hydrocodone/Acetaminophen [Lortab 7.5-500 Tablet] PO Q12HR PRN pain Non-Formulary Medication 60 unit 07/24/17 21:00 Insulin Glargine,Hum.Rec.Anlog [Lantus Solostar] SQ BEDTIME GLENNA Non-Formulary Medication 100 mg 07/25/17 09:00 Losartan Potassium PO DAILY GLENNA Non-Formulary Medication 50 mg 07/25/17 09:00 Spironolactone [Aldactone] PO DAILY [facility] Non-Formulary Medication 325 mg 07/25/17 09:00 Ferrous Sulfate [Iron] PO DAILY [facility] Vital Signs: Temp Pulse Resp BP Pulse Ox 07/24/17 15:41 98.2 F 75 20 160/68 H 93 L Departure - Departure Time of Disposition: 18:30 Disposition: ADMITTED INPATIENT Discharge Problem: Dehydration Renal failure Qualifiers: Renal failure chronicity: acute on chronic Condition: Fair Pt referred to PMD for follow-up: Yes (admitted to service of Dr Garcia) Allergies/Adverse Reactions: Allergies hydralazine [Hydralazine] Adverse Reaction (Verified 07/24/17 15:50) insulin detemir [From Levemir] Adverse Reaction (Verified 07/24/17 15:50) Penicillins Adverse Reaction (Verified 07/24/17 15:50) Home Medications: Ambulatory Orders Cilostazol [Pletal] 50 mg PO BID 12/25/12 Hydrocodone/Acetaminophen [Lortab 7.5-500 Tablet] 1 each PO Q12HR PRN 12/25/12 Insulin Glargine,Hum.rec.anlog [Lantus Solostar] 60 unit SQ BEDTIME 12/25/12 Losartan Potassium [Cozaar] 100 mg PO DAILY 12/25/12 Nitroglycerin [Minitran] 1 each TD DAILY 12/25/12 Nitroglycerin [Nitrostat] 0.4 mg SL PRN PRN 12/25/12 Warfarin Sodium [Jantoven] 3 mg PO DAILY 12/25/12 Atorvastatin Calcium [Lipitor] 20 mg PO QAM 03/29/16 Bumetanide [Bumex] 1 mg PO DAILY 03/29/16 Insulin Lispro [Humalog Kwikpen] See Protocol SQ BID 03/29/16 Alprazolam [Xanax] 0.5 mg PO BEDTIME 02/07/17 Spironolactone [Aldactone] 50 mg PO DAILY 05/19/17 Cholecalciferol (Vitamin D3) [Vitamin D3] 1,000 unit PO DAILY 06/03/17 Ferrous Sulfate [Iron] 325 mg PO DAILY 06/03/17 Hydrocodone Bit/Acetaminophen [[place] 7.5-325] 1 tab PO PRN PRN 06/03/17 Metoprolol Tartrate [Lopressor] 50 mg PO BID 06/03/17 Amlodipine Besylate [Norvasc] 5 mg PO DAILY #30 tablet 06/09/17 Clonidine HCl [Catapres] 0.1 mg PO BEDTIME #30 tablet 06/09/17 Levofloxacin [Levaquin] 250 mg PO DAILY #4 tablet 06/10/17
[2017-07-24] MEDS ORDERED: SODIUM CHLORIDE 500 ML IV STA (16:25)
--- NOTE | 2017-07-24 16:53 | DI ---
EXAM: PA and lateral views of the chest HISTORY: Cough COMPARISON: Chest x-ray 06/03/2017 and multiple priors including CT chest 09/02/2016 FINDINGS: The cardiomediastinal silhouette is unchanged with sternotomy wires present. There is no pneumothorax or pleural effusion. There is no consolidation, nodule or mass. The osseous structures demonstrate degenerative disease of the spine. Vascular stent is redemonstrated and unchanged. There are surgical clips in the right upper quadrant. IMPRESSION: No acute cardiopulmonary process
[2017-07-24] MEDS ORDERED: NITROSTAT SL PRN (20:30)
[2017-07-24] MEDS ORDERED: NORCO 7.5-325 PO PRN (20:30)
[2017-07-24] MEDS ORDERED: ACETAMINOPHEN PO PRN (20:30)
[2017-07-24] MEDS ORDERED: HYDROCODONE PO PRN (20:30)
[2017-07-24] MEDS: SODIUM CHLORIDE 1,000 ML IV SCH (20:52)
[2017-07-24] MEDS ORDERED: LOVENOX SUBCUT SCH (21:00)
[2017-07-24] MEDS ORDERED: INSULIN GLARGINE HUM REC ANLOG 60 UNIT SQ SCH (21:00)
[2017-07-24] MEDS ORDERED: LANTUS SUBCUT ONE (21:15)
[2017-07-24] MEDS ORDERED: LOVENOX ONE (21:16)
[2017-07-24] MEDS: XANAX PO SCH (21:25)
[2017-07-24] MEDS: PLETAL PO SCH (21:26)
[2017-07-24] MEDS: CATAPRES PO SCH (21:26)
[2017-07-24] MEDS: LOPRESSOR PO SCH (21:26)
[2017-07-24] MEDS: LOVENOX SUBCUT SCH (21:26)
[2017-07-24 21:42] VITALS: BMI 27.3
[2017-07-25] MEDS: SODIUM CHLORIDE 1,000 ML IV SCH ×3 (05:18→17:12)
[2017-07-25] MEDS: ALDACTONE PO SCH (08:42)
[2017-07-25] MEDS: NORVASC PO SCH (08:43)
[2017-07-25] MEDS: VITAMIN D PO SCH (08:43)
[2017-07-25] MEDS: FERROUS SULFATE PO SCH (08:43)
[2017-07-25] MEDS: COZAAR PO SCH (08:43)
[2017-07-25] MEDS: LOPRESSOR PO SCH ×2 (08:43→20:50)
[2017-07-25] MEDS: LIPITOR PO SCH (08:43)
[2017-07-25] MEDS: PLETAL PO SCH ×2 (08:43→20:50)
[2017-07-25] MEDS: NITRO DUR TD SCH (08:46)
[2017-07-25] MEDS ORDERED: SPIRONOLACTONE 50 MG PO SCH (09:00)
[2017-07-25] MEDS ORDERED: NON-FORMULARY MEDICATION (Ferrous Sulfate [Iron] 325 MG) PO SCH (09:00)
[2017-07-25] MEDS ORDERED: NON-FORMULARY MEDICATION (Cholecalciferol (Vitamin D3) [Vitamin D3] 1,000 UNIT) PO SCH (09:00)
[2017-07-25] MEDS ORDERED: NON-FORMULARY MEDICATION (Losartan Potassium 100 MG) PO SCH (09:00)
[2017-07-25] MEDS: PROTONIX PO SCH (09:51)
--- NOTE | 2017-07-25 10:06 | PCM.PROG ---
Attending Provider: ATTENDING PROVIDER: Dr. NADYA GARCIA This patient is seen with Zahra Mo, Nurse Practitioner. DATE OF SERVICE: 07/25/17 SUBJECTIVE: This 87 year old WHITE/ F was hospitalized 07/24/17. The patient is sitting in bed, alert. She had diarrhea through the night. No vomiting. She feels like eating some breakfast. REVIEW OF SYSTEMS: CONSTITUTIONAL: Weakness. No night sweats. No fever or chills. HEENT: Eyes: No visual changes. No eye pain. No eye discharge. ENT: No runny nose. No epistaxis. No sinus pain. No odynophagia. No congestion. RESPIRATORY: No cough, no congestion. No hemoptysis. No shortness of breath. CARDIOVASCULAR: No angina symptoms. No CHF symptoms. No atypical chest pain for CAD. No palpitations. No orthopnea.. GASTROINTESTINAL: No abdominal pain. No nausea or vomiting. No diarrhea or constipation. No hematemesis. No hematochezia. GENITOURINARY: No urgency. No frequency. No dysuria. No hematuria. No obstructive symptoms. No discharge. No pain. No significant abnormal bleeding. MUSCULOSKELETAL: No musculoskeletal pain; no joint swelling. NEUROLOGICAL: Awake, alert, oriented to time, place and person. No headache. No neck pain. No syncope. No seizures. No dizziness. PSYCHIATRIC: Not anxious. No depression. No suicidal thoughts. No homicidal thoughts. SKIN: No rash. No lesions. No wounds. ENDOCRINE: No unexplained weight loss. No weight gain. HEMATOLOGIC/LYMPHATIC: No anemia. No purpura. No petechiae. No prolonged or excessive bleeding. No palpable lymph nodes. PHYSICAL EXAMINATION: GENERAL: The patient is awake, alert and oriented, lying in bed in no distress. VITAL SIGNS: Temperature 97.8 F, Pulse 55, Respiratory Rate 16, BP 154/59, Pulse Ox 95% HEENT: Head normocephalic, atraumatic. Eyes: Extraocular muscles are intact. Pupils are equal, round and reactive to light and accommodation. Ears: No lesions. Nose appeared normal. Throat: No exudate or erythema. NECK: Supple. No JVD, no carotid bruit. No lymphadenopathy or thyromegaly. LUNGS: Diminished breath sounds bilaterally. Percussion note normal. Chest symmetrical. HEART: S1, S2, no S3. No murmurs. No cyanosis or clubbing. No ascites. Pulses: Dorsalis pedis and posterior tibial pulses +1 to +2 both sides. ABDOMEN: Soft. Non-tender. Bowel sounds active. No CVA tenderness. No mass felt. EXTREMITIES: No edema. Full range of motion of all extremities, equal. NEUROLOGIC: No focal deficit. Cranial nerves II through XII are grossly intact. No headache, no double vision or headache. SKIN: Not dry. Intact. Turgor-normal. LYMPHATIC: No palpable lymph nodes/no lymphedema. MUSCULOSKELETAL: Normal joints with no swelling. Muscle tone is normal. LAB REVIEW: 07/25/17 04:30 07/25/17 04:30 07/25/17 04:30: WBC 13.44 H, RBC 3.39 L, Hgb 10.0 L, Hct 31.6 L, MCV 93.2, MCH 29.5, MCHC 31.6 L, RDW Coeff of Kerrie 13.3, Plt Count 245, Neutrophils % (Manual) 32.0 L, Lymphocytes % (Manual) 57.0 H, Monocytes % (Manual) 3.0, Reactive Lymphocytes 8.0 H, Anisocytosis Not present 07/25/17 04:30: Sodium 143, Potassium 4.4, Chloride 113 H, Carbon Dioxide 22 L, Anion Gap 12.4, BUN 49 H, Creatinine 2.07 H, Estimated GFR (MDRD) 23.00, BUN/ Creatinine Ratio 23.67, Glucose 58 L D, Calcium 9.8, Total Bilirubin 0.5, AST 12 L, ALT 7 L, Alkaline Phosphatase 49 L, Total Protein 5.9, Albumin 3.1 L, Globulin 2.8, Albumin/Globulin Ratio 1.11 ASSESSMENT: 1. Acute gastroenteritis 2. Dehydration 3. Acute on chronic renal failure 4. History of DVT PLAN: 1. INR daily 2. Restart Coumadin if INR is okay 3. Lovenox 60 once a day (will stop if INR is okay) 4. Decrease IV fluids to 50 cc/hr 5. [id number] mg p.o. daily Plan and coordination of the patient's care discussed in the presence of Boilermaker Loftsman and nurse. CONDITION: Stable SCRIBED BY: REA HILL Hospitality Aide scribed while in presence of service performed by Dr. Garcia/Zahra Mo APRN on 07/25/17 ([id number])
[2017-07-25] MEDS: LOVENOX SUBCUT SCH (10:58)
[2017-07-25] MEDS: COUMADIN PO SCH (16:03)
[2017-07-25] MEDS: HUMULIN R SUBCUT PRN (16:26)
[2017-07-25] MEDS: LANTUS SUBCUT SCH (20:48)
[2017-07-25] MEDS: CATAPRES PO SCH (20:50)
[2017-07-25] MEDS: XANAX PO SCH (20:50)
[2017-07-26] MEDS: PROTONIX PO SCH (05:33)
[2017-07-26] MEDS: SODIUM CHLORIDE 1,000 ML IV SCH ×2 (06:52→20:51)
[2017-07-26] MEDS: NITRO DUR TD SCH (08:32)
[2017-07-26] MEDS: ALDACTONE PO SCH (08:33)
[2017-07-26] MEDS: COZAAR PO SCH (08:33)
[2017-07-26] MEDS: VITAMIN D PO SCH (08:34)
[2017-07-26] MEDS: FERROUS SULFATE PO SCH (08:34)
[2017-07-26] MEDS: PLETAL PO SCH ×2 (08:34→21:38)
[2017-07-26] MEDS: LIPITOR PO SCH (08:35)
[2017-07-26] MEDS: LOPRESSOR PO SCH ×2 (08:35→21:38)
[2017-07-26] MEDS: NORVASC PO SCH (08:36)
[2017-07-26] MEDS: HUMULIN R SUBCUT PRN (17:25)
[2017-07-26] MEDS: COUMADIN PO SCH (17:41)
[2017-07-26] MEDS ORDERED: LANTUS SUBCUT ONE (21:33)
[2017-07-26] MEDS: CATAPRES PO SCH (21:38)
[2017-07-26] MEDS: XANAX PO SCH (21:38)
[2017-07-26] MEDS: LANTUS SUBCUT SCH (21:39)
[2017-07-27] MEDS: PROTONIX PO SCH (05:50)
[2017-07-27] MEDS: PLETAL PO SCH ×2 (09:34→21:02)
[2017-07-27] MEDS: LOPRESSOR PO SCH ×2 (09:34→21:02)
[2017-07-27] MEDS: COZAAR PO SCH (09:34)
[2017-07-27] MEDS: ALDACTONE PO SCH (09:34)
[2017-07-27] MEDS: FERROUS SULFATE PO SCH (09:34)
[2017-07-27] MEDS: NORVASC PO SCH (09:34)
[2017-07-27] MEDS: VITAMIN D PO SCH (09:34)
[2017-07-27] MEDS: LIPITOR PO SCH (09:34)
[2017-07-27] MEDS: NITRO DUR TD SCH (09:35)
[2017-07-27] MEDS: SODIUM CHLORIDE 1,000 ML IV SCH (11:39)
[2017-07-27] MEDS: COUMADIN PO SCH (16:22)
[2017-07-27] MEDS ORDERED: LANTUS SUBCUT STA (20:59)
[2017-07-27] MEDS: CATAPRES PO SCH (21:02)
[2017-07-27] MEDS: XANAX PO SCH (21:02)
[2017-07-27] MEDS: LANTUS SUBCUT SCH (21:03)
[2017-07-28 05:44] VITALS: BP 123/45; TEMP 972
[2017-07-28] MEDS: PROTONIX PO SCH (06:02)
--- NOTE | 2017-07-28 07:10 | HP ---
DATE OF SERVICE: 07/24/17 HISTORY OF PRESENT ILLNESS: This is an 87-year-old female who presented to the emergency room after seeing Dr. Spencer today. She had been experiencing vomiting and diarrhea along with cough and congestion. Dr. Spencer instructed her to come to the emergency room for evaluation for concern of her dehydration. She does have a history of chronic kidney disease. PAST MEDICAL HISTORY: Type 2 diabetes mellitus Dyslipidemia Coronary artery disease with stent Hypertension CHF COPD Chronic kidney disease Stage 3 to Stage 4 Anemia Myelodysplastic syndrome AMI 1999 PVD DVT Asthma GERD Osteoarthritis PAST SURGICAL HISTORY: Cataracts 2001 Bladder repair, date unknown Partial thyroidectomy, date unknown CABG 1999 Aortic valve replacement Partial hysterectomy Appendectomy REVIEW OF SYSTEMS: CONSTITUTIONAL: Positive for chills, malaise and weakness. No fever. No night sweats. HEENT: Eyes: No visual changes. No eye pain. No eye discharge. ENT: No runny nose. No epistaxis. No sinus pain. No sore throat. No odynophagia. No ear pain. No congestion. RESPIRATORY: Positive for cough. No hemoptysis. No shortness of breath. CARDIOVASCULAR: No angina symptoms. No CHF symptoms. No atypical chest pain for CAD. No palpitations. No orthopnea. GASTROINTESTINAL: Positive for decreased appetite. No abdominal pain. Positive for nausea or vomiting. No diarrhea or constipation. No hematemesis. No hematochezia. GENITOURINARY: No urgency. No frequency. No dysuria. No hematuria. No obstructive symptoms. No discharge. No pain. No significant abnormal bleeding. MUSCULOSKELETAL: Positive for generalized weakness. NEUROLOGICAL: No headache. No neck pain. No syncope. No seizures. No dizziness. PSYCHIATRIC: Not anxious. No depression. No suicidal thoughts. No homicidal thoughts. SKIN: No rash. No lesions. No wounds. ENDOCRINE: No unexplained weight loss. No weight gain. HEMATOLOGIC/LYMPHATIC: No anemia. No purpura. No petechiae. No prolonged or excessive bleeding. No palpable lymph nodes. PERSONAL/FAMILY/SOCIAL HISTORY: The patient is a former smoker. She currently lives at home by herself. She has a sister and a brother who are both here and able to help her. No alcohol use. No ilicit drug use. Family History: Father at age 77 of lung cancer and mother at age 85, had history of coronary artery disease, hypertension and diabetes mellitus, Type 2. MEDICATIONS: Pleatal Lortab Lantus Cozaar Nitro Coumadin Lipitor Bumex Lispro Insulin Xanax Aldactone Iron [place] Lopressor Norvasc Catapres ALLERGIES: PENICILLINS, HYDRALAZINE, LEVEMIR PHYSICAL EXAMINATION: VITAL SIGNS: Temperature 98.2, heart rate 75, respirations 20, BP 160/68, pulse ox 93%. HEENT: Head normocephalic, atraumatic. Eyes: Extraocular muscles are intact. Pupils are equal, round and reactive to light and accommodation. Ears: No lesions. Nose appeared normal. Throat: No exudate or erythema. NECK: Supple. No JVD, no carotid bruit. No lymphadenopathy or thyromegaly. LUNGS: Diminished breath sounds bilaterally. Clear to auscultation. Percussion note normal. Chest symmetrical. HEART: S1, S2, no S3. She has a Grade I/6 systolic murmur. No cyanosis or clubbing. No ascites. Pulses: Dorsalis pedis and posterior tibial pulses +1 to +2 both sides. ABDOMEN: Soft. Nontender. Bowel sounds active. No CVA tenderness. No mass felt. EXTREMITIES: No edema. Full range of motion of all extremities, equal. NEUROLOGIC: Alert, oriented times three. No focal deficit. Cranial nerves II through XII are grossly intact. No headache, no double vision or headache. SKIN: Not dry. Intact. Turgor - normal. LYMPHATIC: No palpable lymph nodes/no lymphedema. MUSCULOSKELETAL: Normal joints with no swelling. Muscle tone is normal. LABS: White count 16.72, hemoglobin 11.7, hematocrit 36.2, platelets 281. Sodium 142, potassium 5.1. BUN 48, creatinine 2.08. Carbon dioxide 25, total protein 7.7, albumin 3.8, globulin 3.9, AST 15, ALT 9, alkaline phosphatase 63. Urine normal. ASSESSMENT: 1. ACUTE DEHYDRATION 2. ACUTE ON CHRONIC RENAL FAILURE 3. ACUTE BRONCHITIS 4. GASTRITIS 5. COPD PLAN: 1. IV fluids, D5 1/2 NS at 75 cc/hr 2. Routine telemetry orders 3. Diabetic diet 4. CBC, CMP daily 5. Continue Coumadin 6. INR daily 7. After 24 hours decrease IV fluids to 50 cc/hr 8. Elevate legs 9. Protonix 40 mg p.o. b.i.d. 10.Zofran 4 mg q.6hr p.r.n. for nausea 11.Chest x-ray 12.Flu test is negative 13.Will monitor daily TIME SPENT: More than 70 minutes. MTDD
[2017-07-28] MEDS: LOPRESSOR PO SCH (08:59)
[2017-07-28] MEDS: PLETAL PO SCH (08:59)
[2017-07-28] MEDS: COZAAR PO SCH (08:59)
[2017-07-28] MEDS: ALDACTONE PO SCH (08:59)
[2017-07-28] MEDS: NORVASC PO SCH (08:59)
[2017-07-28] MEDS: FERROUS SULFATE PO SCH (08:59)
[2017-07-28] MEDS: VITAMIN D PO SCH (08:59)
[2017-07-28] MEDS: NITRO DUR TD SCH (08:59)
[2017-07-28] MEDS: LIPITOR PO SCH (08:59)
--- NOTE | 2017-07-28 13:38 | CM.DICTOOL ---
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% STENOSIS PERIPHERAL VASCULAR DISEASE MYELODYSPLASTIC SYNDROME ANEMIA GERD DIABETES MELLITUS, TYPE 2 OSTEOARTHRITIS LAST VITALS Temp Pulse Resp BP Pulse Ox 972 F H 50 L 16 123/45 L 94 L 07/28/17 05:43 07/28/17 05:43 07/28/17 05:43 07/28/17 05:43 07/28/17 05:43 ACTIVE HOME MEDICATIONS Acetaminophen/Hydrocodone Bitart ([place] 7.5-325) 1 tab PO Q12H PRN PRN Reason: pain Last Admin: 07/26/17 21:38 Dose: 1 tab Alprazolam (Xanax) 0.5 mg PO BEDTIME [facility], [facility] Last Admin: 07/27/17 21:02 Dose: 0.5 mg Amlodipine Besylate (Norvasc) 5 mg PO DAILY [facility], [facility] Last Admin: 07/28/17 08:59 Dose: 5 mg Atorvastatin Calcium (Lipitor) 20 mg PO QAM [facility], [facility]1983 Last Admin: 07/28/17 08:59 Dose: 20 mg Cholecalciferol (Vitamin D) 1,000 unit PO DAILY [facility] Last Admin: 07/28/17 08:59 Dose: 1,000 unit Cilostazol (Pletal) 50 mg PO BID [facility] Last Admin: 07/28/17 08:59 Dose: 50 mg Clonidine (Catapres) 0.1 mg PO BEDTIME [facility] Last Admin: 07/27/17 21:02 Dose: 0.1 mg Ferrous Sulfate (Ferrous Sulfate) 324 mg PO DAILY [facility] Last Admin: 07/28/17 08:59 Dose: 324 mg Insulin Glargine (Lantus) 60 unit SUBCUT BEDTIME [facility], [facility] Last Admin: 07/27/17 21:03 Dose: Not Given Insulin Human Regular (Humulin R) 0 unit SUBCUT PRN PRN; Protocol PRN Reason: hyperglycemia Last Admin: 07/26/17 17:25 Dose: 3 unit Losartan Potassium (Cozaar) 100 mg PO DAILY [facility] Last Admin: 07/28/17 08:59 Dose: 100 mg Metoprolol Tartrate (Lopressor) 50 mg PO BID [facility] Last Admin: 07/28/17 08:59 Dose: 50 mg Nitroglycerin (Nitro-Dur 0.6 Mg/Hr) 1 patch TD DAILY [facility] Last Admin: 07/28/17 08:59 Dose: 1 patch Nitroglycerin (Nitrostat) 0.4 mg SL Q5MIN X 3 DOSES PRN PRN Reason: Chest Pain Pantoprazole Sodium (Protonix) 40 mg PO QDAC [facility] Last Admin: 07/28/17 06:02 Dose: 40 mg Spironolactone (Aldactone) 50 mg PO DAILY [facility] Last Admin: 07/28/17 08:59 Dose: 50 mg Warfarin Sodium (Coumadin) 3 mg PO QPM [facility] Last Admin: 07/27/17 16:22 Dose: 3 mg ALLERGIES hydralazine [Hydralazine] Adverse Reaction (Verified 07/24/17 15:50) insulin detemir [From Levemir] Adverse Reaction (Verified 07/24/17 15:50) Penicillins Adverse Reaction (Verified 07/24/17 15:50) SMOKING: N/A DISEASE SPECIFIC EDUCATION: DHYDRATION KIDNEY FAILURE DIET INCLUDING NEED TO EAT MORE PROTEIN KEEP LEGS ELEVATE MUCH POSSIBLE ACTIVITY HOME HEALTH LAB REVIEW: 07/28/17 04:10 07/28/17 04:10 07/28/17 04:10: Sodium 142, Potassium 4.2, Chloride 116 H, Carbon Dioxide 20 L, Anion Gap 10.2, BUN 43 H, Creatinine 1.58 H, Estimated GFR (MDRD) 31.00, BUN/ Creatinine Ratio 27.21, Glucose 53 L, Calcium 9.3, Total Bilirubin < 0.3, AST 18 , ALT 13, Alkaline Phosphatase 52 L, Total Protein 6.0, Albumin 3.1 L, Globulin 2.9, Albumin/Globulin Ratio 1.07 07/28/17 04:10: WBC 18.38 H D, RBC 3.38 L, Hgb 10.2 L, Hct 31.1 L, MCV 92.0, MCH 30.2, MCHC 32.8, RDW Coeff of Kerrie 13.3, Plt Count 235, Neutrophils % (Manual ) 35.0 L, Lymphocytes % (Manual) 60.0 H, Monocytes % (Manual) 2.0, Eosinophils % (Manual) 3.0, Anisocytosis Not present 07/28/17 04:10: PT 21.4 H, INR 2.15 PLAN: DISCHARGE TO HOME TODAY. CONTINUE HOME MEDICATIONS PER NURSING SHEETS NO NEW MEDICATIONS DIET 1800 CALORIE DIET. EAT MORE PROTEIN. ACTIVITY GRADUALLY RESUME ACTIVITY. KEEP LEGS ELEVATED MUCH POSSIBLE. FOLLOW UP WITH DR. GARCIA ON FridayJuly AT 215PM. IF UNABLE TO KEEP APPOINTMENT CALL TO RESCHEDULE. [phone]. [facility] FOR NURSING, VITAL SIGNS, NUTRITION AND PT/OT. THEY WILL CALL WITH APPOINTMENT DATE AND TIME. SITTING UP IN BED. ALERT AND ORIENTED X 4. DR. GARCIA INTO SEE PATIENT. PATIENT STATES FEELING BETTER. DR. GARCIA DISCUSSED PLAN OF CARE INCLUDING DISCHARGE, NEED TO EAT MORE PROTEIN AND TO KEEP LEGS ELEVATED AT ALL MUCH POSSIBLE. PATIENT VERBALIZES UNDER STANDING AND AGREEABLE. APPETITE IS GOOD. VITAL SIGNS ARE STABLE. HAS BEEN AFEBRILE. POX 94% ON ROOM AIR. HEART TONES ARE REGULAR WITH TELEMETRY REVEALING SINUS RHYTHM/SINUS JORGE. LUNGS ARE CLEAR WITH DIMINISHED BREATH SOUNDS. NO COUGH NOTED. ABDOMEN IS SOFT, NON-TENDER WITH BOWEL SOUNDS POSITIVE IN ALL 4 QUADS. HAS SALINE LOCK IN RIGHT WRIST SITE IS CLEAR. IS INDEPENDENT WITH ACTIVITIES OF DAILY LIVING WITH STEADY GAIT. DR. NADYA GARCIA MD Carlos VAZQUEZ APRN
--- NOTE | 2017-07-29 12:35 | PN ---
DATE OF SERVICE: 07/27/17 SUBJECTIVE: 87 year old white female hospitalized with gastritis type of symptoms with dehydration. The patient's hydration status has improved and her kidney functions are better.Her hydration status and skin turgor better. REVIEW OF SYSTEMS: CONSTITUTIONAL: No night sweats. No fatigue, malaise, lethargy. No fever or chills. HEENT: Eyes: No visual changes. No eye pain. No eye discharge. ENT: No runny nose. No epistaxis. No sinus pain. No sore throat. No odynophagia. No congestion. RESPIRATORY: No cough, no congestion. No hemoptysis. No shortness of breath. CARDIOVASCULAR: No angina symptoms. No CHF symptoms. No atypical chest pain for CAD. No palpitations. No orthopnea. GASTROINTESTINAL: No abdominal pain. No nausea or vomiting. No diarrhea or constipation. No hematemesis. No hematochezia. GENITOURINARY: No urgency. No frequency. No dysuria. No hematuria. No obstructive symptoms. No discharge. No pain. No significant abnormal bleeding. MUSCULOSKELETAL: No musculoskeletal pain; no joint swelling. NEUROLOGICAL: No headache. No neck pain. No syncope. No seizures. No dizziness. PSYCHIATRIC: Not anxious. No depression. No suicidal thoughts. No homicidal thoughts. SKIN: No rash. No lesions. No wounds. ENDOCRINE: No unexplained weight loss. No weight gain. HEMATOLOGIC/LYMPHATIC: No anemia. No purpura. No petechiae. No prolonged or excessive bleeding. No palpable lymph nodes. PHYSICAL EXAMINATION: GENERAL: The patient is oriented to time, place and person. VITAL SIGNS: Temperature 97, pulse 50, respiratory rate 16, blood pressure 111/ 56 and pulse ox 95%. HEENT: Head normocephalic, atraumatic. Eyes: Extraocular muscles are intact. Pupils are equal, round and reactive to light and accommodation. Ears: No lesions. Nose appeared normal. Throat: No exudate or erythema. NECK: Supple. No JVD, no carotid bruit. No lymphadenopathy or thyromegaly. LUNGS: Decreased breath sounds but clear to auscultation. Percussion note normal. Chest symmetrical. HEART: S1, S2, no S3. No murmurs. No cyanosis or clubbing. No ascites. Pulses: Dorsalis pedis and posterior tibial pulses +1 to +2 both sides. ABDOMEN: Soft. Nontender. Bowel sounds active. No CVA tenderness. No mass felt. EXTREMITIES: No edema. Full range of motion of all extremities, equal. NEUROLOGIC: No focal deficit. Cranial nerves II through XII are grossly intact. No headache, no double vision or headache. SKIN: Not dry. Intact. Turgor - normal. LYMPHATIC: No palpable lymph nodes/no lymphedema. MUSCULOSKELETAL: Normal joints with no swelling. Muscle tone is normal. LABS: creatinine 1.5, BUN 40, potassium 4, Hgb 8.6, hct 26. ASSESSMENT: 1. Acute gastritis, resolving 2. Dehydration, resolving 3. Azotemia, resolving 4. CHF under control 5. Coronary artery disease, under control with stable angina in fact cardiovascular status is stable. PLAN: 1. Discontinue IV fluids 2. Lasix to be given 10mg in case the patient has some fluid overload CONDITION: Stabilizing. TIME SPENT: More than 30 minutes. Plan and coordination of the patient's care discussed in the presence of nurse. BRIGHT
--- NOTE | 2017-07-30 15:29 | PN ---
DATE OF SERVICE: 07/26/17 SUBJECTIVE: 87 year old white female hospitalized with acute gastroenteritis and vomiting. The patient's vomiting and nausea and gastroenteritis has subsided. She is getting her strength back. REVIEW OF SYSTEMS: CONSTITUTIONAL: No night sweats. No fatigue, malaise, lethargy. No fever or chills. HEENT: Eyes: No visual changes. No eye pain. No eye discharge. ENT: No runny nose. No epistaxis. No sinus pain. No sore throat. No odynophagia. No congestion. RESPIRATORY: No cough, no congestion. No hemoptysis. No shortness of breath. CARDIOVASCULAR: No angina symptoms. No CHF symptoms. No atypical chest pain for CAD. No palpitations. No orthopnea. GASTROINTESTINAL: No abdominal pain. No nausea or vomiting. No diarrhea or constipation. No hematemesis. No hematochezia. GENITOURINARY: No urgency. No frequency. No dysuria. No hematuria. No obstructive symptoms. No discharge. No pain. No significant abnormal bleeding. MUSCULOSKELETAL: No musculoskeletal pain; no joint swelling. NEUROLOGICAL: No headache. No neck pain. No syncope. No seizures. No dizziness. PSYCHIATRIC: Not anxious. No depression. No suicidal thoughts. No homicidal thoughts. SKIN: No rash. No lesions. No wounds. ENDOCRINE: No unexplained weight loss. No weight gain. HEMATOLOGIC/LYMPHATIC: No anemia. No purpura. No petechiae. No prolonged or excessive bleeding. No palpable lymph nodes. PHYSICAL EXAMINATION: GENERAL: Hydration status has improved. She is talking better. VITAL SIGNS: Temperature 97.4, pulse 50, respiratory rate 16, blood pressure 140/62, pulse ox 96%. HEENT: Head normocephalic, atraumatic. Eyes: Extraocular muscles are intact. Pupils are equal, round and reactive to light and accommodation. Ears: No lesions. Nose appeared normal. Throat: No exudate or erythema. NECK: Supple. No JVD, no carotid bruit. No lymphadenopathy or thyromegaly. LUNGS: Decreased breath sounds, but clear. Percussion note normal. Chest symmetrical. HEART: S1, S2, no S3. No murmurs. No cyanosis or clubbing. No ascites. Pulses: Dorsalis pedis and posterior tibial pulses +1 to +2 both sides. ABDOMEN: Soft. Nontender. Bowel sounds active. No CVA tenderness. No mass felt. EXTREMITIES: No edema. Full range of motion of all extremities, equal. NEUROLOGIC: No focal deficit. Cranial nerves II through XII are grossly intact. No headache, no double vision or headache. SKIN: Not dry. Intact. Turgor is a lot better. LYMPHATIC: No palpable lymph nodes/no lymphedema. MUSCULOSKELETAL: Normal joints with no swelling. Muscle tone is normal. ASSESSMENT: 1. ACUTE GASTROENTERITIS RESOLVING 2. RENAL AZOTEMIA RESOLVING 3. CARDIOVASCULAR STATUS STABLE PLAN: 1. Continue same management with IV fluids. CONDITION: Improving. TIME SPENT: More than 30 minutes. Plan and coordination of the patient's care discussed in the presence of nurse. BRIGHT
--- NOTE | 2017-07-30 15:34 | PN ---
DATE OF SERVICE: 07/25/17 SUBJECTIVE: The patient was seen and examined with the nurse practitioner. The patient is getting IV fluids. Her hydration status has improved. PHYSICAL EXAMINATION: GENERAL: She is getting her strength back. HEENT: Head normocephalic, atraumatic. Eyes: Extraocular muscles are intact. Pupils are equal, round and reactive to light and accommodation. Ears: No lesions. Nose appeared normal. Throat: No exudate or erythema. NECK: Supple. No JVD, no carotid bruit. No lymphadenopathy or thyromegaly. LUNGS: Clear to auscultation. Percussion note normal. Chest symmetrical. HEART: S1, S2, no S3. No murmurs. No cyanosis or clubbing. No ascites. Pulses: Dorsalis pedis and posterior tibial pulses +1 to +2 both sides. ABDOMEN: Soft. Nontender. Bowel sounds active. No CVA tenderness. No mass felt. EXTREMITIES: No edema. Full range of motion of all extremities, equal. NEUROLOGIC: No focal deficit. Cranial nerves II through XII are grossly intact. No headache, no double vision or headache. SKIN: Not dry. Intact. Turgor - normal. LYMPHATIC: No palpable lymph nodes/no lymphedema. MUSCULOSKELETAL: Normal joints with no swelling. Muscle tone is normal. PLAN: Continue the same management. MTDD
--- NOTE | 2017-08-14 13:35 | DS ---
DATE OF SERVICE: 07/28/17 FINAL DIAGNOSIS: 1. DEHYDRATION (ACUTE) 2. GASTROENTERITIS 3. ACUTE ON CHRONIC RENAL FAILURE 4. HYPERTENSION 5. CAD 6. [place] AND CABG, 1999 7. COPD/ASTHMA 8. 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 PERIPHERAL VASCULAR DISEASE 10. MYELODYSPLASTIC SYNDROME 11. ANEMIA 12. GERD 13. DIABETES MELLITUS, TYPE 2 14. OSTEOARTHRITIS LAST V/S: Temperature 97.2, pulse 50, respiratory rate 16, BP 123/45, pulse ox 94 DISCHARGE INSTRUCTIONS: 1. Followup appointment with Dr. Cook on August 05 at 2:15 p.m. If unable to keep appointment, call to reschedule. [facility]. [facility] vital signs, nutrition and PT/OT. They will call with appointment date and time. MEDICATIONS AT DISCHARGE: [place] (7.5 - 325) one tab p.o. q.12h p.r.n. Xanax 0.5 mg p.o. bedtime [facility] Norvasc 5 mg p.o. daily [facility] Lipitor 20 mg p.o. q.a.m. [facility] Vitamin D 1,000 unit p.o. daily [facility] Pletal 50 mg p.o. b.i.d. [facility] Catapres 0.1 mg p.o. bedtime [facility] Ferrous Sulfate 324 mg p.o. daily [facility] Lantus 60 unit subcut bedtime [facility] Insulin Humulin R 0 unit subcut p.r.n. Cozaar 100 mg p.o. daily [facility] Lopressor 50 mg p.o. b.i.d. [facility] Nitro-Dur 0.6 mg/hr one patch TD daily [facility] Nitrostat 0.4 mg SL q.5 min times three doses p.r.n. Protonix 40 mg p.o. q.d a.c. [facility] Aldactone 50 mg p.o. daily [facility] Coumadin 3 mg p.o. q. p.m. [facility] NEW PRESCRIPTIONS: None DIET INSTRUCTIONS: 1800 calorie diet. Eat more protein. ACTIVITY: Gradually resume activity. Keep legs elevated as much as possible. SMOKING: N/A DISEASE SPECIFIC EDUCATION: DEHYDRATION KIDNEY FAILURE DIET INCLUDING NEED TO EAT MORE PROTEIN KEEP LEGS ELEVATED MUCH POSSIBLE ACTIVITY HOME [facility]ALTH [facility]OSPITAL COURSE: This is a white female, who was admitted through the emergency room with acute dehydration and gastroenteritis. She has chronic renal failure but was in acute renal failure. She had seen Dr. Spencer earlier on the day of admission and was having some nausea, vomiting and diarrhea. He instructed that she come to the emergency room with IV fluids. She was admitted, placed on D5 1/2 NS at 125 cc/hr. Over the course of the next several days, her kidney function slowly began to improve. It took about 48 hours for her nausea and vomiting to resolve. She was having loose stools. We did not test her for C. diff as there was no history of recent antibiotic use. Today, for the past 2 days she has been eating 75 to 100% of her meals. Her leg swelling has improved, which she had on admission which is chronic. Her kidney function, BUN 43, creatinine 1.58 which is significant improvement from admission where creatinine was over 2. Electrolytes are normal. Sodium 142, potassium 4.2, hemoglobin 10.2 which is stable. Hematocrit 31.1, platelets 235. None of her home medications were continued. She was started on Protonix 40 mg b.i.d. and given Zofran 4 mg p.r.n. q.6hr IV for nausea. All of her symptoms have resolved. She has been up and about walking around. She has had no diarrhea in the past 24 hours. She has had no fever and appetite has returned. We will follow up with her next week in the office. TIME SPENT: More than 60 minutes. BRIGHT
== END 2017-07-28 14:07 | disposition home health service (06) | DRG 641 ==
LOC: ED 15:39 → MEDSURG A 18:06
PROVIDERS: ADMIT Internal Medicine; ATTEND Internal Medicine
DX: E86.0 Dehydration (principal); N17.9 Acute kidney failure, unspecified; K52.9 Noninfective gastroenteritis and colitis, unspecified; N18.9 Chronic kidney disease, unspecified; I12.9 Hypertensive chronic kidney disease with stage 1 through stage 4 chronic kidney disease, or unspecified chronic kidney disease; E11.22 Type 2 diabetes mellitus with diabetic chronic kidney disease; I10 Essential (primary) hypertension; I25.10 Atherosclerotic heart disease of native coronary artery without angina pectoris; I65.22 Occlusion and stenosis of left carotid artery; I73.9 Peripheral vascular disease, unspecified; D46.9 Myelodysplastic syndrome, unspecified; K21.9 Gastro-esophageal reflux disease without esophagitis; M19.90 Unspecified osteoarthritis, unspecified site; I25.2 Old myocardial infarction; Z79.01 Long term (current) use of anticoagulants; Z79.4 Long term (current) use of insulin; Z87.891 Personal history of nicotine dependence; Z95.1 Presence of aortocoronary bypass graft; Z86.718 Personal history of other venous thrombosis and embolism
CPT/HCPCS: 36415; 80053; 81001; 82962; 85007; 85025; 85610; 87040; 87502; 96360; 99285

== ENCOUNTER 2017-09-05 14:34 | Inpatient (IN) ==
[2017-09-05] MEDS ORDERED: SODIUM CHLORIDE 1,000 ML IV STA (14:56)
[2017-09-05] MEDS ORDERED: NITROSTAT SL PRN (14:57)
--- NOTE | 2017-09-05 16:11 | CT ---
EXAM: CT Abdomen without contrast. CT Pelvis without contrast. HISTORY: Nausea, vomiting, diarrhea. Upper abdominal pain. Back pain. COMPARISON: 05/19/2017. TECHNIQUE: Multiple axial images of the abdomen and pelvis were obtained without intravenous contras t. Images were reformatted in the coronal plane. FINDINGS: Please note that evaluation of the abdominal and pelvic structures is limited due to lack of intravenous contrast. No acute abnormality seen in the lung base. Degenerative changes are present in the spine. Left sided bypass graft extends the subcutaneous tissues of the chest and abdomen, which bifurcates a t the level of the pelvis anastomosing with the bilateral superficial femoral arteries. Extensive at herosclerotic calcifications are present. Left iliac and right iliac artery stents are present. Gallbladder is absent. The liver, pancreas, spleen, adrenal glands are unremarkable. No calcified r enal stones or hydronephrosis detected. Duplicated right renal collecting system noted. Small hiatal hernia is present. There is no evidence for bowel obstruction. Colonic diverticulosis is present. The appendix is not seen. Uterus is absent. Urinary bladder is unremarkable. No free fluid or free air identified. IMPRESSION: No acute abnormality within the abdomen or pelvis.
[2017-09-05] MEDS ORDERED: ROCEPHIN 1 GM in SODIUM CHLORIDE 50 ML IV STA (16:25)
[2017-09-05] MEDS ORDERED: VANCOMYCIN 1 GM in SODIUM CHLORIDE 250 ML IV STA (16:26)
[2017-09-05] MEDS ORDERED: KAYEXALATE SUSP RC STA (16:38)
[2017-09-05] MEDS ORDERED: KAYEXALATE SUSP PO STA ×2 (16:38→16:54)
[2017-09-05] MEDS ORDERED: FLAGYL 500 MG/100 ML 500 MG in PREMIX 100 ML NS 1 BAG IV STA (16:43)
--- NOTE | 2017-09-05 16:46 | ED.PDOC ---
General ED Provider: Dr. ROOPA MERAZ Chief Complaint: Diarrhea Stated Complaint: diarrhea, weakness Time Seen by Physician: 14:40 Mode of Arrival: Walk-In Information Source: Patient Exam Limitations: No limitations Primary Care Provider: NADYA GARCIA Nursing and Triage Documentation Reviewed and Agree: Yes Reviewed sepsis parameters & appropriate labs ordered?: Yes System Inflammatory Response Syndrome: Not Applicable Sepsis Protocol: For patient's 13 years and over: Temp is 96.8 and below OR 101 and greater Pulse >90 BPM Resp >20/minute Acutely Altered Mental Status Are patient's symptoms suggestive of a new infection, such as: -Pneumonia -Skin, Soft Tissue -Endocarditis -UTI -Bone, Joint Infection -Implantable Device -Acute Abdominal Infection -Wound Infection -Meningitis -Blood Stream Catheter Infection -Unknown System Inflammatory Response Syndrome: Not Applicable Review of Systems - Review Of Systems Constitutional: Reports: Malaise, Weakness Eyes: Reports: No symptoms Ears, Nose, Mouth, Throat: Reports: No symptoms Respiratory: Reports: No symptoms Cardiac: Reports: No symptoms GI: Reports: Abdominal pain, Diarrhea : Reports: No symptoms Musculoskeletal: Reports: No symptoms Skin: Reports: No symptoms Neurological: Reports: No symptoms Endocrine: Reports: No symptoms Hematologic/Lymphatic: Reports: No symptoms All Other Systems: Reviewed and Negative Past Medical History - Past Medical History Previously Healthy: No Endocrine: Reports: DM 2, Dyslipidemia Cardiovascular: Reports: CAD, Hypertension, CHF, Other (CABG 1999, ARTIIFICIAL AORTA, LEFT ARM STENT) Respiratory: Reports: COPD Hematological: Reports: None Gastrointestinal: Reports: None Genitourinary: Reports: None, CKD Neuro/Psych: Reports: None Musculoskeletal: Reports: None Cancer: Reports: None Last Menstrual Period: N/A Other Pertinent Past Medical History: htn dm mi chf copd kd cabg - Surgical History General Surgical History: Reports: None, Hysterectomy (PARTIAL HYSTERECTOMY), Appendectomy, CABG - Family History Family History: Reports: None - Social History Smoking Status: Former smoker Hx Substance Use: No Alcohol Screening: None - Immunizations Tetanus Shot up to Date: Yes Physical Exam - Physical Exam Appearance: Ill-appearing Ill-appearing: Moderate Pain Distress: Mild Eyes: ROBERT, EOMI, Conjunctiva clear ENT: Ears normal, Nose normal, Oropharynx normal Respiratory: Rhonchi Cardiovascular: RRR, Pulses normal, No rub, No murmur GI/: Soft, Nontender, No masses, Bowel sounds normal, No Organomegaly Musculoskeletal: Normal strength, ROM intact, No edema, No calf tenderness Skin: Warm, Dry, Normal color Neurological: Sensation intact, Motor intact, Reflexes intact, Cranial nerves intact, Alert, Oriented Psychiatric: Affect appropriate, Mood appropriate Physician Notification - Case Discussed Physician Notified: pmd Time of Notification: 16:47 ( see pt in ER ) Critical Care Note - Critical Care Note Total Time (mins): 0 Course - Course Hematology/Chemistry: 09/05/17 15:16 09/05/17 15:16 Orders, Labs, Meds: Lab Review 09/05/17 09/05/17 09/05/17 15:00 15:16 15:16 WBC 25.78 H RBC 3.84 L Hgb 11.7 L Hct 35.2 L MCV 91.7 MCH 30.5 MCHC 33.2 RDW Coeff of Kerrie 14.4 Plt Count 218 Immature Gran % (Auto) Marketing Services Rep Neut % (Auto) Marketing Services Rep Lymph % (Auto) Marketing Services Rep [place] % (Auto) Marketing Services Rep Eos % (Auto) Marketing Services Rep Baso % (Auto) Marketing Services Rep Immature Gran # (Auto) Marketing Services Rep Neut # Marketing Services Rep Lymph # Marketing Services Rep [place] # Marketing Services Rep Eos # Marketing Services Rep Baso # Marketing Services Rep Neutrophils % (Manual) 64.0 Lymphocytes % (Manual) 36.0 Anisocytosis Not present PT INR APTT Sodium 142 Potassium 6.3 H* Chloride 118 H Carbon Dioxide 15 L Anion Gap 15.3 BUN 106 H* Creatinine 1.71 H Estimated GFR (MDRD) 28.00 BUN/Creatinine Ratio 61.98 Glucose 163 H Calcium 11.4 H Total Bilirubin 0.4 AST 14 L ALT 14 Alkaline Phosphatase 57 Total Creatine Kinase 49 Troponin I 0.0390 Total Protein 7.7 Albumin 4.0 Globulin 3.7 Albumin/Globulin Ratio 1.08 Procalcitonin Influenza A (Rapid) Negative by naat Influenza B (Rapid) Negative by naat 09/05/17 09/05/17 15:16 15:16 WBC RBC Hgb Hct MCV MCH MCHC RDW Coeff of Kerrie Plt Count Immature Gran % (Auto) Neut % (Auto) Lymph % (Auto) [place] % (Auto) Eos % (Auto) Baso % (Auto) Immature Gran # (Auto) Neut # Lymph # [place] # Eos # Baso # Neutrophils % (Manual) Lymphocytes % (Manual) Anisocytosis PT 25.4 H INR 2.56 APTT 29.4 Sodium Potassium Chloride Carbon Dioxide Anion Gap BUN Creatinine Estimated GFR (MDRD) BUN/Creatinine Ratio Glucose Calcium Total Bilirubin AST ALT Alkaline Phosphatase Total Creatine Kinase Troponin I Total Protein Albumin Globulin Albumin/Globulin Ratio Procalcitonin < 0.05 Influenza A (Rapid) Influenza B (Rapid) Orders Category Date Time Status ADMIT PATIENT INPATIENT .TO SCU (MONITORED BED) ADMISSION 09/05/17 16:40 Active ABG DRAW REQUEST Stat CARDIO 09/05/17 16:37 Ordered EKG-(ED ONLY) Stat CARDIO 09/05/17 14:56 Completed EKG-(ED ONLY) Stat CARDIO 09/05/17 16:33 Ordered C-DIFF MONITORING (NURSING) BID CARE 09/05/17 14:57 Active TELEMETRY MONITORING TELE CARE 09/05/17 16:40 Active ED IV/MEDIPORT/POWERPORT .ONCE EMERGENCY 09/05/17 14:55 Active ABG Stat LAB 09/05/17 16:37 Ordered BLOOD CULTURE Stat LAB 09/05/17 15:16 Ordered CBC W/ AUTO DIFF Stat LAB 09/05/17 15:16 Completed COMPREHENSIVE METABOLIC PANEL Stat LAB 09/05/17 15:16 Completed CREATINE KINASE Stat LAB 09/05/17 15:16 Completed FLU A/B MOLECULAR Stat LAB 09/05/17 15:00 Completed MANUAL DIFFERENTIAL Stat LAB 09/05/17 15:16 Completed MOLECULAR GROUP A STREP Stat LAB 09/05/17 15:00 Completed PARTIAL THROMBOPLASTIN TIME Stat LAB 09/05/17 15:16 Completed PROCALCITONIN Stat LAB 09/05/17 15:16 Completed PT WITH INR Stat LAB 09/05/17 15:16 Completed TROPONIN I Stat LAB 09/05/17 15:16 Completed c-diff [C. DIFFICILE] Routine LAB 09/05/17 14:57 Uncollected 0.9 % Sodium Chloride [Saline Flush] MEDS 09/05/17 14:55 Active 1 syr IVF PRN PRN Alprazolam [Xanax] MEDS 09/05/17 21:00 Active 0.5 mg PO BEDTIME Amlodipine Besylate [Norvasc] MEDS 09/06/17 09:00 Active 5 mg PO DAILY Atorvastatin Calcium [Lipitor] MEDS 09/06/17 09:00 Active 20 mg PO QAM Ceftriaxone Sodium [Rocephin] 1 gm MEDS 09/05/17 16:25 Active 0.9 % Sodium Chloride [Sodium Chloride] 50 ml IV ONCE Insulin Regular, Human [Humulin R] MEDS 09/05/17 15:01 Active See Protocol SUBCUT PRN PRN Losartan Potassium [Cozaar] MEDS 09/06/17 09:00 Active 100 mg PO DAILY Metoprolol Tartrate [Lopressor] MEDS 09/05/17 21:00 Active 50 mg PO BID Nitroglycerin [Nitro-Dur 0.6 mg/Hr] MEDS 09/06/17 09:00 Active 1 patch TD DAILY Nitroglycerin [Nitrostat] MEDS 09/05/17 14:57 Active 0.4 mg SL Q5MIN X 3 DOSES PRN Sodium Chloride 0.9% [Sodium Chloride] 1,000 ml MEDS 09/05/17 14:56 Active IV 100 mls/hr Sodium Polystyrene Sulfonate [Kayexalate Susp] MEDS 09/05/17 16:38 Discontinued 30 gm PO ONCE STA Sodium Polystyrene Sulfonate [Kayexalate Susp] MEDS 09/05/17 16:38 Stat 30 gm RC ONCE STA Spironolactone [Aldactone] MEDS 09/06/17 09:00 Active 50 mg PO DAILY Vancomycin HCl [Vancomycin] 1 gm MEDS 09/05/17 16:26 Active 0.9 % Sodium Chloride [Sodium Chloride] 250 ml IV ONCE Warfarin Sodium [Coumadin] MEDS 09/06/17 17:00 Active [address] ABDOMEN/PELVIS WO CONTRAST Stat RADS 09/05/17 14:[address] CHEST W/O CONTRAST Stat RADS 09/05/17 16:23 Ordered Medications Generic Name Dose Route Start Last Admin Trade Name Freq PRN Reason Stop Dose Admin Alprazolam 0.5 mg 09/05/17 21:00 Xanax PO BEDTIME GLENNA Amlodipine Besylate 5 mg 09/06/17 09:00 Norvasc PO DAILY GLENNA Atorvastatin Calcium 20 mg 09/06/17 09:00 Lipitor PO QAM GLENNA Sodium Chloride 1,000 mls @ 100 mls/hr 09/05/17 14:56 Sodium Chloride IV 09/06/17 00:55 .Q10H STA Ceftriaxone Sodium 1 gm/ 50 mls @ 75 mls/hr 09/05/17 16:25 Sodium Chloride IV 09/05/17 17:04 ONCE STA Vancomycin HCl 1 gm/ Sodium 250 mls @ 250 mls/hr 09/05/17 16:26 Chloride IV 09/05/17 17:25 ONCE STA Insulin Human Regular 0 unit 09/05/17 15:01 Humulin R SUBCUT PRN PRN Hyperglycemica Protocol Losartan Potassium 100 mg 09/06/17 09:00 Cozaar PO DAILY GLENNA Metoprolol Tartrate 50 mg 09/05/17 21:00 Lopressor PO BID GLENNA Nitroglycerin 0.4 mg 09/05/17 14:57 Nitrostat SL Q5MIN X 3 DOSES PRN Angina Nitroglycerin 1 patch 09/06/17 09:00 Nitro-Dur 0.6 Mg/Hr TD DAILY GLENNA Sodium Chloride 1 syr 09/05/17 14:55 Saline Flush IVF PRN PRN To flush IV Spironolactone 50 mg 09/06/17 09:00 Aldactone PO DAILY GLENNA Warfarin Sodium 3 mg 09/06/17 17:00 Coumadin PO QPM GLENNA Discontinued Medications Generic Name Dose Route Start Last Admin Trade Name Freq PRN Reason Stop Dose Admin Sodium Polystyrene Sulfonate 30 gm 09/05/17 16:38 Kayexalate Susp PO 09/05/17 16:39 ONCE STA Sodium Polystyrene Sulfonate 30 gm 09/05/17 16:38 Kayexalate Susp RC 09/05/17 16:39 ONCE STA Vital Signs: Temp Pulse Resp BP Pulse Ox 09/05/17 14:36 97.9 F 100 H 20 208/74 H 97 Departure - Departure Time of Disposition: 17:12 Disposition: ADMITTED INPATIENT Discharge Problem: Hyperkalemia Acute renal failure (ARF) Qualifiers: Acute renal failure type: unspecified Qualified Code(s): N17.9 - Acute kidney failure, unspecified Instructions: Acute Kidney Injury (GEN) Condition: Good Pt referred to PMD for follow-up: No IPMP verified?: No Additional Instructions: Please call your Family Physician as soon as possible to schedule a follow-up appointment. Allergies/Adverse Reactions: Allergies hydralazine [Hydralazine] Adverse Reaction (Verified 09/05/17 14:39) insulin detemir [From Levemir] Adverse Reaction (Verified 09/05/17 14:39) Penicillins Adverse Reaction (Verified 09/05/17 14:39) Home Medications: Ambulatory Orders Cilostazol [Pletal] 50 mg PO BID 12/25/12 Hydrocodone/Acetaminophen [Lortab 7.5-500 Tablet] 1 each PO Q12HR PRN 12/25/12 Insulin Glargine,Hum.rec.anlog [Lantus Solostar] 60 unit SQ BEDTIME 12/25/12 Losartan Potassium [Cozaar] 100 mg PO DAILY 12/25/12 Nitroglycerin [Minitran] 1 each TD DAILY 12/25/12 Warfarin Sodium [Jantoven] 3 mg PO DAILY 12/25/12 Atorvastatin Calcium [Lipitor] 20 mg PO QAM 03/29/16 Bumetanide [Bumex] 1 mg PO DAILY 03/29/16 Insulin Lispro [Humalog Kwikpen] See Protocol SQ BID 03/29/16 Alprazolam [Xanax] 0.5 mg PO BEDTIME 02/07/17 Spironolactone [Aldactone] 50 mg PO DAILY 05/19/17 Cholecalciferol (Vitamin D3) [Vitamin D3] 1,000 unit PO DAILY 06/03/17 Ferrous Sulfate [Iron] 325 mg PO DAILY 06/03/17 Hydrocodone Bit/Acetaminophen [[place] 7.5-325] 1 tab PO PRN PRN 06/03/17 Metoprolol Tartrate [Lopressor] 50 mg PO BID 06/03/17 Amlodipine Besylate [Norvasc] 5 mg PO DAILY #30 tablet 06/09/17 Clonidine HCl [Catapres] 0.1 mg PO BEDTIME #30 tablet 06/09/17 Nitroglycerin [Nitrostat] 0.4 mg SL PRN PRN #50 tab.subl 07/28/17
[2017-09-05] MEDS ORDERED: SODIUM BICARBONATE 8.4% IVP STA ×2 (16:50→16:57)
--- NOTE | 2017-09-05 16:57 | CT ---
EXAM: CT THORAX HISTORY: Cough. Back pain TECHNIQUE: CT thorax without intravenous contrast. Multiplanar images presented. Coronal and sagit anyi re-formations. COMPARISON: 09/02/2016 FINDINGS: Normal heart size. No pericardial effusion. There is moderately severe atherosclerotic disease. Lungs reveal chronic interstitial changes and early emphysema. Scattered scarring is noted. No conv incing evidence of consolidated pneumonia or acute infiltrate. There is no vascular congestion, cent ral interstitial edema, pneumothorax or pleural fluid. The bones reveal no definite acute abnormality. There is heterogeneous density and some expansion of the lateral left 11th rib which is stable since the prior study. It is indeterminate etiology althou gh a benign or malignant process would be within the differential. Nodular thyroid gland again noted . There appears to be a vascular graft extending along the left subcutaneous tissues of the chest. There is a small hiatal hernia. IMPRESSION: 1. The bones reveal no definite acute abnormality. There is heterogeneous density and some expansion of the lateral left 11th rib which is stable since the prior study. It is indeterminate etiology al though a benign (post traumatic) or malignant process would be within the differential. 2. Pulmonary emphysema and chronic interstitial change with no acute infiltrates. 3. Moderately severe atherosclerotic disease. 4. Nodular thyroid. 5. Small hiatal hernia.
[2017-09-05] MEDS ORDERED: CATAPRES PO STA (18:36)
[2017-09-05] MEDS ORDERED: ZOFRAN 4 MG/2 ML IVP PRN (18:36)
[2017-09-05] MEDS ORDERED: NORCO 7.5-325 PO PRN (19:21)
[2017-09-05 19:38] VITALS: BMI 25.8
[2017-09-05] MEDS ORDERED: INSULIN GLARGINE HUM REC ANLOG 60 UNIT SQ SCH (21:00)
[2017-09-05] MEDS ORDERED: XANAX PO SCH (21:00)
[2017-09-05] MEDS ORDERED: KAYEXALATE SUSP PO ONE (21:00)
[2017-09-05] MEDS ORDERED: FLAGYL 500 MG/100 ML IV ONE (21:20)
[2017-09-05] MEDS: CATAPRES PO SCH (22:19)
[2017-09-05] MEDS: LOPRESSOR PO SCH (22:20)
[2017-09-05] MEDS: XANAX PO SCH (22:20)
[2017-09-05] MEDS: PLETAL PO SCH (22:20)
[2017-09-05] MEDS: HUMULIN R SUBCUT PRN (22:23)
[2017-09-05] MEDS ORDERED: KAYEXALATE SUSP RC SCH (23:00)
--- NOTE | 2017-09-05 23:05 | ED.PDOC ---
Procedures - IV/Art Line Insertion Location: Rt forearm Type of Line: Peripheral IV Invasive Line/IV Catheter Gauge: 24 Number of Attempts: 1 Blood Return Positive: Yes Invasive Line/IV Flushes Without Difficulty: Yes Conscious Sedation - Pre-op Assessment Weight: 136 lb 14.513 oz Surgical History: CABG, ARTIIFICIAL AORTA, LEFT ARM STENT, PARTIAL HYSTERECTOMY , APPY - Medical History Past Medical History: Hypertension, Diabetes, [place], CHF, COPD, Kidney Disease - Physical Exam Heart Rate/Rhythm: Regular Rhythm
[2017-09-06] MEDS ORDERED: FLAGYL 500 MG/100 ML 100 ML IV ONE (05:29)
[2017-09-06] MEDS: FLAGYL 500 MG/100 ML 500 MG in PREMIX 100 ML NS 1 BAG IV SCH ×3 (05:39→20:39)
[2017-09-06] MEDS ORDERED: LIPITOR PO SCH (09:00)
[2017-09-06] MEDS ORDERED: NON-FORMULARY MEDICATION (Losartan Potassium 100 MG) PO SCH (09:00)
[2017-09-06] MEDS ORDERED: SPIRONOLACTONE 50 MG PO SCH (09:00)
[2017-09-06] MEDS ORDERED: ALDACTONE PO SCH (09:00)
[2017-09-06] MEDS ORDERED: NON-FORMULARY MEDICATION (Ferrous Sulfate [Iron] 325 MG) PO SCH (09:00)
[2017-09-06] MEDS: PLETAL PO SCH ×2 (09:05→20:40)
[2017-09-06] MEDS: FERROUS SULFATE PO SCH (09:05)
[2017-09-06] MEDS: NORVASC PO SCH (09:07)
[2017-09-06] MEDS: NITRO DUR TD SCH (09:07)
[2017-09-06] MEDS: LOPRESSOR PO SCH ×2 (09:07→20:40)
[2017-09-06] MEDS: COZAAR PO SCH (09:07)
[2017-09-06] MEDS: DEXTROSE 5%-1/2NS IV SOLUTION 1,000 ML IV SCH (11:57)
[2017-09-06] MEDS ORDERED: ROCEPHIN 1 GM in SODIUM CHLORIDE 50 ML IV STA (12:02)
[2017-09-06] MEDS ORDERED: ROCEPHIN ONE (12:08)
[2017-09-06] MEDS ORDERED: VANCOMYCIN 1 GM in SODIUM CHLORIDE 250 ML IV SCH (12:30)
[2017-09-06] MEDS: COUMADIN PO SCH (16:43)
[2017-09-06] MEDS: HUMULIN R SUBCUT PRN (20:39)
[2017-09-06] MEDS: XANAX PO SCH (20:40)
[2017-09-06] MEDS: CATAPRES PO SCH (20:40)
[2017-09-06] MEDS ORDERED: LANTUS SUBCUT SCH (21:00)
[2017-09-07] MEDS: FLAGYL 500 MG/100 ML 500 MG in PREMIX 100 ML NS 1 BAG IV SCH ×3 (04:24→21:13)
[2017-09-07] MEDS: COZAAR PO SCH (08:25)
[2017-09-07] MEDS: FERROUS SULFATE PO SCH (08:25)
[2017-09-07] MEDS: NORVASC PO SCH (08:25)
[2017-09-07] MEDS: PLETAL PO SCH ×2 (08:25→21:10)
[2017-09-07] MEDS: LOPRESSOR PO SCH ×2 (08:25→21:12)
[2017-09-07] MEDS: NITRO DUR TD SCH (08:26)
[2017-09-07] MEDS ORDERED: VANCOMYCIN 500 MG in SODIUM CHLORIDE 100 ML IV SCH (09:00)
[2017-09-07] MEDS: DEXTROSE 5%-1/2NS IV SOLUTION 1,000 ML IV SCH ×2 (10:01→22:33)
[2017-09-07] MEDS: COUMADIN PO SCH (17:11)
[2017-09-07] MEDS: HUMULIN R SUBCUT PRN (21:08)
[2017-09-07] MEDS: LANTUS SUBCUT SCH (21:09)
[2017-09-07] MEDS: CATAPRES PO SCH (21:10)
[2017-09-07] MEDS: XANAX PO SCH (21:11)
[2017-09-08] MEDS: FLAGYL 500 MG/100 ML 500 MG in PREMIX 100 ML NS 1 BAG IV SCH ×2 (04:55→13:00)
[2017-09-08] MEDS: DEXTROSE 5%-1/2NS IV SOLUTION 1,000 ML IV SCH (09:21)
[2017-09-08] MEDS: NORVASC PO SCH (09:24)
[2017-09-08] MEDS: PLETAL PO SCH ×2 (09:25→21:33)
[2017-09-08] MEDS: FERROUS SULFATE PO SCH (09:25)
[2017-09-08] MEDS: K-DUR PO SCH (09:25)
[2017-09-08] MEDS: COZAAR PO SCH (09:25)
[2017-09-08] MEDS: LOPRESSOR PO SCH ×2 (09:26→21:33)
[2017-09-08] MEDS: NITRO DUR TD SCH (09:26)
--- NOTE | 2017-09-08 11:22 | HP ---
DATE OF SERVICE: 09/05/17 REASON FOR HOSPITALIZATION/HISTORY OF PRESENT ILLNESS: 87-year-old white female was brought to the office by her daughter because of having nausea, vomiting and weakness of nearly one weeks' duration. The patient' s diarrhea started on the morning of hospitalization with some mild abdominal discomfort. The patient has been running a low grade fever according to the daughter. The daughter came from [place] because the mother didn't want to go to the doctor. When I examined the patient in the office, the patient looked extremely dehydrated, weak and sleepy so I advised the daughter for her to go to the emergency room. My office staff took the patient to the emergency room for further workup. In the emergency room further workup revealed that her BUN was 406 with creatinine of 1.7 with c02 of 15. Definitely the patient had metabolic acidosis with potassium of 6.3, WBC count 25,000. The patient has mild abdominal discomfort. The patient has mild abdominal discomfort. The patient has history of C. diff in the past. After examining the patient again in the emergency room and reviewing the patient's labs, the patient was hospitalized. 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 No night sweats. No malaise, lethargy. No fever or chills. HEENT: Eyes: No visual changes. No eye pain. No eye discharge. ENT: No runny nose. No epistaxis. No sinus pain. No sore throat. No odynophagia. No ear pain. No congestion. RESPIRATORY: No cough, no congestion. No hemoptysis. No shortness of breath. CARDIOVASCULAR: No angina symptoms. No CHF symptoms. No atypical chest pain for CAD. No palpitations. No PND. No orthopnea. GASTROINTESTINAL: Poor appetite. Has nausea and vomiting for nearly one week. Diarrhea started this morning with abdominal discomfort. No abdominal pain. No coffee ground hematemesis. No melena. No hematochezia. GENITOURINARY: No urgency. No frequency. No dysuria. No hematuria. No obstructive symptoms. No discharge. No pain. No significant abnormal bleeding. MUSCULOSKELETAL: Generalized aches and pains. BOILER RIVETER: No confusion. The patient is oriented to time, place and person. Moving all extremities. No headache. No neck pain. No syncope. No seizures. No dizziness. PSYCHIATRIC: Not anxious. No depression. No suicidal thoughts. No homicidal thoughts. SKIN: No rash. No lesions. No wounds. ENDOCRINE: No unexplained weight loss. No weight gain. HEMATOLOGIC/LYMPHATIC: No anemia. No purpura. No petechiae. No prolonged or excessive bleeding. No palpable lymph nodes. PERSONAL/FAMILY/SOCIAL HISTORY: The patient is , lives by herself. She has the help of a brother who lives in the same town as she lives in but the daughter lives in [place]. No alcohol abuse. Nonsmoker. She does all activity of daily living. MEDICATIONS: [place] 7.5 twice a day p.r.n. Xanax 0.5 mg at bedtime Norvasc 5 mg p.o. at h.s. Lipitor 20 mg p.o. q.a.m. Pletal 50 mg p.o. twice a day Catapres 0.5 at bedtime Lantus 60 units Sub Q at bedtime Insulin Regular Sub Q p.r.n. for meal time coverage Cozaar 100 mg p.o. daily Lopressor 50 mg twice a day Nitrodur 0.6 mg per hour patch daily Protonix 40 mg at nighttime Aldactone 50 mg p.o. daily Coumadin 3 mg p.o. q.p.m. ALLERGIES: PENICILLINS, HYDRALAZINE, INSULIN DETEMIR PHYSICAL EXAMINATION: GENERAL: The patient is oriented to time, place and person, looks pale. Skin dry. Mucous membranes dry. VITAL SIGNS: Temperature 98.6, pulse 102/min, BP 166/68, pulse ox 98%. Height 5' 2". HEENT: Head normocephalic, atraumatic. Eyes: Extraocular muscles are intact. Pupils are equal, round and reactive to light and accommodation. No scleral icterus. Ears: No lesions. Nose appeared normal. Throat: No exudate or erythema. The patient looks pale. NECK: Supple. No JVD, no carotid bruit. No lymphadenopathy or thyromegaly. LUNGS: Decreased breath sounds with mild wheeze. Percussion note normal. Chest symmetrical. HEART: PMI not palpable. S1, S2. Grade I to II/ systolic murmur. No cyanosis or clubbing. No ascites. Pulses: Dorsalis pedis and posterior tibial pulses +1 bilaterally. ABDOMEN: Soft. Mildly distended. Bowel sounds hyperactive. No CVA tenderness. No mass felt. EXTREMITIES: Trace pedal edema. Full range of motion of all extremities, equal. BOILER RIVETER: Mental status normal. Moving all extremities. No focal deficit. Cranial nerves II through XII are grossly intact. No headache, no double vision or headache. SKIN: Dry. Mucous membranes dry. Intact. Turgor - normal. LYMPHATIC: No palpable lymph nodes/no lymphedema. MUSCULOSKELETAL: Normal joints with no swelling. Muscle tone is normal. LABS: Creatinine 1.7, BUN 106, potassium 6.3. C02 15. Calcium 11.4, glucose 163, liver profile negative. Hemoglobin 11.7, hematocrit 35, WBC 25,000. Rapid flu A and B negative. CT scan of the chest no abnormality detected. ASSESSMENT: 1. ACUTE RENAL FAILURE 2. HYPERKALEMIA SECONDARY TO ACUTE RENAL FAILURE 3. METABOLIC ACIDOSIS WITH PH OF 7.3 ON BLOOD GASES 4. SEVERE DEHYDRATION WITH ACUTE GASTROENTERITIS 5. HISTORY OF HYPERTENSION 6. CORONARY ARTERY BYPASS SURGERY, 1999 WITH HISTORY OF [place] 7. COPD WITH ASTHMA 8. PERIPHERAL ARTERIAL DISEASE 9. MYELODYSPLASTIC SYNDROME 10. DIABETES MELLITUS TYPE 2 11. GENERALIZED OSTEOARTHRITIS PLAN: 1. Continue all home medications except for Aldactone. 2. D/C Lipitor. 3. D/C [place]. 4. Clonidine 0.2 mg p.o. now and 0.2 at night because the patient's blood pressure systolic is more than 170. 5. Telemetry. 6. Daily CBC, CMP. 7. Potassium to be done at 10 p.m. with BUN and creatinine. 8. 1/2 amp of Sodium Bicarb given. 9. Kayexalate to be given one more dose at 9 o'clock. 10. Watch for fluid overload. 11. IV fluids to be infused 100 cc/hr. 12. The patient's family explained about all these problems. The patient wants DNR. TIME SPENT: More than 70 minutes. MTDD
--- NOTE | 2017-09-08 13:02 | PN ---
DATE OF SERVICE: 09/07/17 SUBJECTIVE: This is an 87-year-old white female hospitalized with severe dehydration and also symptoms of acute gastritis. The patient had acute renal failure. Now her creatinine is 1.3, BUN 52, almost back to the normal status. She doesn't have any fluid overload. She is on 100 cc/hr. Now will cut it down to 50 cc. Will also increase her calorie intake to 2500. She was hypoglycemic, asymptomatic. Dose of insulin will be reduced to 60 in the evening. REVIEW OF SYSTEMS: CONSTITUTIONAL: The patient is feeling a lot better. No night sweats. No fatigue , malaise, lethargy. No fever or chills. HEENT: Eyes: No visual changes. No eye pain. No eye discharge. ENT: No runny nose. No epistaxis. No sinus pain. No sore throat. No odynophagia. No congestion. RESPIRATORY: No cough, no congestion. No hemoptysis. No shortness of breath. CARDIOVASCULAR: No angina symptoms. No CHF symptoms. No atypical chest pain for CAD. No palpitations. No PND. No orthopnea. GASTROINTESTINAL: No abdominal pain. No nausea or vomiting. No diarrhea or constipation. No hematemesis. No hematochezia. GENITOURINARY: No urgency. No frequency. No dysuria. No hematuria. No obstructive symptoms. No discharge. No pain. No significant abnormal bleeding. MUSCULOSKELETAL: No musculoskeletal pain; no joint swelling. NEUROLOGICAL: No headache. No neck pain. No syncope. No seizures. No dizziness. PSYCHIATRIC: Not anxious. No depression. No suicidal thoughts. No homicidal thoughts. SKIN: No rash. No lesions. No wounds. ENDOCRINE: No unexplained weight loss. No weight gain. HEMATOLOGIC/LYMPHATIC: No anemia. No purpura. No petechiae. No prolonged or excessive bleeding. No palpable lymph nodes. PHYSICAL EXAMINATION: GENERAL: The patient is oriented to time, place and person. Hydration status seems to be better. VITAL SIGNS: Temperature 97.7, pulse 60/min, respiratory rate 17, BP 140/60, pulse ox 97%. HEENT: Head normocephalic, atraumatic. Eyes: Extraocular muscles are intact. Pupils are equal, round and reactive to light and accommodation. Ears: No lesions. Nose appeared normal. Throat: No exudate or erythema. NECK: Supple. No JVD, no carotid bruit. No lymphadenopathy or thyromegaly. LUNGS: Decreased breath sounds. Clear to auscultation. Percussion note normal. Chest symmetrical. HEART: S1, S2, no S3. No murmurs. No cyanosis or clubbing. No ascites. Pulses: Dorsalis pedis and posterior tibial pulses +1 to +2 both sides. ABDOMEN: Soft. Nontender. Bowel sounds active. No CVA tenderness. No mass felt. EXTREMITIES: No edema. Full range of motion of all extremities, equal. NEUROLOGIC: No focal deficit. Cranial nerves II through XII are grossly intact. No headache, no double vision or headache. SKIN: Not dry. Intact. Turgor - better. LYMPHATIC: No palpable lymph nodes/no lymphedema. MUSCULOSKELETAL: Normal joints with no swelling. Muscle tone is normal. LABS: Hemoglobin 9.2, hematocrit 28, WBC 15,000, normal differential. Creatinine 1.3, BUN 52, potassium 3.9, glucose 49. ASSESSMENT: 1. ACUTE RENAL FAILURE SEEMS TO BE RESOLVING 2. CHRONIC KIDNEY DISEASE 3. DEHYDRATION, RESOLVED 4. THE PATIENT'S ABDOMINAL PAIN HAS RESOLVED 5. NEGATIVE C. DIFF BUT IS BEING TREATED FOR IT PLAN: 1. Will continue to treat for C. diff 2. The patient is given IV Rocephin and Vancomycin. We may give another dose tomorrow 3. The patient has no symptoms of hypoglycemia but had hypoglycemia with sugar of 49. 4. INR 2.6 which is acceptable. CONDITION: The patient's condition is overall improving and is stable. TIME SPENT: More than 30 minutes. Plan and coordination of the patient's care discussed in the presence of nurse. BRIGHT
--- NOTE | 2017-09-08 13:15 | PN ---
DATE OF SERVICE: 09/08/17 SUBJECTIVE: 87-year-old white female hospitalized with acute on chronic renal failure with dehydration and abdominal discomfort. The patient is doing a lot better. WBC count is down to 16,000. Creatinine 1.1, BUN 39. She has no evidence of fluid overload. Blood sugar this morning is 42. The patient was given insulin coverage last night. The patient's Lantus dose has been reduced. No symptoms of hypoglycemia, feeling a lot better. REVIEW OF SYSTEMS: CONSTITUTIONAL: No night sweats. No fatigue, malaise, lethargy. No fever or chills. HEENT: Eyes: No visual changes. No eye pain. No eye discharge. ENT: No runny nose. No epistaxis. No sinus pain. No sore throat. No odynophagia. No congestion. RESPIRATORY: No cough, no congestion. No hemoptysis. No shortness of breath. CARDIOVASCULAR: No angina symptoms. No CHF symptoms. No atypical chest pain for CAD. No palpitations. No PND. No orthopnea. GASTROINTESTINAL: Appetite has improved. No abdominal pain. No nausea or vomiting. No diarrhea or constipation. No hematemesis. No hematochezia. GENITOURINARY: The patient has Pal catheter draining well. No urgency. No frequency. No dysuria. No hematuria. No obstructive symptoms. No discharge. No pain. No significant abnormal bleeding. MUSCULOSKELETAL: No musculoskeletal pain; no joint swelling. NEUROLOGICAL: No headache. No neck pain. No syncope. No seizures. No dizziness. PSYCHIATRIC: Not anxious. No depression. No suicidal thoughts. No homicidal thoughts. SKIN: No rash. No lesions. No wounds. ENDOCRINE: No unexplained weight loss. No weight gain. HEMATOLOGIC/LYMPHATIC: No anemia. No purpura. No petechiae. No prolonged or excessive bleeding. No palpable lymph nodes. PHYSICAL EXAMINATION: GENERAL: The patient is oriented to time, place and person. VITAL SIGNS: Temperature 97.6, pulse 48, respiratory rate 15, BP 170/56, pulse ox 96%. HEENT: Head normocephalic, atraumatic. Eyes: Extraocular muscles are intact. Pupils are equal, round and reactive to light and accommodation. Ears: No lesions. Nose appeared normal. Throat: No exudate or erythema. NECK: Supple. No JVD, no carotid bruit. No lymphadenopathy or thyromegaly. LUNGS: Decreased breath sounds but clear to auscultation. Percussion note normal. Chest symmetrical. HEART: S1, S2, no S3. No murmurs. No cyanosis or clubbing. No ascites. Pulses: Dorsalis pedis and posterior tibial pulses +1 to +2 both sides. ABDOMEN: Soft. Nontender. Bowel sounds active. No CVA tenderness. No mass felt. EXTREMITIES: No edema. Full range of motion of all extremities, equal. NEUROLOGIC: No focal deficit. Cranial nerves II through XII are grossly intact. No headache, no double vision or headache. SKIN: Not dry. Intact. Turgor - practically normal. LYMPHATIC: No palpable lymph nodes/no lymphedema. MUSCULOSKELETAL: Normal joints with no swelling. Muscle tone is normal. LABS: Hemoglobin 8.8, hematocrit 26, WBC 16,000, normal differential. Creatinine 1.1, BUN 39, blood sugar 42. ASSESSMENT: 1. Renal failure resolved 2. Hypoglycemia secondary to insulin 3. Chronic kidney disease 4. Congestive heart failure 5. Chronic lung disease 6. Anemia 7. Possibility of C. diff was negative per stool for C. diff PLAN: 1. Continue Flagyl. 2. Staphylococcus Epidermidis grew from the culture, likely contaminant. 3. Urine is clear. 4. D/C IV fluids. 5. D/C all antibiotics except for Flagyl. 6. Will monitor the patient's temperature and also WBC count. I don't think the patient's blood culture of Staph Epidermidis, which is one time positive is a real one but is a contaminant. 7. Will discontinue sliding scale with coverage. CONDITION: Improving/stabilizing. TIME SPENT: More than 30 minutes. Plan and coordination of the patient's care discussed in the presence of nurse. BRIGHT
--- NOTE | 2017-09-08 13:25 | PN ---
DATE OF SERVICE: 09/06/17 SUBJECTIVE: 87-year-old white female hospitalized with acute renal failure, dehydration, gastroenteritis type of symptoms with abdominal pain. The patient's C. Diff is negative but she has improved remarkably. Since yesterday her BUN went from 106 down to 83 and creatinine from 1.9 to 1.4 and potassium was 6.3 down to 4.4. WBC count from 30,000 down to 22. REVIEW OF SYSTEMS: CONSTITUTIONAL: No night sweats. No fatigue, malaise, lethargy. No fever or chills. HEENT: Eyes: No visual changes. No eye pain. No eye discharge. ENT: No runny nose. No epistaxis. No sinus pain. No sore throat. No odynophagia. No congestion. RESPIRATORY: No cough, no congestion. No hemoptysis. No shortness of breath. CARDIOVASCULAR: No angina symptoms. No CHF symptoms. No atypical chest pain for CAD. No palpitations. No PND. No orthopnea. GASTROINTESTINAL: Improving appetite. No abdominal pain. No nausea or vomiting. No diarrhea or constipation. No hematemesis. No hematochezia. GENITOURINARY: No urgency. No frequency. No dysuria. No hematuria. No obstructive symptoms. No discharge. No pain. No significant abnormal bleeding. MUSCULOSKELETAL: No musculoskeletal pain; no joint swelling. NEUROLOGICAL: No headache. No neck pain. No syncope. No seizures. No dizziness. PSYCHIATRIC: Not anxious. No depression. No suicidal thoughts. No homicidal thoughts. SKIN: No rash. No lesions. No wounds. ENDOCRINE: No unexplained weight loss. No weight gain. HEMATOLOGIC/LYMPHATIC: No anemia. No purpura. No petechiae. No prolonged or excessive bleeding. No palpable lymph nodes. PHYSICAL EXAMINATION: GENERAL: The patient is oriented to time, place and person. VITAL SIGNS: Temperature 97.9, pulse 72, respiratory rate 16, BP 140/58, pulse ox 95%. HEENT: Head normocephalic, atraumatic. Eyes: Extraocular muscles are intact. Pupils are equal, round and reactive to light and accommodation. Ears: No lesions. Nose appeared normal. Throat: No exudate or erythema. NECK: Supple. No JVD, no carotid bruit. No lymphadenopathy or thyromegaly. LUNGS: Decreased breath sounds but clear to auscultation. Percussion note normal. Chest symmetrical. HEART: S1, S2, no S3. No murmurs. No cyanosis or clubbing. No ascites. Pulses: Dorsalis pedis and posterior tibial pulses +1 to +2 both sides. ABDOMEN: Soft. Nontender. Bowel sounds active. No CVA tenderness. No mass felt. EXTREMITIES: No edema. Full range of motion of all extremities, equal. NEUROLOGIC: No focal deficit. Cranial nerves II through XII are grossly intact. No headache, no double vision or headache. SKIN: Not dry. Intact. Turgor - normal. LYMPHATIC: No palpable lymph nodes/no lymphedema. MUSCULOSKELETAL: Normal joints with no swelling. Muscle tone is normal. LABS: Hemoglobin 10.9, hematocrit 34, WBC 22,000, normal differential. Creatinine 1.4 , BUN 83, potassium 4.4. INR 2.9. GFR has improved to 34. ASSESSMENT: 1. Acute renal failure improving 2. Chronic kidney disease 3. Hyperkalemia resolved 4. Possibility of sepsis seems to be resolving; either it is C. diff colitis with negative test and/or kidney infection resolving. The family in the room and explained about all the test reports, especially the daughter from [place], [place]. TIME SPENT: More than 30 minutes. Plan and coordination of the patient's care discussed in the presence of nurse. BRIGHT
--- NOTE | 2017-09-08 15:03 | RS.PTINEVL ---
Subjective - Patient information Date of Evaluation: 09/08/17 Date of Arrival on Unit: 09/05/17 Admitted From:: Home Diagnosis: hyperkalemia, diarrhea Usual Living Arrangement: Alone (her brother lives next door) Home Environment: Mobile Home, Stairs (few), Rail Medical History: Hypertension, COPD, Diabetes, CHF Medical History Comments:: kidney disease, ID Surgical History: Hysterectomy, CABG Surgical History Comments:: artificial aorta Medications: see chart Subjective Information/ Patient Comments:: pt states she has had diarrhea since coming to hospital. pt states that she has bad knees that are bone on bone and has been getting shots by Dr. Morris. 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 Interventions - Objective Patient Orientation: Person, Place, Time, Situation Current Interventions: IV's, Telemetry Observation: pt with edema BLE(unable to test for pitting edema per pt request not to squeeze legs) Range of Motion - ROM Right Upper Extremity AROM: WFL's Left Upper Extremity AROM: WFL's Right Lower Extremity AROM: WFL's Left Lower Extremity AROM: WFL's Muscle Strength - Muscle Strength Right Upper Extremity Strength: Mild Weakness (shld flex 3+/5, elbow flex/ext 4- /5,) Left Upper Extremity Strength: Mild Weakness (shld flex 3+/5, elbow flex/ext 4-/ 5,) Right Lower Extremity Strength: Mild Weakness (unable to MMT due to pt request not to squeeze legs atleast 3/5 as noted by ROM) Left Lower Extremity Strength: Mild Weakness (unable to MMT due to pt request not to squeeze legs atleast 3/5 as noted by ROM) Sensation - Sensation Right Upper Extremity Sensation: Intact/Normal Left Upper Extremity Sensation: Intact/Normal Right Lower Extremity Sensation: Impaired Left Lower Extremity Sensation: Impaired Palpation Palpation Findings: Tenderness Comments:: B ANDERSON's Balance - Sitting Balance and Reactions Static Sitting Balance: Good Dynamic Sitting Balance: Fair Sitting Equilibrium Reactions: Delayed Left, Delayed Right Sitting Protective Reactions: Delayed Left, Delayed Right - Standing Balance and Reactions Static Standing Balance: Fair Dynamic Standing Balance: Poor Standing Equilibrium Reactions: Delayed Left, Delayed Right Standing Protective Reactions: Delayed Left, Delayed Right - Comments Balance Assessment Comments: pt c/o dizziness with amb, no LOB during amb with rwx Functional Mobility - Bed Mobility Comments:: pt seen sitting up in chair - Transfers Sit to Stand: CGA Stand to Sit: CGA Comments:: on /off toilet CGA - Safety Awareness Safety Awareness: Good Ambulation - Ambulation Assistive Device Used: Rolling Walker Orthotic/Prosthetic Device: No Distance: 75ft Assistance needed with Ambulation: CGA Gait Deviations: Forward posture, Short stride Ambulation Comments: pt amb with flexed posture, decreased step length, and required 1 standing rest period c/o dizziness. Factors Affecting Ambulation: Decreased Balance, Weakness, Dizziness, Decreased Safety, Limited Endurance Treatment time - Time with patient Total treatment time: 32 Patient Education - Education Patient Education: Activity Modification, Education of Plan of Care Teaching Recipient: Patient Teaching Methods: Discussion, Demonstration (Discussion and demonstration of POC as well as gait safety) Assessment - Assessment Problem List:: Decreased level of function, Requires training/education, Decreased safety/Risk of falls, Weakness Rehab Potential: Good Further Therapy Indicated?: Yes Evaluation Complexity: HISTORY: Medium (HTN, DM, CHF, COPD), EXAM OF BODY SYSTEMS: Medium (strength, balance, gait, act tolerance), CLINICAL PRESENTATION : Medium (evolving), CLINICAL DECISION MAKING: Medium Short Term Goals GOAL #1: pt demonstrate independence with rolling and scooting up in bed. Goal to be met by: 09/10/17 GOAL #2: pt transfer sup to/from sit to/from stand SBA Goal to be met by: 09/10/17 GOAL #3: pt amb 100ft with rwx with CGA with no LOB Goal to be met by: 09/10/17 [employer] Goals GOAL #1: pt transfer sup to/from sit to/from stand independently Goal to be met by: 09/13/17 GOAL #2: pt amb 150ft with rwx with SBA to CGA with no LOB Goal to be met by: 09/13/17 GOAL #3: Improved dyn stand balance as noted by no LOB with amb no dizzy episodes Goal to be met by: 09/13/17 Plan Plan of Care: Therapeutic EX, Therapeutic Activity Other:: gait training Frequency of Treatment: 1-2 X day, as tolerated Duration of Treatment: 5 days Anticipated Discharge Destination: Home Has the Physician been added for Co-signature?: Yes
[2017-09-08] MEDS: COUMADIN PO SCH (16:59)
[2017-09-08] MEDS ORDERED: ZOFRAN 4 MG/2 ML IM PRN (19:44)
[2017-09-08] MEDS: FLAGYL PO SCH (21:33)
[2017-09-08] MEDS: CATAPRES PO SCH (21:33)
[2017-09-08] MEDS: XANAX PO SCH (21:33)
[2017-09-08] MEDS: LANTUS SUBCUT SCH (22:08)
[2017-09-09] MEDS: FLAGYL PO SCH ×2 (05:11→13:03)
--- NOTE | 2017-09-09 09:14 | PCM.PROG ---
Attending Provider: ATTENDING PROVIDER: Dr. NADYA COOK This patient is seen with Zahra Mo, Nurse Practitioner. DATE OF SERVICE: 09/09/17 SUBJECTIVE: This 87 year old WHITE/ F was hospitalized 09/05/17. The patient is sitting up in chair, alert. She is meeting with Suha Malik this morning and is [facility]. Hemoglobin has dropped today to 8.3 from 8.8 yesterday. The patient states she had two normal bowel movements this morning. REVIEW OF SYSTEMS: CONSTITUTIONAL: Weakness and fatigue. No night sweats. No malaise, lethargy. No fever or chills. HEENT: Eyes: No visual changes. No eye pain. No eye discharge. ENT: No runny nose. No epistaxis. No sinus pain. No odynophagia. No congestion. RESPIRATORY: No cough, no congestion. No hemoptysis. No shortness of breath. CARDIOVASCULAR: No angina symptoms. No CHF symptoms. No atypical chest pain for CAD. No palpitations. No orthopnea.. GASTROINTESTINAL: No abdominal pain. No nausea or vomiting. No diarrhea or constipation. No hematemesis. No hematochezia. GENITOURINARY: No urgency. No frequency. No dysuria. No hematuria. No obstructive symptoms. No discharge. No pain. No significant abnormal bleeding. MUSCULOSKELETAL: No musculoskeletal pain; no joint swelling. NEUROLOGICAL: Awake, alert, oriented to time, place and person. No headache. No neck pain. No syncope. No seizures. No dizziness. PSYCHIATRIC: Not anxious. No depression. No suicidal thoughts. No homicidal thoughts. SKIN: No rash. No lesions. No wounds. ENDOCRINE: No unexplained weight loss. No weight gain. HEMATOLOGIC/LYMPHATIC: No anemia. No purpura. No petechiae. No prolonged or excessive bleeding. No palpable lymph nodes. PHYSICAL EXAMINATION: GENERAL: The patient is awake, alert and oriented, sitting in chair in no distress. VITAL SIGNS: Temperature 98.1 F, Pulse 54, Respiratory Rate 16, BP 101/56, Pulse Ox 97% HEENT: Head normocephalic, atraumatic. Eyes: Extraocular muscles are intact. Pupils are equal, round and reactive to light and accommodation. Ears: No lesions. Nose appeared normal. Throat: No exudate or erythema. NECK: Supple. No JVD, no carotid bruit. No lymphadenopathy or thyromegaly. LUNGS: Diminished breath sounds. Clear to auscultation. Percussion note normal. Chest symmetrical. HEART: S1, S2, no S3. Grade I/ murmur. No cyanosis or clubbing. No ascites. Pulses: Dorsalis pedis and posterior tibial pulses +1 to +2 both sides. ABDOMEN: Soft. Non-tender. Bowel sounds active. No CVA tenderness. No mass felt. EXTREMITIES: No edema. Full range of motion of all extremities, equal. NEUROLOGIC: No focal deficit. Cranial nerves II through XII are grossly intact. No headache, no double vision or headache. SKIN: Not dry. Intact. Turgor-normal. LYMPHATIC: No palpable lymph nodes/no lymphedema. MUSCULOSKELETAL: Normal joints with no swelling. Muscle tone is normal. LAB REVIEW: 09/09/17 04:30 09/09/17 04:30 09/09/17 04:30: PT 18.9 H, INR 1.88 09/09/17 04:30: Sodium 140, Potassium 3.9, Chloride 117 H, Carbon Dioxide 17 L, Anion Gap 9.9, BUN 34 H, Creatinine 1.19, Estimated GFR (MDRD) 43.00, BUN/ Creatinine Ratio 28.57, Glucose 81 L, Calcium 8.4, Total Bilirubin < 0.3, AST 13 L, ALT 13, Alkaline Phosphatase 37 L, Total Protein 4.7 L, Albumin 2.5 L, Globulin 2.2, Albumin/Globulin Ratio 1.14 09/09/17 04:30: WBC 12.84 H, RBC 2.77 L, Hgb 8.3 L, Hct 25.1 L, MCV 90.6, MCH 30.0, MCHC 33.1, RDW Coeff of Kerrie 14.3, Plt Count 149, Immature Gran % (Auto) 0.3, Neut % (Auto) 37.6, Lymph % (Auto) 55.6 H, [place] % (Auto) 4.6, Eos % (Auto) 1.7, Baso % (Auto) 0.2, Immature Gran # (Auto) 0.0, Neut # 4.8, Lymph # 7.1 H, [place] # 0.6, Eos # 0.2, Baso # 0.0 09/08/17 09:10: B-Natriuretic Peptide 150 H ASSESSMENT: 1. ANEMIA 2. ACUTE RENAL FAILURE, RESOLVING 3. HYPERKALEMIA SECONDARY TO ACUTE RENAL FAILURE, RESOLVED 4. METABOLIC ACIDOSIS WITH PH OF 7.3 ON BLOOD GASES 5. SEVERE DEHYDRATION WITH ACUTE GASTROENTERITIS, RESOLVED 6. HISTORY OF HYPERTENSION 7. CORONARY ARTERY BYPASS SURGERY, 2000 WITH HISTORY OF [place] 8. COPD WITH ASTHMA 9. 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 DIABETES MELLITUS TYPE 2 12. GENERALIZED OSTEOARTHRITIS PLAN: 1. Encourage the patient to be up and about 2. Will monitor hemoglobin Plan and coordination of the patient's care discussed in the presence of [employer] Visitor and nurse. CONDITION: Stable SCRIBED BY: REA HILL Maintenance Scheduler scribed while in presence of service performed by Dr. Cook/Zahra Mo APRN on 09/09/17 ([id number])
[2017-09-09] MEDS: FERROUS SULFATE PO SCH (09:39)
[2017-09-09] MEDS: COZAAR PO SCH (09:39)
[2017-09-09] MEDS: K-DUR PO SCH (09:39)
[2017-09-09] MEDS: NORVASC PO SCH (09:40)
[2017-09-09] MEDS: PLETAL PO SCH (09:40)
[2017-09-09] MEDS: LOPRESSOR PO SCH (09:41)
[2017-09-09] MEDS: NITRO DUR TD SCH (09:41)
[2017-09-09 14:57] VITALS: BP 136/53; TEMP 97.7
--- NOTE | 2017-10-07 13:25 | DS ---
DATE OF SERVICE: 09/09/17 (discharged to TCU) FINAL DIAGNOSIS: 1. ACUTE ON CHRONIC RENAL FAILURE WHICH IS IMPROVING 2. GENERALIZED WEAKNESS 3. HYPERKALEMIA, WHICH HAS RESOLVED 4. ACUTE DEHYDRATION, WHICH HAS IMPROVED 5. ANEMIA 6. HYPERTENSION 7. DIABETES MELLITUS TYPE 2 8. GASTROENTERITIS 9. CORONARY ARTERY DISEASE 10. HISTORY OF DVT DISCHARGE INSTRUCTIONS: Will admit to swing bed. MEDICATIONS AT DISCHARGE: Lantus 60 units SQ bedtime Jantoven 3 mg p.o. daily Minitran one each TD daily Cozaar 100 mg p.o. daily Pletal 50 mg p.o. b.i.d. Bumex 1 mg p.o. daily Lipitor 20 mg p.o. q.a.m. Humalog Kwikpen 100 unit insulin pen Xanax 0.5 mg p.o. bedtime Aldactone 50 mg p.o. daily Lopressor 50 mg p.o. b.i.d. Iron 325 mg p.o. daily [place] 7.5 - 325 one tab p.o. q.12h p.r.n. Vitamin D3 1000 unit p.o. daily Norvasc 5 mg p.o. daily Clonidine 0.1 mg p.o. bedtime Nitroglycerin 0.4 mg SL p.r.n. NEW PRESCRIPTIONS: None DIET INSTRUCTIONS: Regular diet. ACTIVITY: PT/OT SMOKING: N/A DISEASE SPECIFIC EDUCATION: Swing Bed admission PT/OT HOSPITAL COURSE: Will admit to swing bed for generalized weakness. Unable to stand or walk without assistance. Daily CBC and CMP as hemoglobin has dropped. Stool negative for occult blood. Will continue with Daily PT/INR. The patient has agreed to participate in PT/OT as necessary during her stay as she has had recurrent hospitalizations and her weakness continues to worsen as she has had several bouts of dehydration within the past several months. Will continue medications as they are. Will follow closely. LABS AT DISCHARGE: Hemoglobin 8.3, white count 12.84, hematocrit 25.1, platelets 149. Sodium 140, potassium 3.9, BUN 34, creatinine 1.19, glucose 81. INR 1.88, BNP 150. V/S AT DISCHARGE: Temperature 97.6, heart rate 53, respirations 20, BP 140/61, pulse ox 96%. Negative stool for occult blood. TIME SPENT: More than 60 minutes. [facility]
== END 2017-09-09 15:46 | disposition swing bed (61) | DRG 683 ==
LOC: ED 14:34 → SCU 16:48
PROVIDERS: ADMIT Internal Medicine; ATTEND Internal Medicine
DX: N17.9 Acute kidney failure, unspecified (principal); E87.2 Acidosis; I12.9 Hypertensive chronic kidney disease with stage 1 through stage 4 chronic kidney disease, or unspecified chronic kidney disease; N18.9 Chronic kidney disease, unspecified; E87.5 Hyperkalemia; E86.0 Dehydration; E11.22 Type 2 diabetes mellitus with diabetic chronic kidney disease; R53.1 Weakness; I73.9 Peripheral vascular disease, unspecified; D46.9 Myelodysplastic syndrome, unspecified; M15.9 Polyosteoarthritis, unspecified; I25.10 Atherosclerotic heart disease of native coronary artery without angina pectoris; I10 Essential (primary) hypertension; K52.9 Noninfective gastroenteritis and colitis, unspecified; I25.2 Old myocardial infarction; Z79.4 Long term (current) use of insulin; Z79.01 Long term (current) use of anticoagulants; Z95.1 Presence of aortocoronary bypass graft; Z86.718 Personal history of other venous thrombosis and embolism
CPT/HCPCS: 36415; 80053; 82272; 82550; 82565; 82803; 82962; 83880; 84132; 84145; 84484; 84520; 85007; 85025; 85610; 85730; 87040; 87070; 87186; 87493; 87502; 87651; 93005; 93010; 96375; 97802; 99223; 99232; 99239; 99284

== ENCOUNTER 2017-09-09 16:07 | Inpatient (IN) ==
[2017-09-09] MEDS ORDERED: NORCO 7.5-325 PO PRN (16:45)
[2017-09-09] MEDS ORDERED: NITROSTAT SL PRN (16:45)
[2017-09-09 16:57] VITALS: BMI 25.7
[2017-09-09] MEDS ORDERED: COUMADIN PO SCH (17:00)
[2017-09-09] MEDS ORDERED: LANTUS SUBCUT ONE (20:02)
[2017-09-09] MEDS: CATAPRES PO SCH (20:49)
[2017-09-09] MEDS: XANAX PO SCH (20:50)
[2017-09-09] MEDS: LOPRESSOR PO SCH (20:50)
[2017-09-09] MEDS: PLETAL PO SCH (20:50)
[2017-09-09] MEDS: FLAGYL PO SCH (20:50)
[2017-09-09] MEDS ORDERED: INSULIN GLARGINE HUM REC ANLOG 50 UNIT SQ SCH (21:00)
[2017-09-10] MEDS: FLAGYL PO SCH ×3 (06:22→20:59)
[2017-09-10] MEDS: COZAAR PO SCH (08:37)
[2017-09-10] MEDS: FERROUS SULFATE PO SCH (08:37)
[2017-09-10] MEDS: K-DUR PO SCH (08:37)
[2017-09-10] MEDS: NITRO DUR TD SCH (08:38)
[2017-09-10] MEDS: LOPRESSOR PO SCH ×2 (08:38→20:59)
[2017-09-10] MEDS: NORVASC PO SCH (08:40)
[2017-09-10] MEDS: PLETAL PO SCH ×2 (08:41→20:58)
[2017-09-10] MEDS ORDERED: NON-FORMULARY MEDICATION (Losartan Potassium 100 MG) PO SCH (09:00)
[2017-09-10] MEDS ORDERED: NON-FORMULARY MEDICATION (Ferrous Sulfate [Iron] 325 MG) PO SCH (09:00)
--- NOTE | 2017-09-10 14:26 | RS.PTINEVL ---
Subjective - Patient information Date of Evaluation: 09/10/17 Date of Arrival on Unit: 09/09/17 Admitted From:: In-House Transfer Diagnosis: hyperkalemia Usual Living Arrangement: Alone Living Arrangement Comments: Brother lives right behind patient. Home Environment: Mobile Home, Stairs (few), Rail Medical History: Hypertension, COPD, Diabetes, CHF Medical History Comments:: kidney disease, IN LATEX ALLERGY?: No Surgical History: Hysterectomy, CABG Surgical History Comments:: artificial aorta Medications: see chart Subjective Information/ Patient Comments:: pt states she is feeling a bit better today. 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 Current Level of Function: Partially Dependent Current Equipment Used at Home: rollator rwx Pain Assessement - Location R hip Description: Aching Intensity: 2 Pain Behavior: Facial Grimacing Pain Aggravating Factors: Standing, Walking Pain Alleviating Factors: Medication Interventions - Objective Patient Orientation: Person, Place, Time Current Interventions: Telemetry (pt with edema BLE's ) Range of Motion - ROM Right Upper Extremity AROM: WFL's Left Upper Extremity AROM: WFL's Right Lower Extremity AROM: WFL's Left Lower Extremity AROM: WFL's Muscle Strength - Muscle Strength Right Upper Extremity Strength: Mild Weakness (shld flex 4/5, elbow flex/ext 4/5 ) Left Upper Extremity Strength: Mild Weakness (shld flex 4/5, elbow flex/ext 4/5) Right Lower Extremity Strength: Mild Weakness (hip flex 4-/5, difficult to MMT Lower leg due to patient unable to tolerate pressure) Left Lower Extremity Strength: Mild Weakness (hip flex 4-/5, difficult to MMT Lower leg due to patient unable to tolerate pressure) Sensation - Sensation Right Upper Extremity Sensation: Intact/Normal Left Upper Extremity Sensation: Intact/Normal Right Lower Extremity Sensation: Impaired (n/t BLE) Left Lower Extremity Sensation: Impaired (n/t B LE's) Palpation Palpation Findings: Tenderness (pain BLE to touch) Balance - Sitting Balance and Reactions Static Sitting Balance: Good Dynamic Sitting Balance: Good - Standing Balance and Reactions Static Standing Balance: Fair Dynamic Standing Balance: Poor Standing Equilibrium Reactions: Delayed Left, Delayed Right Standing Protective Reactions: Delayed Left, Delayed Right - Comments Balance Assessment Comments: TUG score 40secs Functional Mobility - Bed Mobility Rolling R/L: Supervision Supine to Sit: CGA Sit to Supine: CGA - Transfers Sit to Stand: CGA Stand to Sit: CGA - Safety Awareness Safety Awareness: Fair Ambulation - Ambulation Assistive Device Used: Rolling Walker Orthotic/Prosthetic Device: No Distance: 140ft Assistance needed with Ambulation: CGA Gait Deviations: Forward posture, Short stride Ambulation Comments: pt amb with decreased step length and occasional flexed posture. pt is able to correct posture with cues. Factors Affecting Ambulation: Decreased Balance, Weakness, Decreased Safety, Limited Endurance Treatment time - Time with patient Total treatment time: 32 Patient Education - Education Patient Education: Activity Modification, Education of Plan of Care Teaching Recipient: Patient Teaching Methods: Discussion (Discussion regarding POC and safety with amb.) Assessment - Assessment Problem List:: Decreased level of function, Requires training/education, Decreased safety/Risk of falls, Weakness Rehab Potential: Good Further Therapy Indicated?: Yes Comments: Sneha index score 13/20 Evaluation Complexity: HISTORY: Medium (CHF, COPD, DM, HTN), EXAM OF BODY SYSTEMS: Medium (cardiopulmonary, musculoskeletal, neuromusc.), CLINICAL PRESENTATION: Medium (evolving), CLINICAL DECISION MAKING: Medium Short Term Goals GOAL #1: pt demonstrate independence with rolling and scooting up in bed. Goal to be met by: 09/15/17 GOAL #2: pt transfer sup to/from sit to/from stand SBA Goal to be met by: 09/15/17 GOAL #3: pt amb 125ft with rwx with CGA to SBA with no LOB Goal to be met by: 09/15/17 GOAL #4: Improved dyn stand balance as noted by TUG <35secs Goal to be met by: 09/15/17 Media Center Assistant Goals GOAL #1: pt transfer sup to/from sit to/from stand independently Goal to be met by: 09/20/17 GOAL #2: pt amb functional household distances with rwx with SBA to I with no LOB Goal to be met by: 09/20/17 GOAL #3: Ascend/descend 5 steps with 2 handrails with CGA Goal to be met by: 09/20/17 Plan Plan of Care: Therapeutic EX, Therapeutic Activity Other:: gait training Frequency of Treatment: 1-2 X day, as tolerated Duration of Treatment: 10 days Anticipated Discharge Destination: Home Has the Physician been added for Co-signature?: Yes
[2017-09-10] MEDS: COUMADIN PO SCH (16:42)
[2017-09-10] MEDS: CATAPRES PO SCH (20:59)
[2017-09-10] MEDS: XANAX PO SCH (20:59)
[2017-09-10] MEDS: LANTUS SUBCUT SCH (21:00)
[2017-09-11] MEDS: FLAGYL PO SCH ×3 (06:22→20:58)
[2017-09-11] MEDS: COZAAR PO SCH (08:59)
[2017-09-11] MEDS ORDERED: COLESTID PO SCH (09:00)
[2017-09-11] MEDS: FERROUS SULFATE PO SCH (09:00)
[2017-09-11] MEDS: K-DUR PO SCH (09:00)
[2017-09-11] MEDS: NORVASC PO SCH (09:01)
[2017-09-11] MEDS: LOPRESSOR PO SCH ×2 (09:01→20:58)
[2017-09-11] MEDS: PLETAL PO SCH ×2 (09:02→20:59)
[2017-09-11] MEDS: NITRO DUR TD SCH (09:03)
--- NOTE | 2017-09-11 09:11 | PCM.PROG ---
Attending Provider: ATTENDING PROVIDER: Dr. NADYA GARCIA This patient is seen with Zahra Mo, Nurse Practitioner. DATE OF SERVICE: 09/11/17 SUBJECTIVE: This 87 year old WHITE/ F was hospitalized 09/09/17. The patient is sitting in chair, alert. She continues to have diarrhea after eating. She has been participating in PT. REVIEW OF SYSTEMS: CONSTITUTIONAL: Positive for weakness. No night sweats. No malaise, lethargy. No fever or chills. HEENT: Eyes: No visual changes. No eye pain. No eye discharge. ENT: No runny nose. No epistaxis. No sinus pain. No odynophagia. No congestion. RESPIRATORY: No cough, no congestion. No hemoptysis. No shortness of breath. CARDIOVASCULAR: No angina symptoms. No CHF symptoms. No atypical chest pain for CAD. No palpitations. No orthopnea.. GASTROINTESTINAL: Positive for diarrhea. No abdominal pain. No nausea or vomiting. No constipation. No hematemesis. No hematochezia. GENITOURINARY: No urgency. No frequency. No dysuria. No hematuria. No obstructive symptoms. No discharge. No pain. No significant abnormal bleeding. MUSCULOSKELETAL: No musculoskeletal pain; no joint swelling. NEUROLOGICAL: Awake, alert, oriented to time, place and person. No headache. No neck pain. No syncope. No seizures. No dizziness. PSYCHIATRIC: Not anxious. No depression. No suicidal thoughts. No homicidal thoughts. SKIN: No rash. No lesions. No wounds. ENDOCRINE: No unexplained weight loss. No weight gain. HEMATOLOGIC/LYMPHATIC: No anemia. No purpura. No petechiae. No prolonged or excessive bleeding. No palpable lymph nodes. PHYSICAL EXAMINATION: GENERAL: The patient is awake, alert and oriented, sitting in chair in no distress. VITAL SIGNS: Temperature 97.9 F, Pulse 48, Respiratory Rate 16, BP 124/53, Pulse Ox 96% HEENT: Head normocephalic, atraumatic. Eyes: Extraocular muscles are intact. Pupils are equal, round and reactive to light and accommodation. Ears: No lesions. Nose appeared normal. Throat: No exudate or erythema. NECK: Supple. No JVD, no carotid bruit. No lymphadenopathy or thyromegaly. LUNGS: Diminished breath sounds. Clear to auscultation. Percussion note normal. Chest symmetrical. HEART: S1, S2, no S3. Grade I/ systolic murmur. No cyanosis or clubbing. No ascites. Pulses: Dorsalis pedis and posterior tibial pulses +1 to +2 both sides. ABDOMEN: Soft. Non-tender. Bowel sounds active. No CVA tenderness. No mass felt. EXTREMITIES: Trace edema left lower extremity. Full range of motion of all extremities, equal. NEUROLOGIC: No focal deficit. Cranial nerves II through XII are grossly intact. No headache, no double vision or headache. SKIN: Not dry. Intact. Turgor-normal. LYMPHATIC: No palpable lymph nodes/no lymphedema. MUSCULOSKELETAL: Normal joints with no swelling. Muscle tone is normal. LAB REVIEW: 09/11/17 04:30 09/11/17 04:30 09/11/17 04:30: Sodium 137, Potassium 4.9, Chloride 115 H, Carbon Dioxide 18 L, Anion Gap 8.9, BUN 38 H, Creatinine 1.64 H, Estimated GFR (MDRD) 30.00, BUN/ Creatinine Ratio 23.17, Glucose 98 D, Calcium 8.8, Total Bilirubin < 0.3, AST 14 L, ALT 13, Alkaline Phosphatase 35 L, Total Protein 4.8 L, Albumin 2.6 L, Globulin 2.2, Albumin/Globulin Ratio 1.18 09/11/17 04:30: PT 29.7 H D, INR 3.00 09/11/17 04:30: WBC 13.55 H, RBC 2.87 L, Hgb 8.5 L, Hct 26.2 L, MCV 91.3, MCH 29.6, MCHC 32.4, RDW Coeff of Kerrie 14.6, Plt Count 175, Immature Gran % (Auto) 0.4, Neut % (Auto) 40.8, Lymph % (Auto) 52.1 H, [place] % (Auto) 5.1, Eos % (Auto) 1.4, Baso % (Auto) 0.2, Immature Gran # (Auto) 0.1, Neut # 5.5, Lymph # 7.1 H, [place] # 0.7, Eos # 0.2, Baso # 0.0 ASSESSMENT: 1. DIARRHEA 2. ANEMIA 3. ACUTE RENAL FAILURE, RESOLVING 4. HYPERKALEMIA SECONDARY TO ACUTE RENAL FAILURE, RESOLVED 5. METABOLIC ACIDOSIS WITH PH OF 7.3 ON BLOOD GASES 6. SEVERE DEHYDRATION WITH ACUTE GASTROENTERITIS, RESOLVED 7. HISTORY OF HYPERTENSION 8. CORONARY ARTERY BYPASS SURGERY, 1999 WITH HISTORY OF [place] 9. COPD WITH ASTHMA 10. 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 DIABETES MELLITUS TYPE 2 13. GENERALIZED OSTEOARTHRITIS PLAN: 1. Colestid t.i.d. 2. GI panel by PCR 3. Hold potassium today 4. Hold Coumadin today Plan and coordination of the patient's care discussed in the presence of Printing Screen Assembler and nurse. CONDITION: Stable SCRIBED BY: REA HILL Education Liaison scribed while in presence of service performed by Dr. Garcia/Zahra Mo APRN on 09/11/17 ([id number])
[2017-09-11] MEDS: ZOFRAN 4 MG/2 ML IM PRN (10:03)
--- NOTE | 2017-09-11 11:19 | PN ---
DATE OF SERVICE: 09/11/17 SUBJECTIVE: The patient is in swing better. The patient is feeling alot better. Kidney functions have returned to normal. Acute renal failure has resolved. Hydration status has resolved. No symptoms of CHF, no fluid overload. The patient is gaining some strength. She is on rehab with swing bed. The patient was seen and examined with Nurse Practitioner. TIME SPENT: More than 30 minutes. Plan and coordination of the patient's care discussed in the presence of nurse. BRIGHT
--- NOTE | 2017-09-11 13:00 | PN ---
DATE OF SERVICE: 09/09/17 SUBJECTIVE: The patient was seen and examined with the Nurse Practitioner, doing well. Kidney functions are better than ever before 1.134. Acute renal failure has resolved. Anemia persists. The patient is symptomatic from anemia with shortness of breath. Has history of CHF. May need blood transfusion, we will watch her. Denies any further work up. BNP 150 which is excellent. PT/INR, INR is 1.8. Cardiac status stable with no evidence of fluid overload. CONDITION: Stable TIME SPENT: More than 30 minutes. Plan and coordination of the patient's care discussed in the presence of nurse. BRIGHT
[2017-09-11] MEDS: COLESTID PO SCH ×2 (14:34→20:58)
--- NOTE | 2017-09-11 16:27 | RS.OTINEVL ---
Subjective - Patient information Date of Evaluation: 09/11/17 Date of Arrival on Unit: 09/05/17 Admitted From:: Emergency Dept Usual Living Arrangement: Alone Living Arrangement Comments: Pt lives at home and her brother lives next door. Pt needs help with personal care. Pt has a tub/shower , and a rollator, and grab bars in the bathroom. Pt drove herself. Home Environment: Mobile Home, Stairs (few) Medical History: Diabetes Medical History Comments:: Pt has an artificial aorta, DVT, Edema, Cardiac emphysema, Gallbladder, UTI, dizzy, syncope LATEX ALLERGY?: No Surgical History Comments:: Artificial aorta, Subjective Information/ Patient Comments:: "I live by myself. My . I had 6 kids and took care of all of them." - Level of function Prior to this admission, the patient could do the following:: Independent Selfcare, Independent Ambulation, Perform Automation Manager/Cooking, Drive Abilities prior to this admission: Pt living in her trailor and drives to the store occasionally. Pt uses a rollator walker. Pt has a shower chair in her tub shower. Pt has a house keeper come every 2 weeks. Current Equipment Used at Home: rollator rwx Interventions - Objective Patient Orientation: Person, Place, Time, Situation Current Interventions: IV's Observation: Pt becomes short of breath with activity. Pt becomes short of air with ambulation. Interventions - ROM Right Upper Extremity AROM: WFL's Left Upper Extremity AROM: WFL's - Strength Right Upper Extremity Strength: Mild Weakness Left Upper Extremity Strength: Mild Weakness - Sensation Right Upper Extremity Sensation: Intact/Normal Left Upper Extremity Sensation: Intact/Normal Balance - Sitting Balance Static Sitting Balance: Good Dynamic Sitting Balance: Good - Standing Balance Static Standing Balance: Fair Dynamic Standing Balance: Fair ADL Skills - Self Feeding Self Feeding: Independent - Grooming Grooming: CGA - Bathing Bathing UE: CGA Bathing LE: CGA - Dressing Dressing UE: CGA Dressing LE: CGA - Toilet Management Toileting Management: CGA Functional Mobility - Bed Mobility Rolling R/L: Independent Scooting: Independent Supine to Sit: Independent Sit to Supine: Independent - Transfers Sit to Stand: CGA Stand to Sit: [facility] Stand Pivot Transfers: CGA - Ambulation Weight Bearing Status: FWB Assistive Device Used: Rolling Walker Assistance needed with Ambulation: CGA - Safety Awareness Safety Awareness: Good Additional Treatment Performed - Additional units charged Exercise: 15 - Time with patient Total treatment time: 20 Activities Patient Interests:: Watching Television, Puzzles/Games, Bible Reading/Study, Computer/Internet Comments:: IPad Patient Education Patient Education: Education of diagnosis, Home Exercise Program Teaching Recipient: Patient Teaching Methods: Discussion Assessment Problem List:: Decreased level of function, Requires training/education, Decreased safety/Risk of falls, Weakness, Pain limits previous level of function Rehab Potential: Good Evaluation Complexity: HISTORY: Medium, EXAM OF BODY SYSTEMS: Medium, CLINICAL DECISION MAKING: Medium Short Term Goals - Goals GOAL 1: Pt to tolerate standing activity for balance and ADLS 10 minutes. Goal to be met by: 09/17/17 GOAL 2: Pt to tolerate sink level ADLS. Goal to be met by: 09/17/17 GOAL 3: Pt to be independent with Home exercise program. Goal to be met by: 09/17/17 Editor Producer Goals GOAL 1: Pt to tolerate standing activity for balance and ADLS 15minutes. Goal to be met by: 09/23/17 GOAL 2: Pt to be independent with ADLs. Goal to be met by: 09/23/17 GOAL 3: Pt to be independent with home exercise program. Goal to be met by: 09/23/17 Plan Plan of Care: Therapeutic EX, Neuromuscular Re-Educ, Therapeutic Activity, Self- Care/Home Management Frequency of Treatment: 1-2 X day, as tolerated Duration of Treatment: 2 Weeks Anticipated Discharge Destination: Home Has the Physician been added for Co-signature?: Yes
[2017-09-11] MEDS: LANTUS SUBCUT SCH (20:58)
[2017-09-11] MEDS: CATAPRES PO SCH (20:58)
[2017-09-11] MEDS: XANAX PO SCH (20:58)
[2017-09-12] MEDS: FLAGYL PO SCH ×3 (05:36→20:26)
[2017-09-12] MEDS: COLESTID PO SCH ×3 (09:27→20:26)
[2017-09-12] MEDS: LOPRESSOR PO SCH ×2 (09:28→20:27)
[2017-09-12] MEDS: PLETAL PO SCH ×2 (09:28→20:26)
[2017-09-12] MEDS: FERROUS SULFATE PO SCH (09:28)
[2017-09-12] MEDS: BUMEX PO SCH (09:28)
[2017-09-12] MEDS: NITRO DUR TD SCH (09:29)
[2017-09-12] MEDS: COZAAR PO SCH (09:29)
[2017-09-12] MEDS: NORVASC PO SCH (09:29)
[2017-09-12] MEDS: CATAPRES PO SCH (20:27)
[2017-09-12] MEDS: XANAX PO SCH (20:27)
[2017-09-12] MEDS: LANTUS SUBCUT SCH (20:28)
[2017-09-13] MEDS: FLAGYL PO SCH ×3 (05:17→20:50)
[2017-09-13] MEDS: BUMEX PO SCH (08:31)
[2017-09-13] MEDS: NORVASC PO SCH (08:32)
[2017-09-13] MEDS: COZAAR PO SCH (08:32)
[2017-09-13] MEDS: NITRO DUR TD SCH (08:32)
[2017-09-13] MEDS: COLESTID PO SCH ×3 (08:32→20:50)
[2017-09-13] MEDS: FERROUS SULFATE PO SCH (08:32)
[2017-09-13] MEDS: PLETAL PO SCH ×2 (08:32→20:48)
[2017-09-13] MEDS: LOPRESSOR PO SCH ×2 (08:32→20:48)
[2017-09-13] MEDS: ZOFRAN 4 MG/2 ML IM PRN (11:35)
[2017-09-13] MEDS: LANTUS SUBCUT SCH (20:46)
[2017-09-13] MEDS: XANAX PO SCH (20:51)
[2017-09-13] MEDS: CATAPRES PO SCH (20:53)
[2017-09-14] MEDS: FLAGYL PO SCH ×3 (05:42→20:48)
[2017-09-14] MEDS ORDERED: LASIX IM STA (08:57)
[2017-09-14] MEDS: PLETAL PO SCH ×2 (09:20→20:47)
[2017-09-14] MEDS: LOPRESSOR PO SCH ×2 (09:20→20:48)
[2017-09-14] MEDS: NORVASC PO SCH (09:20)
[2017-09-14] MEDS: COZAAR PO SCH (09:20)
[2017-09-14] MEDS: BUMEX PO SCH (09:20)
[2017-09-14] MEDS: FERROUS SULFATE PO SCH (09:20)
[2017-09-14] MEDS: COLESTID PO SCH ×3 (09:20→20:48)
[2017-09-14] MEDS: NITRO DUR TD SCH (09:21)
[2017-09-14] MEDS: LANTUS SUBCUT SCH (20:44)
[2017-09-14] MEDS: CATAPRES PO SCH (20:48)
[2017-09-14] MEDS: XANAX PO SCH (20:59)
[2017-09-15] MEDS: FLAGYL PO SCH (05:33)
--- NOTE | 2017-09-15 09:59 | PCM.PROG ---
Attending Provider: ATTENDING PROVIDER: Dr. NADYA GARCIA DATE OF SERVICE: 09/15/17 SUBJECTIVE: This 87 year old WHITE/ F was hospitalized 09/09/17 with acute renal failure and dehydration. Condition improved. Kidney functions are stable, alot better. Hemoglobin and hematocrit are stable. No evidence of active GI bleed. The patient is on swing bed for PT/ambulation. REVIEW OF SYSTEMS: CONSTITUTIONAL: Positive for weakness and fatigue. No night sweats. No malaise , lethargy. No fever or chills. HEENT: Eyes: No visual changes. No eye pain. No eye discharge. ENT: No runny nose. No epistaxis. No sinus pain. No odynophagia. No congestion. RESPIRATORY: No cough, no congestion. No hemoptysis. No shortness of breath. CARDIOVASCULAR: No angina symptoms. No CHF symptoms. No atypical chest pain for CAD. No palpitations. No orthopnea.. GASTROINTESTINAL: No abdominal pain. No nausea or vomiting. No diarrhea or constipation. No hematemesis. No hematochezia. GENITOURINARY: No urgency. No frequency. No dysuria. No hematuria. No obstructive symptoms. No discharge. No pain. No significant abnormal bleeding. MUSCULOSKELETAL: No musculoskeletal pain; no joint swelling. NEUROLOGICAL: Awake, alert, oriented to time, place and person. No headache. No neck pain. No syncope. No seizures. No dizziness. PSYCHIATRIC: Not anxious. No depression. No suicidal thoughts. No homicidal thoughts. SKIN: No rash. No lesions. No wounds. ENDOCRINE: No unexplained weight loss. No weight gain. HEMATOLOGIC/LYMPHATIC: No anemia. No purpura. No petechiae. No prolonged or excessive bleeding. No palpable lymph nodes. PHYSICAL EXAMINATION: GENERAL: The patient is awake, alert and oriented, lying/sitting in bed in no distress. VITAL SIGNS: Temperature 97.1 F, Pulse 48, Respiratory Rate 16, BP 100/45, Pulse Ox 96% HEENT: Head normocephalic, atraumatic. Eyes: Extraocular muscles are intact. Pupils are equal, round and reactive to light and accommodation. Ears: No lesions. Nose appeared normal. Throat: No exudate or erythema. NECK: Supple. No JVD, no carotid bruit. No lymphadenopathy or thyromegaly. LUNGS: Clear to auscultation. Percussion note normal. Chest symmetrical. HEART: S1, S2, no S3. No murmurs. No cyanosis or clubbing. No ascites. Pulses: Dorsalis pedis and posterior tibial pulses +1 to +2 both sides. ABDOMEN: Soft. Non-tender. Bowel sounds active. No CVA tenderness. No mass felt. EXTREMITIES: Trace edema. Full range of motion of all extremities, equal. NEUROLOGIC: No focal deficit. Cranial nerves II through XII are grossly intact. No headache, no double vision or headache. SKIN: Warm and dry. Intact. Turgor-normal. LYMPHATIC: No palpable lymph nodes/no lymphedema. MUSCULOSKELETAL: Normal joints with no swelling. Muscle tone is normal. LAB REVIEW: 09/15/17 04:15 09/15/17 04:15 09/15/17 04:15: Sodium 137, Potassium 5.0, Chloride 114 H, Carbon Dioxide 18 L, Anion Gap 10.0, BUN 40 H, Creatinine 1.94 H, Estimated GFR (MDRD) 24.00, BUN/ Creatinine Ratio 20.61, Glucose 83 D, Calcium 8.6, Total Bilirubin < 0.3, AST 13 L, ALT 14, Alkaline Phosphatase 30 L, Total Protein 4.6 L, Albumin 2.5 L, Globulin 2.1, Albumin/Globulin Ratio 1.19 09/15/17 04:15: PT 15.5 H, INR 1.54 09/15/17 04:15: WBC 12.35 H, RBC 2.80 L, Hgb 8.4 L, Hct 26.4 L, MCV 94.3, MCH 30.0, MCHC 31.8, RDW Coeff of Kerrie 15.2 H, Plt Count 213, Immature Gran % (Auto) 0.5, Neut % (Auto) 35.4, Lymph % (Auto) 55.4 H, [place] % (Auto) 7.4, Eos % (Auto) 1.0, Baso % (Auto) 0.3, Immature Gran # (Auto) 0.1, Neut # 4.4, Lymph # 6.8 H, [place] # 0.9, Eos # 0.1, Baso # 0.0 ASSESSMENT: Renal failure resolved Chronic kidney disease CHF under control CAD under control PAD Leg edema PLAN: 1. Restart Coumadin 2. Elevate legs 3. Continue same treatment 4. Discontinue Flagyl 5. Colestid twice a day Plan and coordination of the patient's care discussed in the presence of Integrity Director and nurse. CONDITION: Stable SCRIBED BY: REA HILL Patient Manager scribed while in presence of service performed by Dr. NADYA GARCIA on 09/15/17 ([id number])
[2017-09-15] MEDS: BUMEX PO SCH (10:30)
[2017-09-15] MEDS: COLESTID PO SCH ×2 (10:31→20:38)
[2017-09-15] MEDS: COZAAR PO SCH (10:32)
[2017-09-15] MEDS: FERROUS SULFATE PO SCH (10:32)
[2017-09-15] MEDS: LOPRESSOR PO SCH ×2 (10:32→20:37)
[2017-09-15] MEDS: NITRO DUR TD SCH (10:33)
[2017-09-15] MEDS: PLETAL PO SCH ×2 (10:35→20:37)
[2017-09-15] MEDS: NORVASC PO SCH (10:35)
[2017-09-15] MEDS: COUMADIN PO SCH (17:18)
[2017-09-15] MEDS: LANTUS SUBCUT SCH (20:36)
[2017-09-15] MEDS: CATAPRES PO SCH (20:37)
[2017-09-15] MEDS: XANAX PO SCH (20:38)
[2017-09-16] MEDS: BUMEX PO SCH (08:50)
[2017-09-16] MEDS: COLESTID PO SCH ×2 (08:50→20:42)
[2017-09-16] MEDS: FERROUS SULFATE PO SCH (08:51)
[2017-09-16] MEDS: COZAAR PO SCH (08:51)
[2017-09-16] MEDS: LOPRESSOR PO SCH ×2 (08:51→20:43)
[2017-09-16] MEDS: NORVASC PO SCH (08:52)
[2017-09-16] MEDS: PLETAL PO SCH ×2 (08:52→20:43)
[2017-09-16] MEDS: NITRO DUR TD SCH (08:53)
--- NOTE | 2017-09-16 09:09 | PCM.PROG ---
Attending Provider: ATTENDING PROVIDER: Dr. NADYA GARCIA This patient is seen with Zahra Mo, Nurse Practitioner. DATE OF SERVICE: 09/16/17 SUBJECTIVE: This 87 year old WHITE/ F was hospitalized 09/09/17. The patient has worsening fatigue and weakness, mild shortness of breath. Kidney function is worsening. REVIEW OF SYSTEMS: CONSTITUTIONAL: Positive for weakness and fatigue. No night sweats. No malaise, lethargy. No fever or chills. HEENT: Eyes: No visual changes. No eye pain. No eye discharge. ENT: No runny nose. No epistaxis. No sinus pain. No odynophagia. No congestion. RESPIRATORY: Shortness of breath. No cough, no congestion. No hemoptysis. CARDIOVASCULAR: No angina symptoms. No CHF symptoms. No atypical chest pain for CAD. No palpitations. No orthopnea.. GASTROINTESTINAL: No abdominal pain. No nausea or vomiting. No diarrhea or constipation. No hematemesis. No hematochezia. GENITOURINARY: No urgency. No frequency. No dysuria. No hematuria. No obstructive symptoms. No discharge. No pain. No significant abnormal bleeding. MUSCULOSKELETAL: No musculoskeletal pain; no joint swelling. NEUROLOGICAL: Awake, alert, oriented to time, place and person. No headache. No neck pain. No syncope. No seizures. No dizziness. PSYCHIATRIC: Not anxious. No depression. No suicidal thoughts. No homicidal thoughts. SKIN: No rash. No lesions. No wounds. ENDOCRINE: No unexplained weight loss. No weight gain. HEMATOLOGIC/LYMPHATIC: No anemia. No purpura. No petechiae. No prolonged or excessive bleeding. No palpable lymph nodes. PHYSICAL EXAMINATION: GENERAL: The patient is awake, alert and oriented, sitting in bed in no distress. Pallor positive. VITAL SIGNS: Temperature 98.2 F, Pulse 48, Respiratory Rate 16, BP 111/58, Pulse Ox 97% HEENT: Head normocephalic, atraumatic. Eyes: Extraocular muscles are intact. Pupils are equal, round and reactive to light and accommodation. Ears: No lesions. Nose appeared normal. Throat: No exudate or erythema. NECK: Supple. No JVD, no carotid bruit. No lymphadenopathy or thyromegaly. LUNGS: Diminished breath sounds. Clear to auscultation. Percussion note normal. Chest symmetrical. HEART: S1, S2, no S3. No murmurs. No cyanosis or clubbing. No ascites. Pulses: Dorsalis pedis and posterior tibial pulses +1 to +2 both sides. ABDOMEN: Soft. Non-tender. Bowel sounds active. No CVA tenderness. No mass felt. EXTREMITIES: Trace leg edema. Full range of motion of all extremities, equal. NEUROLOGIC: No focal deficit. Cranial nerves II through XII are grossly intact. No headache, no double vision or headache. SKIN: Not dry. Intact. Turgor-normal. LYMPHATIC: No palpable lymph nodes/no lymphedema. MUSCULOSKELETAL: Normal joints with no swelling. Muscle tone is normal. LAB REVIEW: 09/16/17 05:10 09/16/17 05:10 09/16/17 05:10: Sodium 135 L, Potassium 5.3 H, Chloride 112 H, Carbon Dioxide 19 L, Anion Gap 9.3, BUN 44 H, Creatinine 2.07 H, Estimated GFR (MDRD) 23.00, BUN/Creatinine Ratio 21.25, Glucose 127 H, Calcium 8.7, Total Bilirubin < 0.3, AST 12 L, ALT 15, Alkaline Phosphatase 30 L, Total Protein 4.9 L, Albumin 2.6 L , Globulin 2.3, Albumin/Globulin Ratio 1.13 09/16/17 05:10: WBC 12.01 H, RBC 2.84 L, Hgb 8.5 L, Hct 26.9 L, MCV 94.7, MCH 29.9, MCHC 31.6 L, RDW Coeff of Kerrie 15.1 H, Plt Count 227, Immature Gran % (Auto ) 0.3, Neut % (Auto) 38.9, Lymph % (Auto) 52.6 H, [place] % (Auto) 6.9, Eos % (Auto ) 1.0, Baso % (Auto) 0.3, Immature Gran # (Auto) 0.0, Neut # 4.7, Lymph # 6.3 H , [place] # 0.8, Eos # 0.1, Baso # 0.0 ASSESSMENT: SYMPTOMATIC ANEMIA ACUTE ON CHRONIC KIDNEY FAILURE HYPERKALEMIA CHF LEG WEAKNESS FAILURE TO THRIVE PLAN: Transfuse one unit prbc Restart IV fluids ns 50 cc/hr times 24 hours Plan and coordination of the patient's care discussed in the presence of Button Cutting Machine Operator and nurse. CONDITION: Stable SCRIBED BY: REA HILL Compressor Operator scribed while in presence of service performed by Dr. Garcia/Zahra Mo APRN on 09/16/17 ([id number])
[2017-09-16] MEDS ORDERED: SODIUM CHLORIDE 1,000 ML IV SCH (10:30)
[2017-09-16] MEDS: COUMADIN PO SCH (17:10)
[2017-09-16] MEDS: XANAX PO SCH (20:43)
[2017-09-16] MEDS: CATAPRES PO SCH (20:43)
[2017-09-16] MEDS: LANTUS SUBCUT SCH (20:44)
--- NOTE | 2017-09-17 08:55 | PN ---
DATE OF SERVICE: 09/13/17 SUBJECTIVE: 87-year-old white female was hospitalized with acute renal failure, dehydration. The patient's condition has steadily improved. She is feeling better. Hemoglobin and hematocrit are stable. Renal failure has resolved. The patient had hyperkalemia yesterday and now is normal. Potassium is 4.2. Creatinine yesterday was 1.7, BUN 41, today is 1.6 and 37, much better. She is feeling better. She has mild problem swallowing which she has had for a number of years. REVIEW OF SYSTEMS: CONSTITUTIONAL: Mild weakness. No night sweats. No malaise, lethargy. No fever or chills. HEENT: Eyes: No visual changes. No eye pain. No eye discharge. ENT: No runny nose. No epistaxis. No sinus pain. No sore throat. No odynophagia. No congestion. RESPIRATORY: No cough, no congestion. No hemoptysis. No shortness of breath. CARDIOVASCULAR: No angina symptoms. No CHF symptoms. No atypical chest pain for CAD. No palpitations. No orthopnea. GASTROINTESTINAL: No abdominal pain. No nausea or vomiting. No diarrhea or constipation. No hematemesis. No hematochezia. GENITOURINARY: No urgency. No frequency. No dysuria. No hematuria. No obstructive symptoms. No discharge. No pain. No significant abnormal bleeding. MUSCULOSKELETAL: No musculoskeletal pain; no joint swelling. NEUROLOGICAL: Dizziness at times (according to her improving). No headache. No neck pain. No syncope. No seizures. PSYCHIATRIC: Not anxious. No depression. No suicidal thoughts. No homicidal thoughts. SKIN: No rash. No lesions. No wounds. ENDOCRINE: No unexplained weight loss. No weight gain. HEMATOLOGIC/LYMPHATIC: No anemia. No purpura. No petechiae. No prolonged or excessive bleeding. No palpable lymph nodes. PHYSICAL EXAMINATION: GENERAL: The patient is oriented to time, place and person. VITAL SIGNS: Temperature 96.4, pulse 56, respiratory rate 18, BP 130/55, pulse ox 98%. HEENT: Head normocephalic, atraumatic. Eyes: Extraocular muscles are intact. Pupils are equal, round and reactive to light and accommodation. Ears: No lesions. Nose appeared normal. Throat: No exudate or erythema. NECK: Supple. No JVD, no carotid bruit. No lymphadenopathy or thyromegaly. LUNGS: Decreased breath sounds but clear to auscultation. Percussion note normal. Chest symmetrical. HEART: S1, S2, no S3. No murmurs. No cyanosis or clubbing. No ascites. Pulses: Dorsalis pedis and posterior tibial pulses +1 to +2 both sides. ABDOMEN: Soft. Nontender. Bowel sounds active. No CVA tenderness. No mass felt. EXTREMITIES: No edema. Full range of motion of all extremities, equal. NEUROLOGIC: No focal deficit. Cranial nerves II through XII are grossly intact. No headache, no double vision or headache. SKIN: Not dry. Intact. Turgor - normal. LYMPHATIC: No palpable lymph nodes/no lymphedema. MUSCULOSKELETAL: Normal joints with no swelling. Muscle tone is normal. LABS: Hemoglobin 8.7, hematocrit 26, WBC 13,000, normal differential. Creatinine 1.7, BUN 41, potassium 4.8, creatinine 1.6, BUN 37. ASSESSMENT: 1. RENAL FAILURE RESOLVED 2. CHRONIC KIDNEY DISEASE PERSISTS 3. CHF UNDER CONTROL 4. CORONARY ARTERY DISEASE, STABLE 5. PERIPHERAL ARTERIAL DISEASE, STABLE 6. ANEMIA, STABLE, NO EVIDENCE OF GI BLEED PLAN: 1. Will continue to monitor the patient. 2. Continue to do physical therapy for strengthening the muscles of the lower extremities and upper extremities. TIME SPENT: More than 30 minutes. Plan and coordination of the patient's care discussed in the presence of nurse. BRIGHT
[2017-09-17] MEDS: BUMEX PO SCH (09:57)
[2017-09-17] MEDS: LOPRESSOR PO SCH ×2 (09:57→21:21)
[2017-09-17] MEDS: COZAAR PO SCH (09:57)
[2017-09-17] MEDS: NORVASC PO SCH (09:57)
[2017-09-17] MEDS: COLESTID PO SCH ×2 (09:57→21:21)
[2017-09-17] MEDS: FERROUS SULFATE PO SCH (09:58)
[2017-09-17] MEDS: PLETAL PO SCH ×2 (09:58→21:20)
[2017-09-17] MEDS: NITRO DUR TD SCH (09:59)
[2017-09-17] MEDS: COUMADIN PO SCH (17:56)
[2017-09-17] MEDS: LANTUS SUBCUT SCH (21:19)
[2017-09-17] MEDS: XANAX PO SCH (21:20)
[2017-09-17] MEDS: CATAPRES PO SCH (21:21)
[2017-09-18] MEDS: NITRO DUR TD SCH (09:05)
[2017-09-18] MEDS: PLETAL PO SCH ×2 (09:05→20:56)
[2017-09-18] MEDS: COLESTID PO SCH ×2 (09:06→20:55)
[2017-09-18] MEDS: COZAAR PO SCH (09:07)
[2017-09-18] MEDS: FERROUS SULFATE PO SCH (09:07)
[2017-09-18] MEDS: BUMEX PO SCH (09:07)
[2017-09-18] MEDS: NORVASC PO SCH (09:08)
[2017-09-18] MEDS: LOPRESSOR PO SCH ×2 (09:08→21:08)
--- NOTE | 2017-09-18 11:40 | PCM.PROG ---
Attending Provider: ATTENDING PROVIDER: Dr. NADYA GARCIA DATE OF SERVICE: 09/18/17 SUBJECTIVE: This 87 year old WHITE/ F was hospitalized 09/09/17 with acute renal failure, now in swing bed so she can ambulate and get stronger with physcial therapy. She is doing well. REVIEW OF SYSTEMS: CONSTITUTIONAL: No night sweats. No fatigue, malaise, lethargy. No fever or chills. HEENT: Eyes: No visual changes. No eye pain. No eye discharge. ENT: No runny nose. No epistaxis. No sinus pain. No odynophagia. No congestion. RESPIRATORY: No cough, no congestion. No hemoptysis. No shortness of breath. CARDIOVASCULAR: No angina symptoms. No CHF symptoms. No atypical chest pain for CAD. No palpitations. No orthopnea.. GASTROINTESTINAL: No abdominal pain. No nausea or vomiting. No diarrhea or constipation. No hematemesis. No hematochezia. GENITOURINARY: No urgency. No frequency. No dysuria. No hematuria. No obstructive symptoms. No discharge. No pain. No significant abnormal bleeding. MUSCULOSKELETAL: No musculoskeletal pain; no joint swelling. NEUROLOGICAL: Awake, alert, oriented to time, place and person. No headache. No neck pain. No syncope. No seizures. No dizziness. PSYCHIATRIC: Not anxious. No depression. No suicidal thoughts. No homicidal thoughts. SKIN: No rash. No lesions. No wounds. ENDOCRINE: No unexplained weight loss. No weight gain. HEMATOLOGIC/LYMPHATIC: No anemia. No purpura. No petechiae. No prolonged or excessive bleeding. No palpable lymph nodes. PHYSICAL EXAMINATION: GENERAL: The patient is awake, alert and oriented, lying/sitting in bed in no distress. VITAL SIGNS: Temperature 98.8 F, Pulse 50, Respiratory Rate 16, BP 125/59, Pulse Ox 96% HEENT: Head normocephalic, atraumatic. Eyes: Extraocular muscles are intact. Pupils are equal, round and reactive to light and accommodation. Ears: No lesions. Nose appeared normal. Throat: No exudate or erythema. NECK: Supple. No JVD, no carotid bruit. No lymphadenopathy or thyromegaly. LUNGS: Decreased breath sounds. Clear to auscultation. Percussion note normal. Chest symmetrical. HEART: S1, S2, no S3. No murmurs. No cyanosis or clubbing. No ascites. Pulses: Dorsalis pedis and posterior tibial pulses +1 to +2 both sides. ABDOMEN: Soft. Non-tender. Bowel sounds active. No CVA tenderness. No mass felt. EXTREMITIES: No edema. Full range of motion of all extremities, equal. NEUROLOGIC: No focal deficit. Cranial nerves II through XII are grossly intact. No headache, no double vision or headache. SKIN: Warm and dry. Intact. Turgor-normal. LYMPHATIC: No palpable lymph nodes/no lymphedema. MUSCULOSKELETAL: Normal joints with no swelling. Muscle tone is normal. LAB REVIEW: 09/17/17 04:50 09/17/17 04:50 09/18/17 04:30: PT 14.3 H, INR 1.41 ASSESSMENT: 1. HYPERKALEMIA, POTASSIUM 5.2 YESTERDAY. 2. RENAL FAILURE RESOLVED. 3. MEDICAL CONDITIONS ARE STABLE INCLUDING CARDIOVASCULAR STATUS STABLE. PLAN: 1. The patient has improved some with PT. She is going to be going home and will be living alone. The patient was advised to go to [facility] but declines. 2. CBC, CMP today. Plan and coordination of the patient's care discussed in the presence of Field Marketing Team Leader and nurse. CONDITION: STABLE SCRIBED BY: REA HILL, Machine Learning Intern scribed while in presence of service performed by Dr. NADYA GARCIA on 09/18/17 ([id number])
--- NOTE | 2017-09-18 15:20 | RS.OTQKDC ---
OT Discharge Date of Discharge: 09/18/17 Reason for Discharge: Pt discharged to home. Pt has met/partially met OT goals. Pt getting home health.
[2017-09-18] MEDS: COUMADIN PO SCH (17:17)
[2017-09-18] MEDS: LANTUS SUBCUT SCH (20:54)
[2017-09-18] MEDS: XANAX PO SCH (20:56)
[2017-09-18] MEDS: CATAPRES PO SCH (20:57)
[2017-09-19 06:15] VITALS: BP 128/50; TEMP 97.5
[2017-09-19] MEDS: COLESTID PO SCH (08:17)
[2017-09-19] MEDS: PLETAL PO SCH (08:17)
[2017-09-19] MEDS: COZAAR PO SCH (08:17)
[2017-09-19] MEDS: BUMEX PO SCH (08:17)
[2017-09-19] MEDS: NORVASC PO SCH (08:17)
[2017-09-19] MEDS: FERROUS SULFATE PO SCH (08:18)
[2017-09-19] MEDS: LOPRESSOR PO SCH (08:18)
[2017-09-19] MEDS: NITRO DUR TD SCH (08:21)
--- NOTE | 2017-09-19 10:31 | PN ---
DATE OF SERVICE: 09/16/17 SUBJECTIVE: The patient was seen and examined with the nurse practitioner. The patient is on swing bed. Her creatinine 2, BUN 44, hemoglobin 8.5 with hematocrit 26. The patient is symptomatic with anemia so will give one unit of packed red cells. The patient's potassium is 5.3, will monitor CBC and CMP daily. Will give Normal Saline 50 cc/hr, watch for fluid overload. CONDITION: Stable. TIME SPENT: More than 30 minutes. Plan and coordination of the patient's care discussed in the presence of nurse. BRIGHT
--- NOTE | 2017-09-19 11:38 | PCM.PROG ---
Attending Provider: ATTENDING PROVIDER: Dr. NADYA GARCIA This patient is seen with Zahra Mo, Nurse Practitioner. DATE OF SERVICE: 09/19/17 SUBJECTIVE: This 87 year old WHITE/ F was hospitalized 09/09/17. The patient is sitting in chair, alert. She is ready to go home. She refuses any sort of home health or PT. Labs have remained steady as far as kidney function, potassium and hemoglobin. REVIEW OF SYSTEMS: CONSTITUTIONAL: Weakness. No night sweats. No malaise, lethargy. No fever or chills. HEENT: Eyes: No visual changes. No eye pain. No eye discharge. ENT: No runny nose. No epistaxis. No sinus pain. No odynophagia. No congestion. RESPIRATORY: No cough, no congestion. No hemoptysis. No shortness of breath. CARDIOVASCULAR: No angina symptoms. No CHF symptoms. No atypical chest pain for CAD. No palpitations. No orthopnea.. GASTROINTESTINAL: No abdominal pain. No nausea or vomiting. No diarrhea or constipation. No hematemesis. No hematochezia. GENITOURINARY: No urgency. No frequency. No dysuria. No hematuria. No obstructive symptoms. No discharge. No pain. No significant abnormal bleeding. MUSCULOSKELETAL: Leg edema. No musculoskeletal pain; no joint swelling. NEUROLOGICAL: Awake, alert, oriented to time, place and person. No headache. No neck pain. No syncope. No seizures. No dizziness. PSYCHIATRIC: Not anxious. No depression. No suicidal thoughts. No homicidal thoughts. SKIN: No rash. No lesions. No wounds. ENDOCRINE: No unexplained weight loss. No weight gain. HEMATOLOGIC/LYMPHATIC: No anemia. No purpura. No petechiae. No prolonged or excessive bleeding. No palpable lymph nodes. PHYSICAL EXAMINATION: GENERAL: The patient is awake, alert and oriented, sitting in chair in no distress. VITAL SIGNS: Temperature 97.5 F, Pulse 50, Respiratory Rate 12, BP 128/50, Pulse Ox 97% HEENT: Head normocephalic, atraumatic. Eyes: Extraocular muscles are intact. Pupils are equal, round and reactive to light and accommodation. Ears: No lesions. Nose appeared normal. Throat: No exudate or erythema. NECK: Supple. No JVD, no carotid bruit. No lymphadenopathy or thyromegaly. LUNGS: Diminished breath sounds. Clear to auscultation. Percussion note normal. Chest symmetrical. HEART: S1, S2, no S3. No murmurs. No cyanosis or clubbing. No ascites. Pulses: Dorsalis pedis and posterior tibial pulses +1 to +2 both sides. ABDOMEN: Soft. Non-tender. Bowel sounds active. No CVA tenderness. No mass felt. EXTREMITIES: +1 edema. Full range of motion of all extremities, equal. NEUROLOGIC: No focal deficit. Cranial nerves II through XII are grossly intact. No headache, no double vision or headache. SKIN: Not dry. Intact. Turgor-normal. LYMPHATIC: No palpable lymph nodes/no lymphedema. MUSCULOSKELETAL: Normal joints with no swelling. Muscle tone is normal. LAB REVIEW: 09/19/17 04:30 09/19/17 04:30 09/19/17 04:30: Sodium 140, Potassium 5.3 H, Chloride 117 H, Carbon Dioxide 18 L , Anion Gap 10.3, BUN 44 H, Creatinine 2.01 H, Estimated GFR (MDRD) 23.00, BUN/ Creatinine Ratio 21.89, Glucose 107, Calcium 9.1, Total Bilirubin < 0.3, AST 12 L, ALT 16, Alkaline Phosphatase 32 L, Total Protein 4.8 L, Albumin 2.5 L, Globulin 2.3, Albumin/Globulin Ratio 1.09 09/19/17 04:30: WBC 11.84 H, RBC 3.21 L, Hgb 9.9 L, Hct 30.6 L, MCV 95.3, MCH 30.8, MCHC 32.4, RDW Coeff of Kerrie 15.0 H, Plt Count 240, Immature Gran % (Auto) 0.3, Neut % (Auto) 37.1, Lymph % (Auto) 54.7 H, [place] % (Auto) 6.1, Eos % (Auto) 1.5, Baso % (Auto) 0.3, Immature Gran # (Auto) 0.0, Neut # (Auto) 4.4, Lymph # ( Auto) 6.5 H, [place] # (Auto) 0.7, Eos # (Auto) 0.2, Baso # (Auto) 0.0 09/18/17 08:25: WBC 12.45 H, RBC 3.37 L, Hgb 10.4 L, Hct 31.7 L, MCV 94.1, MCH 30.9, MCHC 32.8, RDW Coeff of Kerrie 15.2 H, Plt Count 235, Immature Gran % (Auto) 0.4, Neut % (Auto) 37.5, Lymph % (Auto) 54.9 H, [place] % (Auto) 5.7, Eos % (Auto) 1.3, Baso % (Auto) 0.2, Immature Gran # (Auto) 0.1, Neut # (Auto) 4.7, Lymph # ( Auto) 6.8 H, [place] # (Auto) 0.7, Eos # (Auto) 0.2, Baso # (Auto) 0.0 09/18/17 05:52: Sodium 140, Potassium 5.1, Chloride 115 H, Carbon Dioxide 18 L, Anion Gap 12.1, BUN 44 H, Creatinine 1.94 H, Estimated GFR (MDRD) 24.00, BUN/ Creatinine Ratio 22.68, Glucose 82, Calcium 9.0, Total Bilirubin < 0.3, AST 12 L , ALT 16, Alkaline Phosphatase 34 L, Total Protein 4.9 L, Albumin 2.6 L, Globulin 2.3, Albumin/Globulin Ratio 1.13 ASSESSMENT: 1. HYPERKALEMIA, POTASSIUM 5.2 YESTERDAY. 2. RENAL FAILURE STABLE 3. MEDICAL CONDITIONS ARE STABLE INCLUDING CARDIOVASCULAR STATUS STABLE. PLAN: 1. Discharge home 2. Continue same medications Plan and coordination of the patient's care discussed in the presence of Materials Planner/Production Planner and nurse. CONDITION: Stable SCRIBED BY: REA HILL Teaching Pastor scribed while in presence of service performed by Dr. Garcia/Zahra Mo APRN on 09/19/17 ([id number])
--- NOTE | 2017-09-19 12:01 | CM.DICTOOL ---
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 GERD OSTEOARTHRITIS CABG, 1999 CHOLECYSTECTOMY PARTIAL HYSTERECTOMY LAST ECHO: May, LVH WITH BORDERLINE LA CAVITY LVEF 29% MILD MITRAL REGURGITATION AND SEVER TRICUSPID REGURGITATION FORMER SMOKER LAST VITALS Temp Pulse Resp BP Pulse Ox 97.5 F L 50 L 12 128/50 L 97 09/19/17 06:00 09/19/17 06:00 09/19/17 06:00 09/19/17 06:00 09/19/17 06:00 ACTIVE HOME MEDICATIONS Acetaminophen/Hydrocodone Bit ([place]) 7.5-325 mg 1 Tab PO Q12H PRN Alprazolam (Xanax) 0.25 mg PO BEDTIME [facility] Last Admin: 09/18/17 20:56 Dose: 0.25 mg Amlodipine Besylate (Norvasc) 5 mg PO DAILY [facility] Last Admin: 09/19/17 08:17 Dose: 5 mg Bumetanide (Bumex) 1 mg PO DAILY [facility] Last Admin: 09/19/17 08:17 Dose: 1 mg Cholecalciferol (Vit D3) 1,000 units PO DAILY Cilostazol (Pletal) 50 mg PO BID [facility] Last Admin: 09/19/17 08:17 Dose: 50 mg Clonidine (Catapres) 0.2 mg PO BEDTIME [facility] Last Admin: 09/18/17 20:57 Dose: 0.2 mg Ferrous Sulfate (Ferrous Sulfate) 324 mg PO DAILY [facility] Last Admin: 09/19/17 08:18 Dose: 324 mg Insulin Glargine (Lantus) 50 unit SUBCUT BEDTIME [facility] Last Admin: 09/18/17 20:54 Dose: 50 unit Losartan Potassium (Cozaar) 100 mg PO DAILY [facility] Last Admin: 09/19/17 08:17 Dose: 100 mg Metoprolol Tartrate (Lopressor) 50 mg PO BID [facility] Last Admin: 09/19/17 08:18 Dose: 50 mg Nitroglycerin (Nitro-Dur 0.6 Mg/Hr) 1 patch TD DAILY [facility] Last Admin: 09/19/17 08:21 Dose: 1 patch Nitroglycerin (Nitrostat) 0.4 mg SL Q5MIN X 3 DOSES PRN PRN Reason: Chest Pain Warfarin Sodium (Coumadin) 3 mg PO QPM [facility] Last Admin: 09/18/17 17:17 Dose: 3 mg ALLERGIES hydralazine [Hydralazine] Adverse Reaction (Verified 09/05/17 14:39) insulin detemir [From Levemir] Adverse Reaction (Verified 09/05/17 14:39) Penicillins Adverse Reaction (Verified 09/05/17 14:39) NEW PRESCRIPTIONS: RESUME YOUR HOME MEDICATIONS PER LIST PROVIDED BY THE NURSING STAFF DO NOTE TAKE YOUR LIPITOR UNTIL FURTHER NOTICE BY YOUR PHYSICIAN DO NOT TAKE YOUR INSULIN LISPRO (HUMALOG KWIKPEN) DO NOT TAKE YOUR SPIRONOLACTONE (ALDACTONE) NEW MEDICATIONS/PRESCRIPTIONS COLESTIPOL HCL (COLESTID) 2 GM PO BID SMOKING: FORMER SMOKER NONE NOW DISEASE SPECIFIC EDUCATION: KIDNEY DISEASE, ACUTE ON CHRONIC DEHYDRATION ANEMIA HOME MEDICATIONS FOLLOW UP LAB REVIEW: 09/19/17 04:30 09/19/17 04:30 09/19/17 04:30: Sodium 140, Potassium 5.3 H, Chloride 117 H, Carbon Dioxide 18 L , Anion Gap 10.3, BUN 44 H, Creatinine 2.01 H, Estimated GFR (MDRD) 23.00, BUN/ Creatinine Ratio 21.89, Glucose 107, Calcium 9.1, Total Bilirubin < 0.3, AST 12 L, ALT 16, Alkaline Phosphatase 32 L, Total Protein 4.8 L, Albumin 2.5 L, Globulin 2.3, Albumin/Globulin Ratio 1.09 09/19/17 04:30: WBC 11.84 H, RBC 3.21 L, Hgb 9.9 L, Hct 30.6 L, MCV 95.3, MCH 30.8, MCHC 32.4, RDW Coeff of Kerrie 15.0 H, Plt Count 240, Immature Gran % (Auto) 0.3, Neut % (Auto) 37.1, Lymph % (Auto) 54.7 H, [facility] % (Auto) 6.1, Eos % (Auto) 1.5, Baso % (Auto) 0.3, Immature Gran # (Auto) 0.0, Neut # (Auto) 4.4, Lymph # ( Auto) 6.5 H, [facility] # (Auto) 0.7, Eos # (Auto) 0.2, Baso # (Auto) 0.0 PLAN: DISCHARGE HOME TODAY RETURN TO SEE DR. GARCIA IN HIS OFFICE ON 09/25/17 AT 2:45 P.M. RESUME YOUR HOME MEDICATIONS PER LIST PROVIDED BY THE NURSING STAFF DO NOTE TAKE YOUR LIPITOR UNTIL FURTHER NOTICE BY YOUR PHYSICIAN DO NOT TAKE YOUR INSULIN LISPRO (HUMALOG KWIKPEN) DO NOT TAKE YOUR SPIRONOLACTONE (ALDACTONE) NEW MEDICATIONS/PRESCRIPTIONS COLESTIPOL HCL (COLESTID) 2 GM PO BID ACTIVITY GET PLENTY OF REST AT HOME. GRADUALLY INCREASE YOUR ACTIVITY ACCORDING TO YOUR TOLERATION DIET CONSISTENT CARBS SUMMARY THE PATIENT IS ALERT AND ORIENTED X3. SHE CURRENTLY RESIDES AT HOME ALONE. SHE IS INDEPENDENT WITH ADL'S. SHE USES A ROLLING WALKER TO ASSIST WITH AMBULATION. AT HOME SHE HAS HER OWN ROLLING WALKER AND A SHOWER CHAIR. SHE DECLINES REFERRAL FOR HOME HEALTH OR HOMEMAKING SERVICES. HER BROTHER RESIDES CLOSE BY AND PROVIDES ASSISTANCE WHEN NECESSARY. MS. ESCUDERO DESIRES TO RETURN HOME AT DISCHARGE. SKIN TURGOR IS FAIR BUT HAS MULTIPLE AREAS OF BRUISING ON BOTH FOREARMS IN VARIOUS STAGES OF HEALING. SHE HAS NO DECUBITUS ULCERS PRESENT AT DISCHARGE. HER HYDRATION AND NUTRITIONAL STATUS ARE GOOD. SHE IS BOTH AWARE AND AGREEABLE FOR DISCHARGE. CURRENT CODE STATUS DO NOT RESUSCITATE MARCELLA VAZQUEZ APRN NADYA GARCIA M.D.
--- NOTE | 2017-09-30 07:03 | PN ---
DATE OF SERVICE: 09/19/17 SUBJECTIVE: The patient is an 87-year-old white female who was put in the swing bed to improve her physical status. She was not able to ambulate but she did very well during the stay in the swing bed. She was very highly motivated. She was up and about with help. Renal failure seems to have resolved. She has chronic kidney disease with creatinine of 2, BUN 44, Potassium 5.3. The patient was discharged home in stable condition to follow as an outpatient. The patient was seen and examined with the nurse practitioner. TIME SPENT: More than 30 minutes. Plan and coordination of the patient's care discussed in the presence of nurse. BRIGHT
--- NOTE | 2017-10-07 13:48 | HP ---
DATE OF SERVICE: 09/09/17 - TO SWING BED HISTORY OF PRESENT ILLNESS: This is a white female, who had previously been hospitalized after presenting with vomiting, diarrhea, acute dehydration. She has a history of chronic kidney disease, Stage 3 to 4. Her vomiting improved after 24 to 48 hours of IV fluids and medication. Her kidney function slowly improved but she does exhibit extreme weakness. We are planning on admitting her to swing bed for physical and occupational therapy and to continue to monitor her kidney function as this is a repeat stay for recurrent dehydration related to nausea and vomiting. PAST MEDICAL HISTORY: History of chronic kidney disease, Stage 3 Hypertension Coronary artery disease LA COPD/asthma Carotid occlusive disease with left 70 to 90% stenosis Peripheral arterial disease Myelodysplastic syndrome Anemia Gastroesophageal reflux Diabetes mellitus Osteoarthritis PAST SURGICAL HISTORY: Coronary artery bypass surgery 1999 REVIEW OF SYSTEMS: CONSTITUTIONAL: Generalized weakness. No night sweats. No malaise, lethargy. No fever or chills. HEENT: Eyes: No visual changes. No eye pain. No eye discharge. ENT: No runny nose. No epistaxis. No sinus pain. No sore throat. No odynophagia. No ear pain. No congestion. RESPIRATORY: No cough, no congestion. No hemoptysis. No shortness of breath. CARDIOVASCULAR: No angina symptoms. No CHF symptoms. No atypical chest pain for CAD. No palpitations. No orthopnea. GASTROINTESTINAL: Decreased appetite. No abdominal pain. No nausea or vomiting. No diarrhea or constipation. No hematemesis. No hematochezia. GENITOURINARY: No urgency. No frequency. No dysuria. No hematuria. No obstructive symptoms. No discharge. No pain. No significant abnormal bleeding. MUSCULOSKELETAL: No musculoskeletal pain. No joint swelling. No arthritis. NEUROLOGICAL: Dizziness upon standing. No headache. No neck pain. No syncope. No seizures. PSYCHIATRIC: Not anxious. No depression. No suicidal thoughts. No homicidal thoughts. SKIN: No rash. No lesions. No wounds. ENDOCRINE: No unexplained weight loss. No weight gain. HEMATOLOGIC/LYMPHATIC: No anemia. No purpura. No petechiae. No prolonged or excessive bleeding. No palpable lymph nodes. PERSONAL/FAMILY/SOCIAL HISTORY: The patient is , lives by herself. She has the help of a brother who lives in the same town as she lives in but the daughter lives in [place]. No alcohol abuse. Nonsmoker. She does all activities of daily living. MEDICATIONS: [place] 7.5-325 one tab p.o. q.12h p.r.n. Nitrostat 0.4 mg SL q.5 min times three doses p.r.n. Zofran 4 mg IM q.4h p.r.n. Coumadin 3 mg p.o. daily Lantus 50 unit subcut Stk med one Pletal 50 mg p.o.b .i.d. Catapres 0.2 mg p.o. b.i.d. Lopressor 50 mg p.o. b.i.d. Flagyl 500 mg p.o. q.8hr Lantus Solostar 50 unit SQ bedtime Xanax 0.25 mg p.o. bedtime K-Dur 20 mEq p.o. daily with meal Norvasc 5 mg p.o. daily Ferrous Sulfate 325 mg p.o. daily Losartan potassium 100 mg p.o. daily Nitro-Dur 0.6 mg/hr Cozaar 100 mg p.o. daily Ferrous Sulfate 324 mg p.o. daily Coumadin 3 mg p.o. q.p.m. Insulin 50 unit subcut bedtime Colestid 2 gm p.o. t.i.d. Bumex 1 mg p.o. daily Lasix 20 mg IM once STAT Colestid 2 gm p.o. b.i.d. IV fluids 50 mL/hr ALLERGIES: PENICILLINS, HYDRALAZINE, INSULIN DETEMIR PHYSICAL EXAMINATION: GENERAL: The patient is alert, oriented times three. VITAL SIGNS: Temperature 97.7, pulse 52, BP 136/53, respiratory rate 18. 02 sat 98% on room air. HEENT: Head normocephalic, atraumatic. Eyes: Extraocular muscles are intact. Pupils are equal, round and reactive to light and accommodation. Ears: No lesions. Nose appeared normal. Throat: No exudate or erythema. NECK: Supple. No JVD, no carotid bruit. No lymphadenopathy or thyromegaly. LUNGS: Diminished breath sounds. Clear to auscultation. Percussion note normal. Chest symmetrical. HEART: S1, S2, no S3. Grade I/ systolic murmur. No cyanosis or clubbing. No ascites. Pulses: Dorsalis pedis and posterior tibial pulses +1 to +2 both sides. ABDOMEN: Soft. Nontender. Bowel sounds active. No CVA tenderness. No mass felt. EXTREMITIES: No leg edema. Full range of motion of all extremities, equal. NEUROLOGIC: No focal deficit. Cranial nerves II through XII are grossly intact. No headache, no double vision or headache. SKIN: Not dry. Intact. Turgor - normal. LYMPHATIC: No palpable lymph nodes/no lymphedema. MUSCULOSKELETAL: Normal joints with no swelling. Muscle tone is normal. ASSESSMENT: 1. ACUTE ON CHRONIC RENAL FAILURE WHICH IS IMPROVING 2. GENERALIZED WEAKNESS 3. HYPERKALEMIA WHICH HAS RESOLVED 4. ACUTE DEHYDRATION WHICH HAS IMPROVED 5. ANEMIA 6. HYPERTENSION 7. DIABETES MELLITUS TYPE 2 8. GASTROENTERITIS 9. CORONARY ARTERY DISEASE 10. HISTORY OF DVT PLAN: 1. Admit to swing bed. 2. PT/OT treatment 3. CBC, CMP every other day 4. Keep legs elevated 5. Low sodium diet 6. Low potassium diet 7. Continue all medications 8. INR daily 9. Sliding scale coverage TIME SPENT: More than 70 minutes. MTDD
--- NOTE | 2017-10-09 14:30 | DS ---
DATE OF SERVICE: 09/19/17 FINAL DIAGNOSIS: 1. Gait difficulty and leg weakness 2. Acute on chronic renal failure, improving 3. Hyperkalemia secondary to acute renal failure 4. Severe dehydration 5. Symptomatic anemia (transfused 1 unit) 6. Coronary artery disease with history of MS 7. Congestive heart failure 8. COPD 9. Hypertension 10.Carotid occlusive disease, left 70-90% stenosis 11.Diabetes mellitus 12.Chronic kidney disease, stage 3 13.Small hiatal hernia 14.Diverticulosis 15.Peripheral artery disease 16.Myelodysplastic syndrome 17.GERD 18.Osteoarthritis 19.CABG, 1999 20. Cholecystectomy 21. Partial hysterectomy 22. Last echo: May, LVH with borderline LA cavity LVEF 29% Mild mitral regurgitation and severe tricuspid regurgitation. 23. Former smoker LAST VITALS: Temperature 97.5, pulse 50, respiratory rate 12, blood pressure 128/50 and pulse ox 97%. DISCHARGE INSTRUCTIONS: Discharge home today. Return to see Dr. Cook in his office on 09/25/17 at 2: 45pm. MEDICATIONS AT DISCHARGE: [place] 7.5-325 PO Q 12 hour PRN Xanax 0.25mg PO bedtime Norvasc 5mg PO daily Bumex 1mg Po daily Vitamin D3 1,000 units PO daily Pletal 50mg Po twice a day Catapres 0.2mg PO bedtime Ferrous Sulfate 324mg Po daily Lantus 50 units SUBCUT at bedtime Cozaar 100mg PO daily Lopressor 50mg Po twice a day Nitro-Dur one patch TD daily Nitrostat 0.4mg SL Q 5 minutes x3 doses PRN Coumadin 3mg PO QPM ALLERGIES: Hydralazine Insulin Detemir Penicillins NEW PRESCRIPTIONS: Resume home medications as per list provided by the nursing staff. Do not take Lipitor until further notice by your physician Do not take insulin Lispro (Humalog Kwikpen) Do not take your Spironolactone (Aldactone) Cholestipol HCL (Colestid) 2grams Po twice a day DIET INSTRUCTIONS: Consistent Carbs ACTIVITY: Get plenty of rest at home. Gradually increase activity according to toleration. SMOKING: Former smoker None now DISEASE SPECIFIC EDUCATION: Kidney disease, acute on chronic Dehydration Anemia Home medications Followup HOSPITAL COURSE: This is an 87 year old female who was initially admitted to acute care with acute renal failure, dehydration, acute gastroenteritis. She has a history of chronic kidney disease although it was significantly elevated showing acute failure upon admission she stated that she had had vomiting and diarrhea at home for several days. She was hypokalemic. She was admitted and placed on IV fluids D5 1/2 normal saline at 75cc an hour. She was hypotensive. Her blood pressure medications were held. CT of the abdomen showed acute colitis, no diverticulitis. She was placed on Flagyl 500mg IV Q 8 hours as well as Protonix 40mg twice a day. She states that she has chronic diarrhea and has had this for some time. This is her 3rd or 4th hospitalization with dehydration and gastritis type symptoms. She had significant weakness for which we after her vomiting resolved and her kidney functioned normalized back to her baseline we have admitted her to swing bed for physical treatment and evaluation. During her stay on swing bed she did become symptomatically anemic with shortness of breath and extreme weakness when we transfused one unit of packed red cells. Her stool was negative for occult blood as well as negative for C-Diff. We did start her on Colestid 1gram twice a day in order to see if it would help with the diarrhea. This has in fact helped. She is around baseline for her kidney function now. BUN 44, creatinine 2.01, sodium 140, potassium 5.3, hgb 9.9, hct 30.6. She has done remarkably well in physical therapy and they have discharged her. She states that she is ready to go home. Vital signs have all been stable; temperature 97.5,heart rate 50, respiratory rate 12, blood pressure 128/50 and pulse ox 97%. After being started on the Colestid her diarrhea improved significantly so she will go home on this. She did have her gallbladder removed several years ago.She sees Dr. Rose with her myelodysplastic syndrome and anemia. She is instructed to followup with him as scheduled. She also has a kidney doctor, Dr. Caba for which she is instructed to followup with him as scheduled. At this point she is to be discharged home in stable condition. She reused PT or OT help at home. We encouraged to keep her leg elevate when sitting and drink plenty of fluids. We will followup with her early next week with a CBC and CMP prior to her appointment. TIME SPENT: More than 60 minutes. BRIGHT
== END 2017-09-19 14:35 | disposition home or self-care (01) | DRG 92 ==
LOC: MEDSURG B 16:07
PROVIDERS: ADMIT Internal Medicine; ATTEND Internal Medicine
PROC: 30233N1 Transfusion of Nonautologous Red Blood Cells into Peripheral Vein, Percutaneous Approach (ICD-10-PCS; principal; 2017-09-16)
DX: R26.9 Unspecified abnormalities of gait and mobility (principal); N17.9 Acute kidney failure, unspecified; K52.9 Noninfective gastroenteritis and colitis, unspecified; D46.9 Myelodysplastic syndrome, unspecified; I50.9 Heart failure, unspecified; M62.81 Muscle weakness (generalized); I12.9 Hypertensive chronic kidney disease with stage 1 through stage 4 chronic kidney disease, or unspecified chronic kidney disease; E11.22 Type 2 diabetes mellitus with diabetic chronic kidney disease; N18.3 Chronic kidney disease, stage 3 (moderate); E86.0 Dehydration; I25.10 Atherosclerotic heart disease of native coronary artery without angina pectoris; J44.9 Chronic obstructive pulmonary disease, unspecified; I10 Essential (primary) hypertension; I65.22 Occlusion and stenosis of left carotid artery; K21.9 Gastro-esophageal reflux disease without esophagitis; I51.7 Cardiomegaly; I34.0 Nonrheumatic mitral (valve) insufficiency; K44.9 Diaphragmatic hernia without obstruction or gangrene; K57.90 Diverticulosis of intestine, part unspecified, without perforation or abscess without bleeding; M19.90 Unspecified osteoarthritis, unspecified site; R62.7 Adult failure to thrive; E87.5 Hyperkalemia; I25.2 Old myocardial infarction; Z79.01 Long term (current) use of anticoagulants; Z79.4 Long term (current) use of insulin; Z95.1 Presence of aortocoronary bypass graft; Z90.49 Acquired absence of other specified parts of digestive tract; Z87.891 Personal history of nicotine dependence
CPT/HCPCS: 36415; 36430; 80053; 82962; 85007; 85014; 85018; 85025; 85610; 86850; 86900; 86922; 97802; 99308; 99309; 99316

== ENCOUNTER 2017-09-24 14:10 | Outpatient (CLI) | payer OTHER ==
[2012-12-30 11:12] VITALS: TEMP 98
== END 2017-09-24 14:11 | disposition home or self-care (01) ==
LOC: LAB 14:10
PROVIDERS: ATTEND Internal Medicine
DX: N19 Unspecified kidney failure (principal); N18.9 Chronic kidney disease, unspecified; D63.1 Anemia in chronic kidney disease
CPT/HCPCS: 36415; 80053; 85025

== ENCOUNTER 2017-09-25 13:44 | Outpatient (CLI) ==
[2012-12-30 11:12] VITALS: TEMP 98
== END 2017-09-25 13:45 | disposition home or self-care (01) ==
LOC: LAB 13:44
PROVIDERS: ATTEND Internal Medicine
DX: E11.9 Type 2 diabetes mellitus without complications (principal); R88.8 Abnormal findings in other body fluids and substances; R74.8 Abnormal levels of other serum enzymes
CPT/HCPCS: 36415; 80053

== ENCOUNTER 2017-09-25 15:25 | Inpatient (IN) | payer OTHER ==
[2017-09-25] MEDS ORDERED: TYLENOL PO PRN (15:58)
[2017-09-25] MEDS ORDERED: ATROPINE SULFATE PFS IVP PRN (15:58)
[2017-09-25] MEDS ORDERED: MORPHINE 4 MG/ML VIAL IVP PRN (15:58)
[2017-09-25] MEDS ORDERED: VISTARIL INJ IM PRN (15:58)
[2017-09-25] MEDS ORDERED: SODIUM BICARBONATE 8.4% IVP STA (16:03)
[2017-09-25] MEDS ORDERED: KAYEXALATE SUSP PO STA (16:08)
[2017-09-25] MEDS ORDERED: SODIUM BICARBONATE 7.5% IVP STA (16:11)
[2017-09-25 16:15] VITALS: BMI 28.6
[2017-09-25] MEDS: DEXTROSE 5%-1/2NS IV SOLUTION 1,000 ML IV SCH (17:22)
[2017-09-25] MEDS ORDERED: NORCO 7.5-325 PO PRN (17:41)
[2017-09-25] MEDS ORDERED: NITROSTAT SL PRN (17:41)
[2017-09-25] MEDS ORDERED: DEXTROSE 50%-WATER ABBOJECT IVP STA (18:05)
[2017-09-25] MEDS ORDERED: HUMULIN R IVP STA (18:05)
[2017-09-25] MEDS: CATAPRES PO SCH (20:42)
[2017-09-25] MEDS: PLETAL PO SCH (20:42)
[2017-09-25] MEDS: XANAX PO SCH (20:43)
[2017-09-25] MEDS: LANTUS SUBCUT SCH (20:43)
[2017-09-25] MEDS: LOPRESSOR PO SCH (20:43)
[2017-09-25] MEDS ORDERED: INSULIN GLARGINE HUM REC ANLOG 50 UNIT SQ SCH (21:00)
[2017-09-25] MEDS ORDERED: COUMADIN PO SCH (21:00)
[2017-09-26] MEDS ORDERED: KAYEXALATE SUSP PO ONE (06:00)
--- NOTE | 2017-09-26 07:36 | DI ---
Exam: Chest one-view History: Shortness of breath FINDINGS: Normal cardiomediastinal contours. Normal pulmonary vasculature. No infiltrative opaciti es. Prior mediastinotomy. Left chest venous stent. Atherosclerotic calcification of the aorta. Impression: No acute cardiopulmonary disease.
[2017-09-26] MEDS ORDERED: NON-FORMULARY MEDICATION (Losartan Potassium 100 MG) PO SCH (09:00)
[2017-09-26] MEDS ORDERED: NON-FORMULARY MEDICATION (Ferrous Sulfate [Iron] 325 MG) PO SCH (09:00)
[2017-09-26] MEDS ORDERED: NON-FORMULARY MEDICATION (Cholecalciferol (Vitamin D3) [Vitamin D3] 1,000 UNIT) PO SCH (09:00)
[2017-09-26] MEDS: BACTRIM DS 800/160 MG PO SCH ×2 (09:17→20:26)
[2017-09-26] MEDS: PLETAL PO SCH ×2 (09:17→20:26)
[2017-09-26] MEDS: NORVASC PO SCH (09:17)
[2017-09-26] MEDS: BUMEX PO SCH (09:17)
[2017-09-26] MEDS: FERROUS SULFATE PO SCH (09:17)
[2017-09-26] MEDS: LOPRESSOR PO SCH ×2 (09:17→17:53)
[2017-09-26] MEDS: COZAAR PO SCH (09:19)
[2017-09-26] MEDS: ASPIRIN EC PO SCH (09:19)
[2017-09-26] MEDS: VITAMIN D PO SCH (09:20)
[2017-09-26] MEDS: NITRO DUR TD SCH (09:20)
--- NOTE | 2017-09-26 10:10 | ED.PDOC ---
Procedures - IV/Art Line Insertion Location: Rt wrist Type of Line: Peripheral IV Invasive Line/IV Catheter Gauge: 24 Number of Attempts: 1 Blood Return Positive: Yes Invasive Line/IV Flushes Without Difficulty: Yes Conscious Sedation - Pre-op Assessment Weight: 150 lb Surgical History: CABG, ARTIIFICIAL AORTA, LEFT ARM STENT, PARTIAL HYSTERECTOMY , APPY - Medical History Past Medical History: Hypertension, Diabetes, [place], CHF, COPD, Kidney Disease
[2017-09-26] MEDS: HUMULIN R SUBCUT PRN (11:20)
--- NOTE | 2017-09-26 13:27 | HP ---
DATE OF SERVICE: 09/25/17 REASON FOR HOSPITALIZATION/HISTORY OF PRESENT ILLNESS: Feels good. Now Potassium 6.5. Average 2.09. 2 BUN 60. Feeling OK. No symptoms of CHF/CAD. PAST MEDICAL HISTORY/PAST SURGICAL HISTORY: History of chronic kidney disease, stage [address] artery [address] Coronary bypass surgery, 1999 COPD/Asthma Carotid occlusive disease with left 70 to 90% stenosis Peripheral arterial disease Myelodysplastic syndrome Anemia Gastroesophageal reflux Diabetes mellitus Osteoarthritis REVIEW OF SYSTEMS: CONSTITUTIONAL: No fever, no fatigue. HEENT: No sinus drainage, no sore throat. RESPIRATORY: No cough, no congestion. CARDIOVASCULAR: No atypical chest pain for coronary artery disease. No angina , CHF symptoms, palpitations. Shortness of breath with exertion. GASTROINTESTINAL: No melena or abdominal pain. No GERD. GENITOURINARY: No hematuria, no prostatism, no polyuria. BIODIESEL PLANT OPERATIONS ENGINEER: No blackout, no dizziness, no headache, no double vision. MUSCULOSKELETAL: Osteoarthritis pain, no joint swelling. ENDOCRINE: No weight loss, Weight gain 5 pounds in 2 weeks. SKIN: Not dry, no rash. PSYCHIATRIC: Not anxious, no depression, no suicidal thoughts, no homicidal thoughts. SOCIAL HISTORY: Marital Status: . Alcohol Usage: No. Tobacco Usage: No. FAMILY HISTORY: Father at age 77 of lung cancer and mother at age 85, had coronary artery disease, hypertension and diabetes Mellitus, type 2. MEDICATIONS: Bumetanide 1 mg PO daily Warfarin 2mg PO daily Xanax 0.5mg PO daily Lantus 60 units SUBCUT as per insulin protocol Alendronate 70mg PO weekly in morning at least 30minutes before food Hydrocodone/Acetaminophen 70mg one tablet PO two times per day PRN Losartan 100mg PO daily Metoprolol 50mg half tablet PO daily Clonidine 0.1mg PO twice a day Nitroglycerin 0.4 one patch by transdermal route once daily remove at night for 10-12 hours Amlodipine 5mg PO daily Calcitr cap 0.25mcg Cilostazol 100mg PO two times day 1/2 hour before or 2 hours after breakfast and dinner PRN Minitran 0.4mg apply one patch transdermal route once daily remove at night for 10-12 hours Nitroglycerin 0.4mg tablet place one tablet by buccal route at the first sign of an attack; no more than 3 tablets are recommended within a 15 minute period. ALLERGIES: Hydralazine Insulin detemir Penicillins PHYSICAL EXAMINATION: V/S: Pulse 62, Blood pressure 150/54, O2 Saturation 96%. GENERAL APPEARANCE: Oriented times three. HEENT: Normal. NECK: No JVP, no bruits. RESPIRATORY: Lungs are clear with decreased breath sounds. CARDIOVASCULAR: S1, S2, no S3, no murmurs. No cyanosis, clubbing. No ascites. GI/ABDOMEN: No tenderness. Bowel sounds are active. EXTREMITIES: +2 pitting edema, pulses +1, equal. BIODIESEL PLANT OPERATIONS ENGINEER: Deep tendon reflexes, sensory, motor and gait all normal. RECTAL: patient refused/PELVIC: Patient refused. LABS: ABG on room air; pH 7.334, pCO2 32.1, pO2 80, base excess negative 9, bicarb 17.1, TCO2 18, O2 saturation 95%. WBC 14.47, hgb 11.2, hct 33.6, plt count 216, sodium 143, potassium 6, BUN 63, creatinine 2.09, CO2 18, Chloride 115, alkaline phosphatase 49, BNP 90. ASSESSMENT: 1. Hyperkalemia 2. Renal Azotemia 3. Chronic kidney disease 4. Leg edema (No cellulitis) 5. Carotid stenosis 6. Diabetes Mellitus type 2 7. Hypertension 8. COPD 9. GERD 10.Dyslipidemia 11.Dizziness 12.PAD Dr. Nowak 13.Fem Pop 14.Chronic kidney disease stage 3 PLAN: 1. Admit regular 2. Diet low Potassium diet 3. ABG stat 4. 1/2 amp of NAHCO3 now 5. [id number] Glucose with 5 units regular insulin 6. BNP 7. Status Potassium at 7pm 8. Routine Telemetry orders 9. Skip cardiac markers 10.Kayexalate 25 grams PO now and tomorrow 11.1000cc D5 1/2 normal saline 24 hours 12.Elevate Legs 13.Daily CBC and CMP 14.Continue all home medications, No Potassium supplements 15.Daily weight her TIME SPENT: More than 70 minutes. [facility]
[2017-09-26] MEDS: COUMADIN PO SCH (17:53)
[2017-09-26] MEDS: LANTUS SUBCUT SCH (20:24)
[2017-09-26] MEDS: CATAPRES PO SCH (20:25)
[2017-09-26] MEDS: XANAX PO SCH (20:26)
[2017-09-26] MEDS: DEXTROSE 5%-1/2NS IV SOLUTION 1,000 ML IV SCH (23:29)
[2017-09-27] MEDS: ASPIRIN EC PO SCH (07:58)
[2017-09-27] MEDS: PLETAL PO SCH ×2 (09:16→21:13)
[2017-09-27] MEDS: BUMEX PO SCH (09:17)
[2017-09-27] MEDS: BACTRIM DS 800/160 MG PO SCH ×2 (09:17→21:12)
[2017-09-27] MEDS: VITAMIN D PO SCH (09:18)
[2017-09-27] MEDS: FERROUS SULFATE PO SCH (09:18)
[2017-09-27] MEDS: NORVASC PO SCH (09:18)
[2017-09-27] MEDS: COZAAR PO SCH (09:18)
[2017-09-27] MEDS: NITRO DUR TD SCH (09:20)
[2017-09-27] MEDS: LOPRESSOR PO SCH ×2 (09:25→16:53)
[2017-09-27] MEDS: HUMULIN R SUBCUT PRN ×2 (12:04→17:17)
--- NOTE | 2017-09-27 15:31 | ED.PDOC ---
Procedures - IV/Art Line Insertion Location: rt forearm Invasive Line/IV Catheter Gauge: 24 Number of Attempts: 1 Blood Return Positive: Yes Invasive Line/IV Flushes Without Difficulty: Yes Conscious Sedation - Pre-op Assessment Weight: 152 lb Surgical History: CABG, ARTIIFICIAL AORTA, LEFT ARM STENT, PARTIAL HYSTERECTOMY , APPY - Medical History Past Medical History: Hypertension, Diabetes, [place], CHF, COPD, Kidney Disease
[2017-09-27] MEDS: DEXTROSE 5%-1/2NS IV SOLUTION 1,000 ML IV SCH (16:30)
[2017-09-27] MEDS: COUMADIN PO SCH (16:53)
[2017-09-27] MEDS: XANAX PO SCH (21:13)
[2017-09-27] MEDS: CATAPRES PO SCH (21:13)
[2017-09-27] MEDS: LANTUS SUBCUT SCH (23:07)
[2017-09-28] MEDS: VITAMIN D PO SCH (08:59)
[2017-09-28] MEDS: BUMEX PO SCH (09:00)
[2017-09-28] MEDS: PLETAL PO SCH ×2 (09:00→20:42)
[2017-09-28] MEDS: FERROUS SULFATE PO SCH (09:00)
[2017-09-28] MEDS: COZAAR PO SCH (09:00)
[2017-09-28] MEDS: LOPRESSOR PO SCH ×2 (09:00→17:04)
[2017-09-28] MEDS: NITRO DUR TD SCH (09:01)
[2017-09-28] MEDS: BACTRIM DS 800/160 MG PO SCH ×2 (09:01→20:43)
[2017-09-28] MEDS: NORVASC PO SCH (09:01)
[2017-09-28] MEDS: ASPIRIN EC PO SCH (09:01)
[2017-09-28] MEDS: DEXTROSE 5%-1/2NS IV SOLUTION 1,000 ML IV SCH (10:13)
[2017-09-28] MEDS: HUMULIN R SUBCUT PRN (11:44)
[2017-09-28] MEDS: COUMADIN PO SCH (17:04)
[2017-09-28] MEDS: XANAX PO SCH (20:43)
[2017-09-28] MEDS: CATAPRES PO SCH (20:43)
[2017-09-28] MEDS: LANTUS SUBCUT SCH (22:22)
[2017-09-29] MEDS ORDERED: KAYEXALATE SUSP PO STA (09:21)
[2017-09-29] MEDS: COZAAR PO SCH (09:24)
[2017-09-29] MEDS: VITAMIN D PO SCH (09:24)
[2017-09-29] MEDS: NORVASC PO SCH (09:24)
[2017-09-29] MEDS: BACTRIM DS 800/160 MG PO SCH ×2 (09:24→20:49)
[2017-09-29] MEDS: FERROUS SULFATE PO SCH (09:24)
[2017-09-29] MEDS: BUMEX PO SCH (09:25)
[2017-09-29] MEDS: LOPRESSOR PO SCH ×2 (09:25→17:17)
[2017-09-29] MEDS: PLETAL PO SCH ×2 (09:25→20:49)
[2017-09-29] MEDS: ASPIRIN EC PO SCH (09:26)
[2017-09-29] MEDS: NITRO DUR TD SCH (09:26)
--- NOTE | 2017-09-29 10:31 | ED.PDOC ---
Procedures - IV/Art Line Insertion Location: Rt thumb Type of Line: Peripheral IV Invasive Line/IV Catheter Gauge: 24 Number of Attempts: 2 Blood Return Positive: Yes Invasive Line/IV Flushes Without Difficulty: Yes Conscious Sedation - Pre-op Assessment Weight: 155 lb Surgical History: CABG, ARTIIFICIAL AORTA, LEFT ARM STENT, PARTIAL HYSTERECTOMY , APPY - Medical History Past Medical History: Hypertension, Diabetes, [place], CHF, COPD, Kidney Disease
--- NOTE | 2017-09-29 10:44 | PCM.PROG ---
Attending Provider: ATTENDING PROVIDER: Dr. NADYA COOK This patient is seen with Zahra Mo, Nurse Practitioner. DATE OF SERVICE: 09/29/17 SUBJECTIVE: This 87 year old WHITE/ F was hospitalized 09/25/17. The patient is sitting in chair, alert. The patient is feeling better today. She is eating well. Potassium is elevated again today. REVIEW OF SYSTEMS: CONSTITUTIONAL: Positive for fatigue. No night sweats. No malaise, lethargy. No fever or chills. HEENT: Eyes: No visual changes. No eye pain. No eye discharge. ENT: No runny nose. No epistaxis. No sinus pain. No odynophagia. No congestion. RESPIRATORY: No cough, no congestion. No hemoptysis. No shortness of breath. CARDIOVASCULAR: No angina symptoms. No CHF symptoms. No atypical chest pain for CAD. No palpitations. No orthopnea.. GASTROINTESTINAL: No abdominal pain. No nausea or vomiting. No diarrhea or constipation. No hematemesis. No hematochezia. GENITOURINARY: No urgency. No frequency. No dysuria. No hematuria. No obstructive symptoms. No discharge. No pain. No significant abnormal bleeding. MUSCULOSKELETAL: No musculoskeletal pain; no joint swelling. NEUROLOGICAL: Awake, alert, oriented to time, place and person. No headache. No neck pain. No syncope. No seizures. No dizziness. PSYCHIATRIC: Not anxious. No depression. No suicidal thoughts. No homicidal thoughts. SKIN: No rash. No lesions. No wounds. ENDOCRINE: No unexplained weight loss. No weight gain. HEMATOLOGIC/LYMPHATIC: No anemia. No purpura. No petechiae. No prolonged or excessive bleeding. No palpable lymph nodes. PHYSICAL EXAMINATION: GENERAL: The patient is awake, alert and oriented, sitting in chair in no distress. VITAL SIGNS: Temperature 97.6 F, Pulse 44, Respiratory Rate 20, BP 113/46, Pulse Ox 97% HEENT: Head normocephalic, atraumatic. Eyes: Extraocular muscles are intact. Pupils are equal, round and reactive to light and accommodation. Ears: No lesions. Nose appeared normal. Throat: No exudate or erythema. NECK: Supple. No JVD, no carotid bruit. No lymphadenopathy or thyromegaly. LUNGS: Diminished breath sounds. Clear to auscultation. Percussion note normal. Chest symmetrical. HEART: S1, S2, no S3. No murmurs. No cyanosis or clubbing. No ascites. Pulses: Dorsalis pedis and posterior tibial pulses +1 to +2 both sides. ABDOMEN: Soft. Non-tender. Bowel sounds active. No CVA tenderness. No mass felt. EXTREMITIES: Bilateral leg edema with erythema. Full range of motion of all extremities, equal. NEUROLOGIC: No focal deficit. Cranial nerves II through XII are grossly intact. No headache, no double vision or headache. SKIN: Not dry. Intact. Turgor-normal. LYMPHATIC: No palpable lymph nodes/no lymphedema. MUSCULOSKELETAL: Normal joints with no swelling. Muscle tone is normal. LAB REVIEW: 09/29/17 04:30 09/29/17 04:30 09/29/17 04:30: Sodium 136, Potassium 5.6 H, Chloride 114 H, Carbon Dioxide 16 L , Anion Gap 11.6, BUN 63 H*, Creatinine 2.96 H, Estimated GFR (MDRD) 15.00, BUN/ Creatinine Ratio 21.28, Glucose 121 H D, Calcium 8.5, Total Bilirubin 0.1, AST 13 L, ALT 15, Alkaline Phosphatase 40 L, Total Protein 5.1 L, Albumin 2.5 L, Globulin 2.6, Albumin/Globulin Ratio 0.96 09/29/17 04:30: WBC 10.93 H, RBC 3.08 L, Hgb 9.3 L, Hct 29.3 L, MCV 95.1, MCH 30.2, MCHC 31.7 L, RDW Coeff of Kerrie 14.3, Plt Count 169, Immature Gran % (Auto) 0.3, Neut % (Auto) 42.5, Lymph % (Auto) 49.7, [place] % (Auto) 5.7, Eos % (Auto) 1.4, Baso % (Auto) 0.4, Immature Gran # (Auto) 0.0, Neut # (Auto) 4.7, Lymph # ( Auto) 5.4 H, [place] # (Auto) 0.6, Eos # (Auto) 0.2, Baso # (Auto) 0.0 09/28/17 04:45: Sodium 141, Potassium 5.0, Chloride 116 H, Carbon Dioxide 18 L, Anion Gap 12.0, BUN 55 H, Creatinine 2.53 H, Estimated GFR (MDRD) 18.00, BUN/ Creatinine Ratio 21.73, Glucose 65 L, Calcium 8.7, Total Bilirubin 0.1, AST 13 L , ALT 13, Alkaline Phosphatase 37 L, Total Protein 5.0 L, Albumin 2.5 L, Globulin 2.5, Albumin/Globulin Ratio 1.00 09/28/17 04:45: WBC 12.00 H, RBC 2.90 L, Hgb 9.0 L, Hct 28.4 L, MCV 97.9, MCH 31.0, MCHC 31.7 L, RDW Coeff of Kerrie 14.6, Plt Count 186, Immature Gran % (Auto) 0.3, Neut % (Auto) 43.1, Lymph % (Auto) 49.8, [place] % (Auto) 5.3, Eos % (Auto) 1.2, Baso % (Auto) 0.3, Immature Gran # (Auto) 0.0, Neut # (Auto) 5.2, Lymph # ( Auto) 6.0 H, [place] # (Auto) 0.6, Eos # (Auto) 0.1, Baso # (Auto) 0.0 ASSESSMENT: 1. Hyperkalemia 2. Renal azotemia 3. Chronic kidney disease 4. Leg edema 5. Carotid stenosis 6. Diabetes Mellitus type 2 7. Hypertension 8. COPD 9. GERD 10.Dyslipidemia 11.Dizziness 12.PAD Dr. Nowak 13.Fem Pop 14.Chronic kidney disease stage 3 PLAN: 1. Venous scan today bilateral lower extremities 2. Kayexalate 25 gm Plan and coordination of the patient's care discussed in the presence of Intermediate Card Tender and nurse. CONDITION: Stable SCRIBED BY: REA HILL Heel Seat Sander scribed while in presence of service performed by Dr. Cook/Zahra Mo APRN on 09/29/17 ([id number])
[2017-09-29] MEDS ORDERED: SODIUM BICARBONATE PO STA (10:49)
--- NOTE | 2017-09-29 10:52 | PN ---
DATE OF SERVICE: 09/26/17 SUBJECTIVE: 87 year old white female hospitalized with hyperkalemia and renal azotemia. The patient's condition seems to have improved and he is feeling better. Her leg edema is much better. REVIEW OF SYSTEMS: CONSTITUTIONAL: No night sweats. No fatigue, malaise, lethargy. No fever or chills. HEENT: Eyes: No visual changes. No eye pain. No eye discharge. ENT: No runny nose. No epistaxis. No sinus pain. No sore throat. No odynophagia. No congestion. RESPIRATORY: No cough, no congestion. No hemoptysis. No shortness of breath. CARDIOVASCULAR: No angina symptoms. No CHF symptoms. No atypical chest pain for CAD. No palpitations. No orthopnea. GASTROINTESTINAL: No abdominal pain. No nausea or vomiting. No diarrhea or constipation. No hematemesis. No hematochezia. GENITOURINARY: No urgency. No frequency. No dysuria. No hematuria. No obstructive symptoms. No discharge. No pain. No significant abnormal bleeding. MUSCULOSKELETAL: No musculoskeletal pain; no joint swelling. NEUROLOGICAL: No headache. No neck pain. No syncope. No seizures. No dizziness. PSYCHIATRIC: Not anxious. No depression. No suicidal thoughts. No homicidal thoughts. SKIN: No rash. No lesions. No wounds. ENDOCRINE: No unexplained weight loss. No weight gain. HEMATOLOGIC/LYMPHATIC: No anemia. No purpura. No petechiae. No prolonged or excessive bleeding. No palpable lymph nodes. PHYSICAL EXAMINATION: VITAL SIGNS: Temperature 98.1, pulse 57, respiratory rate 18, blood pressure 150/54 and pulse ox 96%. HEENT: Head normocephalic, atraumatic. Eyes: Extraocular muscles are intact. Pupils are equal, round and reactive to light and accommodation. Ears: No lesions. Nose appeared normal. Throat: No exudate or erythema. NECK: Supple. No JVD, no carotid bruit. No lymphadenopathy or thyromegaly. LUNGS: Decreased breath sounds. Clear to auscultation. Percussion note normal. Chest symmetrical. HEART: S1, S2, no S3. No murmurs. No cyanosis or clubbing. No ascites. Pulses: Dorsalis pedis and posterior tibial pulses +1 to +2 both sides. ABDOMEN: Soft. Nontender. Bowel sounds active. No CVA tenderness. No mass felt. EXTREMITIES: No edema. Full range of motion of all extremities, equal. NEUROLOGIC: No focal deficit. Cranial nerves II through XII are grossly intact. No headache, no double vision or headache. SKIN: Not dry. Intact. Turgor - normal. LYMPHATIC: No palpable lymph nodes/no lymphedema. MUSCULOSKELETAL: Normal joints with no swelling. Muscle tone is normal. LABS: Hgb 10.4, hct 32, WBC 19,000 normal differential, creatinine 1.9, BUN 59, potassium 5. The patient's condition has improved with improvement in the potassium and kidney status. The patient has abnormal U/A she will be put on Bactrim twice a day for 7 days. TIME SPENT: More than 30 minutes. Plan and coordination of the patient's care discussed in the presence of nurse. BRIGHT
[2017-09-29] MEDS ORDERED: COZAAR PO SCH (11:10)
[2017-09-29] MEDS: HUMULIN R SUBCUT PRN ×2 (11:51→17:40)
--- NOTE | 2017-09-29 13:11 | US ---
EXAM: Bilateral lower extremity venous Doppler History: Bilateral lower extremity redness and pain. Technique: Multiple sonographic images through the bilateral lower extremities were obtained. Color duplex Doppler was used to interrogate vascular flow. Findings: The bilateral common femoral, greater saphenous, profunda, superficial femoral, popliteal, peroneal, posterior tibial and anterior tibial veins demonstrate spontaneous flow with normal compression and n ormal augmentation. Right greater than left bilateral lower extremity subcutaneous edema. Impression: No sonographic evidence for deep venous thrombosis.
[2017-09-29] MEDS: DEXTROSE 5%-1/2NS IV SOLUTION 1,000 ML IV SCH ×3 (15:39→21:47)
[2017-09-29] MEDS: COUMADIN PO SCH (17:18)
[2017-09-29] MEDS: CATAPRES PO SCH (20:49)
[2017-09-29] MEDS: SODIUM BICARBONATE PO SCH (20:49)
[2017-09-29] MEDS: XANAX PO SCH (20:49)
[2017-09-29] MEDS: LANTUS SUBCUT SCH (20:50)
[2017-09-30] MEDS: LASIX TAB PO SCH (06:06)
--- NOTE | 2017-09-30 08:04 | PN ---
DATE OF SERVICE: 09/29/17 SUBJECTIVE: The patient was seen and today her kidney functions have deteriorated some with potassium 5.6 and has type 4 renal tubular acidosis, hypoaldosteronism. She was given one dose of Kayexalate and watch her CMP. Also slow IV hydration. The patient's IV came out. She is very difficult stick. Tried to get Theo Franco to start the IV fluids otherwise the patient's condition is stable. The patient has redness of the both lower extremities from irritation and hemosiderin pigmentation. There is no cellulitis. CONDITION: Stable The patient was seen and examined with Nurse Practitioner. TIME SPENT: More than 30 minutes. Plan and coordination of the patient's care discussed in the presence of nurse. BRIGHT
--- NOTE | 2017-09-30 08:53 | PN ---
DATE OF SERVICE: 09/28/17 SUBJECTIVE: 87 year old white female hospitalized with hyperkalemia and renal azotemia and leg edema. The patient's leg edema is a lot better it is now trace to +1. REVIEW OF SYSTEMS: CONSTITUTIONAL: No night sweats. No fatigue, malaise, lethargy. No fever or chills. HEENT: Eyes: No visual changes. No eye pain. No eye discharge. ENT: No runny nose. No epistaxis. No sinus pain. No sore throat. No odynophagia. No congestion. RESPIRATORY: No cough, no congestion. No hemoptysis. No shortness of breath. CARDIOVASCULAR: No angina symptoms. No CHF symptoms. No atypical chest pain for CAD. No palpitations. No orthopnea. GASTROINTESTINAL: No abdominal pain. No nausea or vomiting. No diarrhea or constipation. No hematemesis. No hematochezia. GENITOURINARY: No urgency. No frequency. No dysuria. No hematuria. No obstructive symptoms. No discharge. No pain. No significant abnormal bleeding. MUSCULOSKELETAL: No musculoskeletal pain; no joint swelling. NEUROLOGICAL: No headache. No neck pain. No syncope. No seizures. No dizziness. PSYCHIATRIC: Not anxious. No depression. No suicidal thoughts. No homicidal thoughts. SKIN: No rash. No lesions. No wounds. ENDOCRINE: No unexplained weight loss. No weight gain. HEMATOLOGIC/LYMPHATIC: No anemia. No purpura. No petechiae. No prolonged or excessive bleeding. No palpable lymph nodes. PHYSICAL EXAMINATION: VITAL SIGNS: Temperature 97.8, pulse 48, respiratory rate 17, blood pressure 107/46 and pulse ox 95%. HEENT: Head normocephalic, atraumatic. Eyes: Extraocular muscles are intact. Pupils are equal, round and reactive to light and accommodation. Ears: No lesions. Nose appeared normal. Throat: No exudate or erythema. NECK: Supple. No JVD, no carotid bruit. No lymphadenopathy or thyromegaly. LUNGS: Clear to auscultation. Percussion note normal. Chest symmetrical. HEART: S1, S2, no S3. No murmurs. No cyanosis or clubbing. No ascites. Pulses: Dorsalis pedis and posterior tibial pulses +1 to +2 both sides. ABDOMEN: Soft. Nontender. Bowel sounds active. No CVA tenderness. No mass felt. EXTREMITIES: No edema. Full range of motion of all extremities, equal. NEUROLOGIC: No focal deficit. Cranial nerves II through XII are grossly intact. No headache, no double vision or headache. SKIN: Not dry. Intact. Turgor - normal. LYMPHATIC: No palpable lymph nodes/no lymphedema. MUSCULOSKELETAL: Normal joints with no swelling. Muscle tone is normal. ASSESSMENT: 1. Hyperkalemia seems to have resolved Potassium is 4.9 on 09/27/17, creatinine 2.3 and BUN 55 which is seems to be steady. PLAN: 1. Continue IV fluids 2. Continue to monitor CBC and CMP The problem with the patient is she is noncompliant. She takes a lot diuretic whenever her legs swell up she doesn't keep the legs up or elevated. CONDITION: Stable TIME SPENT: More than 30 minutes. Plan and coordination of the patient's care discussed in the presence of nurse. BRIGHT
--- NOTE | 2017-09-30 08:56 | PN ---
DATE OF SERVICE: 09/27/17 SUBJECTIVE: 87 year old white female hospitalized with hyperkalemia, chronic kidney disease with renal azotemia. The patient's hyperkalemia has resolved and she is feeling better. Her legs edema seems to be better. The patient keeps her legs down most of the time and doesn't listen to the advise. Also she drinks a lot of fluids especially water in spite of the fact that she has been asked not to drink more than what she needs to. REVIEW OF SYSTEMS: CONSTITUTIONAL: No night sweats. No fatigue, malaise, lethargy. No fever or chills. HEENT: Eyes: No visual changes. No eye pain. No eye discharge. ENT: No runny nose. No epistaxis. No sinus pain. No sore throat. No odynophagia. No congestion. RESPIRATORY: No cough, no congestion. No hemoptysis. No shortness of breath. CARDIOVASCULAR: No angina symptoms. No CHF symptoms. No atypical chest pain for CAD. No palpitations. No orthopnea. GASTROINTESTINAL: No abdominal pain. No nausea or vomiting. No diarrhea or constipation. No hematemesis. No hematochezia. GENITOURINARY: No urgency. No frequency. No dysuria. No hematuria. No obstructive symptoms. No discharge. No pain. No significant abnormal bleeding. MUSCULOSKELETAL: No musculoskeletal pain; no joint swelling. NEUROLOGICAL: No headache. No neck pain. No syncope. No seizures. No dizziness. PSYCHIATRIC: Not anxious. No depression. No suicidal thoughts. No homicidal thoughts. SKIN: No rash. No lesions. No wounds. ENDOCRINE: No unexplained weight loss. No weight gain. HEMATOLOGIC/LYMPHATIC: No anemia. No purpura. No petechiae. No prolonged or excessive bleeding. No palpable lymph nodes. PHYSICAL EXAMINATION: GENERAL: The patient is oriented to time, place and person. HEENT: Head normocephalic, atraumatic. Eyes: Extraocular muscles are intact. Pupils are equal, round and reactive to light and accommodation. Ears: No lesions. Nose appeared normal. Throat: No exudate or erythema. NECK: Supple. No JVD, no carotid bruit. No lymphadenopathy or thyromegaly. LUNGS: Clear to auscultation. Percussion note normal. Chest symmetrical. HEART: S1, S2, no S3. No murmurs. No cyanosis or clubbing. No ascites. Pulses: Dorsalis pedis and posterior tibial pulses +1 to +2 both sides. ABDOMEN: Soft. Nontender. Bowel sounds active. No CVA tenderness. No mass felt. EXTREMITIES: No edema. Full range of motion of all extremities, equal. NEUROLOGIC: No focal deficit. Cranial nerves II through XII are grossly intact. No headache, no double vision or headache. SKIN: Not dry. Intact. Turgor - normal. LYMPHATIC: No palpable lymph nodes/no lymphedema. MUSCULOSKELETAL: Normal joints with no swelling. Muscle tone is normal. ASSESSMENT: 1. Hyperkalemia seems to have resolved 2. Renal azotemia is stable 3. Leg edema is less than before PLAN: 1. Continue to monitor CBC and CMP 2. Continue slow IV fluids 3. Watch for fluid overload. TIME SPENT: More than 30 minutes. Plan and coordination of the patient's care discussed in the presence of nurse. BRIGHT
[2017-09-30] MEDS: COZAAR PO SCH (09:19)
[2017-09-30] MEDS: NITRO DUR TD SCH (09:19)
[2017-09-30] MEDS: PLETAL PO SCH ×2 (09:19→21:29)
[2017-09-30] MEDS: SODIUM BICARBONATE PO SCH ×2 (09:19→21:29)
[2017-09-30] MEDS: VITAMIN D PO SCH (09:20)
[2017-09-30] MEDS: BACTRIM DS 800/160 MG PO SCH ×2 (09:20→21:29)
[2017-09-30] MEDS: FERROUS SULFATE PO SCH (09:20)
[2017-09-30] MEDS: LOPRESSOR PO SCH ×2 (09:20→18:28)
[2017-09-30] MEDS: ASPIRIN EC PO SCH (09:20)
[2017-09-30] MEDS: NORVASC PO SCH (09:20)
--- NOTE | 2017-09-30 10:54 | PCM.PROG ---
Attending Provider: ATTENDING PROVIDER: Dr. NADYA COOK This patient is seen with Zahra Mo, Nurse Practitioner. DATE OF SERVICE: 09/30/17 SUBJECTIVE: This 87 year old WHITE/ F was hospitalized 09/25/17. The patient is sitting in the chair, alert. Leg edema and erythema improved. We started sodium bicarb yesterday. Decreased Co[place] and will start Lasix instead of Bumex. Potassium and creatinine slightly improved. REVIEW OF SYSTEMS: CONSTITUTIONAL: No night sweats. No fatigue, malaise, lethargy. No fever or chills. HEENT: Eyes: No visual changes. No eye pain. No eye discharge. ENT: No runny nose. No epistaxis. No sinus pain. No odynophagia. No congestion. RESPIRATORY: No cough, no congestion. No hemoptysis. No shortness of breath. CARDIOVASCULAR: No angina symptoms. No CHF symptoms. No atypical chest pain for CAD. No palpitations. No orthopnea.. GASTROINTESTINAL: No abdominal pain. No nausea or vomiting. No diarrhea or constipation. No hematemesis. No hematochezia. GENITOURINARY: No urgency. No frequency. No dysuria. No hematuria. No obstructive symptoms. No discharge. No pain. No significant abnormal bleeding. MUSCULOSKELETAL: Leg weakness and edema. No musculoskeletal pain; no joint swelling. NEUROLOGICAL: Awake, alert, oriented to time, place and person. No headache. No neck pain. No syncope. No seizures. No dizziness. PSYCHIATRIC: Not anxious. No depression. No suicidal thoughts. No homicidal thoughts. SKIN: Leg edema. No lesions. No wounds. ENDOCRINE: No unexplained weight loss. No weight gain. HEMATOLOGIC/LYMPHATIC: No anemia. No purpura. No petechiae. No prolonged or excessive bleeding. No palpable lymph nodes. PHYSICAL EXAMINATION: GENERAL: The patient is awake, alert and oriented, lying/sitting in bed in no distress. VITAL SIGNS: Temperature 97.9 F, Pulse 50, Respiratory Rate 16, BP 133/55, Pulse Ox 94% HEENT: Head normocephalic, atraumatic. Eyes: Extraocular muscles are intact. Pupils are equal, round and reactive to light and accommodation. Ears: No lesions. Nose appeared normal. Throat: No exudate or erythema. NECK: Supple. No JVD, no carotid bruit. No lymphadenopathy or thyromegaly. LUNGS: Diminished breath sounds. Clear to auscultation. Percussion note normal. Chest symmetrical. HEART: S1, S2, no S3. Grade I/ murmur. No cyanosis or clubbing. No ascites. Pulses: Dorsalis pedis and posterior tibial pulses +1 to +2 both sides. ABDOMEN: Soft. Non-tender. Bowel sounds active. No CVA tenderness. No mass felt. EXTREMITIES: Trace edema. Erythema of legs improving. Full range of motion of all extremities, equal. NEUROLOGIC: No focal deficit. Cranial nerves II through XII are grossly intact. No headache, no double vision or headache. SKIN: Warm and dry. Leg erythema improving. Intact. Turgor-normal. LYMPHATIC: No palpable lymph nodes/no lymphedema. MUSCULOSKELETAL: Normal joints with no swelling. Muscle tone is normal. LAB REVIEW: 09/30/17 05:15 09/30/17 05:15 09/30/17 05:15: Sodium 138, Potassium 5.3 H, Chloride 113 H, Carbon Dioxide 18 L , Anion Gap 12.3, BUN 63 H*, Creatinine 2.86 H, Estimated GFR (MDRD) 16.00, BUN/ Creatinine Ratio 22.02, Glucose 109, Calcium 8.5, Total Bilirubin 0.2, AST 15, ALT 18, Alkaline Phosphatase 46 L, Total Protein 5.5 L, Albumin 2.6 L, Globulin 2.9, Albumin/Globulin Ratio 0.90 09/30/17 05:15: WBC 10.32 H, RBC 3.13 L, Hgb 9.4 L, Hct 29.7 L, MCV 94.9, MCH 30.0, MCHC 31.6 L, RDW Coeff of Kerrie 14.1, Plt Count 175, Immature Gran % (Auto) 0.5, Neut % (Auto) 41.7, Lymph % (Auto) 49.4, [place] % (Auto) 6.5, Eos % (Auto) 1.6, Baso % (Auto) 0.3, Immature Gran # (Auto) 0.1, Neut # (Auto) 4.3, Lymph # ( Auto) 5.1 H, [place] # (Auto) 0.7, Eos # (Auto) 0.2, Baso # (Auto) 0.0 ASSESSMENT: 1. Hyperkalemia 2. Renal azotemia 3. Chronic kidney disease 4. Leg edema 5. Carotid stenosis 6. Diabetes Mellitus type 2 7. Hypertension 8. COPD 9. GERD 10.Dyslipidemia 11.Dizziness 12.PAD Dr. Nowak 13.Fem Pop 14.Chronic kidney disease stage 3 PLAN: 1. Repeat INR 2. Start Lasix instead of Bumex 3. Continue IV fluids 4. Will follow closely Plan and coordination of the patient's care discussed in the presence of Reduction Furnace Operator Helper and nurse. CONDITION: Stable SCRIBED BY: REA HILL Software Quality Automation Engineer scribed while in presence of service performed by Dr. Cook/Zahra Mo APRN on 09/30/17 ([id number])
[2017-09-30] MEDS: DEXTROSE 5%-1/2NS IV SOLUTION 1,000 ML IV SCH (18:27)
[2017-09-30] MEDS: COUMADIN PO SCH (18:28)
[2017-09-30] MEDS: CATAPRES PO SCH (21:29)
[2017-09-30] MEDS: XANAX PO SCH (21:29)
[2017-09-30] MEDS: LANTUS SUBCUT SCH (21:30)
[2017-10-01] MEDS: LASIX TAB PO SCH (05:35)
[2017-10-01] MEDS: LOPRESSOR PO SCH ×2 (08:22→17:17)
[2017-10-01] MEDS: VITAMIN D PO SCH (08:22)
[2017-10-01] MEDS: PLETAL PO SCH ×2 (08:22→21:33)
[2017-10-01] MEDS: SODIUM BICARBONATE PO SCH ×2 (08:23→21:33)
[2017-10-01] MEDS: COZAAR PO SCH (08:23)
[2017-10-01] MEDS: FERROUS SULFATE PO SCH (08:23)
[2017-10-01] MEDS: BACTRIM DS 800/160 MG PO SCH (08:23)
[2017-10-01] MEDS: NORVASC PO SCH (08:23)
[2017-10-01] MEDS: ASPIRIN EC PO SCH (08:24)
[2017-10-01] MEDS: NITRO DUR TD SCH (08:24)
[2017-10-01] MEDS ORDERED: SODIUM BICARBONATE PO STA (08:48)
[2017-10-01] MEDS ORDERED: SODIUM BICARBONATE PO SCH (09:00)
--- NOTE | 2017-10-01 10:54 | PCM.PROG ---
Attending Provider: ATTENDING PROVIDER: Dr. NADYA GARCIA The patient is seen with Zahra Vazquez, Nurse Practitioner DATE OF SERVICE: 10/01/17 SUBJECTIVE: This 87 year old WHITE/ F was hospitalized 09/25/17. The patient is doing good, drinking lots of juices so we will do dietary consult and discontinue juices. The potassium is slightly improved today. Kidney function unchanged despite IV fluids. REVIEW OF SYSTEMS: CONSTITUTIONAL: Weakness. No night sweats. No malaise, lethargy. No fever or chills. HEENT: Eyes: No visual changes. No eye pain. No eye discharge. ENT: No runny nose. No epistaxis. No sinus pain. No odynophagia. No congestion. RESPIRATORY: No cough, no congestion. No hemoptysis. No shortness of breath. CARDIOVASCULAR: No angina symptoms. No CHF symptoms. No atypical chest pain for CAD. No palpitations. No orthopnea.. GASTROINTESTINAL: No abdominal pain. No nausea or vomiting. No diarrhea or constipation. No hematemesis. No hematochezia. GENITOURINARY: No urgency. No frequency. No dysuria. No hematuria. No obstructive symptoms. No discharge. No pain. No significant abnormal bleeding. MUSCULOSKELETAL: No musculoskeletal pain; no joint swelling. NEUROLOGICAL: Awake, alert, oriented to time, place and person. No headache. No neck pain. No syncope. No seizures. No dizziness. PSYCHIATRIC: Not anxious. No depression. No suicidal thoughts. No homicidal thoughts. SKIN: No rash. No lesions. No wounds. ENDOCRINE: No unexplained weight loss. No weight gain. HEMATOLOGIC/LYMPHATIC: No anemia. No purpura. No petechiae. No prolonged or excessive bleeding. No palpable lymph nodes. PHYSICAL EXAMINATION: GENERAL: The patient is awake, alert and oriented, sitting in bed in no distress. VITAL SIGNS: Temperature 97.6 F, Pulse 50, Respiratory Rate 16, BP 118/56, Pulse Ox 96% HEENT: Head normocephalic, atraumatic. Eyes: Extraocular muscles are intact. Pupils are equal, round and reactive to light and accommodation. Ears: No lesions. Nose appeared normal. Throat: No exudate or erythema. NECK: Supple. No JVD, no carotid bruit. No lymphadenopathy or thyromegaly. LUNGS: Diminished breath sounds. Clear to auscultation. Percussion note normal. Chest symmetrical. HEART: S1, S2, no S3. Grade I/ murmur. No cyanosis or clubbing. No ascites. Pulses: Dorsalis pedis and posterior tibial pulses +1 to +2 both sides. ABDOMEN: Soft. Non-tender. Bowel sounds active. No CVA tenderness. No mass felt. EXTREMITIES: No pedal edema. Full range of motion of all extremities, equal. NEUROLOGIC: No focal deficit. Cranial nerves II through XII are grossly intact. No headache, no double vision or headache. SKIN: Warm and dry. Intact. Turgor-normal. LYMPHATIC: No palpable lymph nodes/no lymphedema. MUSCULOSKELETAL: Normal joints with no swelling. Muscle tone is normal. LAB REVIEW: 10/01/17 05:00 10/01/17 05:00 10/01/17 05:00: Sodium 138, Potassium 5.2 H, Chloride 113 H, Carbon Dioxide 19 L , Anion Gap 11.2, BUN 66 H*, Creatinine 2.96 H, Estimated GFR (MDRD) 15.00, BUN/ Creatinine Ratio 22.29, Glucose 90, Calcium 8.7, Total Bilirubin 0.1, AST 14 L, ALT 18, Alkaline Phosphatase 50 L, Total Protein 5.2 L, Albumin 2.6 L, Globulin 2.6, Albumin/Globulin Ratio 1.00 10/01/17 05:00: WBC 9.68, RBC 3.02 L, Hgb 9.2 L, Hct 28.7 L, MCV 95.0, MCH 30.5 , MCHC 32.1, RDW Coeff of Kerrie 14.0, Plt Count 186, Immature Gran % (Auto) 0.7, Neut % (Auto) 36.4, Lymph % (Auto) 54.1 H, [place] % (Auto) 6.7, Eos % (Auto) 1.7, Baso % (Auto) 0.4, Immature Gran # (Auto) 0.1, Neut # (Auto) 3.5, Lymph # (Auto ) 5.2 H, [place] # (Auto) 0.7, Eos # (Auto) 0.2, Baso # (Auto) 0.0 10/01/17 05:00: PT 23.8 H, INR 2.39 09/30/17 14:00: PT 23.4 H, INR 2.35 ASSESSMENT: 1. Hyperkalemia 2. Acute renal failure 3. Renal azotemia 4. History of chronic kidney disease, Stage 3 5. Carotid stenosis 6. Diabetes mellitus Type 2 7. Hypertension 8. COPD 9. GERD 10. Dyslipidemia 11. Dizziness 12. PAD Dr. Nowak 13. Fem/pop PLAN: 1. Discontinue Bactrim 2. Increase bicarb to 1300 mg b.i.d. 3. Discontinue all juices 4. Dietary consultation 5. Discontinue Clonidine Plan and coordination of the patient's care discussed in the presence of Manager Story and nurse. CONDITION: Stable SCRIBED BY: REA HILL Senior Quality Analyst scribed while in presence of service performed by Dr. NADYA GARCIA/ZAHRA VAZQUEZ APRN on 10/01/17 ([id number])
[2017-10-01] MEDS: HUMULIN R SUBCUT PRN (12:25)
[2017-10-01] MEDS: COUMADIN PO SCH (17:17)
[2017-10-01] MEDS: DEXTROSE 5%-1/2NS IV SOLUTION 1,000 ML IV SCH (19:38)
[2017-10-01] MEDS: XANAX PO SCH (21:34)
[2017-10-01] MEDS: LANTUS SUBCUT SCH (21:34)
[2017-10-02] MEDS: LASIX TAB PO SCH (05:35)
[2017-10-02] MEDS: ASPIRIN EC PO SCH (08:19)
[2017-10-02] MEDS: LOPRESSOR PO SCH (08:19)
[2017-10-02] MEDS: NITRO DUR TD SCH (09:37)
[2017-10-02] MEDS: SODIUM BICARBONATE PO SCH (09:38)
[2017-10-02] MEDS: FERROUS SULFATE PO SCH (09:38)
[2017-10-02] MEDS: VITAMIN D PO SCH (09:38)
[2017-10-02] MEDS: PLETAL PO SCH (09:39)
[2017-10-02] MEDS: NORVASC PO SCH (09:40)
[2017-10-02] MEDS: COZAAR PO SCH (09:40)
[2017-10-02 10:29] VITALS: BP 180/54; TEMP 97.8
--- NOTE | 2017-10-02 11:12 | CM.DICTOOL ---
ADMISSION: 09/25/17 15:25 DISCHARGE: 10/02/17 DATE OF SERVICE: 10/02/17 FINAL DIAGNOSIS ACUTE RENAL FAILURE CHRONIC KIDNEY DISEASE, STAGE 3 RENAL AZOTEMIA HYPERKALEMIA STAGE 4 RTA WITH HYPORENINEMIC HYPOALDOSTERONISM UTI - ENEROBACTER CLOACAE (TREATED WITH BACTRIM) LEG EDEMA, CHRONIC CAD W/HX OF NM DYSLIPIDEMIA CHF COPD HYPERTENSION CAROTID OCCLUSIVE DISEASE, LEFT 70-90% STENOSIS DM, TYPE 2 SMALL HIATAL HERNIA DIVERTICULOSIS PERIPHERAL ARTERY DISEASE (DR. MOELLER) MYELODYSPLASTIC SYNDROME GERD OSTEOARTHRITIS CABG, 1999 CHOLECYSTECTOMY PARTIAL HYSTERECTOMY FEM/POP BYPASS LAST ECHO, 06/06 LVH WITH BORDERLINE LA CAVITY ENLARGEMENT LVEF 29% MILD MITRAL REGURG AND SEVERE TRICUSPID REGURG FORMER SMOKER LAST VITALS Temp Pulse Resp BP Pulse Ox 98.1 F 51 L 16 144/47 H 96 10/02/17 05:44 10/02/17 05:44 10/02/17 05:44 10/02/17 05:44 10/02/17 05:44 ACTIVE HOME MEDICATIONS Alprazolam (Xanax) 0.5 mg PO BEDTIME [facility] Last Admin: 10/01/17 21:34 Dose: 0.5 mg Amlodipine Besylate (Norvasc) 5 mg PO DAILY [facility] Last Admin: 10/02/17 09:40 Dose: 5 mg Cholecalciferol (Vitamin D) 1,000 unit PO DAILY [facility] Last Admin: 10/02/17 09:38 Dose: 1,000 unit Cilostazol (Pletal) 50 mg PO BID [facility] Last Admin: 10/02/17 09:39 Dose: 50 mg Ferrous Sulfate (Ferrous Sulfate) 324 mg PO DAILY [facility] Last Admin: 10/02/17 09:38 Dose: 324 mg Hydrocodone Bitart/Acetaminophen ([place] 7.5-325) 1 tab PO Q12H PRN PRN Reason: pain Insulin Glargine (Lantus) 50 unit SUBCUT BEDTIME [facility] Last Admin: 10/01/17 21:34 Dose: Not Given Losartan Potassium (Cozaar) 50 mg PO DAILY [facility] Last Admin: 10/02/17 09:40 Dose: 50 mg Metoprolol Tartrate (Lopressor) 50 mg PO BIDWM [facility] Last Admin: 10/02/17 08:19 Dose: 50 mg Nitroglycerin (Nitro-Dur 0.6 Mg/Hr) 1 patch TD DAILY [facility] Last Admin: 10/02/17 09:37 Dose: 1 patch Nitroglycerin (Nitrostat) 0.4 mg SL Q5MIN X 3 DOSES PRN PRN Reason: Chest Pain Warfarin Sodium (Coumadin) 2 mg PO QPM [facility] Last Admin: 10/01/17 17:17 Dose: 2 mg ALLERGIES hydralazine [Hydralazine] Adverse Reaction (Verified 09/05/17 14:39) insulin detemir [From Levemir] Adverse Reaction (Verified 09/05/17 14:39) Penicillins Adverse Reaction (Verified 09/05/17 14:39) NEW PRESCRIPTIONS: DISCONTINUE TAKING YOUR BUMEX (BUMETANIDE) DISCONTINUE TAKING YOUR CATAPRES (CLONIDINE HCL) PLEASE NOTE THE DOSE CHANGE IN YOUR COUMADIN FROM 3 MG TO 2 MG EVERY EVENING PLEASE NOTE THE DOSE CHANGE IN YOUR COZAAR (LOSARTAN POTASSIUM) FROM 100 MG TO 50 MG DAILY NEW PRESCRIPTIONS SODIUM BICARBONATE 650 MG, TAKE 2 TABS (1,300 MG) BY MOUTH TWICE DAILY KAYEXALATE 25 GRAMS, TAKE ONE DOSE EVERY OTHER WEEK LASIX 40 MG, TAKE ONE TABLET BY MOUTH DAILY SMOKING: FORMER SMOKER DISEASE SPECIFIC EDUCATION: CHRONIC KIDNEY DISEASE RENAL FAILURE HYPERKALEMIA HOME MEDICATIONS AND CHANGES MADE NEW MEDICATIONS FOLLOW UP LAB REVIEW: 10/02/17 05:30 10/02/17 05:30 10/02/17 05:30: Sodium 139, Potassium 4.8, Chloride 112 H, Carbon Dioxide 20 L, Anion Gap 11.8, BUN 64 H*, Creatinine 2.93 H, Estimated GFR (MDRD) 15.00, BUN/ Creatinine Ratio 21.84, Glucose 74 L, Calcium 9.2, Total Bilirubin 0.2, AST 17, ALT 21, Alkaline Phosphatase 56, Total Protein 5.9, Albumin 2.8 L, Globulin 3.1 , Albumin/Globulin Ratio 0.90 10/02/17 05:30: WBC 11.68 H, RBC 3.19 L, Hgb 9.6 L, Hct 30.0 L, MCV 94.0, MCH 30.1, MCHC 32.0, RDW Coeff of Kerrie 13.9, Plt Count 201, Immature Gran % (Auto) 1.0, Neut % (Auto) 35.3, Lymph % (Auto) 56.3 H, [place] % (Auto) 5.7, Eos % (Auto) 1.3, Baso % (Auto) 0.4, Immature Gran # (Auto) 0.1, Neut # (Auto) 4.1, Lymph # ( Auto) 6.6 H, [place] # (Auto) 0.7, Eos # (Auto) 0.2, Baso # (Auto) 0.1 10/02/17 05:30: PT 22.3 H, INR 2.24 PLAN: DISCHARGE HOME TODAY RETURN TO SEE DR. GARCIA IN HIS OFFICE ON 10/06/17 AT 11:45 A.M. RETURN TO [facility] FOR LABS ON 10/05/17 RESUME YOUR HOME MEDICATIONS PER LIST PROVIDED BY THE NURSING STAFF DISCONTINUE TAKING YOUR BUMEX (BUMETANIDE) DISCONTINUE TAKING YOUR CATAPRES (CLONIDINE HCL) PLEASE NOTE THE DOSE CHANGE IN YOUR COUMADIN FROM 3 MG TO 2 MG EVERY EVENING PLEASE NOTE THE DOSE CHANGE IN YOUR COZAAR (LOSARTAN POTASSIUM) FROM 100 MG TO 50 MG DAILY NEW PRESCRIPTIONS SODIUM BICARBONATE 650 MG, TAKE 2 TABS (1,300 MG) BY MOUTH TWICE DAILY KAYEXALATE 25 GRAMS, TAKE ONE DOSE EVERY OTHER WEEK LASIX 40 MG, TAKE ONE TABLET BY MOUTH DAILY ACTIVITY GET PLENTY OF REST AT HOME. GRADUALLY INCREASE YOUR ACTIVITY LEVEL ACCORDING TO YOUR TOLERATION. KEEP YOUR FEET/LEGS ELEVATED FREQUENTLY POSSIBLE DIET LOW POTASSIUM, RENAL FAILURE SUMMARY THE PATIENT IS ALERT AND ORIENTED X3. SHE CURRENTLY RESIDES AT HOME ALONE. HER BROTHER RESIDES CLOSE BY AND PROVIDES ASSISTANCE WHEN NECESSARY. SHE HAS A ROLLING WALKER AND A SHOWER CHAIR AT HOME. SHE HAS DECLINED OFFERS FOR HOME HEALTH AND HOMEMAKING SERVICES. SHE DESIRES TO RETURN HOME AT DISCHARGE. THE SKIN TURGOR IS FAIR AND INTACT. MS. ESCUDERO HAS MILD REDNESS TO BOTH LOWER EXTREMITIES FROM THE LOWER BOOKER TO THE ANKLE. SWELLING HAS SUBSIDED. THE LOWER EXTREMITIES HAVE NO OPENED AREAS. THE SKIN IS DRY. THE PATIENT HAS NO DECUBITUS ULCERS. HYDRATION AND NUTRITIONAL STATUS ARE GOOD. MS. ESCUDERO IS AWARE AND AGREEABLE FOR TODAY'S DISCHARGE PLANS. WE WILL FOLLOW HER CLOSELY THROUGH THE OFFICE. CURRENT CODE STATUS DO NOT RESUSCITATE MARCELLA VAZQUEZ APRN NADYA GARCIA M.D.
--- NOTE | 2017-10-03 10:29 | PN ---
DATE OF SERVICE: 10/02/17 SUBJECTIVE: The patient was seen and examined with the Nurse Practitioner. The patient's kidney functions are stable. The patient has renal failure. The patient will be balances between diuresis and his kidney function. The patient doesn't have any CHF. her appetite is quite acceptable. Her hyperkalemia problems seems to be under control with Potassium of 4.2. The patient is on Sodium bicarb tablet two twice a day. 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 The patient is DNR. The patient is going to be discharged home in stable condition to be followed as an outpatient. Her daughter is coming and she insists on going home. PROGNOSIS: Not good. TIME SPENT: More than 30 minutes. Plan and coordination of the patient's care discussed in the presence of nurse. BRIGHT
--- NOTE | 2017-10-03 10:37 | PN ---
09/25/17: Level 5 09/26/17: Intermediate 09/27/17: Intermediate 09/28/17: Intermediate 09/29/17: Intermediate 09/30/17: Intermediate 10/01/17: Intermediate 10/02/17: D as in discharge MTDD
--- NOTE | 2017-10-09 14:52 | DS ---
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 MOELLER) MYELODYSPLASTIC SYNDROME GERD OSTEOARTHRITIS CABG, 1999 CHOLECYSTECTOMY PARTIAL HYSTERECTOMY FEM/POP BYPASS LAST ECHO, 06/06 LVH WITH BORDERLINE LA CAVITY ENLARGEMENT LVEF 29% MILD MITRAL REGURG AND SEVERE TRICUSPID REGURG FORMER SMOKER LAST VITALS Temp Pulse Resp BP Pulse Ox 98.1 F 51 L 16 144/47 H 96 ACTIVE HOME MEDICATIONS Alprazolam (Xanax) 0.5 mg PO BEDTIME [facility] Last Admin: 10/01/17 21:34 Dose: 0.5 mg Amlodipine Besylate (Norvasc) 5 mg PO DAILY [facility] Last Admin: 10/02/17 09:40 Dose: 5 mg Cholecalciferol (Vitamin D) 1,000 unit PO DAILY [facility] Last Admin: 10/02/17 09:38 Dose: 1,000 unit Cilostazol (Pletal) 50 mg PO BID [facility] Last Admin: 10/02/17 09:39 Dose: 50 mg Ferrous Sulfate (Ferrous Sulfate) 324 mg PO DAILY [facility] Last Admin: 10/02/17 09:38 Dose: 324 mg Hydrocodone Bitart/Acetaminophen ([place] 7.5-325) 1 tab PO Q12H PRN PRN Reason: pain Insulin Glargine (Lantus) 50 unit SUBCUT BEDTIME [facility] Last Admin: 10/01/17 21:34 Dose: Not Given Losartan Potassium (Cozaar) 50 mg PO DAILY [facility] Last Admin: 10/02/17 09:40 Dose: 50 mg Metoprolol Tartrate (Lopressor) 50 mg PO BIDWM [facility] Last Admin: 10/02/17 08:19 Dose: 50 mg Nitroglycerin (Nitro-Dur 0.6 Mg/Hr) 1 patch TD DAILY [facility] Last Admin: 10/02/17 09:37 Dose: 1 patch Nitroglycerin (Nitrostat) 0.4 mg SL Q5MIN X 3 DOSES PRN PRN Reason: Chest Pain Warfarin Sodium (Coumadin) 2 mg PO QPM [facility] Last Admin: 10/01/17 17:17 Dose: 2 mg ALLERGIES hydralazine [Hydralazine] Adverse Reaction (Verified 09/05/17 14:39) insulin detemir [From Levemir] Adverse Reaction (Verified 09/05/17 14:39) Penicillins Adverse Reaction (Verified 09/05/17 14:39) NEW PRESCRIPTIONS: DISCONTINUE TAKING YOUR BUMEX (BUMETANIDE) DISCONTINUE TAKING YOUR CATAPRES (CLONIDINE HCL) PLEASE NOTE THE DOSE CHANGE IN YOUR COUMADIN FROM 3 MG TO 2 MG EVERY EVENING PLEASE NOTE THE DOSE CHANGE IN YOUR COZAAR (LOSARTAN POTASSIUM) FROM 100 MG TO 50 MG DAILY NEW PRESCRIPTIONS SODIUM BICARBONATE 650 MG, TAKE 2 TABS (1,300 MG) BY MOUTH TWICE DAILY KAYEXALATE 25 GRAMS, TAKE ONE DOSE EVERY OTHER WEEK LASIX 40 MG, TAKE ONE TABLET BY MOUTH DAILY SMOKING: FORMER SMOKER DISEASE SPECIFIC EDUCATION: CHRONIC KIDNEY DISEASE RENAL FAILURE HYPERKALEMIA HOME MEDICATIONS AND CHANGES MADE NEW MEDICATIONS FOLLOW UP PLAN: DISCHARGE HOME TODAY RETURN TO SEE DR. GARCIA IN HIS OFFICE ON 10/06/17 AT 11:45 A.M. RETURN TO [facility] FOR LABS ON 10/05/17 RESUME YOUR HOME MEDICATIONS PER LIST PROVIDED BY THE NURSING STAFF DISCONTINUE TAKING YOUR BUMEX (BUMETANIDE) DISCONTINUE TAKING YOUR CATAPRES (CLONIDINE HCL) PLEASE NOTE THE DOSE CHANGE IN YOUR COUMADIN FROM 3 MG TO 2 MG EVERY EVENING PLEASE NOTE THE DOSE CHANGE IN YOUR COZAAR (LOSARTAN POTASSIUM) FROM 100 MG TO 50 MG DAILY ACTIVITY GET PLENTY OF REST AT HOME. GRADUALLY INCREASE YOUR ACTIVITY LEVEL ACCORDING TO YOUR TOLERATION. KEEP YOUR FEET/LEGS ELEVATED FREQUENTLY POSSIBLE DIET LOW POTASSIUM, RENAL FAILURE HOSPITAL COURSE: This is an 87 year old white female who presented to our office. She had labs drawn on 09/24/17 as an outpatient from her previous hospitalization followup which showed a Potassium of greater than 6. She was brought in and it was repeated before her appointment on the which her Potassium had risen to 6.3. She was also found to be in acute renal failure with a BUN up to 67 and creatinine of 2.99. She was admitted and placed on slow IV fluids D5 1/2 normal saline at 42cc an hour given an AMP of Sodium bicarb, 25 grams of Kayexalate. Even with rehydration her kidney function has remained rather unchanged today. BUN 66, creatinine 2.96. Over the course of several day her Potassium has improved. We back off her Cozaar as it we thought might be helping her retain some Potassium, decreased her Cozaar to 50mg daily. Her blood pressure has remained normal. We started her initially on 650mg of Bicarb twice daily the day before yesterday and today we have increased it to 1,300mg twice a day of Sodium Bicarb. Her Bumex as a possibility if it was causing her to retain some Potassium. We started her on Lasix 40mg daily PO. She has no leg edema today at time of discharge. She was no acute distress. Her Hgb has remained stable and she does have a history of anemia. She has been stable at 9.6. Dr. Caba is her kidney doctor and she is followup with him as previously scheduled. Her INR has remained within normal range, today it is 2.39. Vital signs have remained stable. Today on day of discharge her Potassium has improved and is within normal limits at 4.8. We will send her with a prescription to do Kayexalate 25gram once a week. She will continue with the Sodium Bicarb 1,300mg twice daily. 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 She also had a positive urine culture during his hospital stay with Enterobacter, this was found on her initial admission and she was treated with Bactrim PO daily. She was this for 7 days and this was discontinued. His kidney disease has been discussed with her at detail and she is very adamant that she does not want to do renal dialysis. Poor prognosis has been discussed in detail and she demonstrates understanding. She is instructed to continue with increased fluids. She is to elevate her legs at home. She is not to drink any juices as they may contain Potassium. Her diet has been discussed at great deal and nutrition consult was put in during her hospital stay. She states that she would like to go today. She is in stable condition. Again her labs have improved. We will see her on Friday with a CMP prior to her appointment in the office. BRIGHT
== END 2017-10-02 11:55 | disposition home or self-care (01) | DRG 683 ==
LOC: MEDSURG B 15:25
PROVIDERS: ADMIT Internal Medicine; ATTEND Internal Medicine
DX: N17.9 Acute kidney failure, unspecified (principal); N39.0 Urinary tract infection, site not specified; E27.40 Unspecified adrenocortical insufficiency; E87.5 Hyperkalemia; I12.9 Hypertensive chronic kidney disease with stage 1 through stage 4 chronic kidney disease, or unspecified chronic kidney disease; E11.22 Type 2 diabetes mellitus with diabetic chronic kidney disease; N18.3 Chronic kidney disease, stage 3 (moderate); R79.89 Other specified abnormal findings of blood chemistry; N25.89 Other disorders resulting from impaired renal tubular function; B96.89 Other specified bacterial agents as the cause of diseases classified elsewhere; R60.0 Localized edema; I25.10 Atherosclerotic heart disease of native coronary artery without angina pectoris; E78.5 Hyperlipidemia, unspecified; I50.9 Heart failure, unspecified; J44.9 Chronic obstructive pulmonary disease, unspecified; I10 Essential (primary) hypertension; I65.22 Occlusion and stenosis of left carotid artery; K46.9 Unspecified abdominal hernia without obstruction or gangrene; K57.90 Diverticulosis of intestine, part unspecified, without perforation or abscess without bleeding; I73.9 Peripheral vascular disease, unspecified; D46.9 Myelodysplastic syndrome, unspecified; K21.9 Gastro-esophageal reflux disease without esophagitis; M19.90 Unspecified osteoarthritis, unspecified site; R42 Dizziness and giddiness; R88.8 Abnormal findings in other body fluids and substances; R74.8 Abnormal levels of other serum enzymes; E11.9 Type 2 diabetes mellitus without complications; I25.2 Old myocardial infarction; Z79.01 Long term (current) use of anticoagulants; Z79.4 Long term (current) use of insulin; Z95.820 Peripheral vascular angioplasty status with implants and grafts; Z16.11 Resistance to penicillins; Z87.891 Personal history of nicotine dependence
CPT/HCPCS: 36415; 80053; 81001; 82803; 82962; 83880; 85025; 85610; 87081; 87086; 87186; 93005; 93010; 97802

== ENCOUNTER 2017-10-05 11:00 | Outpatient (CLI) ==
[2012-12-30 11:12] VITALS: TEMP 98
== END 2017-10-05 11:01 | disposition home or self-care (01) ==
LOC: LAB 11:00
PROVIDERS: ATTEND Internal Medicine
DX: N17.9 Acute kidney failure, unspecified (principal); N18.9 Chronic kidney disease, unspecified
CPT/HCPCS: 36415; 80053

== ENCOUNTER 2017-10-10 14:55 | Outpatient (CLI) ==
[2012-12-30 11:12] VITALS: TEMP 98
== END 2017-10-10 14:56 | disposition home or self-care (01) ==
LOC: LAB 14:55
PROVIDERS: ATTEND Internal Medicine Hematology & Oncology
DX: D68.59 Other primary thrombophilia (principal)
CPT/HCPCS: 36415; 80053; 82232; 83615; 85025

== ENCOUNTER 2018-01-01 16:13 | Outpatient (CLI) ==
[2012-12-30 11:12] VITALS: TEMP 98
== END 2018-01-01 16:14 | disposition home or self-care (01) ==
LOC: LAB 16:13
PROVIDERS: ATTEND Specialist
DX: N18.3 Chronic kidney disease, stage 3 (moderate) (principal)
CPT/HCPCS: 36415; 80069; 81001; 82570; 83970; 84156; 84550; 85027

== ENCOUNTER 2018-02-03 10:47 | Outpatient (CLI) ==
[2012-12-30 11:12] VITALS: TEMP 98
== END 2018-02-03 10:48 | disposition home or self-care (01) ==
LOC: LAB 10:47
PROVIDERS: ATTEND Internal Medicine Hematology & Oncology
DX: D68.59 Other primary thrombophilia (principal)
CPT/HCPCS: 36415; 80053; 82232; 83615; 85025

== ENCOUNTER 2018-03-30 16:59 | Inpatient (IN) ==
[2018-03-30] MEDS ORDERED: DUONEB NEB STA (17:52)
[2018-03-30] MEDS ORDERED: SOLU-MEDROL 125 MG IVP STA (18:21)
--- NOTE | 2018-03-30 18:22 | ED.PDOC ---
General ED Provider: Dr. ROOPA MERAZ Chief Complaint: Shortness of Air Stated Complaint: shortness of breath Time Seen by Physician: 17:00 (shortness of breathx2 days ) Mode of Arrival: Wheelchair Information Source: Patient, Family Exam Limitations: No limitations Primary Care Provider: NADYA VALENTIN Nursing and Triage Documentation Reviewed and Agree: Yes Does patient meet sepsis criteria?: No System Inflammatory Response Syndrome: Not Applicable Sepsis Protocol: For patient's 13 years and over: Temp is 96.8 and below OR 101 and greater Pulse >90 BPM Resp >20/minute Acutely Altered Mental Status Are patient's symptoms suggestive of a new infection, such as: -Pneumonia -Skin, Soft Tissue -Endocarditis -UTI -Bone, Joint Infection -Implantable Device -Acute Abdominal Infection -Wound Infection -Meningitis -Blood Stream Catheter Infection -Unknown Respiratory Complaint Exam - Shortness of Air Complaint/Exam Symptoms Are: Still present Timing: Intermittent Initial Severity: Mild Current Severity: Mild Character: Reports: Dyspnea at rest, Dyspnea on exertion, Orthopnea Aggravating: Reports: Deep breaths, Recumbent position Alleviating: Reports: Bronchodilators, Spontaneous resolution Associated Signs and Symptoms: Reports: Cough, Wheezing, Edema (lower legs ). Denies: Chest pain with cough, Chest pain, Fever, Chills, Diaphoresis, Nasal congestion, Dizziness, Calf pain, Calf swelling, Rapid breathing, Labored breathing, Decreased intake Related History: Reports: Similar episode Pulmonary Embolism Risk Factors: Reports: Bedrest Cardiac Risk Factors: Reports: CAD, Hypertension Pseudomonas Risk Factors: Reports: Chronic Lung Disease Tuberculosis Risk Factors: Reports: Chronic Resp. Faliure Home Oxygen Use: Yes (2l nc ) Home Peak Flow: Most recent Recent Stress Test: No Recent Echo/LV Function: No Respiratory Distress: None Stridor Present: No Tracheal Deviation: No Subcutaneous Emphysema: No Accessory Muscle Use: No Retractions: Not Present Diminished Breath Sounds: Yes Prolonged Expiratory Phase: No Unable to Speak Full Sentences: No Fatigue: Yes Leg Swelling: No Lila's Sign Present: No Grunting Respirations: No Differential Diagnoses: Pneumonia, Bronchitis Quality Indicators for AMI: EKG in 10min. Quality Indicators for Cardiac Chest Pain: EKG in 10min. Quality Indicator For Non-Traumatic Chest Pain/Syncope: EKG Performed Review of Systems - Review Of Systems Constitutional: Reports: Malaise, Weakness Eyes: Reports: No symptoms Ears, Nose, Mouth, Throat: Reports: No symptoms Respiratory: Reports: Cough, Short of air, Wheezing Cardiac: Reports: No symptoms GI: Reports: No symptoms : Reports: No symptoms Musculoskeletal: Reports: No symptoms Skin: Reports: No symptoms Neurological: Reports: No symptoms Endocrine: Reports: No symptoms Hematologic/Lymphatic: Reports: No symptoms All Other Systems: Reviewed and Negative Past Medical History - Past Medical History Previously Healthy: No Endocrine: Reports: DM 2, Dyslipidemia Cardiovascular: Reports: CAD, Hypertension, CHF, Other (CABG 2000, ARTIIFICIAL AORTA, LEFT ARM STENT) Respiratory: Reports: COPD Hematological: Reports: None Gastrointestinal: Reports: None Genitourinary: Reports: None, CKD Neuro/Psych: Reports: None Musculoskeletal: Reports: None Cancer: Reports: None Last Menstrual Period: none Other Pertinent Past Medical History: htn dm mi chf copd kd cabg - Surgical History General Surgical History: Reports: None, Hysterectomy (PARTIAL HYSTERECTOMY), Appendectomy, CABG - Family History Family History: Reports: None - Social History Smoking Status: Former smoker Hx Substance Use: No Alcohol Screening: None Physical Exam - Physical Exam Appearance: Ill-appearing Ill-appearing: Mild Pain Distress: Mild Eyes: ROBERT, EOMI, Conjunctiva clear ENT: Ears normal, Nose normal, Oropharynx normal Respiratory: Breath sounds diminished, Rhonchi Cardiovascular: RRR, Pulses normal, No rub, No murmur GI/: Soft, Nontender, No masses, Bowel sounds normal, No Organomegaly Musculoskeletal: Normal strength, ROM intact, No edema, No calf tenderness Skin: Warm, Dry, Normal color Neurological: Sensation intact, Motor intact, Reflexes intact, Cranial nerves intact, Alert, Oriented Psychiatric: Affect appropriate, Mood appropriate Interpretation - Radiology Interpretation Radiology Interpretation By: Radiologist Radiology Results: No acute changes Exam Interpreted: CT Scan Physician Notification - Case Discussed Physician Notified: valentin Time of Notification: 19:00 Critical Care Note - Critical Care Note Total Time (mins): 0 Course - Course Hematology/Chemistry: 03/30/18 17:25 03/30/18 17:25 Orders, Labs, Meds: Lab Review 03/30/18 03/30/18 17:25 17:25 WBC 11.68 H RBC 2.51 L Hgb 7.6 L Hct 25.0 L MCV 99.6 H MCH 30.3 MCHC 30.4 L RDW Coeff of Kerrie 14.8 Plt Count 236 Immature Gran % (Auto) 0.4 Neut % (Auto) 48.5 Lymph % (Auto) 45.8 Harnett % (Auto) 4.3 Eos % (Auto) 0.7 Baso % (Auto) 0.3 Immature Gran # (Auto) 0.1 Neut # (Auto) 5.7 Lymph # (Auto) 5.4 H Harnett # (Auto) 0.5 Eos # (Auto) 0.1 Baso # (Auto) 0.0 Sodium 141 Potassium 5.67 H Chloride 113 H Carbon Dioxide 22.0 Anion Gap 11.67 BUN 49 H Creatinine 1.89 H Estimated GFR (MDRD) 25.00 BUN/Creatinine Ratio 25.92 Glucose 161.0 H Calcium 9.2 Total Bilirubin 0.2 AST 32 ALT 34 Alkaline Phosphatase 40 L Total Creatine Kinase 67 Troponin I < 0.012 Total Protein 6.4 Albumin 3.6 Globulin 2.8 Albumin/Globulin Ratio 1.29 Orders Category Date Time Status ABG DRAW REQUEST Stat CARDIO 03/30/18 18:20 Ordered EKG-(ED ONLY) Stat CARDIO 03/30/18 17:31 Completed EKG-(IP & OP ONLY) DAILY CARDIO 03/31/18 06:00 Ordered EKG-(IP & OP ONLY) DAILY CARDIO 04/01/18 06:00 Ordered EKG-(IP & OP ONLY) DAILY CARDIO 04/02/18 06:00 Ordered NEBULIZER TREATMENT Stat CARDIO 03/30/18 17:52 Ordered OXYGEN Routine CARDIO 03/30/18 18:27 Ordered ACTIVITY .Complete BR CARE 03/30/18 18:27 Ordered INTAKE & OUTPUT Q8HR CARE 03/30/18 18:27 Ordered INTAKE & OUTPUT Q8HR CARE 03/30/18 18:29 Ordered VITAL SIGNS Q8HR CARE 03/30/18 18:27 Ordered ABG Stat LAB 03/30/18 18:20 Ordered CBC W/ AUTO DIFF DAILY@0600 LAB 03/31/18 06:00 Ordered CBC W/ AUTO DIFF DAILY@0600 LAB 04/01/18 06:00 Ordered CBC W/ AUTO DIFF Stat LAB 03/30/18 17:25 Received COMPREHENSIVE METABOLIC PANEL DAILY@0600 LAB 03/31/18 06:00 Ordered COMPREHENSIVE METABOLIC PANEL DAILY@0600 LAB 04/01/18 06:00 Ordered COMPREHENSIVE METABOLIC PANEL Stat LAB 03/30/18 17:25 Received CREATINE KINASE Q8H LAB 03/31/18 00:30 Ordered CREATINE KINASE Q8H LAB 03/31/18 08:30 Ordered CREATINE KINASE Stat LAB 03/30/18 17:25 Received OCCULT BLOOD, STOOL Stat LAB 03/30/18 18:45 Uncollected PRO-BNP [NT-PROBNP] Stat LAB 03/30/18 Ordered PT WITH INR Stat LAB 03/31/18 07:00 Ordered TROPONIN I Q8H LAB 03/31/18 00:30 Ordered TROPONIN I Q8H LAB 03/31/18 08:30 Ordered TROPONIN I Stat LAB 03/30/18 17:25 Received Alprazolam [Xanax] MEDS 03/30/18 21:00 Ordered 0.5 mg PO BEDTIME Amlodipine Besylate [Norvasc] MEDS 03/31/18 09:00 Ordered 5 mg PO DAILY Aspirin [Aspirin Chewable] MEDS 03/31/18 08:00 Ordered 81 mg PO DAILYWM Ceftriaxone Sodium [Rocephin] 1 gm MEDS 03/30/18 18:30 Ordered 0.9 % Sodium Chloride [Sodium Chloride] 50 ml IV DAILY Cilostazol [Pletal] MEDS 03/30/18 21:00 Ordered 50 mg PO BID Ferrous Sulfate [Iron] MEDS 03/31/18 09:00 Ordered 325 mg PO DAILY Furosemide [Lasix Tab] MEDS 03/31/18 06:30 Ordered 40 mg PO QDAC Hydrocodone Bit/Acetaminophen [[place] 7.5-325] MEDS 03/30/18 18:29 Ordered 1 tab PO Q12H PRN Ipratropium/Albuterol Neb [Duoneb] MEDS 03/30/18 17:52 Discontinued 1 vial NEB ONCE STA Losartan Potassium MEDS 03/31/18 09:00 Ordered 50 mg PO DAILY Methylprednisolone Sod Succ/Pf [Solu-Medrol 125 mg] MEDS 03/30/18 18:21 Stat 125 mg IVP ONCE STA Methylprednisolone Sod Succ/Pf [Solu-Medrol 40 mg] MEDS 03/30/18 21:00 Ordered 40 mg IVP Q12HR Metoprolol Tartrate [Lopressor] MEDS 03/30/18 21:00 Ordered 50 mg PO BID Nitroglycerin [Nitro-Dur 0.6 mg/Hr] MEDS 03/31/18 09:00 Ordered 1 each TD DAILY Nitroglycerin [Nitrostat] MEDS 03/30/18 18:29 Ordered 0.4 mg SL PRN PRN Sodium Chloride 0.9% [Sodium Chloride] 1,000 ml MEDS 03/30/18 18:30 Ordered IV 75 mls/hr Sodium Polystyrene Sulfonate [Kayexalate Susp] MEDS 03/30/18 18:44 Stat 25 gm PO ONCE STA Warfarin Sodium [Coumadin] MEDS 03/31/18 17:00 Ordered 2 mg PO DAILY@1700 CT CHEST W/O CONTRAST Stat RADS 03/30/18 17:51 Taken Medications Generic Name Dose Route Start Last Admin Trade Name Freq PRN Reason Stop Dose Admin Hydrocodone Bitart/Acetaminophen 1 tab 03/30/18 18:29 [place] 7.5-325 PO Q12H PRN Analgesia Alprazolam 0.5 mg 03/30/18 21:00 Xanax PO BEDTIME [facility] Amlodipine Besylate 5 mg 03/31/18 09:00 Norvasc PO DAILY [facility] Aspirin 81 mg 03/31/18 08:00 Aspirin Chewable PO DAILYWM [facility] Cilostazol 50 mg 03/30/18 21:00 Pletal PO BID [facility] Furosemide 40 mg 03/31/18 06:30 Lasix Tab PO QDAC [facility] Ceftriaxone Sodium 1 gm/ 50 mls @ 75 mls/hr 03/30/18 18:30 Sodium Chloride IV DAILY [facility] Sodium Chloride 1,000 mls @ 75 mls/hr 03/30/18 18:30 Sodium Chloride IV .[id number] [facility] Methylprednisolone Sodium Succinate 40 mg 03/30/18 21:00 Solu-Medrol 40 Mg IVP Q12HR [facility] Metoprolol Tartrate 50 mg 03/30/18 21:00 Lopressor PO BID [facility] Nitroglycerin patch 03/31/18 09:00 Nitro-Dur 0.6 Mg/Hr TD DAILY [facility] Nitroglycerin 0.4 mg 03/30/18 18:29 Nitrostat SL PRN PRN Angina Non-Formulary Medication 325 mg 03/31/18 09:00 Ferrous Sulfate [Iron] PO DAILY [facility] Non-Formulary Medication 50 mg 03/31/18 09:00 Losartan Potassium PO DAILY [facility] Warfarin Sodium 2 mg 03/31/18 17:00 Coumadin PO DAILY@1700 [facility] Discontinued Medications Generic Name Dose Route Start Last Admin Trade Name Jalil PRN Reason Stop Dose Admin Albuterol/Ipratropium 1 vial 03/30/18 17:52 03/30/18 18:21 Duoneb NEB 03/30/18 17:53 1 vial ONCE STA Administration Methylprednisolone Sodium Succinate 125 mg 03/30/18 18:21 Solu-Medrol 125 Mg IVP 03/30/18 18:22 ONCE STA Sodium Polystyrene Sulfonate 25 gm 03/30/18 18:44 Kayexalate Susp PO 03/30/18 18:45 ONCE STA Vital Signs: Temp Pulse Resp BP Pulse Ox 03/30/18 17:00 98.2 F 60 22 166/53 H 96 Departure - Departure Time of Disposition: 19:00 Disposition: ADMITTED INPATIENT Discharge Problem: Hyperkalemia COPD (chronic obstructive pulmonary disease) Qualifiers: COPD type: unspecified COPD Qualified Code(s): J44.9 - Chronic obstructive pulmonary disease, unspecified Anemia Qualifiers: Anemia type: unspecified type Qualified Code(s): D64.9 - Anemia, unspecified Renal failure Qualifiers: Renal failure chronicity: chronic Instructions: COPD (Chronic Obstructive Pulmonary Disease) (ED) Condition: Good Pt referred to PMD for follow-up: Yes IPMP verified?: No Additional Instructions: Please call your Family Physician as soon as possible to schedule a follow-up appointment. Allergies/Adverse Reactions: Allergies hydralazine [Hydralazine] Adverse Reaction (Verified 03/30/18 17:05) insulin detemir [From Levemir] Adverse Reaction (Verified 03/30/18 17:05) Penicillins Adverse Reaction (Verified 03/30/18 17:05) Home Medications: Ambulatory Orders Cilostazol [Pletal] 50 mg PO BID 12/25/12 Insulin Glargine,Hum.rec.anlog [Lantus Solostar] 50 unit SQ BEDTIME 12/25/12 Nitroglycerin [Minitran] 1 each TD DAILY 12/25/12 Alprazolam [Xanax] 0.5 mg PO BEDTIME 02/07/17 Cholecalciferol (Vitamin D3) [Vitamin D3] 1,000 unit PO DAILY 06/03/17 Ferrous Sulfate [Iron] 325 mg PO DAILY 06/03/17 Hydrocodone Bit/Acetaminophen [[place] 7.5-325] 1 tab PO Q12H PRN 06/03/17 Metoprolol Tartrate [Lopressor] 50 mg PO BID 06/03/17 Amlodipine Besylate [Norvasc] 5 mg PO DAILY #30 tablet 06/09/17 Nitroglycerin [Nitrostat] 0.4 mg SL PRN PRN #50 tab.subl 07/28/17 Furosemide [Lasix Tab] 40 mg PO QDAC #30 tablet 10/02/17 Losartan Potassium [Cozaar] 50 mg PO DAILY #30 tablet 10/02/17 Sodium Bicarbonate 1,300 mg PO BID #120 tablet 10/02/17 Sodium Polystyrene Sulfonate [Kayexalate Susp] 25 gm PO ONCE #4 btl 10/02/17 Warfarin Sodium [Coumadin] 2 mg PO QPM #30 tablet 10/02/17 Aspirin [Aspirin Chewable] 81 mg PO DAILYWM 03/30/18 Disposition Discussed With: Patient, Family
--- NOTE | 2018-03-30 18:26 | CT ---
EXAM: CT of the chest without contrast. HISTORY: Cough. Shortness of breath. COMPARISON: 09/05/2017. TECHNIQUE: Contiguous axial as a 5 mm intervals obtained from lung apices to the upper abdomen. The study was performed without contrast. Sagittal and coronal reformats were reviewed. FINDINGS: Evaluation is limited without contrast. There is a left axillary graft which is likely e xtends to the pelvis. There are postoperative changes with median sternotomy wires. Heavy coronary artery calcifications are seen involving the left and right carotid arteries. The mitral valve and a ortic valve with her calcified. The heart is mildly enlarged. There are small bilateral effusions. Consolidation is seen. There is a small 3 mm subpleural nodule in the superior segment left lower lobe. There is a noncalcified nodule in the left lower lobe, fátima suring up to 4 mm as well. The airways are widely patent. The pulmonary interstitium is normal. Limited views of the upper abdomen are unremarkable. The aorta is heavily calcified. The gallbladder is absent. IMPRESSION: 1. Small right pleural effusion. No definite consolidation. 2. 4 mm noncalcified nodule left lower lobe. In the low risk patient, no further follow-up is neede d. In the high risk patient, consider 12-month follow-up. 3. Heavy coronary artery disease.
[2018-03-30] MEDS ORDERED: NITROSTAT SL PRN (18:29)
[2018-03-30] MEDS ORDERED: KAYEXALATE SUSP PO STA (18:44)
[2018-03-30] MEDS ORDERED: ROCEPHIN ONE (22:38)
[2018-03-30] MEDS: ROCEPHIN 1 GM in SODIUM CHLORIDE 50 ML IV SCH (22:46)
[2018-03-30] MEDS: SODIUM CHLORIDE 1,000 ML IV SCH (22:47)
[2018-03-30] MEDS: PLETAL PO SCH (22:47)
[2018-03-30] MEDS: XANAX PO SCH (22:47)
[2018-03-30] MEDS: LOPRESSOR PO SCH (22:47)
[2018-03-30] MEDS: SOLU-MEDROL 40 MG IVP SCH (22:48)
[2018-03-30] MEDS: HUMULIN R SUBCUT PRN (23:15)
[2018-03-31 00:20] VITALS: BMI 29.8
[2018-03-31] MEDS: LASIX TAB PO SCH (05:40)
[2018-03-31] MEDS: HUMULIN R SUBCUT PRN ×3 (06:38→17:21)
[2018-03-31] MEDS: NORCO 7.5-325 PO PRN ×2 (06:38→21:17)
[2018-03-31] MEDS ORDERED: NON-FORMULARY MEDICATION (Losartan Potassium 50 MG) PO SCH (09:00)
[2018-03-31] MEDS ORDERED: NON-FORMULARY MEDICATION (Ferrous Sulfate [Iron] 325 MG) PO SCH (09:00)
[2018-03-31] MEDS: ROCEPHIN 1 GM in SODIUM CHLORIDE 50 ML IV SCH (09:19)
[2018-03-31] MEDS: NITRO DUR TD SCH (09:24)
[2018-03-31] MEDS: ASPIRIN CHEWABLE PO SCH (09:26)
[2018-03-31] MEDS: COZAAR PO SCH (09:27)
[2018-03-31] MEDS: PLETAL PO SCH ×2 (09:28→21:18)
[2018-03-31] MEDS: LOPRESSOR PO SCH ×2 (09:28→21:18)
[2018-03-31] MEDS: FERROUS SULFATE PO SCH (09:28)
[2018-03-31] MEDS: NORVASC PO SCH (09:28)
--- NOTE | 2018-03-31 09:56 | PCM.PROG ---
Attending Provider: ATTENDING PROVIDER: Dr. NADYA GARCIA DATE OF SERVICE: 03/31/18 SUBJECTIVE: This 88 year old WHITE/ F was hospitalized 03/30/18 with multiple nonspecific complaints as usual. The patient has swelling of the legs and shortness of breath. On further workup, the patient had severe anemia with shortness of breath and fatigue. He was given 2 units of PRBCs. CBC pending. Potassium 5.6 and was given Kayexalate 25 gm in ER. Electrolyte reports are pending. The patient has chronic kidney disease, Stage 3 or 4. REVIEW OF SYSTEMS: CONSTITUTIONAL: No night sweats. No fatigue, malaise, lethargy. No fever or chills. HEENT: Eyes: No visual changes. No eye pain. No eye discharge. ENT: No runny nose. No epistaxis. No sinus pain. No odynophagia. No congestion. RESPIRATORY: No cough, no congestion. No hemoptysis. No shortness of breath. CARDIOVASCULAR: No angina symptoms. No CHF symptoms or symptoms of coronary insufficiency. No atypical chest pain for CAD. No palpitations. No orthopnea. GASTROINTESTINAL: No abdominal pain. No nausea or vomiting. No diarrhea or constipation. No hematemesis. No hematochezia. GENITOURINARY: No urgency. No frequency. No dysuria. No hematuria. No obstructive symptoms. No discharge. No pain. No significant abnormal bleeding. MUSCULOSKELETAL: No musculoskeletal pain; no joint swelling. NEUROLOGICAL: Awake, alert, oriented to time, place and person. No headache. No neck pain. No syncope. No seizures. No dizziness. PSYCHIATRIC: Not anxious. No depression. No suicidal thoughts. No homicidal thoughts. SKIN: No rash. No lesions. No wounds. ENDOCRINE: No unexplained weight loss. No weight gain. HEMATOLOGIC/LYMPHATIC: No anemia. No purpura. No petechiae. No prolonged or excessive bleeding. No palpable lymph nodes. PHYSICAL EXAMINATION: GENERAL: The patient is awake, alert and oriented, lying in bed in no distress. VITAL SIGNS: Temperature 98.0 F, Pulse 67, Respiratory Rate 20, BP 166/71, Pulse Ox 98% HEENT: Head normocephalic, atraumatic. Eyes: Extraocular muscles are intact. Pupils are equal, round and reactive to light and accommodation. Ears: No lesions. Nose appeared normal. Throat: No exudate or erythema. NECK: Supple. No JVD, no carotid bruit. No lymphadenopathy or thyromegaly. LUNGS: Clear to auscultation. Percussion note normal. Chest symmetrical. HEART: S1, S2, no S3. No murmurs. No cyanosis or clubbing. No ascites. Pulses: Dorsalis pedis and posterior tibial pulses +1 to +2 both sides. ABDOMEN: Soft. Non-tender. Bowel sounds active. No CVA tenderness. No mass felt. EXTREMITIES: No edema. Full range of motion of all extremities, equal. NEUROLOGIC: No focal deficit. Cranial nerves II through XII are grossly intact. No headache, no double vision or headache. SKIN: Warm and dry. Intact. Turgor-normal. LYMPHATIC: No palpable lymph nodes/no lymphedema. MUSCULOSKELETAL: Normal joints with no swelling. Muscle tone is normal. LAB REVIEW: 03/30/18 17:25 03/30/18 17:25 03/30/18 19:48: Blood Type A POSITIVE, Antibody Screen Negative, Crossmatch (AHG ) See Detail 03/30/18 19:30: Stl Occult Blood (IFOB) Negative, Stool Occult Blood #2 Negative , Stool Occult Blood #3 03/30/18 17:35: NT-Pro-B Natriuret Pep 1290 H 03/30/18 17:25: Sodium 141, Potassium 5.67 H, Chloride 113 H, Carbon Dioxide 22.0, Anion Gap 11.67, BUN 49 H, Creatinine 1.89 H, Estimated GFR (MDRD) 25.00, BUN/Creatinine Ratio 25.92, Glucose 161.0 H, Calcium 9.2, Total Bilirubin 0.2, AST 32, ALT 34, Alkaline Phosphatase 40 L, Total Creatine Kinase 67, Troponin I < 0.012, Total Protein 6.4, Albumin 3.6, Globulin 2.8, Albumin/Globulin Ratio 1.29 03/30/18 17:25: WBC 11.68 H, RBC 2.51 L, Hgb 7.6 L, Hct 25.0 L, MCV 99.6 H, MCH 30.3, MCHC 30.4 L, RDW Coeff of Kerrie 14.8, Plt Count 236, Immature Gran % (Auto) 0.4, Neut % (Auto) 48.5, Lymph % (Auto) 45.8, [place] % (Auto) 4.3, Eos % (Auto) 0.7, Baso % (Auto) 0.3, Immature Gran # (Auto) 0.1, Neut # (Auto) 5.7, Lymph # ( Auto) 5.4 H, [place] # (Auto) 0.5, Eos # (Auto) 0.1, Baso # (Auto) 0.0 ASSESSMENT: 1. Hyperkalemia 2. Anemia, severe 3. CKD, Stage 3 4. CHF 5. Many other medical conditions PLAN: 1. Monitor CBC and CMP 2. Lantus 50 units if over 200 fasting 3. CBC with diff Plan and coordination of the patient's care discussed in the presence of Frame Stripper And Crusher and nurse. CONDITION: Stable SCRIBED BY: RAE HILL Makeup Artistry Instructor scribed while in presence of service performed by Dr. NADYA GARCIA on 03/31/18 ([id number])
[2018-03-31] MEDS: SOLU-MEDROL 40 MG IVP SCH ×2 (10:34→21:17)
--- NOTE | 2018-03-31 13:12 | RS.PTINEVL ---
Subjective - Patient information Date of Evaluation: 03/31/18 Date of Arrival on Unit: 03/30/18 Admitted From:: Home Diagnosis: hypokalemia, anemia, COPD Usual Living Arrangement: Alone Home Environment: House, Stairs (few), Rail Medical History: Hypertension, COPD, Diabetes, CHF Medical History Comments:: CAD, chronic lung disease, CKD, LATEX ALLERGY?: No Surgical History: Hysterectomy, CABG Surgical History Comments:: appey, artificial aorta, Medications: see chart Subjective Information/ Patient Comments:: pt states that she has been feeling so weak lately. pt reports she does feel a bit better since blood transfusions. 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 Range of Motion - ROM Right Upper Extremity AROM: WFL's Left Upper Extremity AROM: WFL's Right Lower Extremity AROM: WFL's Left Lower Extremity AROM: WFL's Muscle Strength - Muscle Strength Right Upper Extremity Strength: Mild Weakness (grossly 4-/5) Left Upper Extremity Strength: Mild Weakness (grossly 4-/5) Right Lower Extremity Strength: Mild Weakness (hip flex 3+/5, knee flex/ext 4-/5 , ankle Df/PF 4-/5) Left Lower Extremity Strength: Mild Weakness (hip flex 3+/5, knee flex/ext 4-/5 , ankle Df/PF 4-/5) Sensation - Sensation Right Upper Extremity Sensation: Intact/Normal Left Upper Extremity Sensation: Intact/Normal Right Lower Extremity Sensation: Intact/Normal Left Lower Extremity Sensation: Intact/Normal Palpation Palpation Findings: Tenderness Comments:: BLE Balance - Sitting Balance and Reactions Static Sitting Balance: Good Dynamic Sitting Balance: Fair Sitting Equilibrium Reactions: Delayed Left, Delayed Right Sitting Protective Reactions: Delayed Left, Delayed Right - Standing Balance and Reactions Static Standing Balance: Poor Dynamic Standing Balance: Poor Standing Equilibrium Reactions: Delayed Left, Delayed Right Standing Protective Reactions: Delayed Left, Delayed Right Functional Mobility - Bed Mobility Rolling R/L: Min Assist Scooting: Min Assist Supine to Sit: CGA, Min Assist - Transfers Sit to Stand: CGA Stand to Sit: CGA - Safety Awareness Safety Awareness: Good ROMEO INDEX SCORE: n/a Ambulation - Ambulation Assistive Device Used: Rolling Walker Orthotic/Prosthetic Device: No Distance: 80ft Assistance needed with Ambulation: CGA Gait Deviations: Forward posture, Short stride Ambulation Comments: pt amb with O2 with flexed posture, decreased step length, required 1 standing rest period. Factors Affecting Ambulation: Decreased Balance, Breathing/O2 Saturation, Weakness, Decreased Coordination, Decreased Safety, Limited Endurance Treatment time - Time with patient Length of Evaluation: 24 Total treatment time: 26 Patient Education - Education Patient Education: Activity Modification, Education of Plan of Care Teaching Recipient: Patient Teaching Methods: Discussion Comments: discussion regarding POC as well as safety regarding gait and transfers Assessment - Assessment Problem List:: Decreased level of function, Requires training/education, Decreased safety/Risk of falls, Weakness Rehab Potential: Good Further Therapy Indicated?: Yes Candidate for Swing Bed for Therapy Services?: pt may be a candidate for swing bed depending on functional status at time of dc. Evaluation Complexity: HISTORY: Medium (COPD, CHF, DM, CKD, anemia), EXAM OF BODY SYSTEMS: Medium (strength, balance, gait, posture, transfers, SOA), CLINICAL PRESENTATION: Medium, CLINICAL DECISION MAKING: Medium Short Term Goals GOAL #1: pt demonstrate independence with rolling and scooting up in bed. Goal to be met by: 04/03/18 GOAL #2: pt transfer sup to/from sit to/from stand CGA to SBA Goal to be met by: 04/03/18 GOAL #3: pt amb 100ft with rwx with CGA to SBA with no LOB Goal to be met by: 04/03/18 GOAL #4: Improve BLE strength 4 to 4+/5 Goal to be met by: 04/03/18 Senior Care Goals GOAL #1: pt transfer sup to/from sit to/from stand independently Goal to be met by: 04/07/18 GOAL #2: pt amb functional household distances with rwx with SBA to I with no LOB Goal to be met by: 04/07/18 GOAL #3: Ascend/descend 5 steps with 2 handrails with CGA Goal to be met by: 04/07/18 Plan Plan of Care: Therapeutic EX, Therapeutic Activity Other:: gait training Frequency of Treatment: 1-2 X day, as tolerated Duration of Treatment: 1 Week Anticipated Discharge Destination: Home Treatment Diagnosis (ICD 10 Codes): difficulty walking R26.2. risk for falls Z91.81. weakness M62.81 Has the Physician been added for Co-signature?: Yes
[2018-03-31] MEDS: COUMADIN PO SCH (16:57)
[2018-03-31] MEDS: XANAX PO SCH (21:18)
[2018-03-31] MEDS: LANTUS SUBCUT SCH (21:19)
[2018-04-01] MEDS: LASIX TAB PO SCH (05:43)
[2018-04-01] MEDS: HUMULIN R SUBCUT PRN ×4 (07:08→21:53)
[2018-04-01] MEDS: PLETAL PO SCH ×2 (08:45→20:40)
[2018-04-01] MEDS: NITRO DUR TD SCH (08:46)
[2018-04-01] MEDS: ROCEPHIN 1 GM in SODIUM CHLORIDE 50 ML IV SCH (08:47)
[2018-04-01] MEDS: SOLU-MEDROL 40 MG IVP SCH ×2 (08:47→21:08)
[2018-04-01] MEDS: ASPIRIN CHEWABLE PO SCH (08:48)
[2018-04-01] MEDS: FERROUS SULFATE PO SCH (08:49)
[2018-04-01] MEDS: LOPRESSOR PO SCH ×2 (08:49→20:41)
[2018-04-01] MEDS: NORVASC PO SCH (08:49)
[2018-04-01] MEDS: COZAAR PO SCH (08:49)
--- NOTE | 2018-04-01 09:16 | PCM.PROG ---
Attending Provider: ATTENDING PROVIDER: Dr. NADYA GARCIA This patient is seen with Zahra Mo, Nurse Practitioner. DATE OF SERVICE: 04/01/18 SUBJECTIVE: This 88 year old WHITE/ F was hospitalized 03/30/18. The patient is sitting in chair alert. Her right arm is edematous. Kidney function slightly paul from yesterday. Hemoglobin has improved. REVIEW OF SYSTEMS: CONSTITUTIONAL: Weakness. No night sweats. No malaise, lethargy. No fever or chills. HEENT: Eyes: No visual changes. No eye pain. No eye discharge. ENT: No runny nose. No epistaxis. No sinus pain. No odynophagia. No congestion. RESPIRATORY: No cough, no congestion. No hemoptysis. No shortness of breath. CARDIOVASCULAR: No angina symptoms. No CHF symptoms. No atypical chest pain for CAD. No palpitations. No orthopnea.. Right arm edema. Leg edema. GASTROINTESTINAL: No abdominal pain. No nausea or vomiting. No diarrhea or constipation. No hematemesis. No hematochezia. GENITOURINARY: No urgency. No frequency. No dysuria. No hematuria. No obstructive symptoms. No discharge. No pain. No significant abnormal bleeding. MUSCULOSKELETAL: No musculoskeletal pain; no joint swelling. NEUROLOGICAL: Awake, alert, oriented to time, place and person. No headache. No neck pain. No syncope. No seizures. No dizziness. PSYCHIATRIC: Not anxious. No depression. No suicidal thoughts. No homicidal thoughts. SKIN: No rash. No lesions. No wounds. ENDOCRINE: No unexplained weight loss. No weight gain. HEMATOLOGIC/LYMPHATIC: Anemia. No purpura. No petechiae. No prolonged or excessive bleeding. No palpable lymph nodes. PHYSICAL EXAMINATION: GENERAL: The patient is awake, alert and oriented, sitting in chair in no distress. VITAL SIGNS: Temperature 98.1 F, Pulse 61, Respiratory Rate 20, BP 162/65, Pulse Ox 98% HEENT: Head normocephalic, atraumatic. Eyes: Extraocular muscles are intact. Pupils are equal, round and reactive to light and accommodation. Ears: No lesions. Nose appeared normal. Throat: No exudate or erythema. NECK: Supple. No JVD, no carotid bruit. No lymphadenopathy or thyromegaly. LUNGS: Diminished breath sounds. Clear to auscultation. Percussion note normal. Chest symmetrical. HEART: S1, S2, no S3. No murmurs. No cyanosis or clubbing. No ascites. Pulses: Dorsalis pedis and posterior tibial pulses +1 to +2 both sides. ABDOMEN: Soft. Non-tender. Bowel sounds active. No CVA tenderness. No mass felt. EXTREMITIES: 1+ edema right arm and bilateral lower extremities. Slight erythema to right hand. Full range of motion of all extremities, equal. NEUROLOGIC: No focal deficit. Cranial nerves II through XII are grossly intact. No headache, no double vision or headache. SKIN: Not dry. Intact. Turgor-normal. LYMPHATIC: No palpable lymph nodes/no lymphedema. MUSCULOSKELETAL: Normal joints with no swelling. Muscle tone is normal. LAB REVIEW: 04/01/18 05:30 04/01/18 05:30 04/01/18 05:30: PT 26.2 H D, INR 2.70 04/01/18 05:30: Sodium 136.6 L, Potassium 4.89, Chloride 111.3 H, Carbon Dioxide 22.0, Anion Gap 8.19, BUN 55.6 H, Creatinine 1.63 H, Estimated GFR (MDRD ) 30.00, BUN/Creatinine Ratio 34.11, Glucose 150.6 H, Calcium 8.20 L, Total Bilirubin 0.34, AST 20.4, ALT 22.5, Alkaline Phosphatase 32.7 L, Total Protein 5.50 L, Albumin 3.30 L, Globulin 2.20, Albumin/Globulin Ratio 1.50 04/01/18 05:30: WBC 15.17 H, RBC 3.30 L, Hgb 10.0 L, Hct 30.7 L, MCV 93.0, MCH 30.3, MCHC 32.6, RDW Coeff of Kerrie 14.5, Plt Count 194, Immature Gran % (Auto) 0.3, Neut % (Auto) 64.4, Lymph % (Auto) 33.9, [place] % (Auto) 1.3, Eos % (Auto) 0.0, Baso % (Auto) 0.1, Immature Gran # (Auto) 0.1, Neut # (Auto) 9.8 H, Lymph # (Auto) 5.2 H, [place] # (Auto) 0.2 L, Eos # (Auto) 0.0, Baso # (Auto) 0.0 03/31/18 16:10: Total Creatine Kinase 84.3, Troponin I < 0.012 03/31/18 08:00: WBC 10.87 H, RBC 3.65 L, Hgb 11.1 L D, Hct 34.0 L D, MCV 93.2 D , MCH 30.4, MCHC 32.6, RDW Coeff of Kerrie 14.2, Plt Count 203, Immature Gran % ( Auto) 0.6, Neut % (Auto) 52.8, Lymph % (Auto) 46.0, [place] % (Auto) 0.5, Eos % ( Auto) 0.0, Baso % (Auto) 0.1, Immature Gran # (Auto) 0.1, Neut # (Auto) 5.7, Lymph # (Auto) 5.0 H, [place] # (Auto) 0.1 L, Eos # (Auto) 0.0, Baso # (Auto) 0.0 03/31/18 08:00: Sodium 142, Potassium 4.84, Chloride 115 H, Carbon Dioxide 20.9 L, Anion Gap 10.94, BUN 44 H, Creatinine 1.54 H, Estimated GFR (MDRD) 32.00, BUN /Creatinine Ratio 28.57, Glucose 159.5 H, Calcium 8.6, Total Bilirubin 0.4, AST 23, ALT 31, Alkaline Phosphatase 42 L, Total Creatine Kinase 80, Troponin I < 0.012, Total Protein 6.3, Albumin 3.5, Globulin 2.8, Albumin/Globulin Ratio 1.25 03/31/18 08:00: PT 20.7 H, INR 2.12 03/30/18 19:30: Stool Occult Blood #3 No specimen received ASSESSMENT: 1. Hyperkalemia improved 2. Anemia, severe improved 3. CKD, Stage 3 4. CHF 5. Many other medical conditions PLAN: 1. Hold Coumadin 2. Elevate right arm and legs Plan and coordination of the patient's care discussed in the presence of Phosphorus Processing Supervisor and nurse. CONDITION: Stable SCRIBED BY: REA HILL Invertebrate Paleontologist scribed while in presence of service performed by Dr. Garcia/Zahra Mo APRN on 04/01/18 ([id number])
--- NOTE | 2018-04-01 10:17 | RS.OTINEVL ---
Subjective - Patient information Date of Evaluation: 04/01/18 Date of Arrival on Unit: 03/30/18 Admitted From:: Home Usual Living Arrangement: Alone Living Arrangement Comments: Pt lives in a mobile home next to her brother. Pt does drive some. Pt gets her own groceries. Pt does have a house keeper come once a week. Home Environment: House, Stairs (few), Rail Medical History: Hypertension, COPD, Diabetes, CHF Medical History Comments:: CAD, chronic lung disease, CKD, LATEX ALLERGY?: No Surgical History: Hysterectomy, CABG Surgical History Comments:: appey, artificial aorta, Medications: see chart Subjective Information/ Patient Comments:: "i just get so short of breath. 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 Pt has a cane too. Pt drives her car to the store to grocery shop. 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 Pt does her cooking. Current Equipment Used at Home: rollator and cane Interventions - Objective Patient Orientation: Person, Place, Time, Situation Current Interventions: IV's, Oxygen, Telemetry Observation: Pt is weak and has edema of the RUE. Pt is short of breath with activity. Pt is CGA for functional transfers. Interventions - ROM Right Upper Extremity AROM: Slight limitation Left Upper Extremity AROM: WFL's - Strength Right Upper Extremity Strength: Mild Weakness Left Upper Extremity Strength: Mild Weakness - Sensation Right Upper Extremity Sensation: Intact/Normal Left Upper Extremity Sensation: Intact/Normal Balance - Sitting Balance Static Sitting Balance: Good Dynamic Sitting Balance: Good - Standing Balance Static Standing Balance: Fair Dynamic Standing Balance: Fair - Comments Balance Assessment Comments: Fair ADL Skills - Self Feeding Self Feeding: Independent - Grooming Grooming: Supervision - Bathing Bathing UE: Supervision Bathing LE: Min Assist - Dressing Dressing UE: Supervision Dressing LE: Min Assist - Toilet Management Toileting Management: Supervision Functional Mobility - Bed Mobility Rolling R/L: Independent Scooting: Supervision Supine to Sit: Independent Sit to Supine: Independent - Transfers Sit to Stand: CGA Stand to Sit: CGA Stand Pivot Transfers: CGA - Ambulation Weight Bearing Status: FWB Assistive Device Used: Rolling Walker Assistance needed with Ambulation: Min Assist Comments:: Pt requires minimal assistance due to Oxygen tank. - Safety Awareness Safety Awareness: Fair ROMEO INDEX SCORE: . Additional Treatment Performed - Time with patient Length of Evaluation: 28 Total treatment time: 28 Activities Patient Interests:: Watching Television Patient Education Patient Education: Education of diagnosis, Home Safety, Education of Plan of Care Teaching Methods: Teach Back Method Used, Discussion Assessment Problem List:: Decreased level of function, Decreased safety/Risk of falls, Weakness Rehab Potential: Good Further Therapy Indicated?: Yes Evaluation Complexity: HISTORY: Medium, EXAM OF BODY SYSTEMS: Medium, CLINICAL DECISION MAKING: Medium Short Term Goals - Goals GOAL 1: Pt to tolerate standing activity for balance and ADLS 10 minutes. Goal to be met by: 04/06/18 GOAL 2: Pt to tolerate sink level ADLS. Goal to be met by: 04/06/18 GOAL 3: Pt to be independent with Home exercise program. Goal to be met by: 04/06/18 Alf Goals GOAL 1: Pt to tolerate standing activity for balance and ADLS 15 minutes. Goal to be met by: 04/10/18 GOAL 2: Pt to be independent with ADLs. Goal to be met by: 04/10/18 GOAL 3: Pt to be independent with home exercise program. Goal to be met by: 04/10/18 Plan Plan of Care: Therapeutic EX, Neuromuscular Re-Educ, Therapeutic Activity, Self- Care/Home Management Frequency of Treatment: 1-2 X day, as tolerated Duration of Treatment: 2 Weeks Anticipated Discharge Destination: Home Treatment Diagnosis (ICD 10 Codes): Muscle Weakness M62.81 Has the Physician been added for Co-signature?: Yes
--- NOTE | 2018-04-01 14:22 | PN ---
DATE OF SERVICE: 03/30/18 (The patient was seen and examined in her room 112) SUBJECTIVE: This 88-year-old white female hospitalized with multiple complaints practically nonspecific. She complains of leg edema on the right side more than left. On further workup, the patient had hemoglobin 7.6. She was short of breath with symptomatic anemia. She also had difficulty walking with fatigue lately. I think also related to her worsening of congestive heart failure and also severe anemia. The last hemoglobin was 10 with hematocrit of 30. No evidence of active GI bleed. PHYSICAL EXAMINATION: V/S: Temperature 98.2, pulse 60, respiratory rate 22, BP 166/50, pulse ox 96% with 2L. She looks pale. HEENT: Head normocephalic, atraumatic. Eyes: Extraocular muscles are intact. Pupils are equal, round and reactive to light and accommodation. Ears: No lesions. Nose appeared normal. Throat: No exudate or erythema. NECK: Supple. No JVD, no carotid bruit. No lymphadenopathy or thyromegaly. LUNGS: Decreased breath sounds but clear to auscultation. Percussion note normal. Chest symmetrical. HEART: S1, S2, no S3. No murmurs. No cyanosis or clubbing. No ascites. Pulses: Dorsalis pedis and posterior tibial pulses +1 to +2 both sides. ABDOMEN: Soft. Nontender. Bowel sounds active. No CVA tenderness. No mass felt. EXTREMITIES: Right-sided edema noted. Full range of motion of all extremities , equal. NEUROLOGIC: No focal deficit. Cranial nerves II through XII are grossly intact. No headache, no double vision or headache. SKIN: Not dry. Intact. Turgor - normal. LYMPHATIC: No palpable lymph nodes/no lymphedema. MUSCULOSKELETAL: Normal joints with no swelling. Muscle tone is normal. LABS: The patient has potassium of 5.6, Kayexalate one dose given. PLAN: 1. Daily CBC, CMP to be done 2. Type and crossmatch and transfuse 3. Watch for fluid overload 4. Telemetry CONDITION: Stable TIME SPENT: More than 30 minutes. Plan and coordination of the patient's care discussed in the presence of nurse. BRIGHT
--- NOTE | 2018-04-01 14:29 | PN ---
DATE OF SERVICE: 04/01/18 SUBJECTIVE: The patient was seen and examined with the nurse practitioner. The patient's hypokalemia has resolved. She is feeling better. Her hemoglobin and hematocrit stable. No evidence of active GI bleed. CONDITION: Stable TIME SPENT: More than 30 minutes. Plan and coordination of the patient's care discussed in the presence of nurse. BRIGHT
[2018-04-01] MEDS: SODIUM CHLORIDE 1,000 ML IV SCH (16:35)
[2018-04-01] MEDS: XANAX PO SCH (20:42)
[2018-04-01] MEDS: LANTUS SUBCUT SCH (20:45)
[2018-04-01] MEDS: NORCO 7.5-325 PO PRN (20:49)
[2018-04-02] MEDS: LASIX TAB PO SCH (06:20)
[2018-04-02] MEDS ORDERED: SODIUM CHLORIDE 1,000 ML IV SCH (08:30)
[2018-04-02] MEDS: SOLU-MEDROL 40 MG IVP SCH ×2 (08:40→20:15)
[2018-04-02] MEDS: NITRO DUR TD SCH (08:44)
[2018-04-02] MEDS: COZAAR PO SCH (08:45)
[2018-04-02] MEDS: ASPIRIN CHEWABLE PO SCH (08:45)
[2018-04-02] MEDS: FERROUS SULFATE PO SCH (08:45)
[2018-04-02] MEDS: PLETAL PO SCH ×2 (08:45→20:16)
[2018-04-02] MEDS: NORVASC PO SCH (08:45)
[2018-04-02] MEDS: LOPRESSOR PO SCH ×2 (08:46→20:16)
[2018-04-02] MEDS: ROCEPHIN 1 GM in SODIUM CHLORIDE 50 ML IV SCH (08:46)
--- NOTE | 2018-04-02 10:08 | PCM.PROG ---
Attending Provider: ATTENDING PROVIDER: Dr. NADYA GARCIA This patient is seen with Zahra Mo, Nurse Practitioner. DATE OF SERVICE: 04/02/18 SUBJECTIVE: This 88 year old WHITE/ F was hospitalized 03/30/18. The patient is sitting in chair, resting comfortably. She had diarrhea times two last night. Right arm edema improved. Improved leg edema, stable. BUN and creatinine more elevated this morning. REVIEW OF SYSTEMS: CONSTITUTIONAL: Weakness. No night sweats. No malaise, lethargy. No fever or chills. HEENT: Eyes: No visual changes. No eye pain. No eye discharge. ENT: No runny nose. No epistaxis. No sinus pain. No odynophagia. No congestion. RESPIRATORY: No cough, no congestion. No hemoptysis. No shortness of breath. CARDIOVASCULAR: No angina symptoms. No CHF symptoms. No atypical chest pain for CAD. No palpitations. No orthopnea. Right arm edema, leg edema. GASTROINTESTINAL: No abdominal pain. No nausea or vomiting. No diarrhea or constipation. No hematemesis. No hematochezia. GENITOURINARY: No urgency. No frequency. No dysuria. No hematuria. No obstructive symptoms. No discharge. No pain. No significant abnormal bleeding. MUSCULOSKELETAL: No musculoskeletal pain; no joint swelling. NEUROLOGICAL: Awake, alert, oriented to time, place and person. No headache. No neck pain. No syncope. No seizures. No dizziness. PSYCHIATRIC: Not anxious. No depression. No suicidal thoughts. No homicidal thoughts. SKIN: No rash. No lesions. No wounds. ENDOCRINE: No unexplained weight loss. No weight gain. HEMATOLOGIC/LYMPHATIC: No anemia. No purpura. No petechiae. No prolonged or excessive bleeding. No palpable lymph nodes. PHYSICAL EXAMINATION: GENERAL: The patient is awake, alert and oriented, sitting in chair in no distress. VITAL SIGNS: Temperature 97.9 F, Pulse 51, Respiratory Rate 20, BP 141/58, Pulse Ox 99% HEENT: Head normocephalic, atraumatic. Eyes: Extraocular muscles are intact. Pupils are equal, round and reactive to light and accommodation. Ears: No lesions. Nose appeared normal. Throat: No exudate or erythema. NECK: Supple. No JVD, no carotid bruit. No lymphadenopathy or thyromegaly. LUNGS: Clear to auscultation. Percussion note normal. Chest symmetrical. HEART: S1, S2, no S3. Grade I/ murmur. No cyanosis or clubbing. No ascites. Pulses: Dorsalis pedis and posterior tibial pulses +1 to +2 both sides. ABDOMEN: Soft. Non-tender. Bowel sounds active. No CVA tenderness. No mass felt. EXTREMITIES: Trace leg edema, trace right arm edema with improved erythema. Full range of motion of all extremities, equal. NEUROLOGIC: No focal deficit. Cranial nerves II through XII are grossly intact. No headache, no double vision or headache. SKIN: Not dry. Intact. Turgor-normal. LYMPHATIC: No palpable lymph nodes/no lymphedema. MUSCULOSKELETAL: Normal joints with no swelling. Muscle tone is normal. LAB REVIEW: 04/02/18 04:30 04/02/18 04:30 04/02/18 04:30: PT 24.6 H, INR 2.53 04/02/18 04:30: Sodium 138.5, Potassium 4.87, Chloride 112.3 H, Carbon Dioxide 20.8 L, Anion Gap 10.27, BUN 70.1 H*, Creatinine 1.77 H, Estimated GFR (MDRD) 27.00, BUN/Creatinine Ratio 39.60, Glucose 98.2 D, Calcium 8.11 L, Total Bilirubin 0.16 L, AST 18.7, ALT 22.5, Alkaline Phosphatase 26.9 L, Total Protein 5.44 L, Albumin 2.97 L, Globulin 2.47, Albumin/Globulin Ratio 1.20 04/02/18 04:30: WBC 15.92 H, RBC 3.19 L, Hgb 9.8 L, Hct 30.3 L, MCV 95.0, MCH 30.7, MCHC 32.3, RDW Coeff of Kerrie 14.4, Plt Count 192 04/02/18 00:42: Urine Color Yellow, Urine Clarity Clear, Urine pH 5.0, Ur Specific Cecil 1.020, Urine Protein 2+, Urine Glucose (UA) Negative, Urine Ketones Negative, Urine Blood Trace-lysed, Urine Nitrite Negative, Urine Bilirubin Negative, Urine Urobilinogen 0.2, Ur Leukocyte Esterase Negative, Urine Microscopic RBC 10-20, Urine Microscopic WBC 10-20, Ur Squamous Epith Cells 5-10, Urine Bacteria Trace, Hyaline Casts 2-5 ASSESSMENT: 1. Hyperkalemia improved 2. Anemia, severe improved 3. CKD, Stage 3 4. CHF 5. Many other medical conditions PLAN: 1. Give Coumadin today 2. NS 75 mL/hr times one Liter 3. Notify Zhara Mo APRN if the patient has diarrhea today 4. Ejection fraction 20%. The patient had echocardiogram last May Plan and coordination of the patient's care discussed in the presence of Condenser Setter and nurse. CONDITION: Stable SCRIBED BY: REA HILL Speech Lang Path scribed while in presence of service performed by Dr. Garcia/Zahra Mo APRN on 04/02/18 ([id number])
--- NOTE | 2018-04-02 11:26 | HP ---
DATE OF SERVICE: 03/31/18 HISTORY OF PRESENT ILLNESS: This is an 88-year-old female who presented to the emergency room complaining of shortness of breath. She had worsening swelling in her legs and on her right arm for the past couple of days. She has a history of chronic kidney failure. 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 No night sweats. No lethargy. No fever or chills. HEENT: Eyes: No visual changes. No eye pain. No eye discharge. ENT: No runny nose. No epistaxis. No sinus pain. No sore throat. No odynophagia. No ear pain. No congestion. RESPIRATORY: No cough, no congestion. No hemoptysis. Positive for shortness of breath. CARDIOVASCULAR: No angina symptoms. No CHF symptoms. No atypical chest pain for CAD. No palpitations. No PND. No orthopnea. GASTROINTESTINAL: No abdominal pain. No nausea or vomiting. No diarrhea or constipation. No hematemesis. No hematochezia. GENITOURINARY: No urgency. No frequency. No dysuria. No hematuria. No obstructive symptoms. No discharge. No pain. No significant abnormal bleeding. MUSCULOSKELETAL: No musculoskeletal pain. No joint swelling. No arthritis. NEUROLOGICAL: No headache. No neck pain. No syncope. No seizures. No dizziness. PSYCHIATRIC: Not anxious. No depression. No suicidal thoughts. No homicidal thoughts. SKIN: No rash. No lesions. No wounds. ENDOCRINE: No unexplained weight loss. No weight gain. HEMATOLOGIC/LYMPHATIC: No anemia. No purpura. No petechiae. No prolonged or excessive bleeding. No palpable lymph nodes. PERSONAL/FAMILY/SOCIAL HISTORY: The patient is a former smoker. No alcohol or ilicit drug use. MEDICATIONS: (HOME) Lantus 50 unit SQ bedtime Minitran one each TD daily Pletal 50 mg p.o. b.i.d. Xanax 0.5 mg p.o. bedtime Lopressor 50 mg p.o. b.i.d. Ferrous Sulfate 325 mg p.o. daily Hydrocodone/Bit Acetaminophen one tab p.o. q.12h p.r.n. Cholecalciferol 1,000 unit p.o. daily Norvasc 5 mg p.o. daily Nitrostat 0.4 mg SL p.r.n. Cozaar 50 mg p.o. daily Kayexalate 25 gm p.o. once Warfarin 2 mg p.o. q.p.m. Sodium bicarbonate 1,300 mg p.o. b.i.d. Furosemide 40 mg p.o. q.d a.c. Aspirin 81 mg p.o. daily with meal ALLERGIES: PENICILLINS, HYDRALAZINE, INSULIN DETEMIR PHYSICAL EXAMINATION: VITAL SIGNS: Temperature 98.2, heart rate 60, respirations 22, BP 166/53, pulse ox 96%. HEENT: Pallor positive. Head normocephalic, atraumatic. Eyes: Extraocular muscles are intact. Pupils are equal, round and reactive to light and accommodation. Ears: No lesions. Nose appeared normal. Throat: No exudate or erythema. NECK: Supple. No JVD, no carotid bruit. No lymphadenopathy or thyromegaly. LUNGS: Dimnished breath sounds bilaterally. Clear to auscultation. Percussion note normal. Chest symmetrical. No respiratory distress. HEART: S1, S2, no S3. No murmurs. No cyanosis or clubbing. No ascites. Pulses: Dorsalis pedis and posterior tibial pulses +1 to +2 bilaterally. ABDOMEN: Soft. Nontender. Bowel sounds active. No CVA tenderness. No mass felt. EXTREMITIES: +2 bilateral lower extremity edema. Generalized swelling of the right upper extremity. Full range of motion of all extremities, equal. NEUROLOGIC: No focal deficit. Cranial nerves II through XII are grossly intact. No headache, no double vision or headache. SKIN: Not dry. Intact. Turgor - normal. LYMPHATIC: No palpable lymph nodes/no lymphedema. MUSCULOSKELETAL: Normal joints with no swelling. Muscle tone is normal. White count 11.68, hemoglobin 7.6, hematocrit 25, platelets 236. Sodium 141, potassium 5.67, BUN 49, creatinine 1.89, glucose 161. Stool for occult blood negative times two. ASSESSMENT: 1. ACUTE ANEMIA 2. CHRONIC KIDNEY DISEASE 3. HYPERKALEMIA 4. LEG EDEMA 5. HISTORY OF CHF 6. HYPERTENSION 7. CORONARY ARTERY DISEASE PLAN: 1. Will admit. 2. Routine telemetry orders. 3. CBC, CMP now and daily. 4. Transfuse two units of packed red blood cells with 40 mg of IV Lasix in between. 5. IV fluids 75 cc's an hour NS. 6. Start Rocephin 1 gm IV daily. 7. Solu-Medrol 40 mg IV q.12hr. 8. Continue all home medications. 9. Low sodium diet. 10. Elevate her legs. 11. PT/INR daily. 12. Will follow closely. TIME SPENT: More than 70 minutes. MTDD
[2018-04-02] MEDS: COUMADIN PO SCH (17:17)
[2018-04-02] MEDS: XANAX PO SCH (20:15)
[2018-04-02] MEDS: LANTUS SUBCUT SCH (20:22)
[2018-04-02] MEDS: HUMULIN R SUBCUT PRN (20:23)
[2018-04-03] MEDS: HUMULIN R SUBCUT PRN ×3 (06:07→16:39)
[2018-04-03] MEDS: LASIX TAB PO SCH (06:07)
[2018-04-03] MEDS: COZAAR PO SCH (08:38)
[2018-04-03] MEDS: ASPIRIN CHEWABLE PO SCH (08:38)
[2018-04-03] MEDS: LOPRESSOR PO SCH ×2 (08:39→21:56)
[2018-04-03] MEDS ORDERED: PREDNISONE PO STA (08:39)
[2018-04-03] MEDS ORDERED: NORVASC PO STA (08:39)
[2018-04-03] MEDS: FERROUS SULFATE PO SCH (08:39)
[2018-04-03] MEDS: NITRO DUR TD SCH (08:40)
[2018-04-03] MEDS: NORVASC PO SCH (08:42)
[2018-04-03] MEDS: ROCEPHIN 1 GM in SODIUM CHLORIDE 50 ML IV SCH (08:43)
[2018-04-03] MEDS: PLETAL PO SCH ×2 (08:43→21:56)
[2018-04-03] MEDS ORDERED: SODIUM CHLORIDE 1,000 ML IV SCH (09:00)
[2018-04-03] MEDS: COLESTID PO SCH ×2 (09:18→21:50)
--- NOTE | 2018-04-03 09:38 | PCM.PROG ---
Attending Provider: ATTENDING PROVIDER: Dr. NADYA GARCIA This patient is seen with Zahra Mo, Nurse Practitioner. DATE OF SERVICE: 04/03/18 SUBJECTIVE: This 88 year old WHITE/ F was hospitalized 03/30/18. The patient is sitting in chair resting comfortably. Right arm edema and redness have improved. She has been working with therapy. REVIEW OF SYSTEMS: CONSTITUTIONAL: Weakness. No night sweats. No malaise, lethargy. No fever or chills. HEENT: Eyes: No visual changes. No eye pain. No eye discharge. ENT: No runny nose. No epistaxis. No sinus pain. No odynophagia. No congestion. RESPIRATORY: No cough, no congestion. No hemoptysis. No shortness of breath. CARDIOVASCULAR: No angina symptoms. No CHF symptoms. No atypical chest pain for CAD. No palpitations. No orthopnea. Leg edema. GASTROINTESTINAL: No abdominal pain. No nausea or vomiting. No diarrhea or constipation. No hematemesis. No hematochezia. GENITOURINARY: No urgency. No frequency. No dysuria. No hematuria. No obstructive symptoms. No discharge. No pain. No significant abnormal bleeding. MUSCULOSKELETAL: No musculoskeletal pain; no joint swelling. NEUROLOGICAL: Awake, alert, oriented to time, place and person. No headache. No neck pain. No syncope. No seizures. No dizziness. PSYCHIATRIC: Not anxious. No depression. No suicidal thoughts. No homicidal thoughts. SKIN: No rash. No lesions. No wounds. ENDOCRINE: No unexplained weight loss. No weight gain. HEMATOLOGIC/LYMPHATIC: No anemia. No purpura. No petechiae. No prolonged or excessive bleeding. No palpable lymph nodes. PHYSICAL EXAMINATION: GENERAL: The patient is awake, alert and oriented, sitting in chair in no distress. VITAL SIGNS: Temperature 98.0 F, Pulse 55, Respiratory Rate 16, BP 164/56, Pulse Ox 99% HEENT: Head normocephalic, atraumatic. Eyes: Extraocular muscles are intact. Pupils are equal, round and reactive to light and accommodation. Ears: No lesions. Nose appeared normal. Throat: No exudate or erythema. NECK: Supple. No JVD, no carotid bruit. No lymphadenopathy or thyromegaly. LUNGS: Diminished breath sounds. Clear to auscultation. Percussion note normal. Chest symmetrical. HEART: S1, S2, no S3. Grade I/ murmur. No cyanosis or clubbing. No ascites. Pulses: Dorsalis pedis and posterior tibial pulses +1 to +2 both sides. ABDOMEN: Soft. Non-tender. Bowel sounds active. No CVA tenderness. No mass felt. EXTREMITIES: Trace leg edema. Redness and edema of right arm have nearly resolved. Full range of motion of all extremities, equal. NEUROLOGIC: No focal deficit. Cranial nerves II through XII are grossly intact. No headache, no double vision or headache. SKIN: Not dry. Intact. Turgor-normal. LYMPHATIC: No palpable lymph nodes/no lymphedema. MUSCULOSKELETAL: Normal joints with no swelling. Muscle tone is normal. LAB REVIEW: 04/03/18 04:10 04/03/18 04:10 04/03/18 04:10: PT 17.6 H D, INR 1.79 04/03/18 04:10: Sodium 137.7, Potassium 4.55, Chloride 110.4 H, Carbon Dioxide 21.9 L, Anion Gap 9.95, BUN 74.6 H*, Creatinine 1.77 H, Estimated GFR (MDRD) 27.00, BUN/Creatinine Ratio 42.14, Glucose 235.5 H D, Calcium 7.82 L, Total Bilirubin 0.19 L, AST 28.8, ALT 33.9, Alkaline Phosphatase 34.7 L, Total Protein 5.44 L, Albumin 2.99 L, Globulin 2.45, Albumin/Globulin Ratio 1.22 04/03/18 04:10: WBC 15.70 H, RBC 3.32 L, Hgb 10.1 L, Hct 31.2 L, MCV 94.0, MCH 30.4, MCHC 32.4, RDW Coeff of Kerrie 14.2, Plt Count 197, Immature Gran % (Auto) 1.0, Neut % (Auto) 60.8, Lymph % (Auto) 36.8, [place] % (Auto) 1.3, Eos % (Auto) 0.0, Baso % (Auto) 0.1, Immature Gran # (Auto) 0.2, Neut # (Auto) 9.6 H, Lymph # (Auto) 5.8 H, [place] # (Auto) 0.2 L, Eos # (Auto) 0.0, Baso # (Auto) 0.0 04/03/18 00:00: Stl Occult Blood (IFOB) Positive ASSESSMENT: 1. Hyperkalemia improved 2. Anemia, severe, improved 3. CKD, Stage 3, fluctuating BUN as usual 4. Hypertension 5. CHF 6. Many other medical conditions PLAN: 1. Colestid b.i.d. 2. Prednisone 10 mg daily 3. D/C Solu-Medrol 4. Norvasc 10 mg a.m. (just for today) Plan and coordination of the patient's care discussed in the presence of Project Manager Interior Design and nurse. CONDITION: Stable SCRIBED BY: REA HILL, Chairman President And Chief Executive Officer scribed while in presence of service performed by Dr. Garcia/Zahra Mo APRN on 04/03/18 ([id number])
[2018-04-03] MEDS: COUMADIN PO SCH (16:38)
[2018-04-03] MEDS: XANAX PO SCH (21:56)
[2018-04-03] MEDS: LANTUS SUBCUT SCH (22:08)
[2018-04-03] MEDS: NORCO 7.5-325 PO PRN (22:11)
[2018-04-03 22:18] VITALS: TEMP 97.8
[2018-04-04 06:00] VITALS: BP 164/63
[2018-04-04] MEDS: LASIX TAB PO SCH (06:09)
[2018-04-04] MEDS ORDERED: PREDNISONE PO SCH (08:00)
[2018-04-04] MEDS: NITRO DUR TD SCH (08:43)
[2018-04-04] MEDS: ROCEPHIN 1 GM in SODIUM CHLORIDE 50 ML IV SCH (08:43)
[2018-04-04] MEDS: PLETAL PO SCH (08:44)
[2018-04-04] MEDS: ASPIRIN CHEWABLE PO SCH (08:44)
[2018-04-04] MEDS: FERROUS SULFATE PO SCH (08:44)
[2018-04-04] MEDS: COZAAR PO SCH (08:44)
[2018-04-04] MEDS: LOPRESSOR PO SCH (08:44)
[2018-04-04] MEDS: COLESTID PO SCH (08:45)
[2018-04-04] MEDS: NORVASC PO SCH (08:45)
--- NOTE | 2018-04-06 12:40 | PN ---
DATE OF SERVICE: 04/03/18 SUBJECTIVE: The patient was seen and examined with the nurse practitioner. The patient's condition has improved. She is up and about with physical therapy. Creatinine and BUN 1.7 and 74 stable. Will give one more 1000 cc's of D5 1/2 NS or 75 cc/ hr otherwise her overall medical status is stable. ASSESSMENT: SYSTOLIC HYPERTENSION. WILL GIVE 10 MG NORVASC JUST ONE DOSE. IF THINGS HOLD UP MAY DISCHARGE HER TOMORROW. CONDITION: Stable. The patient was seen and examined with the nurse practitioner. TIME SPENT: More than 30 minutes. Plan and coordination of the patient's care discussed in the presence of nurse. BRIGHT
--- NOTE | 2018-04-07 06:43 | PN ---
DATE OF SERVICE: 04/04/18 (DISCHARGE NOTE) SUBJECTIVE: 88-year-old white female was hospitalized with anemia. The patient's condition has improved. Her edema has subsided. On discharge, the patient did not have any symptoms of CHF or coronary insufficiency. The patient is mostly sedentary, sedentary lifestyle. She is advised to keep her legs up. Kidney functions are stable. She is advised to drink fluids and keep the legs higher than the hips. Also, to have three meals. The patient is noncompliant and lives alone. She is very stubborn, doesn't want help from the brother who is an RN and can take care of her. CONDITION: Stable. TIME SPENT: More than 30 minutes. Plan and coordination of the patient's care discussed in the presence of nurse. BRIGHT
--- NOTE | 2018-04-07 06:54 | DS ---
DATE OF SERVICE: 04/04/18 FINAL DIAGNOSIS: 1. SEVERE ANEMIA, SYMPTOMATIC 2. GENERALIZED SWELLING ESPECIALLY RIGHT-SIDED 3. CHRONIC KIDNEY DISEASE 4. CONGESTIVE HEART FAILURE 5. HYPERTENSION 6. DYSLIPIDEMIA 7. DIABETES MELLITUS 8. DEMENTIA 9. PERIPHERAL ARTERIAL DISEASE DISCHARGE INSTRUCTIONS: Followup appointment: The patient is to call as soon as possible to schedule followup appointment. MEDICATIONS AT DISCHARGE: Pletal Nitroglycerin Patch Xanax Ferrous Sulfate Hydrocodone Metoprolol Amlodipine Nitroglycerin p.r.n. Lasix Losartan Sodium Bicarb Warfarin Advised to take extra dose of Warfarin today - patient understands. NEW PRESCRIPTIONS: None DIET INSTRUCTIONS: Heart Healthy/Cardiac diet, three meals a day ACTIVITY: As the patient tolerates. SMOKING: N/A DISEASE SPECIFIC EDUCATION: Nutrition Drink plenty of fluids Leg elevation Followup HOSPITAL COURSE: 88-year-old white female hospitalized with edema of extremities, especially right-sided. Also had severe anemia, which was symptomatic. The patient was given 2 units of packed red cells. There was no evidence of GI bleed. The patient has chronic anemia. She is being followed by groundsman for chronic kidney disease. Cardiovascular status was stable with no evidence of CHF. Leg swelling is a lot better. The arm swelling is still there but much less than before and it is because of the IV site on the right side. The patient is oriented to time, place and person. Kidney function has deteriorated because of aggressive diuretic therapy but now has stabilized and on the day of discharge looked even better. The patient's appetite is acceptable. The patient is living by herself with the help of brother. There is a problem with how she takes her medications. She was raised by the brother but she is very independent, doesn't want anybody's interference. Labs: Hemoglobin 10.1, hematocrit 30, WBC 15,000, normal differential. Creatinine 1.5 , BUN 70, potassium 4.4, glucose 113. CONDITION AT TIME OF DISCHARGE: STABLE. TIME SPENT: More than 60 minutes. BRIGHT
--- NOTE | 2018-04-07 06:56 | PN ---
BILLING 03/30/18 LEVEL 5 03/31/18 INTERMEDIATE 04/01/18 INTERMEDIATE 04/02/18 INTERMEDIATE 04/03/18 INTERMEDIATE 04/04/18 DISCHARGE MTDD
== END 2018-04-04 12:55 | disposition home or self-care (01) | DRG 812 ==
LOC: ED 16:59 → MEDSURG B 19:14
PROVIDERS: ADMIT Internal Medicine; ATTEND Internal Medicine
DX: D64.9 Anemia, unspecified (principal); E87.5 Hyperkalemia; E78.5 Hyperlipidemia, unspecified; E11.9 Type 2 diabetes mellitus without complications; I50.9 Heart failure, unspecified; I73.9 Peripheral vascular disease, unspecified; R06.00 Dyspnea, unspecified; R60.0 Localized edema; R06.2 Wheezing; R53.1 Weakness; J44.9 Chronic obstructive pulmonary disease, unspecified; N18.9 Chronic kidney disease, unspecified; F03.90 Unspecified dementia, unspecified severity, without behavioral disturbance, psychotic disturbance, mood disturbance, and anxiety
CPT/HCPCS: 36415; 36430; 80053; 81001; 82272; 82550; 82962; 83880; 84484; 85025; 85610; 86850; 86900; 86922; 87086; 93005; 93010; 94640; 96374; 97802; 99284

== ENCOUNTER 2018-05-05 14:35 | Outpatient (CLI) | payer OTHER ==
[2012-12-30 11:12] VITALS: TEMP 98
== END 2018-05-05 14:36 | disposition home or self-care (01) ==
LOC: LAB 14:35
PROVIDERS: ATTEND Specialist
DX: N18.3 Chronic kidney disease, stage 3 (moderate) (principal)
CPT/HCPCS: 36415; 80069; 82570; 83970; 84156; 84550; 85027

== ENCOUNTER 2018-05-19 15:17 | Outpatient (CLI) ==
[2012-12-30 11:12] VITALS: TEMP 98
== END 2018-05-19 15:18 | disposition home or self-care (01) ==
LOC: LAB 15:17
PROVIDERS: ATTEND Internal Medicine Hematology & Oncology
DX: D68.59 Other primary thrombophilia (principal)
CPT/HCPCS: 36415; 80053; 82232; 83615; 85025

== ENCOUNTER 2018-06-10 11:12 | Outpatient (CLI) | payer OTHER ==
[2012-12-30 11:12] VITALS: TEMP 98
--- NOTE | 2018-06-10 12:50 | US ---
EXAM: ULTRASOUND LOWER EXTREMITY VENOUS DOPPLER EXAM HISTORY: Bilateral leg pain. FINDINGS: Bilateral lower extremity venous Doppler exam. Real time jaquez-scale, Doppler spectral anal ysis and color-flow Doppler imaging performed. The veins targeted for evaluation include the common femoral, greater saphenous, profundus, femoral, popliteal, peroneal, anterior tibial and posterior ti bial. The right posterior tibial and bilateral anterior tibial veins were not seen. The evaluated veins de monstrated normal spontaneous flow and compression without evidence of thrombosis. Small simple fluid collection measuring 2.4 x 0.8 x 1.0 cm in the right popliteal fossa probably repr esents a Simms's cyst. IMPRESSION: . 1. No venous thrombosis identified within the areas evaluated. Some exam limitations as described. 2. Small right Simms's cyst.
== END 2018-06-10 11:13 | disposition home or self-care (01) ==
LOC: RAD 11:12
PROVIDERS: ATTEND Internal Medicine
DX: M79.605 Pain in left leg (principal); M79.604 Pain in right leg; M79.89 Other specified soft tissue disorders

== ENCOUNTER 2018-07-23 11:03 | Outpatient (CLI) ==
[2018-07-23 12:02] VITALS: BP 168/58; TEMP 98.2
[2018-07-23] MEDS ORDERED: PROCRIT SUBCUT STA (12:02)
== END 2018-07-23 11:04 | disposition home or self-care (01) ==
LOC: LAB 11:03 → OUTPT 11:04
PROVIDERS: ATTEND Internal Medicine Hematology & Oncology
DX: D68.59 Other primary thrombophilia (principal); D50.9 Iron deficiency anemia, unspecified; N18.9 Chronic kidney disease, unspecified; D63.1 Anemia in chronic kidney disease
CPT/HCPCS: J0885; 36415; 82728; 83540; 83550; 85025; 96372

== ENCOUNTER 2018-08-28 14:04 | Outpatient (CLI) | payer OTHER ==
[2018-08-28] MEDS ORDERED: PROCRIT SUBCUT STA (15:07)
[2018-08-28 15:12] VITALS: BP 164/61; TEMP 97.8
== END 2018-08-28 14:05 | disposition home or self-care (01) ==
LOC: LAB 14:04 → OPMED 14:05
PROVIDERS: ATTEND Internal Medicine Hematology & Oncology
DX: D50.9 Iron deficiency anemia, unspecified (principal); D68.59 Other primary thrombophilia; N39.0 Urinary tract infection, site not specified
CPT/HCPCS: 36415; 81001; 82728; 83540; 83550; 85025; 87086; 87186; 96372

== ENCOUNTER 2018-10-13 10:50 | Outpatient (CLI) ==
[2012-12-30 11:12] VITALS: TEMP 98
== END 2018-10-13 10:51 | disposition home or self-care (01) ==
LOC: LAB 10:50
PROVIDERS: ATTEND Internal Medicine Hematology & Oncology
DX: D50.9 Iron deficiency anemia, unspecified (principal); D68.59 Other primary thrombophilia
CPT/HCPCS: 36415; 85025

== ENCOUNTER 2018-11-24 12:11 | Outpatient (CLI) | payer OTHER ==
[2018-11-24 13:03] VITALS: BP 179/52; TEMP 97.2
[2018-11-24] MEDS ORDERED: PROCRIT SUBCUT STA (13:14)
== END 2018-11-24 12:12 | disposition home or self-care (01) ==
LOC: LAB 12:11 → OPMED 12:12
PROVIDERS: ATTEND Specialist
DX: N18.4 Chronic kidney disease, stage 4 (severe) (principal); D63.1 Anemia in chronic kidney disease
CPT/HCPCS: J0885; 36415; 80053; 81001; 82232; 82728; 83540; 83550; 83615; 83735; 83970; 84100; 84550; 85025; 96372

== ENCOUNTER 2018-12-10 19:39 | Outpatient (CLI) ==
[2012-12-30 11:12] VITALS: TEMP 98
[2018-12-10 23:00] VITALS: BMI 30.6
== END 2018-12-10 19:46 | disposition critical access hospital (66) ==
LOC: AMBL 19:39
PROVIDERS: ATTEND Internal Medicine Geriatric Medicine
DX: I50.9 Heart failure, unspecified (principal); R05 Cough; R06.9 Unspecified abnormalities of breathing

== ENCOUNTER 2018-12-10 20:06 | Inpatient (IN) | payer OTHER ==
[2018-12-10] MEDS ORDERED: DUONEB NEB STA (20:08)
--- NOTE | 2018-12-10 20:16 | ED.PDOC ---
General ED Provider: Dr. TERRY MUELLER Chief Complaint: Respiratory Complaint Stated Complaint: Two day history of shortness of breath and cough productive of yellow sputum. She uses oxygen at 2 L NC. Denies any chest pain and fever. Time Seen by Physician: 20:14 Mode of Arrival: Ambulance Information Source: Patient, Family (Brother ) Exam Limitations: No limitations Primary Care Provider: NADYA GARCIA Seen Within Last 72 Hours for Same Complaint By: ED Nursing and Triage Documentation Reviewed and Agree: No Does patient meet sepsis criteria?: Yes If yes, has appropriate treatment been initiated?: No System Inflammatory Response Syndrome: Pulse >90 BPM Sepsis Protocol: For patient's 13 years and over: Temp is 96.8 and below OR 101 and greater Pulse >90 BPM Resp >20/minute Acutely Altered Mental Status Are patient's symptoms suggestive of a new infection, such as: -Pneumonia -Skin, Soft Tissue -Endocarditis -UTI -Bone, Joint Infection -Implantable Device -Acute Abdominal Infection -Wound Infection -Meningitis -Blood Stream Catheter Infection -Unknown Respiratory Complaint Exam - Respiratory Complaint/Exam Onset/Duration: 2 days Symptoms Are: Still present Timing: Constant Initial Severity: Moderate Current Severity: Severe Location: Chest Character: Reports: Productive cough Aggravating: Reports: Weather Alleviating: Reports: None Associated Signs and Symptoms: Reports: Rapid breathing, Dyspnea Home Oxygen Use: Yes (2 liters NC ) Recent Stress Test: No Current Antibiotic Use: No Current Asthma Medication Use: Yes (oxygen ) Inadequate Respiratory Effort: No Dysphagia Present: No Stridor Present: No JVD Present: No Accessory Muscle Use: Yes Retractions: Supraclavicular Diminished Breath Sounds: No Sinus Tenderness: None Grunting Respirations: No Kussmaul Respirations: No Differential Diagnoses: CHF, Pneumonia, Bronchitis Review of Systems - Review Of Systems Constitutional: Reports: No symptoms Eyes: Reports: No symptoms Ears, Nose, Mouth, Throat: Reports: No symptoms Respiratory: Reports: Cough, Short of air, Wheezing Cardiac: Reports: No symptoms GI: Reports: No symptoms : Reports: No symptoms Musculoskeletal: Reports: No symptoms Skin: Reports: No symptoms Neurological: Reports: No symptoms Endocrine: Reports: No symptoms Hematologic/Lymphatic: Reports: No symptoms All Other Systems: Reviewed and Negative Past Medical History - Past Medical History Previously Healthy: No Endocrine: Reports: DM 2, Dyslipidemia Cardiovascular: Reports: CAD, Hypertension, CHF, Other (CABG 1999, ARTIIFICIAL AORTA, LEFT ARM STENT) Respiratory: Reports: COPD Hematological: Reports: None Gastrointestinal: Reports: None Genitourinary: Reports: None, CKD Neuro/Psych: Reports: None Musculoskeletal: Reports: None Cancer: Reports: None Other Pertinent Past Medical History: htn dm mi chf copd kd cabg - Surgical History General Surgical History: Reports: Hysterectomy (PARTIAL HYSTERECTOMY), Appendectomy, CABG - Family History Family History: Reports: None - Social History Smoking Status: Former smoker Hx Substance Use: No Alcohol Screening: None Physical Exam - Physical Exam Appearance: Ill-appearing Ill-appearing: Moderate Eyes: ROBERT, EOMI Neck: Supple Respiratory: Rhonchi, Wheezes Cardiovascular: Tachycardia GI/: Soft, Nontender, No masses, Bowel sounds normal Musculoskeletal: Normal strength, ROM intact Skin: Warm, Dry Neurological: Sensation intact, Motor intact, Alert, Oriented Psychiatric: Anxious Interpretation - Radiology Interpretation Radiology Interpretation By: Radiologist Radiology Results: Negative Exam Interpreted: Portable CXR Re-Evaluation - Re-Evaluation Time of Re-Evaluation: 21:30 Status: Improved (breathing better ) Vital Signs Stable: Yes Appearance: NAD Physician Notification - Case Discussed Physician Notified: Dr Garcia Time of Notification: 22:00 (ok to admit to Telemetry. ) Critical Care Note - Critical Care Note Total Time (mins): 45 Course - Course Hematology/Chemistry: 12/10/18 20:29 12/10/18 20:29 Orders, Labs, Meds: Lab Review 12/10/18 12/10/18 12/10/18 20:08 20:29 20:29 WBC 11.92 H RBC 3.06 L Hgb 8.8 L Hct 29.2 L MCV 95.4 MCH 28.8 MCHC 30.1 L RDW Coeff of Kerrie 14.7 Plt Count 202 Immature Gran % (Auto) 0.4 Neut % (Auto) 71.2 Lymph % (Auto) 23.2 [place] % (Auto) 4.3 Eos % (Auto) 0.6 Baso % (Auto) 0.3 Immature Gran # (Auto) 0.1 Neut # (Auto) 8.5 H Lymph # (Auto) 2.8 [place] # (Auto) 0.5 Eos # (Auto) 0.1 Baso # (Auto) 0.0 PT INR Puncture Site Rrad O2 Saturation 99.0 ABG pH 7.369 ABG pCO2 36.6 ABG pO2 120.0 H ABG HCO3 21.2 L ABG Total CO2 22 ABG Base Excess -4 L Ruslan Test + O2 Delivery Device Bnc Oxygen Liter Flow 3.00 FiO2 % 32.0 Sodium 140.6 Potassium 4.62 Chloride 110.2 H Carbon Dioxide 22.1 Anion Gap 12.92 BUN 34.3 H Creatinine 1.46 H Estimated GFR (MDRD) 34.00 BUN/Creatinine Ratio 23.49 Glucose 160.1 H Lactic Acid Calcium 9.50 Total Bilirubin 0.64 AST 19.5 ALT 12.9 Alkaline Phosphatase 75.3 Total Creatine Kinase 49.5 Troponin I < 0.012 NT-Pro-B Natriuret Pep 1760.000 H Total Protein 6.39 Albumin 3.96 Globulin 2.43 Albumin/Globulin Ratio 1.62 Procalcitonin 12/10/18 12/10/18 12/10/18 20:29 20:29 20:40 WBC RBC Hgb Hct MCV MCH MCHC RDW Coeff of Kerrie Plt Count Immature Gran % (Auto) Neut % (Auto) Lymph % (Auto) [place] % (Auto) Eos % (Auto) Baso % (Auto) Immature Gran # (Auto) Neut # (Auto) Lymph # (Auto) [place] # (Auto) Eos # (Auto) Baso # (Auto) PT 22.4 H INR 2.29 Puncture Site O2 Saturation ABG pH ABG pCO2 ABG pO2 ABG HCO3 ABG Total CO2 ABG Base Excess Ruslan Test O2 Delivery Device Oxygen Liter Flow FiO2 % Sodium Potassium Chloride Carbon Dioxide Anion Gap BUN Creatinine Estimated GFR (MDRD) BUN/Creatinine Ratio Glucose Lactic Acid 1.14 Calcium Total Bilirubin AST ALT Alkaline Phosphatase Total Creatine Kinase Troponin I NT-Pro-B Natriuret Pep Total Protein Albumin Globulin Albumin/Globulin Ratio Procalcitonin < 0.05 Orders Category Date Time Status ABG DRAW REQUEST Stat CARDIO 12/10/18 20:09 Completed EKG-(ED ONLY) Stat CARDIO 12/10/18 20:08 Completed NEBULIZER TREATMENT Stat CARDIO 12/10/18 20:09 Completed OXYGEN Routine CARDIO 12/10/18 21:16 Active BLOOD GLUCOSE MONITORING 0630,1100,1700,2100 CARE 12/10/18 21:22 Active INTAKE & OUTPUT Q8HR CARE 12/10/18 21:16 Active VITAL SIGNS Q4HR CARE 12/10/18 21:17 Active 2 GRAM SODIUM DIET DIETARY 12/10/18 Breakfast Ordered ED VIDEO NETWORK ENGINEER APPLIED .ONCE EMERGENCY 12/10/18 20:08 Active ED IV/MEDIPORT/POWERPORT .ONCE EMERGENCY 12/10/18 20:08 Active Pal [ED CATHETER INSERTION AND CARE] .ONCE EMERGENCY 12/10/18 20:32 Active ABG Stat LAB 12/10/18 20:08 Completed BASIC METABOLIC PANEL DAILY@0600 LAB 12/11/18 06:00 Ordered BASIC METABOLIC PANEL DAILY@0600 LAB 12/12/18 06:00 Ordered BLOOD CULTURE (ED ONLY) Stat LAB 12/10/18 20:20 Received CBC W/ AUTO DIFF DAILY@0600 LAB 12/11/18 06:00 Ordered CBC W/ AUTO DIFF DAILY@0600 LAB 12/12/18 06:00 Ordered CBC W/ AUTO DIFF Stat LAB 12/10/18 20:29 Completed COMPREHENSIVE METABOLIC PANEL Stat LAB 12/10/18 20:29 Completed CREATINE KINASE Stat LAB 12/10/18 20:29 Completed LACTIC ACID Stat LAB 12/10/18 20:29 Completed NT-PROBNP Stat LAB 12/10/18 20:29 Completed PROCALCITONIN Stat LAB 12/10/18 20:29 Completed TROPONIN I Stat LAB 12/10/18 20:29 Completed 0.9 % Sodium Chloride [Saline Flush] MEDS 12/10/18 20:08 Ordered 1 syr IVF PRN PRN Enalaprilat Dihydrate [Vasotec IV] MEDS 12/10/18 20:29 Discontinued 1.25 mg IVP ONCE STA Enoxaparin Sodium [Lovenox] MEDS 12/11/18 09:00 Ordered 30 mg SUBCUT DAILY Furosemide [Lasix] MEDS 12/11/18 06:30 Ordered 20 mg IVP QDAC Furosemide [Lasix] MEDS 12/10/18 20:29 Discontinued 80 mg IVP ONCE STA Hydrocortisone Sod Succ/Pf [Solu-Cortef 100 mg] MEDS 12/10/18 21:30 Ordered 100 mg IVP Q8H Hydrocortisone Sod Succ/Pf [Solu-Cortef 250 mg] MEDS 12/10/18 20:31 Discontinued 125 mg IVP ONCE STA Insulin Regular, Human [Humulin R] MEDS 12/10/18 21:16 Ordered 0 - 15 unit SUBCUT PRN PRN Ipratropium/Albuterol Neb [Duoneb] MEDS 12/10/18 20:08 Discontinued 1 vial NEB ONCE STA Lidocaine HCl [Uro-Jet] MEDS 12/10/18 20:32 Discontinued 10 ml MUCOUSMEMB ONCE STA Morphine Sulfate [Morphine 2 mg/ml Syringe] MEDS 12/10/18 20:29 Discontinued 2 mg IVP ONCE STA Morphine Sulfate [Morphine 2 mg/ml Syringe] MEDS 12/10/18 21:16 Ordered 2 mg IVP Q6H PRN RESUSCITATION STATUS Routine OTHERS 12/10/18 21:16 Completed CHEST, 1V AP ONLY Stat RADS 12/10/18 20:08 Completed Medications Generic Name Dose Route Start Last Admin Trade Name Freq PRN Reason Stop Dose Admin Hydrocodone Bitart/Acetaminophen 1 tab 12/10/18 21:27 12/10/18 23:25 [place] 7.5-325 PO 1 tab Q12H PRN Administration severe pain Alprazolam 0.5 mg 12/10/18 21:27 12/10/18 23:25 Xanax PO 0.5 mg BEDTIME PRN Administration anxiety Amlodipine Besylate 10 mg 12/11/18 09:00 Norvasc PO DAILY [facility] Cilostazol 100 mg 12/11/18 09:00 12/10/18 23:25 Pletal PO 100 mg BID GLENNA Administration Enoxaparin Sodium 30 mg 12/11/18 09:00 Lovenox SUBCUT DAILY [facility] Furosemide 20 mg 12/11/18 06:30 Lasix IVP QDAC [facility] Hydrocortisone Sodium Succinate 100 mg 12/10/18 21:30 12/10/18 23:22 Solu-Cortef 100 Mg IVP 100 mg Q8H GLENNA Administration Insulin Human Regular 0 - 15 unit 12/10/18 21:16 Humulin R SUBCUT PRN PRN Hyperglycemia Protocol Metoprolol Tartrate 25 mg 12/11/18 09:00 Lopressor PO DAILY [facility] Morphine Sulfate 2 mg 12/10/18 21:16 Morphine 2 Mg/Ml Syringe IVP Q6H PRN Severe Pain Nitroglycerin 0.4 mg 12/10/18 21:27 Nitrostat SL PRN PRN chest pain Nitroglycerin patch 12/11/18 09:00 Nitro-Dur 0.6 Mg/Hr TD DAILY [facility] Non-Formulary Medication 1,000 unit 12/11/18 09:00 Cholecalciferol (Vitamin D3) [Vitamin D3] PO DAILY [facility] Non-Formulary Medication 325 mg 12/11/18 09:00 Ferrous Sulfate [Iron] PO DAILY [facility] Non-Formulary Medication 50 unit 12/11/18 21:00 Insulin Glargine,Hum.Rec.Anlog [Lantus Solostar] SQ BEDTIME [facility] Non-Formulary Medication 100 mg 12/11/18 09:00 Losartan Potassium [Cozaar] PO DAILY [facility] Sodium Chloride 1 syr 12/10/18 20:08 12/10/18 23:25 Saline Flush IVF 1 syr PRN PRN Administration To flush IV Sodium Chloride 1 syr 12/11/18 05:00 Saline Flush IVF Q8HR [facility] Warfarin Sodium 3 mg 12/11/18 17:00 Coumadin PO QPM [facility] Discontinued Medications Generic Name Dose Route Start Last Admin Trade Name Freq PRN Reason Stop Dose Admin Albuterol/Ipratropium 1 vial 12/10/18 20:08 12/10/18 20:45 Duoneb NEB 12/10/18 20:09 1 vial ONCE STA Administration Enalaprilat 1.25 mg 12/10/18 20:29 12/10/18 20:37 Vasotec Iv IVP 12/10/18 20:30 1.25 mg ONCE STA Administration Furosemide 80 mg 12/10/18 20:29 12/10/18 20:45 Lasix IVP 12/10/18 20:30 80 mg ONCE STA Administration Hydrocortisone Sodium Succinate 125 mg 12/10/18 20:31 12/10/18 20:41 Solu-Cortef 250 Mg IVP 12/10/18 20:32 125 mg ONCE STA Administration Lidocaine HCl 10 ml 12/10/18 20:32 12/10/18 21:51 Uro-Jet MUCOUSMEMB 12/10/18 20:33 Not Given ONCE STA Morphine Sulfate 2 mg 12/10/18 20:29 12/10/18 20:42 Morphine 2 Mg/Ml Syringe IVP 12/10/18 20:30 2 mg ONCE STA Administration Vital Signs: Temp Pulse Resp BP Pulse Ox 12/10/18 20:11 99.2 F 116 H 20 209/60 H 98 Departure - Departure Time of Disposition: 22:00 Disposition: ADMITTED INPATIENT Discharge Problem: CHF exacerbation Qualifiers: Heart failure type: systolic Qualified Code(s): I50.23 - Acute on chronic systolic (congestive) heart failure Condition: Fair Pt referred to PMD for follow-up: Yes IPMP verified?: No Allergies/Adverse Reactions: Allergies hydralazine [Hydralazine] Adverse Reaction (Verified 11/24/18 13:06) insulin detemir [From Levemir] Adverse Reaction (Verified 11/24/18 13:06) Penicillins Adverse Reaction (Verified 11/24/18 13:06) Home Medications: Ambulatory Orders Cilostazol [Pletal] 100 mg PO BID 12/25/12 Insulin Glargine,Hum.rec.anlog [Lantus Solostar] 50 unit SQ BEDTIME 12/25/12 Nitroglycerin [Minitran] 1 each TD DAILY 12/25/12 Alprazolam [Xanax] 0.5 mg PO BEDTIME PRN 02/07/17 Cholecalciferol (Vitamin D3) [Vitamin D3] 1,000 unit PO DAILY 06/03/17 Ferrous Sulfate [Iron] 325 mg PO DAILY 06/03/17 Hydrocodone Bit/Acetaminophen [[place] 7.5-325] 1 tab PO Q12H PRN 06/03/17 Metoprolol Tartrate [Lopressor] 25 mg PO DAILY 06/03/17 Nitroglycerin [Nitrostat] 0.4 mg SL PRN PRN #50 tab.subl 07/28/17 Furosemide [Lasix Tab] 40 mg PO QDAC #30 tablet 10/02/17 Amlodipine Besylate [Norvasc] 10 mg PO DAILY 12/10/18 Atorvastatin Calcium 20 mg PO DAILY 12/10/18 Losartan Potassium [Cozaar] 100 mg PO DAILY 12/10/18 Warfarin Sodium [Coumadin] 3 mg PO QPM 12/10/18
[2018-12-10] MEDS ORDERED: LASIX IVP STA (20:29)
[2018-12-10] MEDS ORDERED: VASOTEC IV IVP STA (20:29)
[2018-12-10] MEDS ORDERED: MORPHINE 2 MG/ML SYRINGE IVP STA (20:29)
[2018-12-10] MEDS ORDERED: SOLU-CORTEF 250 MG IVP STA (20:31)
[2018-12-10] MEDS ORDERED: URO-JET MUCOUSMEMB STA (20:32)
--- NOTE | 2018-12-10 20:52 | DI ---
EXAM: One-view chest HISTORY: Cough TECHNIQUE: Single frontal view of the chest was obtained. Comparison 09/25/2017. FINDINGS: The heart is stable size. Midline sternotomy wires are seen. Lungs are clear. The pulmo nary vasculature appears normal. The costophrenic angles are sharp. There is stable appearance of a stent projected over the left lung apex. IMPRESSION: No active cardiopulmonary disease.
[2018-12-10] MEDS ORDERED: MORPHINE 2 MG/ML SYRINGE IVP PRN (21:16)
[2018-12-10] MEDS ORDERED: NITROSTAT SL PRN (21:27)
[2018-12-10 23:00] VITALS: BMI 30.6
[2018-12-10] MEDS: SOLU-CORTEF 100 MG IVP SCH (23:22)
[2018-12-10] MEDS: PLETAL PO SCH (23:25)
[2018-12-10] MEDS: NORCO 7.5-325 PO PRN (23:25)
[2018-12-10] MEDS: XANAX PO PRN (23:25)
[2018-12-11] MEDS: SOLU-CORTEF 100 MG IVP SCH ×3 (06:16→20:56)
[2018-12-11] MEDS: LASIX IVP SCH (06:16)
[2018-12-11] MEDS: HUMULIN R SUBCUT PRN ×3 (06:17→18:36)
[2018-12-11] MEDS ORDERED: NON-FORMULARY MEDICATION (Ferrous Sulfate [Iron] 325 MG) PO SCH (09:00)
[2018-12-11] MEDS ORDERED: NON-FORMULARY MEDICATION (Cholecalciferol (Vitamin D3) [Vitamin D3] 1,000 UNIT) PO SCH (09:00)
[2018-12-11] MEDS ORDERED: LOVENOX SUBCUT SCH (09:00)
[2018-12-11] MEDS ORDERED: NON-FORMULARY MEDICATION (Losartan Potassium [Cozaar] 100 MG) PO SCH (09:00)
--- NOTE | 2018-12-11 09:08 | PCM.PROG ---
Attending Provider: ATTENDING PROVIDER: Dr. NADYA GARCIA DATE OF SERVICE: 12/11/18 SUBJECTIVE: This 88 year old WHITE/ F was hospitalized 12/10/18 with acute pulmonary edema and severe hypertension. The patient is feeling a lot better. No wheezing. REVIEW OF SYSTEMS: CONSTITUTIONAL: No night sweats. No fatigue, malaise, lethargy. No fever or chills. HEENT: Eyes: No visual changes. No eye pain. No eye discharge. ENT: No runny nose. No epistaxis. No sinus pain. No odynophagia. No congestion. RESPIRATORY: No cough, no congestion. No hemoptysis. No shortness of breath. Talking better. CARDIOVASCULAR: No angina symptoms. No CHF symptoms. No atypical chest pain for CAD. No palpitations. No orthopnea.. GASTROINTESTINAL: No abdominal pain. No nausea or vomiting. No diarrhea or constipation. No hematemesis. No hematochezia. Appetite improved. GENITOURINARY: No urgency. No frequency. No dysuria. No hematuria. No obstructive symptoms. No discharge. No pain. No significant abnormal bleeding. MUSCULOSKELETAL: No musculoskeletal pain; no joint swelling. NEUROLOGICAL: Awake, alert, oriented to time, place and person. No headache. No neck pain. No syncope. No seizures. No dizziness. PSYCHIATRIC: Not anxious. No depression. No suicidal thoughts. No homicidal thoughts. SKIN: No rash. No lesions. No wounds. ENDOCRINE: No unexplained weight loss. No weight gain. HEMATOLOGIC/LYMPHATIC: No anemia. No purpura. No petechiae. No prolonged or excessive bleeding. No palpable lymph nodes. PHYSICAL EXAMINATION: GENERAL: The patient is awake, alert and oriented, lying in bed in no distress. VITAL SIGNS: Temperature 97.6 F, Pulse 69, Respiratory Rate 16, BP 147/59, Pulse Ox 95% HEENT: Head normocephalic, atraumatic. Eyes: Extraocular muscles are intact. Pupils are equal, round and reactive to light and accommodation. Ears: No lesions. Nose appeared normal. Throat: No exudate or erythema. NECK: Supple. No JVD, no carotid bruit. No lymphadenopathy or thyromegaly. LUNGS: Decreased breath sounds but good air entry. Clear to auscultation. Percussion note normal. Chest symmetrical. HEART: S1, S2, no S3. No murmurs. No cyanosis or clubbing. No ascites. Pulses: Dorsalis pedis and posterior tibial pulses +1 to +2 both sides. ABDOMEN: Soft. Non-tender. Bowel sounds active. No CVA tenderness. No mass felt. EXTREMITIES: No edema. Full range of motion of all extremities, equal. NEUROLOGIC: No focal deficit. Cranial nerves II through XII are grossly intact. No headache, no double vision or headache. SKIN: Warm and dry. Intact. Turgor-normal. LYMPHATIC: No palpable lymph nodes/no lymphedema. MUSCULOSKELETAL: Normal joints with no swelling. Muscle tone is normal. LAB REVIEW: 12/11/18 04:30 12/11/18 04:30 12/11/18 04:30: PT 22.0 H, INR 2.25 12/11/18 04:30: Sodium 140.8, Potassium 4.35, Chloride 109.9 H, Carbon Dioxide 24.1, Anion Gap 11.15, BUN 36.5 H, Creatinine 1.50 H, Estimated GFR (MDRD) 33.00 , BUN/Creatinine Ratio 24.33, Glucose 228.1 H D, Calcium 8.82 12/11/18 04:30: WBC 9.69, RBC 2.72 L, Hgb 7.9 L, Hct 26.1 L, MCV 96.0, MCH 29.0 , MCHC 30.3 L, RDW Coeff of Kerrie 14.6, Plt Count 205, Neutrophils % (Manual) 75.0 , Lymphocytes % (Manual) 17.0, Monocytes % (Manual) 2.0, Reactive Lymphocytes 6.0 H, Hypochromasia 1+, Anisocytosis Not present 12/11/18 03:05: Urine Color Yellow, Urine Clarity Cloudy, Urine pH 5.5, Ur Specific [place] 1.020, Urine Protein 2+, Urine Glucose (UA) Negative, Urine Ketones Negative, Urine Blood 2+, Urine Nitrite Negative, Urine Bilirubin Negative, Urine Urobilinogen 0.2, Ur Leukocyte Esterase 1+, Urine Microscopic RBC 10-20, Urine Microscopic WBC 20-30, Ur Squamous Epith Cells 5-10, Urine Bacteria 1+, Hyaline Casts 5-10, Urine Mucus Trace 12/10/18 20:40: PT 22.4 H, INR 2.29 12/10/18 20:29: Procalcitonin < 0.05 12/10/18 20:29: Lactic Acid 1.14 12/10/18 20:29: Sodium 140.6, Potassium 4.62, Chloride 110.2 H, Carbon Dioxide 22.1, Anion Gap 12.92, BUN 34.3 H, Creatinine 1.46 H, Estimated GFR (MDRD) 34.00 , BUN/Creatinine Ratio 23.49, Glucose 160.1 H, Calcium 9.50, Total Bilirubin 0.64, AST 19.5, ALT 12.9, Alkaline Phosphatase 75.3, Total Creatine Kinase 49.5 , Troponin I < 0.012, NT-Pro-B Natriuret Pep 1760.000 H, Total Protein 6.39, Albumin 3.96, Globulin 2.43, Albumin/Globulin Ratio 1.62 12/10/18 20:29: WBC 11.92 H, RBC 3.06 L, Hgb 8.8 L, Hct 29.2 L, MCV 95.4, MCH 28.8, MCHC 30.1 L, RDW Coeff of Kerrie 14.7, Plt Count 202, Immature Gran % (Auto) 0.4, Neut % (Auto) 71.2, Lymph % (Auto) 23.2, [place] % (Auto) 4.3, Eos % (Auto) 0.6, Baso % (Auto) 0.3, Immature Gran # (Auto) 0.1, Neut # (Auto) 8.5 H, Lymph # (Auto) 2.8, [place] # (Auto) 0.5, Eos # (Auto) 0.1, Baso # (Auto) 0.0 12/10/18 20:08: Puncture Site Rrad, O2 Saturation 99.0, ABG pH 7.369, ABG pCO2 36.6, ABG pO2 120.0 H, ABG HCO3 21.2 L, ABG Total CO2 22, ABG Base Excess -4 L, Ruslan Test +, O2 Delivery Device Bnc, Oxygen Liter Flow 3.00, FiO2 % 32.0 ASSESSMENT: Please see below. 1. Acute pulmonary edema 3. CHF 3. Hypertension 4. Severe symptomatic anemia with shortness of breath 5. Atrial fibrillation PLAN: 1. No evidence of active GI bleed 2. Chronic kidney disease stable with creatinine 1.5, 36. 3. CHF seems to have resolved with IV Lasix yesterday 4. Blood pressure seems to be under control now. 5. CHF education carried out. 6. Daily INR 7. One unit packed red blood cells. Plan and coordination of the patient's care discussed in the presence of Qual Field Manager and nurse. SCRIBED BY: Shailesh GREER scribed while in presence of service performed by Dr. NADYA GARCIA on 12/11/18 (1915)
[2018-12-11] MEDS: VITAMIN D PO SCH (09:29)
[2018-12-11] MEDS: NORVASC PO SCH (09:29)
[2018-12-11] MEDS: COZAAR PO SCH (09:29)
[2018-12-11] MEDS: FERROUS SULFATE PO SCH (09:30)
[2018-12-11] MEDS: PLETAL PO SCH ×2 (09:30→20:58)
[2018-12-11] MEDS: NITRO DUR TD SCH (10:10)
[2018-12-11] MEDS: LOPRESSOR PO SCH (10:16)
[2018-12-11] MEDS ORDERED: COUMADIN PO SCH ×2 (17:00)
[2018-12-11] MEDS: COUMADIN PO SCH (18:26)
[2018-12-11] MEDS: LANTUS SUBCUT SCH (20:56)
[2018-12-11] MEDS ORDERED: INSULIN GLARGINE HUM REC ANLOG 50 UNIT SQ SCH (21:00)
[2018-12-12] MEDS: NORCO 7.5-325 PO PRN (03:58)
[2018-12-12] MEDS: SOLU-CORTEF 100 MG IVP SCH ×3 (04:04→20:34)
[2018-12-12] MEDS: LASIX IVP SCH (05:42)
[2018-12-12] MEDS: COZAAR PO SCH (08:29)
[2018-12-12] MEDS: LOPRESSOR PO SCH (08:29)
[2018-12-12] MEDS: FERROUS SULFATE PO SCH (08:29)
[2018-12-12] MEDS: VITAMIN D PO SCH (08:29)
[2018-12-12] MEDS: NITRO DUR TD SCH (08:29)
[2018-12-12] MEDS: NORVASC PO SCH (08:29)
[2018-12-12] MEDS: PLETAL PO SCH ×2 (08:29→20:34)
--- NOTE | 2018-12-12 09:22 | ED.PDOC ---
Procedures - IV/Art Line Insertion Location: RT Hand Type of Line: Peripheral IV Number of Attempts: 2 Blood Return Positive: Yes Invasive Line/IV Flushes Without Difficulty: Yes Conscious Sedation - Pre-op Assessment Weight: 158 lb 11.725 oz Surgical History: CABG, ARTIIFICIAL AORTA, LEFT ARM STENT, PARTIAL HYSTERECTOMY , APPY - Medical History Past Medical History: Hypertension, Diabetes, CA, CHF, COPD, Kidney Disease - Physical Exam Heart Rate/Rhythm: Tachycardia
[2018-12-12] MEDS: ZITHROMAX PO SCH (11:00)
[2018-12-12] MEDS: HUMULIN R SUBCUT PRN (11:01)
[2018-12-12] MEDS: COUMADIN PO SCH (16:29)
[2018-12-12] MEDS: LANTUS SUBCUT SCH (20:33)
[2018-12-13] MEDS: LASIX IVP SCH (05:44)
[2018-12-13] MEDS: SOLU-CORTEF 100 MG IVP SCH ×3 (05:44→20:30)
[2018-12-13] MEDS: NORVASC PO SCH (07:59)
[2018-12-13] MEDS: PLETAL PO SCH ×2 (07:59→20:31)
[2018-12-13] MEDS: VITAMIN D PO SCH (07:59)
[2018-12-13] MEDS: COZAAR PO SCH (07:59)
[2018-12-13] MEDS: FERROUS SULFATE PO SCH (07:59)
[2018-12-13] MEDS: LOPRESSOR PO SCH (08:00)
[2018-12-13] MEDS: NITRO DUR TD SCH (08:00)
[2018-12-13] MEDS: ZITHROMAX PO SCH (08:00)
--- NOTE | 2018-12-13 09:43 | DI ---
EXAM: PA and lateral views of the chest HISTORY: Increased congestion, wheezing COMPARISON: 12/10/2018 FINDINGS: Mild bibasilar streaky opacities are identified, increased on the right. Mild blunting of both costo phrenic angles is now seen. No pneumothorax is identified. The cardiac silhouette is mildly enlarged and the pulmonary vasculatures within normal limits. Opera tive changes of CABG identified. Aortic calcified atherosclerotic plaque is seen. A stent overlies the left upper lung zone/left axilla. IMPRESSION: Small bilateral pleural effusions with mild adjacent atelectasis and/or consolidation. Mild cardiomegaly without overt pulmonary edema.
[2018-12-13] MEDS: NORCO 7.5-325 PO PRN (09:50)
[2018-12-13] MEDS: HUMULIN R SUBCUT PRN (10:51)
[2018-12-13] MEDS: COUMADIN PO SCH (16:18)
[2018-12-13] MEDS: LANTUS SUBCUT SCH (20:31)
[2018-12-14] MEDS: SOLU-CORTEF 100 MG IVP SCH ×3 (04:39→21:00)
[2018-12-14] MEDS: LOPRESSOR PO SCH (08:12)
[2018-12-14] MEDS: NITRO DUR TD SCH (08:13)
[2018-12-14] MEDS: PLETAL PO SCH ×2 (08:14→21:01)
[2018-12-14] MEDS: COZAAR PO SCH (08:14)
[2018-12-14] MEDS: FERROUS SULFATE PO SCH (08:14)
[2018-12-14] MEDS: NORVASC PO SCH (08:15)
[2018-12-14] MEDS: LASIX TAB PO SCH (08:15)
[2018-12-14] MEDS: VITAMIN D PO SCH (08:15)
[2018-12-14] MEDS: ZITHROMAX PO SCH (08:15)
[2018-12-14] MEDS: HUMULIN R SUBCUT PRN (12:09)
[2018-12-14] MEDS: COUMADIN PO SCH (17:24)
[2018-12-14] MEDS: XANAX PO PRN (21:01)
[2018-12-14] MEDS: LANTUS SUBCUT SCH (21:01)
[2018-12-14] MEDS: NORCO 7.5-325 PO PRN (21:02)
[2018-12-15] MEDS: SOLU-CORTEF 100 MG IVP SCH (05:25)
[2018-12-15] MEDS: LASIX TAB PO SCH (05:43)
[2018-12-15] MEDS: NITRO DUR TD SCH (09:33)
[2018-12-15] MEDS: VITAMIN D PO SCH (09:34)
[2018-12-15] MEDS: NORVASC PO SCH (09:35)
[2018-12-15] MEDS: COZAAR PO SCH (09:35)
[2018-12-15] MEDS: FERROUS SULFATE PO SCH (09:35)
[2018-12-15] MEDS: PLETAL PO SCH ×2 (09:35→21:51)
[2018-12-15] MEDS: LEVAQUIN PO SCH (09:36)
[2018-12-15] MEDS: LOPRESSOR PO SCH (09:36)
--- NOTE | 2018-12-15 13:41 | DI ---
EXAM: CHEST FRONTAL VIEW HISTORY: Increased coughing. COMPARISON: 12/13/2018 FINDINGS: Cardiac enlargement is again suggested. Sternotomy wires. Atherosclerotic disease. Trac e bilateral pleural effusions are stable. Probable adjacent consolidation at least on the left which could represent atelectasis or pneumonia. No vascular congestion or pneumothorax. Vascular stent o jonah the left axillary region. IMPRESSION: 1. No change since previous exam.
[2018-12-15] MEDS: PREDNISONE PO SCH (16:38)
[2018-12-15] MEDS: COUMADIN PO SCH (16:38)
[2018-12-15] MEDS ORDERED: MILK OF MAGNESIA PO STA (16:56)
[2018-12-15] MEDS: XOPENEX 1.25 MG NEB SCH (17:09)
[2018-12-15] MEDS: XANAX PO PRN (21:51)
[2018-12-15] MEDS: LANTUS SUBCUT SCH (21:53)
[2018-12-16] MEDS: NORCO 7.5-325 PO PRN ×2 (04:43→21:08)
[2018-12-16] MEDS: XOPENEX 1.25 MG NEB SCH ×2 (04:54→18:02)
[2018-12-16] MEDS: LASIX TAB PO SCH (05:32)
[2018-12-16] MEDS: LEVAQUIN PO SCH (05:33)
[2018-12-16] MEDS ORDERED: TORADOL IVP STA ×2 (08:32→09:02)
[2018-12-16] MEDS ORDERED: TORADOL ONE (08:45)
[2018-12-16] MEDS ORDERED: LEVAQUIN 250 MG in PREMIX 50 ML D5W 1 BAG IV ONE (09:00)
[2018-12-16] MEDS ORDERED: LEVAQUIN 250 MG in PREMIX 50 ML D5W 1 BAG IV SCH (09:00)
[2018-12-16] MEDS: DEXTROSE 5%-1/2NS IV SOLUTION 1,000 ML IV SCH ×2 (09:07→22:40)
[2018-12-16] MEDS: FERROUS SULFATE PO SCH (09:18)
[2018-12-16] MEDS: NITRO DUR TD SCH (09:19)
[2018-12-16] MEDS: PREDNISONE PO SCH ×2 (09:19→17:14)
[2018-12-16] MEDS: COZAAR PO SCH (09:19)
[2018-12-16] MEDS: PLETAL PO SCH ×2 (09:19→21:08)
[2018-12-16] MEDS: NORVASC PO SCH (09:19)
[2018-12-16] MEDS: VITAMIN D PO SCH (09:19)
[2018-12-16] MEDS: LOPRESSOR PO SCH (09:19)
--- NOTE | 2018-12-16 09:45 | ECHO2D ---
Date of Exam: 12/15/18 Ordering Physician: DR. NADYA GARCIA Room #: 102 Reason for Echo: SOB, EVALUATE LV FUNCTION, HX CABG M-Mode Normal Adult Results LV Dimensions Normal Adult Results AoV Opening excursions >1.6 >1.6 LVEDD-base- 3.5-5.8 4.3 Ao root dimensions 2.0-3.7 2.7 LVESD-base- 3.1-4.6 L. Atrium dimensions 1.9-3.8 4.3 Post. Wall thickness 0.8-1.1 1.3 IV septum (thickness) 0.7-1.2 1.3 Post. Wall excursion 0.72-1.3 NORMAL Septal motion NORMAL Systolic motion R. Ventricular cavity 1.5-2.0 NORMAL LVEF 60% 69% Paradoxical septal wall motion NORMAL 2-D : 2-D M Mode Echocardiogram was performed using apical four chamber and left parasternal long and short axis views. Mitral, tricuspid and aortic valves appear to be normal. Contractility of the left ventricle seems to be normal, so is the cavity size. ENLARGED LEFT ATRIALC CAVITY. Aortic root appears to be normal. There is no pericardial effusion. There is no thrombus noted in the left ventricular or left aortic cavity. No mitral valve prolapse noted. M-MODE: MV: NORMAL AV: NORMAL TV: NORMAL PV: CHAMBER SIZE: ENLARGED LEFT ATRIAL CAVITY WALL MOTION: NORMAL PERICARDIUM: NORMAL INTERPRETATION: 1. LEFT VENTRICULAR HYPERTROPHY WITH ENLARGED LEFT ATRIAL CAVITY 2. NORMAL LEFT VENTRICULAR CONTRACTILITY 3. NORMAL VALVES MTDD
[2018-12-16] MEDS: HUMULIN R SUBCUT PRN (12:12)
--- NOTE | 2018-12-16 12:47 | PN ---
DATE OF SERVICE: 12/10/18 SUBJECTIVE: The patient was seen and examined in the emergency room. She was brought by the brother because of having shortness of breath on minimal exertion with cough, pinkish frothy sputum. The patient was in mild respiratory distress with end expiratory wheezing. The patient's blood pressure was 210 systolic. The patient was given 80 mg Lasix with 2 mg Morphine Sulfate with 125 IV Solu-Cortef with Vasotec 1.25 IV as I was standing there. According to the brother, shortness of breath started 24 to 48 hours prior to hospitalization. The patient has history of coronary artery disease, COPD, renal failure. PHYSICAL EXAMINATION: HEENT: Head normocephalic, atraumatic. Eyes: Extraocular muscles are intact. Pupils are equal, round and reactive to light and accommodation. Ears: No lesions. Nose appeared normal. Throat: No exudate or erythema. NECK: Supple. JVP 2 cm. No carotid bruit. No lymphadenopathy or thyromegaly. LUNGS: Mild wheeze. Percussion note normal. Chest symmetrical. HEART: S1, S2, questionable S3. No murmurs. No cyanosis or clubbing. No ascites. Pulses: Dorsalis pedis and posterior tibial pulses +1 to +2 bilaterally. ABDOMEN: Soft. Nontender. Bowel sounds active. No CVA tenderness. No mass felt. EXTREMITIES: No edema. Full range of motion of all extremities, equal. NEUROLOGIC: No focal deficit. Cranial nerves II through XII are grossly intact. No headache, no double vision or headache. SKIN: Not dry. Intact. Turgor - normal. LYMPHATIC: No palpable lymph nodes/no lymphedema. MUSCULOSKELETAL: Normal joints with no swelling. Muscle tone is normal. ASSESSMENT: 1. ACUTE PULMONARY EDEMA WITH CONGESTIVE HEART FAILURE. 2. CHRONIC KIDNEY DISEASE. 3. DIABETES MELLITUS. 4. HYPERTENSION. PLAN: The patient is noncompliant, was given IV Lasix, Morphine Sulfate, Vasotec. She will be getting Lasix 20 mg, Solu-Cortef 100 mg q8, breathing treatments. Condition was stabilized with blood gases done after the treatment to an acceptable level of P02 with oxygen saturation more than 90% with pc02 of 35 with normal PH of 7.36. CONDITION: Stable. TIME SPENT: More than 30 minutes. Plan and coordination of the patient's care discussed in the presence of nurse. BRIGHT
--- NOTE | 2018-12-16 12:55 | PN ---
DATE OF SERVICE: 12/12/18 SUBJECTIVE: 88-year-old white female hospitalized with CHF and bronchitis. The patient's condition has improved. Her oxygen saturation is improved. She is still coughing. Will add Zithromax 500 mg daily for three days and will discontinue IV fluids. The patient's creatinine is 1.4, BUN 49. She has anemia of 7.9 with hematocrit of 25. WBC 12,000. According to Dr. Spencer, who is a fitness technician /oncologist, the patient has leukemia. The patient does not have any evidence of active GI bleed considering her shortness of breath and fatigue feeling with CHF. Will give a couple units of packed red cells and she has agreed. REVIEW OF SYSTEMS: CONSTITUTIONAL: Fatigue, tired feeling. No night sweats. No malaise, lethargy. No fever or chills. HEENT: Eyes: No visual changes. No eye pain. No eye discharge. ENT: No runny nose. No epistaxis. No sinus pain. No sore throat. No odynophagia. No congestion. RESPIRATORY: Less cough, no congestion. No hemoptysis. Shortness of breath on exertion that seems to be improving. CARDIOVASCULAR: No angina symptoms. No CHF symptoms. No atypical chest pain for CAD. No palpitations. No PND. No orthopnea. GASTROINTESTINAL: No abdominal pain. No nausea or vomiting. No diarrhea or constipation. No hematemesis. No hematochezia. GENITOURINARY: No urgency. No frequency. No dysuria. No hematuria. No obstructive symptoms. No discharge. No pain. No significant abnormal bleeding. MUSCULOSKELETAL: No musculoskeletal pain; no joint swelling. NEUROLOGICAL: No headache. No neck pain. No syncope. No seizures. No dizziness. PSYCHIATRIC: Not anxious. No depression. No suicidal thoughts. No homicidal thoughts. SKIN: No rash. No lesions. No wounds. ENDOCRINE: No unexplained weight loss. No weight gain. HEMATOLOGIC/LYMPHATIC: No anemia. No purpura. No petechiae. No prolonged or excessive bleeding. No palpable lymph nodes. PHYSICAL EXAMINATION: HEENT: Head normocephalic, atraumatic. Eyes: Extraocular muscles are intact. Pupils are equal, round and reactive to light and accommodation. Ears: No lesions. Nose appeared normal. Throat: No exudate or erythema. NECK: Supple. No JVD, no carotid bruit. No lymphadenopathy or thyromegaly. LUNGS: Decreased breath sounds with mild wheeze. Percussion note normal. Chest symmetrical. HEART: S1, S2, no S3. No murmurs. No cyanosis or clubbing. No ascites. Pulses: Dorsalis pedis and posterior tibial pulses +1 to +2 bilaterally. ABDOMEN: Soft. Nontender. Bowel sounds active. No CVA tenderness. No mass felt. EXTREMITIES: No edema. Full range of motion of all extremities, equal. NEUROLOGIC: No focal deficit. Cranial nerves II through XII are grossly intact. No headache, no double vision or headache. SKIN: Not dry. Intact. Turgor - normal. LYMPHATIC: No palpable lymph nodes/no lymphedema. MUSCULOSKELETAL: Normal joints with no swelling. Muscle tone is normal. ASSESSMENT: 1. CHF SEEMS TO HAVE RESOLVED. 2. ACUTE BRONCHITIS. 3. 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 4. 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 5. CORONARY ARTERY DISEASE. 6. HISTORY OF CHF. 7. CHRONIC KIDNEY DISEASE. PLAN: 1. Monitor CBC, CMP. 2. Two units of packed red cells. 3. Zithromax as mentioned. TIME SPENT: More than 30 minutes. Plan and coordination of the patient's care discussed in the presence of nurse. BRIGHT
--- NOTE | 2018-12-16 13:08 | PN ---
DATE OF SERVICE: 12/13/18 SUBJECTIVE: The patient was seen and examined today. Condition has improved. Hemoglobin is 10, hematocrit 31. The patient had two units of packed red cells. The patient is on Procrit shots at times. At the time she had an acute medical condition like CHF or bronchitis so she was given two units of packed red cells. Creatinine 1.7, BUN 60 from aggressive diuretic therapy. Her appetite has improved. The patient's son is present in the room. PHYSICAL EXAMINATION: HEENT: Head normocephalic, atraumatic. Eyes: Extraocular muscles are intact. Pupils are equal, round and reactive to light and accommodation. Ears: No lesions. Nose appeared normal. Throat: No exudate or erythema. NECK: Supple. No JVD, no carotid bruit. No lymphadenopathy or thyromegaly. LUNGS: Decreased breath sounds but clear to auscultation. Percussion note normal. Chest symmetrical. HEART: S1, S2, no S3. No murmurs. No cyanosis or clubbing. No ascites. Pulses: Dorsalis pedis and posterior tibial pulses +1 to +2 bilaterally. ABDOMEN: Soft. Nontender. Bowel sounds active. No CVA tenderness. No mass felt. EXTREMITIES: No edema. Full range of motion of all extremities, equal. NEUROLOGIC: No focal deficit. Cranial nerves II through XII are grossly intact. No headache, no double vision or headache. SKIN: Not dry. Intact. Turgor - normal. LYMPHATIC: No palpable lymph nodes/no lymphedema. MUSCULOSKELETAL: Normal joints with no swelling. Muscle tone is normal. ASSESSMENT: 1. Acute CHF seems to have resolved. 2. Acute bronchitis being treated with Zithromax and steroids. PLAN: 1. Monitor CBC, CMP. 2. The patient is also followed by director of product development, bobbin trucker/oncologist and Dr. Morris wound not do knee replacement. The patient had severe peripheral arterial disease and diabetes mellitus. She is unable to afford Lantus so when she comes back to the office, will discuss about other alternatives. TIME SPENT: More than 30 minutes. Plan and coordination of the patient's care discussed in the presence of nurse. BRIGHT
[2018-12-16] MEDS ORDERED: GLYCERIN SUPPOSITORY RC PRN (13:26)
--- NOTE | 2018-12-16 13:37 | HP ---
DATE OF SERVICE: 12/10/18 HISTORY OF PRESENT ILLNESS: 88-year-old white female hospitalized with complaint of being short of breath and wheezing. Th patient was seen in the emergency room by me where she was in mild to moderate respiratory distress with audible wheezing. She had also frothy pink sputum. The blood pressure was 206. The patient at the time was given 80 Lasix by me with 2 mg of Morphine Sulfate, Vasotec 1.25 and 100 mg IV Solu-Cortef. The patient's condition had improved. Oxygen saturation and symptoms improved. PAST MEDICAL HISTORY: 1. Bilateral peripheral arterial disease with intervention on both sides followed by Dr. Kline. 2. Chronic kidney disease followed by transcriptionist. 3. Anemia with possibility of leukemia followed by Dr. Spencer. 4. Congestive heart failure. 5. Coronary artery disease. 6. Diabetes mellitus. 7. Hypertension. 8. Dyslipidemia. 9. Anemia. REVIEW OF SYSTEMS: CONSTITUTIONAL: Fatigue, weakness. No night sweats. No malaise, lethargy. No fever or chills. HEENT: Eyes: No visual changes. No eye pain. No eye discharge. ENT: No runny nose. No epistaxis. No sinus pain. No sore throat. No odynophagia. No ear pain. No congestion. RESPIRATORY: [place] frothy sputum, mild bronchitis type of symptoms. No hemoptysis. Shortness of breath on minimal exertion. CARDIOVASCULAR: No angina symptoms. No CHF symptoms. No atypical chest pain for CAD. No palpitations. PND and orthopnea. GASTROINTESTINAL: Poor appetite for two days. No abdominal pain. No nausea or vomiting. No diarrhea or constipation. No hematemesis. No hematochezia. GENITOURINARY: No urgency. No frequency. No dysuria. No hematuria. No obstructive symptoms. No discharge. No pain. No significant abnormal bleeding. MUSCULOSKELETAL: No musculoskeletal pain. No joint swelling. No arthritis. NEUROLOGICAL: No headache. No neck pain. No syncope. No seizures. No dizziness. PSYCHIATRIC: Not anxious. No depression. No suicidal thoughts. No homicidal thoughts. SKIN: No rash. No lesions. No wounds. ENDOCRINE: No unexplained weight loss. No weight gain. HEMATOLOGIC/LYMPHATIC: No anemia. No purpura. No petechiae. No prolonged or excessive bleeding. No palpable lymph nodes. MEDICATIONS: 1. Pletal 100 mg b.i.d. 2. Lantus 50 units subQ daily at bedtime. 3. Minitran. 4. Xanax. 5. [place] q.12. 6. Metoprolol. 7. Nitroglycerin. 8. Lasix 40 mg daily. 9. Amlodipine 10 mg daily. 10. Pravastatin 20 mg. 11. Losartan 100 mg. 12. Coumadin 3 mg. ALLERGIES: HYDRALAZINE, INSULIN, PENICILLIN PHYSICAL EXAMINATION: GENERAL: The patient is oriented to time, place and person. She is pale. VITAL SIGNS: Temperature 98, pulse 90, respiratory rate 15, blood pressure 160/ 80, pulse ox 95% with 2L. HEENT: Head normocephalic, atraumatic. Eyes: Extraocular muscles are intact. Pupils are equal, round and reactive to light and accommodation. Ears: No lesions. Nose appeared normal. Throat: No exudate or erythema. NECK: JVP 2 cm. Supple. No carotid bruit. No lymphadenopathy or thyromegaly. LUNGS: Decreased breath sounds with mild wheeze bilaterally. Percussion note normal. Chest symmetrical. HEART: S1, S2, questionable S3. No murmurs. No cyanosis or clubbing. No ascites. Pulses: Pedal pulses feeble bilaterally. ABDOMEN: Soft. Nontender. Bowel sounds active. No CVA tenderness. No mass felt. EXTREMITIES: +1 pitting edema. Full range of motion of all extremities, equal. NEUROLOGIC: No focal deficit. Cranial nerves II through XII are grossly intact. No headache, no double vision or headache. SKIN: Looks pale. Skin is not dry. Intact. Turgor - normal. LYMPHATIC: No palpable lymph nodes/no lymphedema. MUSCULOSKELETAL: Normal joints with no swelling. Muscle tone is normal. ABG with FI02 of 32% on 3L. p02 120 with pc02 36, pH of 7.36 with 99% saturation. Creatinine 1.4, BUN 34, potassium 4.6. Pro-BNP 1760. Lactic acid 1.1 , hemoglobin 8.8, hematocrit 29, WBC 11,000, normal differential. Procalcitonin less than 0.05. INR 2.29. UA 1+ bacteria, 1+ leukocyte esterase, 2+ protein. ASSESSMENT: 1. ACUTE PULMONARY EDEMA. 2. ACUTE BRONCHITIS. 3. PERIPHERAL ARTERIAL DISEASE. 4. CORONARY ARTERY DISEASE. 5. HISTORY OF CHF. 6. CHRONIC KIDNEY DISEASE. 7. CHRONIC ANEMIA, POSSIBILITY OF LEUKEMIA. 8. DIABETES MELLITUS. 9. HYPERTENSION. 10. DYSLIPIDEMIA. PLAN: 1. Continue to give IV Lasix, IV Morphine Sulfate p.r.n. 2. Telemetry. 3. Cardiac markers. 4. IV antibiotics, steroids. 5. Elevate the legs. 6. Monitor CBC, CMP. 7. The patient is DNR. CONDITION: Stable TIME SPENT: More than 70 minutes. MTDD
--- NOTE | 2018-12-16 13:54 | PN ---
DATE OF SERVICE: 12/14/18 SUBJECTIVE: 88-year-old white female hospitalized with CHF, acute bronchitis. Both CHF and bronchitis seems to have improved. She has no PND, no orthopnea. The cough is very mild. No fever, no chills. The appetite seems to have improved. The patient 's son is in the room who is from [place]. REVIEW OF SYSTEMS: CONSTITUTIONAL: No night sweats. No fatigue, malaise, lethargy. No fever or chills. HEENT: Eyes: No visual changes. No eye pain. No eye discharge. ENT: No runny nose. No epistaxis. No sinus pain. No sore throat. No odynophagia. No congestion. RESPIRATORY: Mild cough. No hemoptysis. No shortness of breath. CARDIOVASCULAR: No angina symptoms. No CHF symptoms. No atypical chest pain for CAD. No palpitations. No PND. No orthopnea. GASTROINTESTINAL: Appetite has improved. No abdominal pain. No nausea or vomiting. No diarrhea or constipation. No hematemesis. No hematochezia. GENITOURINARY: No urgency. No frequency. No dysuria. No hematuria. No obstructive symptoms. No discharge. No pain. No significant abnormal bleeding. MUSCULOSKELETAL: No musculoskeletal pain; no joint swelling. NEUROLOGICAL: No headache. No neck pain. No syncope. No seizures. No dizziness. PSYCHIATRIC: Not anxious. No depression. No suicidal thoughts. No homicidal thoughts. SKIN: No rash. No lesions. No wounds. ENDOCRINE: No unexplained weight loss. No weight gain. HEMATOLOGIC/LYMPHATIC: No anemia. No purpura. No petechiae. No prolonged or excessive bleeding. No palpable lymph nodes. PHYSICAL EXAMINATION: VITAL SIGNS: Temperature 98.1, pulse 76, respiratory rate 20, blood pressure 130/64, pulse ox 95% on room air. HEENT: Head normocephalic, atraumatic. Eyes: Extraocular muscles are intact. Pupils are equal, round and reactive to light and accommodation. Ears: No lesions. Nose appeared normal. Throat: No exudate or erythema. NECK: Supple. No JVD, no carotid bruit. No lymphadenopathy or thyromegaly. LUNGS: Decreased breath sounds but clear to auscultation. Percussion note normal. Chest symmetrical. HEART: S1, S2, no S3. No murmurs. No cyanosis or clubbing. No ascites. Pulses: Dorsalis pedis and posterior tibial pulses +1 to +2 bilaterally. ABDOMEN: Soft. Nontender. Bowel sounds active. No CVA tenderness. No mass felt. EXTREMITIES: No edema. Full range of motion of all extremities, equal. NEUROLOGIC: No focal deficit. Cranial nerves II through XII are grossly intact. No headache, no double vision or headache. SKIN: Not dry. Intact. Turgor - normal. LYMPHATIC: No palpable lymph nodes/no lymphedema. MUSCULOSKELETAL: Normal joints with no swelling. Muscle tone is normal. LABS: Hemoglobin 9.6, hematocrit 30, WBC 14,000, normal differential. Creatinine 1.6, BUN 69, potassium 4.1. ASSESSMENT: 1. ACUTE CHF/LVF RESOLVED. 2. ACUTE BRONCHITIS UNDER CONTROL. 3. 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 4. SEVERE PERIPHERAL ARTERIAL DISEASE. 5. DIABETES MELLITUS. 6. CHRONIC KIDNEY DISEASE. 7. HYPERTENSION. 8. CORONARY ARTERY DISEASE. 9. LEUKEMIA. PLAN: 1. Continue to monitor CBC, CMP. TIME SPENT: More than 30 minutes. Plan and coordination of the patient's care discussed in the presence of nurse. BRIGHT
--- NOTE | 2018-12-16 14:01 | PN ---
DATE OF SERVICE: 12/15/18 SUBJECTIVE: The patient was seen and examined with the nurse practitioner. The patient's condition seems to have improved. Her kidney functions are deteriorated with slow hydration oral done, will back off from diuresis. The patient also has yellowish sputum, bronchitis treated with antibiotics. CONDITION: Stable. TIME SPENT: More than 30 minutes. Plan and coordination of the patient's care discussed in the presence of nurse. BRIGHT
[2018-12-16] MEDS: XANAX PO PRN (21:08)
[2018-12-16] MEDS: LANTUS SUBCUT SCH (21:09)
[2018-12-17] MEDS: XOPENEX 1.25 MG NEB SCH ×3 (04:50→20:20)
[2018-12-17] MEDS: LASIX TAB PO SCH (05:40)
[2018-12-17] MEDS: COZAAR PO SCH (08:52)
[2018-12-17] MEDS: PREDNISONE PO SCH ×2 (08:52→16:55)
[2018-12-17] MEDS: LOPRESSOR PO SCH (08:52)
[2018-12-17] MEDS: PLETAL PO SCH ×2 (08:52→20:59)
[2018-12-17] MEDS: NORVASC PO SCH (08:52)
[2018-12-17] MEDS: NITRO DUR TD SCH (08:55)
[2018-12-17] MEDS: FERROUS SULFATE PO SCH (08:55)
[2018-12-17] MEDS: VITAMIN D PO SCH (09:13)
--- NOTE | 2018-12-17 09:17 | PCM.PROG ---
Attending Provider: ATTENDING PROVIDER: Dr. NADYA GARCIA This patient is seen with Zahra Mo, Nurse Practitioner. DATE OF SERVICE: 12/15/18 SUBJECTIVE: This 88 year old WHITE/ F was hospitalized 12/10/18. The patient is sitting in chair resting comfortably. Cough is worse. Anticipate discharge home today or tomorrow. REVIEW OF SYSTEMS: CONSTITUTIONAL: No night sweats. No fatigue, malaise, lethargy. No fever or chills. HEENT: Eyes: No visual changes. No eye pain. No eye discharge. ENT: No runny nose. No epistaxis. No sinus pain. No odynophagia. No congestion. RESPIRATORY: Cough and congestion. No hemoptysis. Shortness of breath. CARDIOVASCULAR: No angina symptoms. No CHF symptoms. No atypical chest pain for CAD. No palpitations. No orthopnea.. GASTROINTESTINAL: No abdominal pain. No nausea or vomiting. No diarrhea or constipation. No hematemesis. No hematochezia. GENITOURINARY: No urgency. No frequency. No dysuria. No hematuria. No obstructive symptoms. No discharge. No pain. No significant abnormal bleeding. MUSCULOSKELETAL: No musculoskeletal pain; no joint swelling. NEUROLOGICAL: Awake, alert, oriented to time, place and person. No headache. No neck pain. No syncope. No seizures. No dizziness. PSYCHIATRIC: Not anxious. No depression. No suicidal thoughts. No homicidal thoughts. SKIN: No rash. No lesions. No wounds. ENDOCRINE: No unexplained weight loss. No weight gain. HEMATOLOGIC/LYMPHATIC: No anemia. No purpura. No petechiae. No prolonged or excessive bleeding. No palpable lymph nodes. PHYSICAL EXAMINATION: GENERAL: The patient is awake, alert and oriented, sitting in chair in no distress. VITAL SIGNS: Temperature 97.8 F, Pulse 82, Respiratory Rate 18, BP 166/80, Pulse Ox 94% HEENT: Head normocephalic, atraumatic. Eyes: Extraocular muscles are intact. Pupils are equal, round and reactive to light and accommodation. Ears: No lesions. Nose appeared normal. Throat: No exudate or erythema. NECK: Supple. No JVD, no carotid bruit. No lymphadenopathy or thyromegaly. LUNGS: Diminished breath sounds. Clear to auscultation. Percussion note normal. Chest symmetrical. HEART: S1, S2, no S3. No murmurs. No cyanosis or clubbing. No ascites. Pulses: Dorsalis pedis and posterior tibial pulses +1 to +2 both sides. ABDOMEN: Soft. Non-tender. Bowel sounds active. No CVA tenderness. No mass felt. EXTREMITIES: No leg edema. Full range of motion of all extremities, equal. NEUROLOGIC: No focal deficit. Cranial nerves II through XII are grossly intact. No headache, no double vision or headache. SKIN: Not dry. Intact. Turgor-normal. LYMPHATIC: No palpable lymph nodes/no lymphedema. MUSCULOSKELETAL: Normal joints with no swelling. Muscle tone is normal. LAB REVIEW: 12/15/18 04:00 12/15/18 04:00 12/15/18 04:00: Sodium 136.8, Potassium 3.82, Chloride 106.8, Carbon Dioxide 22.3, Anion Gap 11.52, BUN 72.6 H*, Creatinine 1.62 H, Estimated GFR (MDRD) 30.00, BUN/Creatinine Ratio 44.81, Glucose 117.5 H, Calcium 8.71, Total Bilirubin 0.28, AST 28.2, ALT 25.0, Alkaline Phosphatase 47.5 L, Total Protein 5.43 L, Albumin 3.26 L, Globulin 2.17, Albumin/Globulin Ratio 1.50 12/15/18 04:00: PT 25.2 H, INR 2.59 12/15/18 04:00: WBC 15.33 H, RBC 3.33 L, Hgb 9.8 L, Hct 30.7 L, MCV 92.2, MCH 29.4, MCHC 31.9, RDW Coeff of [place]rie 14.0, Plt Count 283, Immature Gran % (Auto) 1.0, Neut % (Auto) 56.5, Lymph % (Auto) 40.6, [place] % (Auto) 1.8, Eos % (Auto) 0.0, Baso % (Auto) 0.1, Immature Gran # (Auto) 0.2, Neut # (Auto) 8.7 H, Lymph # (Auto) 6.2 H, [place] # (Auto) 0.3 L, Eos # (Auto) 0.0, Baso # (Auto) 0.0 12/11/18 10:50: Crossmatch (AHG) See Detail ASSESSMENT: 1. Acute bronchitis. 2. Acute pulmonary edema. 3. CHF. 4. Hypertension. 5. Severe symptomatic anemia with shortness of breath. 6. Atrial fibrillation. PLAN: 1. Repeat chest x-ray. 2. Levaquin 250 mg p.o. 3. Xopenex b.i.d. 4. Prednisone 10 mg b.i.d. 5. D/C Solu-Cortef. Plan and coordination of the patient's care discussed in the presence of Patient Care Provider and nurse. CONDITION: Stable SCRIBED BY: Shailesh VASQUEZ scribed while in presence of service performed by Dr. Garcia/Zahra Mo APRN on 12/15/18 ([id number])
--- NOTE | 2018-12-17 09:26 | PCM.PROG ---
Attending Provider: ATTENDING PROVIDER: Dr. NADYA GARCIA This patient is seen with Zahra Mo, Nurse Practitioner. DATE OF SERVICE: 12/17/18 SUBJECTIVE: This 88 year old WHITE/ F was hospitalized 12/10/18. The patient is sitting in chair resting comfortably. Kidney function slightly improved. She still has productive cough. Will decrease IV fluids to 50 cc/hr. Hemoglobin is stable. No fever. REVIEW OF SYSTEMS: CONSTITUTIONAL: Weakness. No night sweats. No fatigue, malaise, lethargy. No fever or chills. HEENT: Eyes: No visual changes. No eye pain. No eye discharge. ENT: No runny nose. No epistaxis. No sinus pain. No odynophagia. No congestion. RESPIRATORY: Cough and congestion. No hemoptysis. No shortness of breath. CARDIOVASCULAR: No angina symptoms. No CHF symptoms. No atypical chest pain for CAD. No palpitations. No orthopnea.. GASTROINTESTINAL: No abdominal pain. No nausea or vomiting. No diarrhea or constipation. No hematemesis. No hematochezia. GENITOURINARY: No urgency. No frequency. No dysuria. No hematuria. No obstructive symptoms. No discharge. No pain. No significant abnormal bleeding. MUSCULOSKELETAL: No musculoskeletal pain; no joint swelling. NEUROLOGICAL: Awake, alert, oriented to time, place and person. No headache. No neck pain. No syncope. No seizures. No dizziness. PSYCHIATRIC: Not anxious. No depression. No suicidal thoughts. No homicidal thoughts. SKIN: No rash. No lesions. No wounds. ENDOCRINE: No unexplained weight loss. No weight gain. HEMATOLOGIC/LYMPHATIC: No anemia. No purpura. No petechiae. No prolonged or excessive bleeding. No palpable lymph nodes. PHYSICAL EXAMINATION: GENERAL: The patient is awake, alert and oriented, sitting in chair in no distress. VITAL SIGNS: Temperature 97.9 F, Pulse 73, Respiratory Rate 20, BP 168/51, Pulse Ox 98% HEENT: Head normocephalic, atraumatic. Eyes: Extraocular muscles are intact. Pupils are equal, round and reactive to light and accommodation. Ears: No lesions. Nose appeared normal. Throat: No exudate or erythema. NECK: Supple. No JVD, no carotid bruit. No lymphadenopathy or thyromegaly. LUNGS: Diminished breath sounds with bilateral rhonchi. Percussion note normal. Chest symmetrical. HEART: S1, S2, no S3. No murmurs. No cyanosis or clubbing. No ascites. Pulses: Dorsalis pedis and posterior tibial pulses +1 to +2 both sides. ABDOMEN: Soft. Non-tender. Bowel sounds active. No CVA tenderness. No mass felt. EXTREMITIES: Trace pedal edema. Full range of motion of all extremities, equal. NEUROLOGIC: No focal deficit. Cranial nerves II through XII are grossly intact. No headache, no double vision or headache. SKIN: Not dry. Intact. Turgor-normal. LYMPHATIC: No palpable lymph nodes/no lymphedema. MUSCULOSKELETAL: Normal joints with no swelling. Muscle tone is normal. LAB REVIEW: 12/17/18 05:00 12/17/18 05:00 12/17/18 05:00: PT 34.2 H, INR 3.55 12/17/18 05:00: Sodium 133.3 L, Potassium 4.19, Chloride 105.3, Carbon Dioxide 20.7 L, Anion Gap 11.49, BUN 73.2 H*, Creatinine 1.61 H, Estimated GFR (MDRD) 30.00, BUN/Creatinine Ratio 45.46, Glucose 200.4 H, Calcium 8.10 L, Total Bilirubin 0.18 L, AST 21.5, ALT 25.9, Alkaline Phosphatase 47.9 L, Total Protein 5.05 L, Albumin 2.94 L, Globulin 2.11, Albumin/Globulin Ratio 1.39 12/17/18 05:00: WBC 16.23 H, RBC 3.11 L, Hgb 9.1 L, Hct 29.0 L, MCV 93.2, MCH 29.3, MCHC 31.4 L, RDW Coeff of [place] 14.1, Plt Count 276, Immature Gran % (Auto) 1.8, Neut % (Auto) 58.0, Lymph % (Auto) 36.6, [place] % (Auto) 3.5, Eos % (Auto) 0.0, Baso % (Auto) 0.1, Immature Gran # (Auto) 0.3, Neut # (Auto) 9.4 H, Lymph # (Auto) 5.9 H, [place] # (Auto) 0.6, Eos # (Auto) 0.0, Baso # (Auto) 0.0 ASSESSMENT: Please see below. 1. Acute bronchitis 2. Acute pulmonary edema 3. CHF 4. Hypertension 5. Severe symptomatic anemia with shortness of breath 6. Atrial fibrillation PLAN: 1. Xopenex t.i.d. 2. Add Pulmicort b.i.d. 3. Decrease IV fluids to 50 cc/hr. Plan and coordination of the patient's care discussed in the presence of Bleach Analyst and nurse. CONDITION: Stable SCRIBED BY: Shailesh VASQUEZ scribed while in presence of service performed by Dr. Garcia/Zahra Mo APRN on 12/17/18 ([id number])
[2018-12-17] MEDS: HUMULIN R SUBCUT PRN (11:32)
[2018-12-17] MEDS: DEXTROSE 5%-1/2NS IV SOLUTION 1,000 ML IV SCH (12:37)
[2018-12-17] MEDS: PULMICORT 1 MG/2 ML NEB SCH (20:30)
[2018-12-17] MEDS: LANTUS SUBCUT SCH (20:59)
[2018-12-17] MEDS: XANAX PO PRN (20:59)
[2018-12-17] MEDS: NORCO 7.5-325 PO PRN (20:59)
[2018-12-18] MEDS: XOPENEX 1.25 MG NEB SCH (05:10)
[2018-12-18] MEDS: PULMICORT 1 MG/2 ML NEB SCH (05:10)
[2018-12-18 05:42] VITALS: BP 120/60; TEMP 97.6
[2018-12-18] MEDS: LASIX TAB PO SCH (06:06)
[2018-12-18] MEDS ORDERED: LASIX IVP STA (08:32)
[2018-12-18] MEDS ORDERED: CITRATE OF MAGNESIA PO STA (08:33)
[2018-12-18] MEDS: NITRO DUR TD SCH (08:49)
[2018-12-18] MEDS: PREDNISONE PO SCH (08:50)
[2018-12-18] MEDS: COZAAR PO SCH (08:51)
[2018-12-18] MEDS: LOPRESSOR PO SCH (08:51)
[2018-12-18] MEDS: PLETAL PO SCH (08:51)
[2018-12-18] MEDS: FERROUS SULFATE PO SCH (08:51)
[2018-12-18] MEDS: NORVASC PO SCH (08:52)
[2018-12-18] MEDS: VITAMIN D PO SCH (08:52)
[2018-12-18] MEDS ORDERED: LEVAQUIN 500 MG in PREMIX 100 ML D5W 1 BAG IV SCH (09:00)
--- NOTE | 2018-12-18 09:32 | PCM.PROG ---
Attending Provider: ATTENDING PROVIDER: Dr. NADYA GARCIA This patient is seen with Zahra Mo, Nurse Practitioner. DATE OF SERVICE: 12/18/18 SUBJECTIVE: This 88 year old WHITE/ F was hospitalized 12/10/18. The patient is sitting in chair resting comfortably. Kidney function has steadily improved. She is still with persistent cough, afebrile. Hemoglobin is stable. She states she would like to go home today. REVIEW OF SYSTEMS: CONSTITUTIONAL: Positive for weakness. No night sweats. No fatigue, malaise, lethargy. No fever or chills. HEENT: Eyes: No visual changes. No eye pain. No eye discharge. ENT: No runny nose. No epistaxis. No sinus pain. No odynophagia. No congestion. RESPIRATORY: Positive for cough. No congestion. No hemoptysis. No shortness of breath. CARDIOVASCULAR: No angina symptoms. No CHF symptoms. No atypical chest pain for CAD. No palpitations. No orthopnea.. GASTROINTESTINAL: No abdominal pain. No nausea or vomiting. No diarrhea or constipation. No hematemesis. No hematochezia. GENITOURINARY: No urgency. No frequency. No dysuria. No hematuria. No obstructive symptoms. No discharge. No pain. No significant abnormal bleeding. MUSCULOSKELETAL: No musculoskeletal pain; no joint swelling. NEUROLOGICAL: Awake, alert, oriented to time, place and person. No headache. No neck pain. No syncope. No seizures. No dizziness. PSYCHIATRIC: Not anxious. No depression. No suicidal thoughts. No homicidal thoughts. SKIN: No rash. No lesions. No wounds. ENDOCRINE: No unexplained weight loss. No weight gain. HEMATOLOGIC/LYMPHATIC: No anemia. No purpura. No petechiae. No prolonged or excessive bleeding. No palpable lymph nodes. PHYSICAL EXAMINATION: GENERAL: The patient is awake, alert and oriented, sitting in chair in no distress. VITAL SIGNS: Temperature 97.6 F, Pulse 69, Respiratory Rate 16, BP 120/60, Pulse Ox 96% HEENT: Head normocephalic, atraumatic. Eyes: Extraocular muscles are intact. Pupils are equal, round and reactive to light and accommodation. Ears: No lesions. Nose appeared normal. Throat: No exudate or erythema. NECK: Supple. No JVD, no carotid bruit. No lymphadenopathy or thyromegaly. LUNGS: Diminished breath sounds. Clear to auscultation. Percussion note normal. Chest symmetrical. HEART: S1, S2, no S3. No murmurs. No cyanosis or clubbing. No ascites. Pulses: Dorsalis pedis and posterior tibial pulses +1 to +2 both sides. ABDOMEN: Soft. Slight abdominal distention. Bowel sounds active. No CVA tenderness. No mass felt. EXTREMITIES: Trace leg edema. Full range of motion of all extremities, equal. NEUROLOGIC: No focal deficit. Cranial nerves II through XII are grossly intact. No headache, no double vision or headache. SKIN: Not dry. Intact. Turgor-normal. LYMPHATIC: No palpable lymph nodes/no lymphedema. MUSCULOSKELETAL: Normal joints with no swelling. Muscle tone is normal. LAB REVIEW: 12/18/18 06:45 12/18/18 06:45 12/18/18 06:45: Sodium 132.7 L, Potassium 4.17, Chloride 108.2 H, Carbon Dioxide 17.1 L, Anion Gap 11.57, BUN 72.3 H*, Creatinine 1.46 H, Estimated GFR ( MDRD) 34.00, BUN/Creatinine Ratio 49.52, Glucose 164.1 H, Calcium 7.77 L, Total Bilirubin 0.28, AST 25.9, ALT 29.0, Alkaline Phosphatase 36.1 L, Total Protein 4.85 L, Albumin 2.78 L, Globulin 2.07, Albumin/Globulin Ratio 1.34 12/18/18 06:45: WBC 19.50 H, RBC 2.90 L, Hgb 8.6 L, Hct 28.0 L, MCV 96.6, MCH 29.7, MCHC 30.7 L, RDW Coeff of Kerrie 14.3, Plt Count 251, Immature Gran % (Auto) 1.9, Neut % (Auto) 58.6, Lymph % (Auto) 34.2, [place] % (Auto) 5.0, Eos % (Auto) 0.1, Baso % (Auto) 0.2, Immature Gran # (Auto) 0.4, Neut # (Auto) 11.4 H, Lymph # (Auto) 6.7 H, [place] # (Auto) 1.0, Eos # (Auto) 0.0, Baso # (Auto) 0.0 12/18/18 05:00: PT 26.6 H D, INR 2.74 ASSESSMENT: 1. Constipation. 2. Acute bronchitis. 3. Acute pulmonary edema. 4. CHF. 5. Hypertension. 6. Severe symptomatic anemia with shortness of breath. 7. Atrial fibrillation. PLAN: 1. Discharge home. 2. Levaquin 250 mg times 5 days q.day. 3. Prednisone 10 mg b.i.d. times five days. 4. Lasix 20 mg IV today. 5. D/C IV fluids. 6. Mag Citrate 1/2 bottle then repeat in two hours if no results. Plan and coordination of the patient's care discussed in the presence of Plastic Sewer and nurse. CONDITION: Stable SCRIBED BY: REA HILL Automation Mechanic scribed while in presence of service performed by Dr. Garcia/Zahra Mo APRN on 12/18/18 ([id number])
[2018-12-18] MEDS: DEXTROSE 5%-1/2NS IV SOLUTION 1,000 ML IV SCH (10:23)
--- NOTE | 2018-12-18 11:43 | CM.DICTOOL ---
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 GERD OSTEOARTHRITIS CABG, 1999 CHOLECYSTECTOMY FEM/POP BYPASSS PARTIAL HYSTERECTOMY ECHOCARDIOGRAM, DECEMBER 15, 2018 [facility] WITH ENLARGED LEFT ATRIAL CAVITY NORMAL VALVES LVEF 69% LAST VITALS Temp Pulse Resp BP Pulse Ox 97.6 F 69 16 120/60 96 12/18/18 05:41 12/18/18 05:41 12/18/18 05:41 12/18/18 05:41 12/18/18 05:41 TAKE THESE MEDICATIONS AT HOME Hydrocodone Bitart/Acetaminophen ([place] 7.5-325) 1 tab PO Q12H PRN PRN Reason: severe pain Last Admin: 12/17/18 20:59 Dose: 1 tab Alprazolam (Xanax) 0.5 mg PO BEDTIME PRN PRN Reason: anxiety Last Admin: 12/17/18 20:59 Dose: 0.5 mg Amlodipine Besylate (Norvasc) 10 mg PO DAILY [facility] Last Admin: 12/18/18 08:52 Dose: 10 mg Cholecalciferol (Vitamin D) 1,000 unit PO DAILY [facility] Last Admin: 12/18/18 08:52 Dose: 1,000 unit Cilostazol (Pletal) 100 mg PO BID [facility] Last Admin: 12/18/18 08:51 Dose: 100 mg Ferrous Sulfate (Ferrous Sulfate) 324 mg PO DAILY [facility] Last Admin: 12/18/18 08:51 Dose: 324 mg Furosemide (Lasix Tab) 20 mg PO QDAC [facility] Last Admin: 12/18/18 06:06 Dose: 20 mg Levofloxacin 250 MG PO DAILY FOR 5 DAYS Last Admin: 12/18/18 Insulin Glargine (Lantus) 50 unit SUBCUT BEDTIME [facility] Last Admin: 12/17/18 20:59 Dose: 30 unit Losartan Potassium (Cozaar) 100 mg PO DAILY [facility] Last Admin: 12/18/18 08:51 Dose: 100 mg Metoprolol Tartrate (Lopressor) 25 mg PO DAILY [facility] Last Admin: 12/18/18 08:51 Dose: 25 mg Nitroglycerin (Nitrostat) 0.4 mg SL PRN PRN PRN Reason: chest pain Nitroglycerin (Nitro-Dur 0.6 Mg/Hr) 1 patch TD DAILY [facility] Last Admin: 12/18/18 08:49 Dose: 1 patch Prednisone (Prednisone) 10 mg PO BIDWM [facility] FOR 5 DAYS Last Admin: 12/18/18 08:50 Dose: 10 mg Warfarin Sodium (Coumadin) 3 mg PO QPM [facility] Last Admin: 12/15/18 16:38 Dose: 3 mg Atorvastatin Calcium 20 mg PO DAILY Last Admin: ALLERGIES hydralazine [Hydralazine] Adverse Reaction (Verified 11/24/18 13:06) insulin detemir [From Levemir] Adverse Reaction (Verified 11/24/18 13:06) Penicillins Adverse Reaction (Verified 11/24/18 13:06) DISCONTINUED MEDICATIONS None MEDICATION CHANGES DECREASE LASIX TO 20 MG DAILY NEW PRESCRIPTIONS: LEVAQUIN 250 MG DAILY FOR 5 DAYS PREDNISONE 10 MG BID WITH MEALS FOR 5 DAYS SMOKING: NOT APPLICABLE DISEASE SPECIFIC EDUCATION: BRONCHITIS LEG EDEMA CHF PRESCRIPTIONS ORAL STEROIDS AND RISK OF GI IRRITATION, BONE DEMINERALIZATION APPOINTMENT LAB REVIEW: 12/18/18 06:45 12/18/18 06:45 12/18/18 06:45: Sodium 132.7 L, Potassium 4.17, Chloride 108.2 H, Carbon Dioxide 17.1 L, Anion Gap 11.57, BUN 72.3 H*, Creatinine 1.46 H, Estimated GFR ( MDRD) 34.00, BUN/Creatinine Ratio 49.52, Glucose 164.1 H, Calcium 7.77 L, Total Bilirubin 0.28, AST 25.9, ALT 29.0, Alkaline Phosphatase 36.1 L, Total Protein 4.85 L, Albumin 2.78 L, Globulin 2.07, Albumin/Globulin Ratio 1.34 12/18/18 06:45: WBC 19.50 H, RBC 2.90 L, Hgb 8.6 L, Hct 28.0 L, MCV 96.6, MCH 29.7, MCHC 30.7 L, RDW Coeff of Kerrie 14.3, Plt Count 251, Immature Gran % (Auto) 1.9, Neut % (Auto) 58.6, Lymph % (Auto) 34.2, [place] % (Auto) 5.0, Eos % (Auto) 0.1, Baso % (Auto) 0.2, Immature Gran # (Auto) 0.4, Neut # (Auto) 11.4 H, Lymph # (Auto) 6.7 H, [place] # (Auto) 1.0, Eos # (Auto) 0.0, Baso # (Auto) 0.0 12/18/18 05:00: PT 26.6 H D, INR 2.74 PLAN: DISCHARGE HOME DIET: CONSISTENT CARBOHYDRATES ACTIVITY: GRADUALLY RESUME TOLERATED USE WALKER ELEVATE LEGS ABOVE THE LEVEL OF THE HIPS WHEN SITTING AND AT NIGHT CONTINUE TO USE OXYGEN AT 2 LITERS AT BEDTIME AND NEEDED CONTINUE TO CHECK BLOOD SUGARS IN THE MORNING AND AT BEDTIME AN APPOINTMENT IS SCHEDULED WITH DR. GARCIA/MARCELLA VAZQUEZ APRN ON December AT 10 AM RESUME COUMADIN TONIGHT CODE STATUS: DNR MS. ESCUDERO IS ALERT AND ORIENTED X 3. SHE LIVES ALONE. SHE IS INDEPENDENT WITH ADL'S AND IS ABLE TO TRANSFER FROM THE BED TO THE CHAIR WITH STAND BY ASSISTANCE OF NURSING. SHE IS AMBULATORY WITH USE OF THE ROLLING WALKER IN THE ROOM AND IN THE HALLWAY. MS. ESCUDERO IS INDEPENDENT WITH ACTIVITIES OF DAILY LIVING. SHE IS CONTINENT OF BOWEL AND BLADDER, BUT DOES HAVE DRIBBLING WITH URINATION. MEAL INTAKES ARE GOOD AT 75-100%. NO ABDOMINAL PAIN OR NAUSEA. CONSTIPATION IS REPORTED BY THE PATIENT WITH A SMALL BM NOTED YESTERDAY. SHE HAS BEEN GIVEN MAG CITRATE 5 OUNCES TODAY, BUT HAS NOT HAD RESULTS. SHE REPORTS SHE PREFERS TO TAKE SEVERAL OF HER GLYCERIN SUPPOSITORIES AT HOME TO GET RELIEF OF THE CONSTIPATION. HYDRATION STATUS IS GOOD. SKIN IS INTACT. RIGHT UPPER EXTREMITY IS EDEMATOUS. MILD ERYTHEMA IS NOTED TO THE LOWER EXTREMITIES. THE LOWER EXTREMITIES ARE DRY AND ROUGH IN APPEARANCE. DME AVAILABLE IN THE HOME: WALKER, GLUCOMETER, OXYGEN AT NIGHT, LIFT CHAIR. MS. 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 MD MARCELLA YOUNGBLOOD APRN
--- NOTE | 2018-12-21 13:22 | DS ---
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 CONTINUE TO USE OXYGEN AT 2 LITERS AT BEDTIME AND NEEDED. CONTINUE TO CHECK BLOOD SUGARS IN THE MORNING AND AT BEDTIME. AN APPOINTMENT IS SCHEDULED WITH DR. GARCIA/MARCELLA VAZQUEZ APRN ON December AT 10 AM RESUME COUMADIN TONIGHT. CODE STATUS: DNR. TAKE THESE MEDICATIONS AT HOME: Hydrocodone Bitart/Acetaminophen ([place] 7.5-325) 1 tab PO Q12H PRN Alprazolam (Xanax) 0.5 mg PO BEDTIME PRN Amlodipine Besylate (Norvasc) 10 mg PO DAILY [facility] Cholecalciferol (Vitamin D) 1,000 unit PO DAILY [facility] Cilostazol (Pletal) 100 mg PO BID [facility] Ferrous Sulfate (Ferrous Sulfate) 324 mg PO DAILY [facility] Furosemide (Lasix Tab) 20 mg PO QDAC [facility] Levofloxacin 250 MG PO DAILY FOR 5 DAYS Insulin Glargine (Lantus) 50 unit SUBCUT BEDTIME [facility] Losartan Potassium (Cozaar) 100 mg PO DAILY [facility] Metoprolol Tartrate (Lopressor) 25 mg PO DAILY [facility] Nitroglycerin (Nitrostat) 0.4 mg SL PRN PRN Nitroglycerin (Nitro-Dur 0.6 Mg/Hr) 1 patch TD DAILY [facility] Prednisone (Prednisone) 10 mg PO BIDWM [facility] FOR 5 DAYS Warfarin Sodium (Coumadin) 3 mg PO QPM [facility] Atorvastatin Calcium 20 mg PO DAILY ALLERGIES: hydralazine [Hydralazine] Adverse Reaction (Verified 11/24/18 13:06) insulin detemir [From Levemir] Adverse Reaction (Verified 11/24/18 13:06) Penicillins Adverse Reaction (Verified 11/24/18 13:06) DISCONTINUED MEDICATIONS: None MEDICATION CHANGES: DECREASE LASIX TO 20 MG DAILY NEW PRESCRIPTIONS: LEVAQUIN 250 MG DAILY FOR 5 DAYS PREDNISONE 10 MG BID WITH MEALS FOR 5 DAYS SMOKING: NOT APPLICABLE DISEASE SPECIFIC EDUCATION: BRONCHITIS LEG EDEMA CHF PRESCRIPTIONS ORAL STEROIDS AND RISK OF GI IRRITATION, BONE DEMINERALIZATION APPOINTMENT DIET: CONSISTENT CARBOHYDRATES ACTIVITY: GRADUALLY RESUME TOLERATED USE WALKER ELEVATE LEGS ABOVE THE LEVEL OF THE HIPS WHEN SITTING AND AT NIGHT HOSPITAL COURSE: This is an 88 year old female who presented to the emergency room with shortness of breath, leg edema and she was found to be in atrial fibrillation. Her hgb was around 8.87 further dropped during her hospital stay to 7 and required a transfusion of 1 unit packed red blood cells. Chest x-ray showed pulmonary edema. She does have a history of stage 4 chronic renal failure which she was in acute failure when she was admitted with a BUN of 34 and creatinine 1.3. She was initially given 40mg of IV Lasix daily for the first 2 days. Her shortness of breath significantly improved however his kidney function went up as a result of diuretic therapy. We did end up administering a bag and a half of IV fluids 1.5 liters of IV fluids and her kidney function has steadily improved but slowly. Today on day of discharge BUN 72 which is much better and creatinine 1.46 which is almost back down to her baseline. WBC is 19 likely due to steroid therapy, hgb 8.6 and hct 28. Her had 2+ leg edema bilaterally initially and this has since resolved. She has wrinkling and just trace edema bilateral lower extremities. She was in atrial fibrillation but rate controlled. She is on Coumadin daily. INR has remained therapeutic. She did develop cough and congestion after her CHF symptoms resolved she developed upper respiratory infection. Chest x-ray showed no pneumonia just changes associated with bronchitis. She was started on Levaquin 500mg IV every 48 hours due to kidney function. Xopenex NEB treatment three times a day as well as Solu- Cortef 125mg IV Q 8 hours. Over the course of several days we were able to decrease her steroids to Prednisone 10mg PO twice a day as well as change her Levaquin to PO. She has tolerated this well. She states that she is ready to go home. Again her leg edema and CHF symptoms have resolved. Blood pressure has been controlled. She has showed consistent improvement in kidney function over the past several days. She has been wearing oxygen at 1-2 liters and she has oxygen at home. We will followup with her next week in the office. She is instructed to go home and stay inside, to wear oxygen when needed and keep her legs elevated. We will decrease her Lasix to 20mg PO daily due to kidney function. Continue Levaquin 250mg daily for 5 days as well as Prednisone 10mg twice a day for 5 days. TIME SPENT: More than 60 minutes. MTDD
--- NOTE | 2018-12-22 14:50 | PN ---
DATE OF SERVICE: 12/16/18 SUBJECTIVE: 88-year-old white female seen with Auto Seat Cover Installer and Nurse Practitioner. The patient is doing well. She is still coughing. She has been on antibiotics. Acute bronchitis, CHF has resolved. Her creatinine is 1.6, BUN 76. With aggressive diuretic therapy, this happened even in the past two to three times. The patient is going to be started on IV fluids. Will watch for fluid overload. REVIEW OF SYSTEMS: CONSTITUTIONAL: No night sweats. No fatigue, malaise, lethargy. No fever or chills. HEENT: Eyes: No visual changes. No eye pain. No eye discharge. ENT: No runny nose. No epistaxis. No sinus pain. No sore throat. No odynophagia. No congestion. RESPIRATORY: Cough and congestion with mildly yellow sputum. No hemoptysis. No shortness of breath. CARDIOVASCULAR: No angina symptoms. No CHF symptoms. No atypical chest pain for CAD. No palpitations. No PND. No orthopnea. GASTROINTESTINAL: No abdominal pain. No nausea or vomiting. No diarrhea or constipation. No hematemesis. No hematochezia. GENITOURINARY: No urgency. No frequency. No dysuria. No hematuria. No obstructive symptoms. No discharge. No pain. No significant abnormal bleeding. MUSCULOSKELETAL: No musculoskeletal pain; no joint swelling. NEUROLOGICAL: No headache. No neck pain. No syncope. No seizures. No dizziness. PSYCHIATRIC: Not anxious. No depression. No suicidal thoughts. No homicidal thoughts. SKIN: No rash. No lesions. No wounds. ENDOCRINE: No unexplained weight loss. No weight gain. HEMATOLOGIC/LYMPHATIC: No anemia. No purpura. No petechiae. No prolonged or excessive bleeding. No palpable lymph nodes. PHYSICAL EXAMINATION: VITAL SIGNS: Temperature 98.7, pulse 74, respiratory rate 18, blood pressure 158 /67, pulse ox 100% with 2L. HEENT: Head normocephalic, atraumatic. Eyes: Extraocular muscles are intact. Pupils are equal, round and reactive to light and accommodation. Ears: No lesions. Nose appeared normal. Throat: No exudate or erythema. NECK: Supple. No JVD, no carotid bruit. No lymphadenopathy or thyromegaly. LUNGS: Decreased breath sounds but clear to auscultation. Percussion note normal. Chest symmetrical. HEART: S1, S2, no S3. The patient has Grade II/ systolic murmur. No cyanosis or clubbing. No ascites. Pulses: Dorsalis pedis and posterior tibial pulses +1 to +2 bilaterally. ABDOMEN: Soft. Nontender. Bowel sounds active. No CVA tenderness. No mass felt. EXTREMITIES: No pedal edema. Full range of motion of all extremities, equal. NEUROLOGIC: No focal deficit. Cranial nerves II through XII are grossly intact. No headache, no double vision or headache. SKIN: Not dry. Intact. Turgor - normal. LYMPHATIC: No palpable lymph nodes/no lymphedema. MUSCULOSKELETAL: Normal joints with no swelling. Muscle tone is normal. LABS: Creatinine 1.6, BUN 76, potassium 3.6. Hemoglobin 9, hematocrit 28. ASSESSMENT: The patient has no evidence of active GI bleed. The patient received a couple units of packed red cells and is known to have leukemia followed by medical claims manager. Intermittently has been given Procrit shot but she needed 2 units of packed red cells because of her CHF and failure to thrive. TIME SPENT: More than 30 minutes. Plan and coordination of the patient's care discussed in the presence of nurse. BRIGHT
== END 2018-12-18 13:13 | disposition home or self-care (01) | DRG 292 ==
LOC: ED 20:06 → MEDSURG A 21:25
PROVIDERS: ADMIT Internal Medicine; ATTEND Internal Medicine
PROC: 30233N1 Transfusion of Nonautologous Red Blood Cells into Peripheral Vein, Percutaneous Approach (ICD-10-PCS; principal; 2018-12-12)
DX: I50.23 Acute on chronic systolic (congestive) heart failure (principal); J81.1 Chronic pulmonary edema; J20.9 Acute bronchitis, unspecified; I10 Essential (primary) hypertension; I48.91 Unspecified atrial fibrillation; I73.9 Peripheral vascular disease, unspecified; I25.10 Atherosclerotic heart disease of native coronary artery without angina pectoris; D64.9 Anemia, unspecified; D46.9 Myelodysplastic syndrome, unspecified; N18.3 Chronic kidney disease, stage 3 (moderate); E11.9 Type 2 diabetes mellitus without complications; K59.00 Constipation, unspecified; K44.9 Diaphragmatic hernia without obstruction or gangrene; K57.90 Diverticulosis of intestine, part unspecified, without perforation or abscess without bleeding; K21.9 Gastro-esophageal reflux disease without esophagitis; M19.90 Unspecified osteoarthritis, unspecified site; F41.9 Anxiety disorder, unspecified; R05 Cough; R06.00 Dyspnea, unspecified; R06.2 Wheezing
CPT/HCPCS: 36415; 36430; 80048; 80053; 81001; 82550; 82803; 82962; 83605; 83880; 84145; 84484; 85007; 85014; 85018; 85025; 85610; 86850; 86880; 86900; 86922; 87040; 87086; 93005; 93010; 94640; 96374; 96375; 97802; 99284